=== PATIENT | male | born 1975 | race Hispanic/Latino ===

== ENCOUNTER 2018-07-28 22:48 | Inpatient (IN) | payer MEDICAID, OTHER, SELFPAY ==
[2018-07-28] MEDS ORDERED: Morphine 4 MG/ML VIAL ONE (23:33)
[2018-07-29 00:34] LABS: INR-International Normal Ratio 1.1; Prothrombin Time 14.3 SEC (12.0-14.7)
[2018-07-29 00:50] LABS: Acetaminophen Less than 6.0 mcg/mL (10.0-30.0)
[2018-07-29 01:12] LABS: HBCM Index 0.06 S/CO (0-0.79); HBSAg Index 0.29 S/CO (0-0.99); Hep A IgM AB Non-Reactive (NonReactive); Hep A IgM S/CO 0.16 S/CO (0-0.79); Hep B Surf Ag Non-Reactive S/CO (NonReactive); Hep C IgG Ab Non-Reactive (NonReactive); Hep C Index 0.08 S/CO (0-0.79); Hepatitis B Core IgM Abs Non-Reactive (NonReactive)
[2018-07-29] MEDS ORDERED: Potassium Chloride 40 MEQ in Sodium Chloride 0.9% 250 ML 250 ML IVPB SCH (01:15)
[2018-07-29] MEDS ORDERED: Potassium Chloride 20 MEQ TAB PO SCH ×2 (03:00→05:45)
[2018-07-29] MEDS ORDERED: Mag-Al 1200 mg/1200 mg/30 ML UDCUP PO PRN (03:03)
[2018-07-29] MEDS ORDERED: traMADol HCl 50 MG TAB PO PRN (03:03)
[2018-07-29] MEDS: Lorazepam 2 MG/ML VIAL SLOW IVP PRN ×3 (04:07→20:38)
[2018-07-29 04:27] LABS: ALT (SGPT) 46 U/L (8-55); AST (SGOT) 218 U/L (5-34); Albumin 2.7 g/dL (3.5-5.0); Alkaline Phosphatase 250 U/L (40-150); Anion Gap 18 mmol/L (10-20); BUN (Urea Nitrogen) Less than 4 mg/dL (8.9-20.6); Bilirubin, Total 4.6 mg/dL (0.2-1.2); Calc. Creatinine Clearance 190 mL/min (70-130); Calcium 8.1 mg/dL (7.8-10.44); Carbon Dioxide 31 mmol/L (22-29); Chloride 92 mmol/L (98-107); Estimated GFR-MDRD Greater than 90; Globulin 3.1 g/dL (2.4-3.5); Glucose 95 mg/dL (70-105); Protein, Total 5.8 g/dL (6.0-8.3); Sodium 139 mmol/L (136-145)
[2018-07-29 05:08] LABS: Potassium 2.3 mmol/L (3.5-5.1)
[2018-07-29] MEDS ORDERED: Folic Acid 1 MG TAB PO SCH (09:00)
[2018-07-29] MEDS ORDERED: Magnesium Sulfate 2 GM in Sodium Chloride 0.9% 100 ML IVPB SCH (09:45)
--- NOTE | 2018-07-29 10:11 | RAD ---
SINGLE VIEW OF THE CHEST: Comparison: None. History: Shortness of breath. FINDINGS: Single view of the chest shows a normal sized cardiomediastinal silhouette. There is no evidence of c onsolidation, mass, or pleural effusion. The bones are unremarkable. IMPRESSION: No evidence of acute cardiopulmonary disease. POS: [facility]
[2018-07-29] MEDS: Morphine 4 MG/ML VIAL SLOW IVP PRN ×3 (10:40→20:37)
[2018-07-29] MEDS: Magnesium 2 GM/50 ML 2 GM in Premix Bag 1 BAG IVPB SCH ×2 (10:41→13:18)
[2018-07-29] MEDS: Piperacillin/Tazobactam 3.375 GM in Sodium Chloride 0.9% 100 ML IVPB SCH ×3 (12:09→23:37)
[2018-07-29 12:43] LABS: Clarity Clear (Clear)
[2018-07-29 12:44] LABS: Leukocyte Unable to Interpret (Negative); Nitrite Unable to Interpret (Negative); Specific Gravity, Urine 1.019 (1.002-1.036); pH, Urine 6.4 (5.0-9.0)
[2018-07-29 12:45] LABS: Bilirubin Unable to Interpret (Negative); Blood, Urine Unable to Interpret (Negative); Glucose, Urine (Dipstick) Unable to Interpret mg/dL (Negative); Protein, Urine (Dipstick) Negative (Neg-Trace); Urobilinogen UNABLE TO INTERPRET mg/dL (0.2-1.0)
[2018-07-29 12:53] LABS: Bacteria/HPF Rare-Few HPF (None Seen)
[2018-07-29 12:54] LABS: Hyaline Casts/LPF 0-3 HYALINE CAST LPF (0-3 Hyaline); Squamous Epithelial 0-3 HPF (0-3)
[2018-07-29 13:18] LABS: ALT (SGPT) 45 U/L (8-55); AST (SGOT) 233 U/L (5-34); Albumin 2.7 g/dL (3.5-5.0); Alkaline Phosphatase 246 U/L (40-150); Anion Gap 17 mmol/L (10-20); BUN (Urea Nitrogen) 5 mg/dL (8.9-20.6); Bilirubin, Total 6.6 mg/dL (0.2-1.2); Calc. Creatinine Clearance 169 mL/min (70-130); Calcium 7.8 mg/dL (7.8-10.44); Carbon Dioxide 27 mmol/L (22-29); Chloride 95 mmol/L (98-107); Estimated GFR-MDRD Greater than 90; Glucose 129 mg/dL (70-105); Potassium 3.2 mmol/L (3.5-5.1); Protein, Total 5.7 g/dL (6.0-8.3); Sodium 136 mmol/L (136-145)
[2018-07-29] MEDS: Multivitamins, Adult 10 ML, Folic Acid 1 MG, Thiamine HCl 100 MG in Dextrose 5 %-0.45 %... IV SCH (13:57)
[2018-07-29] MEDS: Potassium Chloride 20 MEQ TAB PO SCH ×2 (14:05→18:41)
--- NOTE | 2018-07-29 14:29 | HP ---
CHIEF COMPLAINT: Abdominal pain and fever. HISTORY OF PRESENT ILLNESS: The patient is a 43-year-old male, who is an alcoholic, who drinks several drinks a day for more than 10 years, who presented to the emergency room in [facility] with chief complaint of abdominal pain. He was scanned and the scan showed hepatomegaly with diffuse infiltration of the liver without any focal problems. His potassium was down to 2.7 and then he was sent to the [facility]Emergency Room in [place] for further evaluation and possible admission. His generalized abdominal pain is going on for approximately three days. He had some nonbilious, nonbloody vomits. He had some nausea. He noticed that his eyes and skin get yellow when he drinks more. His alcohol level in [facility] was 220 and leukocytosis was 14.5. Liver function tests were elevated. He denied any fever or chills, but after he was sent to [facility] this morning, he started having temperature of 101.5. He feels short of breath. He feels the chest is pushed from the inside by his liver. PAST MEDICAL HISTORY: Cellulitis. PAST SURGICAL HISTORY: 1. Left arm surgery. 2. Appendectomy. SOCIAL HISTORY: He drinks every day, it varies, but he drinks a lot. He denies any illicit drug use. He dips one can a day. ALLERGIES: NONE. MEDICATIONS: Current medications: None. REVIEW OF SYSTEMS: All 14 systems were reviewed and they were negative except for those symptoms which were mentioned in HPI. PHYSICAL EXAMINATION: VITAL SIGNS: Blood pressure is 130/78, pulse is 111, respiratory rate is 20, O2 saturation is 94% on room air, his temperature is 101.6. The temperature at the time of admission was 98.7. HEENT: His head is atraumatic, normocephalic. Eyes PERRLA. Sclerae are present with some icteric changes. Conjunctiva is reddish. Oral mucosa is somewhat dry. NECK: Supple. No lymphadenopathy. LUNGS: Breath sounds diminished at both bases. No crackles. No rales. No wheezing. HEART: S1, S2 normal. No S3, no S4. He is tachycardic. ABDOMEN: Distended and tender in the upper part. Edge of the liver is palpable approximately 3 cm below the costal margin. Bowel sounds are present. I do not feel any spleen. EXTREMITIES: No clubbing, cyanosis, or edema. NEUROLOGICAL: He is alert and oriented x4. There are no any sensory or motor deficits present. Cranial nerves are intact. LABORATORY DATA: White count of 14.5, hemoglobin 12.7, hematocrit 34.6, platelet count is 347, neutrophils 80.9. INR 1.1, PT of 14.3, aPTT 29.2. Sodium of 139, potassium 2.3, chloride 92, CO2 of 31, BUN 4, creatinine 0.64, magnesium 1.3, total bilirubin 4.6, AST 218, ALT 46, alkaline phosphatase 250, serum protein 5.8, albumin 2.7, globulin 3.1. Urinalysis showed moderate amount of blood, small amount of bilirubin. Toxicology showed less than 6 of acetaminophen. Plasma alcohol 220. Serology was negative for hepatitis A, B, or C. EKG normal sinus rhythm with some tachycardia, some T-wave changes in V3, V4, and V5, abnormal EKG. A CT of the abdomen done in [place] showed tremendous hepatomegaly with diffuse fatty infiltration of the liver. IMPRESSION: 1. Acute abdominal pain with evidence of alcoholic liver disease. Now the patient is developing fever. There is suspicion of some infectious process possible going on in his abdomen, although the CT did not show anything specific. We will have watch hairspring assembler Dr. Beckett to see the patient. We will start him on Zosyn after we get urine culture and blood cultures. He will receive banana bag, and we will check his CBC and comp this morning. We will use morphine for the pain since the tramadol is not really helping much. 2. Hypokalemia. We will check his potassium level today. He was given some replacement yesterday. 3. Hypomagnesemia. We will recheck his magnesium level and replace magnesium, i.e. hypomagnesemic. 4. Alcoholic liver failure. 5. Alcohol intoxication. His level was 220 yesterday. We will use benzodiazepines p.r.n. for possible withdrawal symptoms, so plan is admission to full admit to the medical floor plus monitoring, because of his changes in electrocardiogram, we will check his troponin every 4 hours x2. We will start him on Zosyn after we have cultures on urine and blood. GI consult is pending. We will check his magnesium and potassium this morning and replace as needed and DVT prophylaxis with SCDs and Lovenox. Job ID: [id number]
[2018-07-29] MEDS ORDERED: Acetaminophen 325 MG TAB PO SCH (21:00)
--- NOTE | 2018-07-29 23:14 | CON ---
DATE OF CONSULTATION: REASON FOR CONSULTATION: Alcoholic hepatitis. HISTORY OF PRESENT ILLNESS: Mr. Li is a 43-year-old who came to the emergency room last night with complaints of abdominal discomfort, worsening bloating, and development of jaundice. He initially presented to the hospital in [place], was transferred here. He notes his urine has been dark for about 2 weeks. He denies any exposure to anyone, who had hepatitis. Denies any recent sexual contacts, use of needles or IV drugs. He, however, had been drinking heavily for many days. Had issues with this before and stopped in the past, but for the past several months, has been drinking every day. In the emergency room in [place], he was noted to have elevated bilirubin, fatty liver with hepatomegaly, and hypokalemia. He is found to have a low magnesium and a mildly elevated white count of 14,000. No fever or chills. He did have a temperature of 101.5 this morning. He was empirically started on antibiotics. He has been able to tolerate some liquids and eating a little bit. He has been started on multivitamin, thiamine, and folate. PAST MEDICAL HISTORY: Cellulitis. PAST SURGICAL HISTORY: 1. Left arm surgery. 2. Appendectomy. SOCIAL HISTORY: He drinks daily. His last drink was yesterday. He does not use any drugs. He denies IV drug use. He dips snuff a can a day. ALLERGIES: NONE. MEDICATIONS: At home, he was taking none. Presently, he is on; 1. P.r.n. Maalox. 2. Ativan p.r.n. 3. Morphine p.r.n. 4. Multivitamin. 5. Thiamine. 6. Folate. 7. D5 normal. 8. Protonix. 9. Zosyn. 10. He was given oral potassium replacement. FAMILY HISTORY: Negative for liver disease. REVIEW OF SYSTEMS: Positive for previous alcohol withdrawal episodes. Negative for seizures. Negative for hematemesis, melena, or hematochezia. Negative for confused or altered mental status recently. He is accompanied by family members with him. He has some generalized arthralgias. Denies any skin rashes or lesions. PHYSICAL EXAMINATION: VITAL SIGNS: Temperature 101.6 at 7:40 this morning, 98.9 at 11; pulse 111 to 102; respiratory rate 16, O2 saturation 92% on room air, and blood pressure 123/84. GENERAL: He is resting comfortably in bed. He is not in any distress. He is breathing comfortably. He is somewhat disheveled. He is mildly icteric. NECK: Supple. No adenopathy. LUNGS: Clear. HEART: Regular rate and rhythm. No rubs, gallops, or murmurs. ABDOMEN: Soft and nontender. There is palpable hepatomegaly. There is no shifting dullness or fluid wave. The abdomen is dull, but I think is mainly due to his large liver. EXTREMITIES: Revealed trace edema. There is palmar erythema in his hands. There is diffuse spider angioma of the chest. NEUROLOGIC: He has no hyperreflexia or overt asterixis. LABORATORY STUDIES: White count 14.5 last night, hemoglobin 12.7, and platelet count 347. INR 1.1. Sodium 139 and today is 136, potassium is 2.3 and today 3.2, chloride 92, bicarb 31, BUN and creatinine 4 and 0.6 and today 5 and 0.7, and glucose 95 and today 125. Magnesium 1.3. Bilirubin 4.6, today 6.6; AST was 218, today 233; ALT 46 yesterday, 49 today; alkaline phosphatase 250, 246 today. Albumin 2.7, protein 5.8. Urine showed 4 to 6 white blood cells, no bacteria. Plasma alcohol is 220. Acetaminophen level less than 6. Hep A, B, and C negative. IMAGING STUDIES: Hepatomegaly Chest x-ray, no acute cardiopulmonary disease . ASSESSMENT: 1. Likely alcoholic hepatitis by history. Presently, he has good preserved renal function and mild leukocytosis. He has had some electrolyte abnormalities with hypokalemia and hypomagnesemia. He has no signs of overt hepatic encephalopathy. There is some fever today, the etiology is unclear. He has a nonfocal exam. This may all be related to his hepatitis, although risk of aspiration to be considered. He did have a negative chest x-ray. He does not appear septic. He has been started on empiric antibiotics. 2. History of delirium tremens and alcohol withdrawal. 3. Alcoholism. RECOMMENDATIONS: 1. Agree with prophylactic PPI, IV fluids, multivitamin, thiamine, folate, and [place] protocol as he is high likelihood of having alcohol withdrawals. We will keep him in hospital and treat him through that to see if we get him into a rehab program. He expressed interest in wanting to stop drinking alcohol altogether. 2. Supportive care. Otherwise monitor electrolytes daily. We will follow along with you. Job ID: [id number]
[2018-07-29] MEDS: Lorazepam 1 MG TAB PO PRN (23:37)
[2018-07-30] MEDS: Morphine 4 MG/ML VIAL SLOW IVP PRN ×4 (00:30→20:11)
[2018-07-30 05:54] LABS: Phosphorus 1.7 mg/dL (2.3-4.7)
[2018-07-30 05:59] LABS: ALT (SGPT) 40 U/L (8-55); AST (SGOT) 223 U/L (5-34); Albumin 2.8 g/dL (3.5-5.0); Alkaline Phosphatase 243 U/L (40-150); Anion Gap 16 mmol/L (10-20); BUN (Urea Nitrogen) 5 mg/dL (8.9-20.6); Bilirubin, Total 9.5 mg/dL (0.2-1.2); Calc. Creatinine Clearance 181 mL/min (70-130); Calcium 7.4 mg/dL (7.8-10.44); Carbon Dioxide 27 mmol/L (22-29); Chloride 95 mmol/L (98-107); Estimated GFR-MDRD Greater than 90; Globulin 2.8 g/dL (2.4-3.5); Glucose 123 mg/dL (70-105); Magnesium 1.8 mg/dL (1.6-2.6); Potassium 3.8 mmol/L (3.5-5.1); Protein, Total 5.6 g/dL (6.0-8.3); Sodium 134 mmol/L (136-145)
[2018-07-30] MEDS: Piperacillin/Tazobactam 3.375 GM in Sodium Chloride 0.9% 100 ML IVPB SCH ×3 (06:09→18:32)
[2018-07-30 06:14] LABS: #Basophils 0.1 thou/uL (0.0-0.2); #Eosinphils 0.1 thou/uL (0.0-0.7); #Monocytes 0.5 thou/uL (0.11-0.59); %Basophils 0.5 % (0.0-1.0); %Eosinophils 0.7 % (0.0-10.0); %Lymphocytes 9.3 % (21.0-51.0); %Monocytes 4.7 % (0.0-10.0); %Neutrophils 84.8 % (42.0-75.0); Hemoglobin 11.4 g/dL (14.0-18.0); MDiff Complete? YES; Mean Corpuscular HGB CONC 33.4 g/dL (32.0-36.0); Mean Corpuscular Hemoglobin 35.3 pg (27.0-31.0); Mean Platelet Volume 7.3 fL (7.4-10.4); Platelet Count 277 thou/uL (130-400); Red Blood Cell (RBC) Count 3.24 mill/uL (4.70-6.10); Target Cells SLIGHT = 2-5 cells (100X) (0-1/hpf); White Blood Cell (WBC) Count 10.6 thou/uL (4.8-10.8)
[2018-07-30] MEDS ORDERED: Sodium Phosphate 15 MMOL in Sodium Chloride 0.9% 250 ML 250 ML IVPB SCH (06:15)
[2018-07-30] MEDS: Lorazepam 1 MG TAB PO PRN (09:06)
[2018-07-30] MEDS: Multivitamins, Adult 10 ML, Folic Acid 1 MG, Thiamine HCl 100 MG in Dextrose 5 %-0.45 %... IV SCH (09:08)
[2018-07-30] MEDS ORDERED: Lorazepam 1 MG TAB PO SCH ×2 (11:00→13:30)
[2018-07-30] MEDS ORDERED: Enoxaparin Sodium 40 MG/0.4 ML SYRINGE SC SCH ×2 (11:30→13:30)
--- NOTE | 2018-07-30 12:09 | PRG ---
DATE OF SERVICE: 07/30/2018 SUBJECTIVE: The patient is seen and examined at the bedside. He is quite uncomfortable. His abdominal pain is rated at 4 on a scale from 1 to 10. He was able to go to the bathroom today and had small bowel movement. He does not have much appetite. OBJECTIVE: VITAL SIGNS: His blood pressure is 133/79, temperature is 99.1, maximal temperature was 102.9 last night, pulse is 111, respiratory rate 24, and O2 saturation is 95% on room air. HEENT: His head is atraumatic and normocephalic. Eyes, PERRLA. Sclerae somewhat icteric now. Conjunctivae pinkish. Oral mucosa is moist. NECK: Supple. LUNGS: Breath sounds diminished at both bases. HEART: S1 and S2. Tachycardic. No S3, no S4. ABDOMEN: Distended, somewhat tender to palpation in the upper parts. Liver edge is palpable approximately 4 cm below the costophrenic margin. Bowel sounds are present, active. EXTREMITIES: No clubbing, cyanosis, or edema. NEUROLOGIC: He is alert and oriented x4. There are no any sensory or motor deficits present. Cranial nerves are intact. LABORATORY DATA: Labs show white count of 10.6, hemoglobin of 11.4, hematocrit 34.1, platelet count is 277, neutrophils 84.8. Sodium of 134, potassium 3.8, chloride 95, CO2 of 27, BUN 5, creatinine 0.67, glucose 123, calcium 7.4, phosphorus 1.7, magnesium 1.8. Total bilirubin 9.5, AST 223, ALT 40, alkaline phosphatase 243, serum total protein 5.6, albumin 2.8, globulin 2.8. Urinalysis showed orange color, 7 to 10 rbc's, 4 to 6 wbc's. Microbiology; blood cultures negative. Urine cultures negative so far. IMPRESSION: 1. Acute abdominal pain with evidence of alcoholic liver disease with some fever. Cultures are negative. His LFTs are basically the same except for bilirubin, which is up from 6 to 9. Most likely, this is stasis, not from necrosis. 2. Hypokalemia, corrected. 3. Hypomagnesemia, corrected. 4. Hypophosphatemia, to be replaced. 5. Alcoholic liver failure. 6. Alcohol intoxication. 7. The patient started having some withdrawal symptoms. We will change his p.r.n. benzodiazepines to schedule three times a day. Lorazepam 1 mg plus p.r.n. The patient was seen by Dr. Beckett for GI consultation. He agrees with the treatment. He agrees with a banana bag daily. We will continue replacement of missing and deficient minerals and close observation of the patient. We will continue morphine. We will continue deep venous thrombosis prophylaxis with sequential compression device, and we will start Lovenox. Job ID: [id number]
--- NOTE | 2018-07-30 15:22 | RAD ---
TWO VIEW ABDOMEN: Supine upright views obtained. Indication: Abdominal pain. FINDINGS: Bowel gas pattern unremarkable. Scattered stool and gas seen throughout the colon. Some scattered sma ll bowel gas is seen which appears nonspecific. No evidence of mass. No evidence of free intraperiton eal air. No abnormal calcifications. Surgical clips overlie the lower right abdomen. IMPRESSION: Unremarkable bowel gas pattern. POS: [facility]
[2018-07-30] MEDS: Lorazepam 1 MG TAB PO SCH ×2 (16:00→20:01)
[2018-07-30] MEDS: Lorazepam 2 MG/ML VIAL SLOW IVP PRN (18:40)
[2018-07-30] MEDS: Ibuprofen 200 MG TAB PO PRN (23:52)
[2018-07-31] MEDS: Morphine 4 MG/ML VIAL SLOW IVP PRN ×3 (01:35→20:18)
[2018-07-31] MEDS: Piperacillin/Tazobactam 3.375 GM in Sodium Chloride 0.9% 100 ML IVPB SCH ×4 (01:38→17:57)
[2018-07-31 05:02] LABS: #Basophils 0.1 thou/uL (0.0-0.2); #Eosinphils 0.1 thou/uL (0.0-0.7); #Lymphocytes 0.9 thou/uL (1.20-3.40); #Monocytes 0.7 thou/uL (0.11-0.59); #Neutrophils 9.6 thou/uL (1.40-6.50); %Basophils 0.5 % (0.0-1.0); %Eosinophils 0.5 % (0.0-10.0); %Lymphocytes 8.1 % (21.0-51.0); %Monocytes 6.1 % (0.0-10.0); %Neutrophils 84.8 % (42.0-75.0); Hemoglobin 10.7 g/dL (14.0-18.0); Mean Corpuscular HGB CONC 33.6 g/dL (32.0-36.0); Mean Corpuscular Hemoglobin 35.4 pg (27.0-31.0); Mean Platelet Volume 7.2 fL (7.4-10.4); Platelet Count 260 thou/uL (130-400); RBC Distribution Width 14.1 % (11.5-14.5); Red Blood Cell (RBC) Count 3.03 mill/uL (4.70-6.10); White Blood Cell (WBC) Count 11.3 thou/uL (4.8-10.8)
[2018-07-31 05:12] LABS: ALT (SGPT) 34 U/L (8-55); AST (SGOT) 163 U/L (5-34); Albumin 2.6 g/dL (3.5-5.0); Alkaline Phosphatase 192 U/L (40-150); Anion Gap 13 mmol/L (10-20); BUN (Urea Nitrogen) 7 mg/dL (8.9-20.6); Bilirubin, Total 11.2 mg/dL (0.2-1.2); Calc. Creatinine Clearance 166 mL/min (70-130); Calcium 7.4 mg/dL (7.8-10.44); Carbon Dioxide 24 mmol/L (22-29); Chloride 99 mmol/L (98-107); Estimated GFR-MDRD Greater than 90; Globulin 2.8 g/dL (2.4-3.5); Glucose 146 mg/dL (70-105); Magnesium 1.7 mg/dL (1.6-2.6); Potassium 3.3 mmol/L (3.5-5.1); Protein, Total 5.4 g/dL (6.0-8.3); Sodium 133 mmol/L (136-145)
--- NOTE | 2018-07-31 08:22 | ULT ---
HEPATIC SONOGRAM WITH DUPLEX EVALUATION: HISTORY: Hepatitis. FINDINGS: Echogenic sludge is present within the gallbladder lumen without shadowing stone visible. Gallbladde r wall is somewhat thickened at 0.8 cm with a small amount of pericholecystic fluid. The patient was reportedly tender over the gallbladder at the time of the exam. The common duct is 0.5 cm. The andrew er is diffusely echogenic and measures up to 24.9 cm. The spleen is 13.0 cm. Minimal free fluid. Good color and spectral Doppler flow within the hepatic and splenic arteries. Portal venous flow is towards the liver. Hepatic venous flow is towards the IVC. IMPRESSION: 1. Biliary sludge is evidence of chronic gallbladder dyskinesis. 2. Findings of acute cholecystitis include wall thickening, a small amount of pericholecystic fluid, and positive sonographic Hawkins's sign. In the setting of acute hepatitis, however, these findings could also be present. Correlation with other clinical findings of acute cholecystitis is required. The gallbladder is not overly distended. 3. Hepatosteatosis. Hepatosplenomegaly. 4. No other findings of portal venous hypertension. There is appropriate directional flow of the po rtal vein. POS: [facility]
[2018-07-31] MEDS ORDERED: Potassium Chloride 20 MEQ TAB PO SCH (09:00)
[2018-07-31] MEDS ORDERED: Potassium Phosphate 30 MMOL in Sodium Chloride 0.9% 500 ML IVPB SCH (09:00)
[2018-07-31] MEDS: Enoxaparin Sodium 40 MG/0.4 ML SYRINGE SC SCH (09:17)
[2018-07-31] MEDS: Folic Acid 1 MG TAB PO SCH (09:19)
[2018-07-31] MEDS: Lorazepam 1 MG TAB PO SCH ×3 (09:19→20:12)
[2018-07-31] MEDS: Multivit, Therapeutic 1 TAB PO SCH (09:19)
--- NOTE | 2018-07-31 10:38 | PRG ---
DATE OF SERVICE: 07/30/2018 GI FOLLOWUP SUBJECTIVE: Mr. Deleon notes his abdomen, stools giving him discomfort diffusely. He has had no nausea or vomiting. He is tolerating a diet. He did have a fever last night to 102. He is mildly tremulous. He is on DT protocol, and that is improved. OBJECTIVE: VITAL SIGNS: Temperature max 102, temperature current 99.1, pulse 111, and blood pressure 133/79. GENERAL: He is resting in bed, sleeping when I came in. LUNGS: Clear. HEART: Regular rhythm. ABDOMEN: Protuberant and fairly firm. Bowel sounds are positive. EXTREMITIES: No clubbing, cyanosis, or edema. LABORATORY DATA: White count 10.6, hemoglobin 11.4, MCV 106, and platelet count 277. Sodium 134, potassium 3.8, BUN and creatinine 5 and 0.67, calcium 7.4, magnesium 1.8, phosphorus 1.7, bilirubin 9.5, AST and ALT are 223 and 40, alkaline phosphatase is 243. Urine is negative. Urine cultures are negative. Blood cultures are negative to date. ASSESSMENT: 1. Alcoholic hepatitis. 2. Severe hepatomegaly. 3. Fever, likely related to alcoholic hepatitis. Cultures are negative thus far. He is on empiric antibiotics from Internal Medicine. RECOMMENDATIONS: Plain film of abdomen upright to make sure no free air. Ultrasound Doppler of liver. Continue supportive care, multivitamin, thiamine, folate, and diet. Job ID: [id number]
--- NOTE | 2018-07-31 13:32 | PRG ---
DATE OF SERVICE: 07/31/2018 SUBJECTIVE: The patient is seen and examined at the bedside. He is feeling somewhat better, but still complaining about abdominal pain. He is able to tolerate his food. He moved his bowels couple of times, but abdomen is still distended according to him. OBJECTIVE: VITAL SIGNS: Blood pressure is 119/93, pulse is 98, temperature 97.9, respiratory rate is 18, and O2 saturation is 97% on room air. HEENT: His head is atraumatic and normocephalic. Eyes are PERRLA. Sclerae are icteric significantly. Oral mucosa is moist. NECK: Supple. LUNGS: Breath sounds diminished at both bases. HEART: S1 and S2 normal. No S3. No S4. ABDOMEN: Distended, tender in the epigastric area on both sides. Bowel sounds are present. EXTREMITIES: No clubbing, cyanosis, or edema. NEUROLOGIC: He is alert and oriented x4. There are no any motor or sensory deficits present. Cranial nerves are intact. LABORATORY DATA: White count of 11.3, hemoglobin of 10.7, hematocrit 31.9, and platelet count is 260,000. Sodium of 133, potassium 3.3, chloride 99, CO2 of 24, BUN 7, creatinine 0.71, glycemia is ranging from 163 to 233. His magnesium is 1.7. Total bilirubin is up to 11.2. AST 163 and ALT 34, alkaline phosphatase down to 192. Serum total protein 5.4, albumin 2.6. Microbiology, no new findings. Ultrasound of the abdomen showed echogenic sludge within the gallbladder lumen without shadowing stone visible. The gallbladder wall thickness is 0.8 cm with a small amount of pericholecystic fluid, common bile duct was 0.5, and the liver was diffusely echogenic and measures up to 24.9 cm. The spleen was 13.0 cm. There was minimal free fluid. There was good color and spectral Doppler flow within the hepatic and splenic arteries and portal venous flow was towards the liver and hepatic venous flow was towards the inferior vena cava. Abdominal x-ray did not show any acute abnormalities. IMPRESSION: 1. Abdominal pain, still significant with elevated bilirubin and finding on ultrasound of the abdomen. I am going to contact general surgeon to take a look at him and see whether this could be representing acute cholecystitis on the top of his acute alcoholic hepatitis. 2. Acute alcoholic hepatitis with hepatosplenomegaly. His AST improved and alkaline phosphatase is better, but his bilirubin is still climbing up. This is most likely cholestatic. 3. Hypokalemia still for supplementation. 4. Hypomagnesemia and hypophosphatemia, corrected. 5. Alcohol intoxication. 6. Impending alcohol withdrawal, so plan is to get a General Surgery consult with Dr. Starr. The case was discussed. Continue current regimen with lorazepam for his alcohol withdrawals. Continue daily banana bag. Continue p.r.n. morphine and continue DVT prophylaxis. Job ID: [id number]
--- NOTE | 2018-07-31 18:31 | PRG ---
DATE OF SERVICE: 07/31/2018 SUBJECTIVE: Mr. Deleon downstairs in a HIDA scan at this time. I talked with his nurse. He still complains of just vague abdominal discomfort. He has had no vomiting or melena. OBJECTIVE: VITAL SIGNS: Temperature was 101 last night, but today has been 99 or 97, blood pressure 119/93, presently temperature is 97.9, and pulse is 98. Exam is deferred while he is in HIDA scan. LABORATORY DATA: White count is 11.3, hemoglobin 10.7, platelet count 270. Chemistries; sodium 133, potassium 3.3. BUN and creatinine are 7 and 0.7. Bilirubin is up to 11.2. AST and ALT 163 and 34, down from 233 and 45 on admission. Alkaline phosphatase is 118, down from 146 on admission. Plain films of the abdomen are showing no overt free air. Ultrasound liver Doppler showed no evidence of portal vein thrombosis. Massive hepatomegaly with fatty liver. Biliary sludge. There is some thickening of the gallbladder wall and some slight pericholecystic fluid. ASSESSMENT: Severe alcoholic hepatitis. I suspect the biliary findings on ultrasound are related to portal hypertension and severe hepatitis. I would recommend he not have a cholecystectomy unless he becomes septic. If there is concern that he has cholecystitis this can be treated with antibiotics at this time. All of his liver function tests were going down except for his bilirubin, which is going up, which is very characteristic of alcoholic hepatitis. I suspect his bilirubin may plateau around 17 or 20 before this is all over. The fever is very consistent with course of alcoholic hepatitis as well. He shows no overt signs of infection, respiratory or urologic tracts at this time. He has no signs of encephalopathy and he seems to have completed his alcohol withdrawals. RECOMMENDATIONS: It is okay to proceed with a HIDA scan, although if it was positive, I would not recommend cholecystectomy, I want to treat him with antibiotics. He would be a high risk of morbidity and mortality with an abdominal surgery in light of his severe alcoholic hepatitis. We will follow along with you. Job ID: [id number]
--- NOTE | 2018-07-31 20:16 | NM ---
NUCLEAR MEDICINE HEPATOBILIARY SCAN: History: 43-year-old male with history of cholecystitis versus alcohol hepatitis with hepatomegaly and jaundic e and abdominal pain. FINDINGS: The patient was given Ensure drink 4 hours prior to the scan. The patient was injected with 4.7 mCi Technetium 99M Mebrofenin intravenously. There is prompt uptake of the liver but no evidence for excretion within the biliary tree or gallblad oliver. No emptying within the bowel after one hour. Delayed image at 2.5 hours following an additional 5 mCi Mebrofenin intravenous injection demonstrate s persistent activity throughout the liver without evidence for activity or concentration within the biliary tree or gallbladder. There is some questionable possible trace activity within the bowel. IMPRESSION: Very abnormal Nuclear Medicine hepatobiliary scan with persistent uptake of tracer within the liver w ithout any activity noted within the biliary tree or gallbladder after 2.5 hours. This favors hepatit is or other nonspecific diffuse liver disease. No evidence of activity within the biliary tree or gal lbladder even after 2.5 hours. POS: [facility]
--- NOTE | 2018-07-31 23:47 | CON ---
DATE OF CONSULTATION: CHIEF COMPLAINT: Abdominal pain. HISTORY: Mr. Deleon is a 43-year-old man with a past medical history of active alcohol abuse. He has had episodes with alcohol withdrawal in the past and actually gave up drinking for some time, but started again about a year ago. He states that he usually drinks three 24-ounce beers a day and has been doing this steadily for the past year up until last week when he started to have increasing abdominal pain and distention and came into the emergency room. He was found to have alcoholic hepatitis with hepatomegaly, and was admitted to the Medicine Service. His bilirubin has continued to climb through his hospital stay and is now up to 11.2. He states that he has had dark urine and a yellow tone to his skin. A gallbladder ultrasound was obtained, which showed some gallbladder wall thickening and pericholecystic fluid, which could be acute cholecystitis, but could also be a consequence of his acute alcoholic hepatitis. His other LFTs are only moderately elevated. His ALT is normal, his AST is 163 and alkaline phosphatase is 192. He does not have any focal pain. He states that his abdomen hurts all over and feels tight. He has been eating and having normal bowel movements, which are normal in color. He denies any melena or hematochezia and his stools are brown. He has not had any nausea or vomiting, but does have early satiety. PAST MEDICAL HISTORY: Alcohol abuse and distant history of multidrug abuse, but no IV drugs in the past 20 years by his report. PAST SURGICAL HISTORY: Left arm surgery and drainage of an abscess on his right arm and an appendectomy. SOCIAL HISTORY: Positive for ongoing alcohol abuse until this admission. No illicit or IV drug use in the past 20 years. He does dip snuff. ALLERGIES: HE DENIES ALLERGIES. MEDICATIONS: He does not take any medications on an outpatient basis. REVIEW OF SYSTEMS: Ten system review of systems is negative except per HPI. PHYSICAL EXAMINATION: VITAL SIGNS: The patient has had a fever up to 102.9 during this admission, in the past 24 hours, T-max is 101.4. Tachycardia with other vitals normal. GENERAL: Reveals a healthy-appearing man, in no acute distress. He is mildly jaundiced and icteric. HEENT: Unremarkable. NECK: Supple without lymphadenopathy or thyroid nodules. HEART: Regular in its rate and rhythm without murmurs, rubs, or gallops. LUNGS: Clear to auscultation bilaterally. ABDOMEN: Distended with palpable hepatomegaly. The right lobe of his liver is palpable down to the level of the umbilicus laterally. He is diffusely tender to palpation. There is no fluid wave or caput medusa. No palpable hernias or other masses. EXTREMITIES: Warm, well perfused without edema. NEURO: No focal deficits, but he does have a noticeable tremor. PSYCHIATRIC: Alert, oriented and appropriate. LABORATORY DATA: White count is mildly elevated at 11.3, hematocrit 31.9, platelets 260. Coags were normal at admission. Potassium was low today at 3.3, but other electrolytes were unremarkable. Bilirubin 11.2. Hepatitis viral studies are negative. Tylenol level is less than 6. CT images from the outside hospital were reviewed and I agree with the written report. He has remarkable hepatomegaly without any other focal findings. The gallbladder looked fairly normal at that time. Ultrasound images reviewed and I also agree with that report. ASSESSMENT: Alcoholic hepatitis with diffuse abdominal tenderness. He does not have any focal findings on exam to suggest acute cholecystitis and the gallbladder is not distended. I suspect that this is reactive changes related to his hepatitis , but I have ordered a HIDA scan with ejection fraction to evaluate the gallbladder. If he has mild gallbladder dysfunction, but the gallbladder fills, I would not recommend surgery in this setting. He would likely not be able to have a laparoscopic surgery due to his abdominal distention and hepatomegaly and he would be at high risk for bleeding and other complications of surgery given his acutely inflamed and enlarged liver. Options, if he does have findings consistent with acute cholecystitis, include cholecystectomy, which would likely need to be done open, or antibiotics, possibly with a cholecystostomy tube. I will follow him as an inpatient. I have also asked that his total bilirubin be fractionated, I will await this and the HIDA scan report. Job ID: [id number] [facility]
[2018-08-01] MEDS: Ibuprofen 200 MG TAB PO PRN (00:16)
[2018-08-01] MEDS: Piperacillin/Tazobactam 3.375 GM in Sodium Chloride 0.9% 100 ML IVPB SCH ×4 (00:16→17:30)
[2018-08-01] MEDS: Morphine 4 MG/ML VIAL SLOW IVP PRN ×6 (00:16→20:42)
[2018-08-01 05:27] LABS: INR-International Normal Ratio 1.1; PTT 33.1 SEC (22.9-36.1); Prothrombin Time 14.4 SEC (12.0-14.7)
[2018-08-01 05:37] LABS: ALT (SGPT) 32 U/L (8-55); AST (SGOT) 165 U/L (5-34); Albumin 2.6 g/dL (3.5-5.0); Alkaline Phosphatase 194 U/L (40-150); Anion Gap 16 mmol/L (10-20); BUN (Urea Nitrogen) 9 mg/dL (8.9-20.6); Bilirubin, Total 11.8 mg/dL (0.2-1.2); Calc. Creatinine Clearance 171 mL/min (70-130); Calcium 7.7 mg/dL (7.8-10.44); Carbon Dioxide 23 mmol/L (22-29); Chloride 102 mmol/L (98-107); Estimated GFR-MDRD Greater than 90; Glucose 97 mg/dL (70-105); Iron 37 ug/dL (65-175); Iron Binding Capacity, Total 141 mcg/dL (261-462); Magnesium 1.5 mg/dL (1.6-2.6); Potassium 4.1 mmol/L (3.5-5.1); Protein, Total 5.6 g/dL (6.0-8.3); Sodium 137 mmol/L (136-145)
[2018-08-01 05:49] LABS: #Eosinphils 0.1 thou/uL (0.0-0.7); #Lymphocytes 0.9 thou/uL (1.20-3.40); #Monocytes 0.9 thou/uL (0.11-0.59); #Neutrophils 8.7 thou/uL (1.40-6.50); %Basophils 0.2 % (0.0-1.0); %Eosinophils 0.9 % (0.0-10.0); %Lymphocytes 8.3 % (21.0-51.0); %Monocytes 8.4 % (0.0-10.0); %Neutrophils 82.2 % (42.0-75.0); Hemoglobin 11.2 g/dL (14.0-18.0); Mean Corpuscular HGB CONC 30.3 g/dL (32.0-36.0); Mean Corpuscular Hemoglobin 32.5 pg (27.0-31.0); Mean Platelet Volume 7.7 fL (7.4-10.4); Platelet Count 282 thou/uL (130-400); RBC Distribution Width 14.5 % (11.5-14.5); Red Blood Cell (RBC) Count 3.44 mill/uL (4.70-6.10); White Blood Cell (WBC) Count 10.6 thou/uL (4.8-10.8)
--- NOTE | 2018-08-01 07:27 | PDOC.GSPN ---
Surgery Progress Note: Subj - Subjective Narrative: HIDA consistent with primary liver pathology; unable to eval GB function as tracer was not excreted. Still just "sore" w no focal tenderness on exam. Do not think pt would benefit from cholecystectomy which in any case would be technically difficult. Signing off for now. Reconsult if further questions. Surgery Progress Note: Obj - Vital signs Vital signs: Vital Signs - Most Recent Temp Pulse Resp BP Pulse Ox 98.6 F 115 H 16 115/79 96 08/01/18 03:50 08/01/18 03:50 08/01/18 03:50 08/01/18 04:00 08/01/18 03:50 Surgery Progress Note: Results - Labs Result Diagrams: 08/01/18 04:34 08/01/18 04:34 Lab results: Laboratory Results - last 24 hr 08/01/18 08/01/18 08/01/18 04:34 04:34 04:34 WBC 10.6 RBC 3.44 L Hgb 11.2 L Hct 36.9 L MCV 107.0 H MCH 32.5 H MCHC 30.3 L RDW 14.5 Plt Count 282 MPV 7.7 Neutrophils % 82.2 H Lymphocytes % 8.3 L Monocytes % 8.4 Eosinophils % 0.9 Basophils % 0.2 Neutrophils # 8.7 H Lymphocytes # 0.9 L Monocytes # 0.9 H Eosinophils # 0.1 Basophils # 0.0 PT 14.4 INR 1.1 APTT 33.1 Sodium 137 Potassium 4.1 Chloride 102 Carbon Dioxide 23 Anion Gap 16 BUN 9 Creatinine 0.69 L Estimated GFR (MDRD) Greater than 90 Glucose 97 Calcium 7.7 L Magnesium 1.5 L Iron 37 L TIBC 141 L Ferritin Total Bilirubin 11.8 H AST 165 H ALT 32 Alkaline Phosphatase 194 H Serum Total Protein 5.6 L Albumin 2.6 L Globulin 3.0 Albumin/Globulin Ratio 0.9 L 08/01/18 04:34 WBC RBC Hgb Hct MCV MCH MCHC RDW Plt Count MPV Neutrophils % Lymphocytes % Monocytes % Eosinophils % Basophils % Neutrophils # Lymphocytes # Monocytes # Eosinophils # Basophils # PT INR APTT Sodium Potassium Chloride Carbon Dioxide Anion Gap BUN Creatinine Estimated GFR (MDRD) Glucose Calcium Magnesium Iron TIBC Ferritin 608.60 H Total Bilirubin AST ALT Alkaline Phosphatase Serum Total Protein Albumin Globulin Albumin/Globulin Ratio
[2018-08-01] MEDS: Folic Acid 1 MG TAB PO SCH (08:21)
[2018-08-01] MEDS: Enoxaparin Sodium 40 MG/0.4 ML SYRINGE SC SCH (08:21)
[2018-08-01] MEDS: Lorazepam 1 MG TAB PO SCH ×3 (08:21→20:43)
[2018-08-01] MEDS: Multivit, Therapeutic 1 TAB PO SCH (08:21)
--- NOTE | 2018-08-01 12:54 | PRG ---
DATE OF SERVICE: 08/01/2018 SUBJECTIVE: The patient is seen and examined at bedside. He is able to ambulate now, but he still complains about fullness of his abdomen and some pain, especially in the upper parts of the abdomen. He is able to tolerate his food. He had his first breakfast this morning. OBJECTIVE: VITAL SIGNS: Blood pressure 119/81, pulse is 109, temperature is 98.4, O2 saturation is 94% on room air. His respirations are 24. HEENT: His head is atraumatic and normocephalic. Eyes are PERRLA. Sclerae are icteric. Oral mucosa is moist. NECK: Supple. LUNGS: Breath sounds diminished at both bases. HEART: S1 and S2. Tachycardic. No S3. No S4. ABDOMEN: Distended, tender in the upper parts. Liver is palpable. DAH is palpable approximately 4 cm below the right costophrenic angle. Bowel sounds are present. There is hepatomegaly. LABORATORY DATA: Labs showed white count of 10.8, hemoglobin 11.2, hematocrit 36.9, and platelet count is 282. INR is 1.1. PT 14.4, normal electrolytes, BUN 9, creatinine 0.69, calcium 7.7, magnesium 1.5, total iron-binding capacity 141, iron is 37, ferritin 608, total bilirubin is up to 11.8, AST 165, ALT 32, alkaline phosphatase 194, total protein 5.6, albumin 2.6. Hepatitis panel negative. IMPRESSION: 1. Acute alcoholic hepatitis. His bilirubin is still climbing up, today is 11.8. He is getting his treatments daily. He had HIDA scan yesterday. 2. Hypokalemia, supplemented, corrected. 3. Hypomagnesemia and hypophosphatemia, still needs some replacement. 4. Alcohol intoxication, resolved. 5. Impending alcohol withdrawal. The patient seems to be doing better on the doses of lorazepam three times a day 1 mg each and p.r.n. as needed. 6. Abdominal pain. The patient was seen by Dr. Starr. HIDA scan was done, which showed abnormal nuclear medicine hepatobiliary scan with persistent uptake of tracer within the liver without any activity noted within the biliary tree or gallbladder after 2-1/2 hours. This favored hepatitis or other nonspecific diffuse liver disease. There was no evidence of activity within the biliary tree or gallbladder even after 2-1/2 hours. Since the patient is at high risk, General Surgery does not want to operate on him, and I agree with the assessment and plan. I think we are reaching the point when the liver function test starts improving gradually and this is almost the peak of his bilirubin level we are going to see, so we will continue his daily banana bag, morphine p.r.n., and he was started on some food today, without any issues, he tolerated food, and will have NAC 600 mg twice a day to improve his ability to detoxify and will have renal case manager to talk to him about outpatient alcoholism treatment options. Job ID: [id number]
[2018-08-01 18:33] LABS: Anion Gap 14 mmol/L (10-20); BUN (Urea Nitrogen) 10 mg/dL (8.9-20.6); Calc. Creatinine Clearance 178 mL/min (70-130); Calcium 7.6 mg/dL (7.8-10.44); Carbon Dioxide 25 mmol/L (22-29); Chloride 99 mmol/L (98-107); Estimated GFR-MDRD Greater than 90; Glucose 115 mg/dL (70-105); Potassium 3.7 mmol/L (3.5-5.1); Sodium 134 mmol/L (136-145)
[2018-08-01] MEDS: Lorazepam 2 MG/ML VIAL SLOW IVP PRN (22:02)
--- NOTE | 2018-08-01 23:30 | PRG ---
DATE OF SERVICE: 08/01/2018 SUBJECTIVE: Mr. Deleon moved up to [id number]. He is up sitting on side of bed, eating. Abdominal pain is diminished. He states his fever has come down. OBJECTIVE: VITAL SIGNS: His pulse is still between about 100 and 110, temperature is 98.5, T-max 100.5 last night, blood pressure 123/81. HEENT: Eyes, icteric. LUNGS: Clear. HEART: Regular rate and rhythm. ABDOMEN: Protuberant, firm. Bowel sounds are positive. EXTREMITIES: Revealed no edema. ASSESSMENT: Alcoholic hepatitis. The patient remains on Lovenox subcu, folic acid, p.r.n. Motrin, Ativan p.r.n., morphine p.r.n., multivitamin, p.r.n. Protonix; Zosyn and thiamine, and Hep-Lock IV. He is improving clinically. LABORATORY DATA: His white count is 10.6 today, hemoglobin is 11.2, and platelet count is 282. INR is stable at 1.1. Magnesium is low at 1.5, phosphorus is 1.7 on the 12th. This is still being replaced. BUN and creatinine are normal. Bilirubin is 11.8, AST 165, ALT 32, alk phos 192, albumin 2.6. Discriminant function is 17. RECOMMENDATIONS: 1. [place] diet. 2. Continue dietary supplement. 3. Continue to check and replace magnesium, phosphorus, potassium daily. 4. No role for IV steroids or oral steroids at this time. If patient is showing signs of edema or ascites, could consider adding diuretics. 5. Dr. Shelton to follow up this weekend. Job ID: [id number]
[2018-08-02] MEDS: Piperacillin/Tazobactam 3.375 GM in Sodium Chloride 0.9% 100 ML IVPB SCH ×4 (00:25→17:42)
[2018-08-02] MEDS: Lorazepam 2 MG/ML VIAL SLOW IVP PRN (04:05)
[2018-08-02 05:22] LABS: Lipase 29 U/L (8-78); Magnesium 1.7 mg/dL (1.6-2.6)
[2018-08-02 05:25] LABS: Phosphorus 1.4 mg/dL (2.3-4.7)
[2018-08-02] MEDS: Morphine 4 MG/ML VIAL SLOW IVP PRN ×4 (06:15→21:43)
[2018-08-02] MEDS: Lorazepam 2 MG/ML VIAL SLOW IVP SCH ×2 (06:16→08:40)
[2018-08-02] MEDS: Ibuprofen 200 MG TAB PO PRN (06:20)
[2018-08-02] MEDS: Multivitamins, Adult 10 ML, Thiamine HCl 100 MG, Folic Acid 1 MG in Dextrose 5 %-0.45 %... IV SCH (07:30)
[2018-08-02] MEDS ORDERED: Lorazepam 2 MG/ML VIAL SLOW IVP PRN (08:31)
[2018-08-02] MEDS: Enoxaparin Sodium 40 MG/0.4 ML SYRINGE SC SCH (08:35)
[2018-08-02] MEDS: Folic Acid 1 MG TAB PO SCH (08:35)
[2018-08-02] MEDS: Lorazepam 1 MG TAB PO SCH ×3 (08:35→21:42)
[2018-08-02] MEDS: Multivit, Therapeutic 1 TAB PO SCH (08:35)
[2018-08-02 12:28] LABS: ALT (SGPT) 39 U/L (8-55); AST (SGOT) 212 U/L (5-34); Albumin 2.4 g/dL (3.5-5.0); Alkaline Phosphatase 174 U/L (40-150); Anion Gap 17 mmol/L (10-20); BUN (Urea Nitrogen) 12 mg/dL (8.9-20.6); Bilirubin, Total 13.4 mg/dL (0.2-1.2); Calc. Creatinine Clearance 192 mL/min (70-130); Carbon Dioxide 20 mmol/L (22-29); Chloride 100 mmol/L (98-107); Estimated GFR-MDRD Greater than 90; Glucose 147 mg/dL (70-105); Potassium 4.8 mmol/L (3.5-5.1); Protein, Total 5.4 g/dL (6.0-8.3); Sodium 132 mmol/L (136-145)
--- NOTE | 2018-08-02 15:35 | PDOC.PN ---
- Subjective Encounter Start Date: 08/02/18 Encounter Start Time: 09:00 Pt seen for followup re: acute alcoholic hepatitis. Denies chets pain. Abdo pain better. - Objective MAR Reviewed: Yes Vital Signs & Weight: Vital Signs (12 hours) Temp Pulse Resp BP BP Pulse Ox 08/02/18 12:00 125/77 08/02/18 11:47 98.4 F 105 H 18 125/79 92 L 08/02/18 08:15 92 L 08/02/18 08:00 117/76 08/02/18 07:46 99.4 F 117 H 20 111/76 92 L 08/02/18 06:02 102.9 F H 125 H 19 128/84 94 L 08/02/18 05:05 101 F H 125 H 22 H 132/83 96 08/02/18 04:00 130 H 22 H 123/83 95 Weight Weight 191 lb 5 oz I&O: 08/01/18 08/02/18 08/03/18 06:59 06:59 06:59 Intake Total 2564 1400 Output Total 325 Balance 2239 1400 Result Diagrams: 08/01/18 04:34 08/02/18 11:25 EKG Reviewed by me: Yes (Tele: sinus tachycardia) Phys Exam - Physical Examination Obese HEENT: moist MMs, oral pharynx no lesions, 2+ tonsils scleral icterus Neck: no nodes, no JVD, supple, full ROM Respiratory: no wheezing, no rales, no rhonchi, clear to auscultation bilateral Cardiovascular: no rub S1, S2, reg, tachy Gastrointestinal: soft, non-tender, no distention, positive bowel sounds Neurological: moves all 4 limbs Psychiatric: normal affect Deviation from normal: Oriented to person and place, not to time Dx/Plan (1) Acute alcoholic hepatitis Code(s): K70.10 - ALCOHOLIC HEPATITIS WITHOUT ASCITES Status: Acute Comment : No steroids for now; continue banana bag. (2) Alcohol withdrawal Code(s): F10.239 - ALCOHOL DEPENDENCE WITH WITHDRAWAL, UNSPECIFIED Status: Acute Comment: pt on ASE protocol (3) Abnormal LFTs Code(s): R94.5 - ABNORMAL RESULTS OF LIVER FUNCTION STUDIES Status: Acute Comment: T. bili worse today at 1.34 - Plan * . replace phosphorus, calcium level normal when corrected for albumin. Review of Systems - Review of Systems Constitutional: negative: fever, chills, sweats, weakness, malaise Respiratory: negative: Cough, Shortness of Breath, SOB with Excertion, Pleuritic Pain, Wheezing Cardiovascular: negative: chest pain, palpitations, orthopnea, paroxysmal nocturnal dyspnea, edema, light headedness Gastrointestinal: Abdominal Pain. negative: Nausea, Vomiting, Diarrhea, Constipation, Melena, Hematochezia Genitourinary: negative: Dysuria, Frequency, Incontinence, Hematuria, Retention Skin: Joel. negative: Rash, Lesions, Bruising - Medications/Allergies Allergies/Adverse Reactions: Allergies Allergy/AdvReac Type Severity Reaction Status Date / Time No Known Allergies Allergy Verified 07/29/18 03:02 Medications: Current Medications Al Hydroxide/Mg Hydroxide (Maalox) 30 ml PO Q4H PRN PRN Reason: Heartburn or Indigestion Enoxaparin Sodium (Lovenox) 40 mg SC 0900 [facility] Last Admin: 08/02/18 08:35 Dose: 40 mg Folic Acid (Folvite) 1 mg PO DAILY [facility] Last Admin: 08/02/18 08:35 Dose: 1 mg Piperacillin Sod/Tazobactam (Sod 3.375 gm/ Sodium Chloride) 100 mls @ 200 mls/ hr IVPB Q6HR [facility] Last Admin: 08/02/18 13:19 Dose: 100 mls Multivitamins 10 ml/ Thiamine HCl 100 mg/ Folic Acid 1 mg/Dextrose/Sodium Chloride 1,011.2 mls @ 125 mls/hr IV DAILY@0600 [facility] Last Admin: 08/02/18 07:30 Dose: 1,011.2 mls Ibuprofen (Motrin) 400 mg PO Q4H PRN PRN Reason: Fever > 101 Last Admin: 08/02/18 06:20 Dose: 400 mg Lorazepam (Ativan) 2 mg SLOW IVP Q2H PRN PRN Reason: Anxiety/Agitation Last Admin: 08/02/18 04:05 Dose: 2 mg Lorazepam (Ativan) 1 mg PO TID [facility] Last Admin: 08/02/18 15:21 Dose: 1 mg Lorazepam (Ativan) 2 mg SLOW IVP Q2H PRN PRN Reason: ANXIETY Morphine Sulfate (Morphine) 4 mg SLOW IVP Q4H PRN PRN Reason: Pain Last Admin: 08/02/18 11:48 Dose: 4 mg Multivitamins (Theragran) 1 tab PO DAILY [facility] Last Admin: 08/02/18 08:35 Dose: 1 tab Pantoprazole Sodium (Protonix) 40 mg PO DAILY [facility] Last Admin: 08/02/18 08:35 Dose: 40 mg Sodium Chloride (Flush - Normal Saline) 10 ml IVF Q12HR [facility] Last Admin: 08/02/18 08:36 Dose: Not Given Sodium Chloride (Flush - Normal Saline) 10 ml IVF PRN PRN PRN Reason: Saline Flush Thiamine HCl (Thiamine) 100 mg PO DAILY [facility] Last Admin: 08/02/18 08:35 Dose: 100 mg
--- NOTE | 2018-08-02 19:12 | PRG ---
DATE OF SERVICE: 08/02/2018 SUBJECTIVE: Today, the patient states that his abdominal pain is increased and is radiating to his lower back when compared to prior days. However, he currently denies any nausea, vomiting, fevers, chills, inability to tolerate oral intake, GI bleeding, constipation, or diarrhea. He states that his last bowel movement was yesterday and was soft in consistency with no difficulty with defecation. OBJECTIVE: VITAL SIGNS: Temperature 98.8, pulse 105, blood pressure 120/75, respiratory rate 18, and saturating 92% on room air. GENERAL: The patient was sitting at bedside, eating dinner, in no acute distress. CARDIOVASCULAR: Tachycardic rate with regular rhythm. RESPIRATORY: Clear to auscultation bilaterally. ABDOMEN: Normoactive bowel sounds. Mild tenderness to palpation in all abdominal quadrants. EXTREMITIES: No cyanosis, clubbing, or edema. LABORATORY DATA: Chemistry with a sodium of 132, potassium 4.8, chloride 100, CO2 of 20, BUN 12, creatinine 0.62, and glucose 147. AST 212, ALT 39, alkaline phosphatase 174, total bilirubin 13.4, albumin 2.4, and lipase 29. ASSESSMENT AND PLAN: The patient is a 43-year-old male with past medical history of alcohol abuse, presenting with acute alcoholic hepatitis. Alcoholic hepatitis. The patient initially was admitted to the hospital with complaints of increased abdominal discomfort, worsening bloating, and development of jaundice that have been present for the last 2 weeks after drinking heavily for many days. On admission, he was noted to have a mildly elevated white blood cell count, modest fever, as well as elevated transaminases consistent with alcoholic hepatitis. He was subsequently placed on more conservative management including IV fluid administration as well as bland diet without the introduction of any steroids or pentoxifylline for his alcoholic hepatitis. With the elevated white blood cell count and fever, there was some possible concern for infection and he has been currently on Zosyn for the last few days and tolerating this medication well. However, today, he does complain of increased abdominal pain and it is accompanied by a mild increase in his total bilirubin and AST, which may be indicative of increased inflammation associated with his alcoholic hepatitis. At the current point in time, addition of steroids for this particular patient with concern for an active infection would be ill advised, but instead I would recommend continued monitoring. RECOMMENDATIONS: 1. Would hold on steroids for now given the low efficacy of decreasing mortality in alcoholic hepatitis and concurrent risk of possible infection, which could further complicate issues. 2. Antibiotics per primary team. 3. Continue dietary supplementation. 4. If the patient continues to have increasing abdominal pain with mild tenderness to palpation, would then consider CT scan of the abdomen and pelvis for further evaluation. We will continue to follow. Please call with any questions. Job ID: [id number]
[2018-08-03] MEDS: Piperacillin/Tazobactam 3.375 GM in Sodium Chloride 0.9% 100 ML IVPB SCH ×5 (00:45→23:56)
[2018-08-03] MEDS: Ibuprofen 200 MG TAB PO PRN (00:45)
[2018-08-03] MEDS: Morphine 4 MG/ML VIAL SLOW IVP PRN ×3 (01:50→13:49)
[2018-08-03] MEDS: Multivitamins, Adult 10 ML, Thiamine HCl 100 MG, Folic Acid 1 MG in Dextrose 5 %-0.45 %... IV SCH (06:03)
[2018-08-03] MEDS: Folic Acid 1 MG TAB PO SCH (08:50)
[2018-08-03] MEDS: Enoxaparin Sodium 40 MG/0.4 ML SYRINGE SC SCH (08:50)
[2018-08-03] MEDS: Multivit, Therapeutic 1 TAB PO SCH (08:50)
[2018-08-03] MEDS: Lorazepam 1 MG TAB PO SCH ×3 (08:52→20:40)
[2018-08-03 08:59] LABS: Hemoglobin 11.2 g/dL (14.0-18.0); INR-International Normal Ratio 1.1; Mean Corpuscular Hemoglobin 33.6 pg (27.0-31.0); Mean Platelet Volume 7.4 fL (7.4-10.4); Platelet Count 277 thou/uL (130-400); Prothrombin Time 14.7 SEC (12.0-14.7); RBC Distribution Width 14.9 % (11.5-14.5); Red Blood Cell (RBC) Count 3.32 mill/uL (4.70-6.10)
[2018-08-03] MEDS ORDERED: Iopamidol-370 76% 500 ML 1 ML ONE (09:00)
[2018-08-03 09:09] LABS: ALT (SGPT) 35 U/L (8-55); AST (SGOT) 188 U/L (5-34); Albumin 2.6 g/dL (3.5-5.0); Alkaline Phosphatase 175 U/L (40-150); Anion Gap 16 mmol/L (10-20); BUN (Urea Nitrogen) 16 mg/dL (8.9-20.6); Bilirubin, Total 15.7 mg/dL (0.2-1.2); Calc. Creatinine Clearance 138 mL/min (70-130); Calcium 7.3 mg/dL (7.8-10.44); Carbon Dioxide 24 mmol/L (22-29); Chloride 97 mmol/L (98-107); Estimated GFR-MDRD Greater than 90; Globulin 3.1 g/dL (2.4-3.5); Glucose 138 mg/dL (70-105); Potassium 3.2 mmol/L (3.5-5.1); Protein, Total 5.7 g/dL (6.0-8.3); Sodium 134 mmol/L (136-145)
[2018-08-03 10:25] LABS: Band 9 % (5-11); Eosinophils 2 % (0-10); Hypochromia SLIGHT = 6-15 cells (100X) (0-5/hpf); Lymphocytes 9 % (21-51); MDiff Complete? YES; Macrocytosis SLIGHT = 6-15 cells (100X) (0-5/hpf); Monocytes 8 % (0-10); Neutrophil 72 % (42-75); Platelet Morphology Comment Appears Adequate; Polychromasia MODERATE = 3-4 cells (100X) (0-2/hpf); White Blood Cell (WBC) Count 14.4 thou/uL (4.8-10.8)
--- NOTE | 2018-08-03 11:49 | PRG ---
DATE OF SERVICE: 08/03/2018 SUBJECTIVE: Today, the patient states that his abdominal pain was controlled as of last night, but with the administration of morphine for pain relief. This morning, he says that his abdominal pain has returned, but is relatively unchanged in terms of location and severity. He did have a fever overnight per nursing staff that resolved with the administration of oral ibuprofen. He did state that he had a bowel movement this morning that was semi-solid in consistency. Otherwise, he currently denies any nausea, vomiting, fevers, chills, GI bleeding, constipation, or diarrhea. OBJECTIVE: VITAL SIGNS: Temperature 98.8, pulse 116, blood pressure 122/80, respiratory rate 22, saturating 94% on room air. GENERAL: The patient was lying in bed, in no acute distress. Alert and oriented x3. CARDIOVASCULAR: Tachycardic rate with regular rhythm. RESPIRATORY: Clear to auscultation bilaterally. ABDOMEN: Hypoactive bowel sounds. Tenderness to palpation in all abdominal quadrants. EXTREMITIES: No cyanosis, clubbing, or edema. LABORATORY DATA: CBC with a white blood cell count of 14.4, hemoglobin 11.2, hematocrit 34.8, and platelets 277. INR 1.1. Chemistry with a sodium of 134, potassium 3.2, chloride 97, CO2 of 24, BUN 16, creatinine 0.89, glucose 138, AST 188, ALT 35, alkaline phosphatase 175, and total bilirubin 15.7. IMAGING DATA: No current GI imaging is available for review. ASSESSMENT AND PLAN: The patient is a 43-year-old male with past medical history of alcohol abuse, presenting with acute alcoholic hepatitis. Alcoholic hepatitis. The patient was initially admitted to the hospital with complaints of increased abdominal discomfort, worsening bloating, and development of jaundice that had been present for 2 weeks prior to admission. On admission, he was noted to have a mildly elevated white blood cell count, modest fever, as well as elevated transaminases in a distribution consistent with alcoholic hepatitis. He was initially placed on more conservative management including IV fluid administration, but during the course of this hospitalization, has been having increasing abdominal pain, abdominal distention, and is now having an elevated white blood cell count despite the administration of antibiotic therapy. At this time, his transaminases and bilirubin are slightly up-trending concerning for acute inflammation from another pathologic process. Given his mildly increased abdominal distention and generalized abdominal pain, I am concerned that there might be either peritonitis versus pancreatitis contributing to his current clinical situation. RECOMMENDATIONS: 1. Would hold on steroids for now given the low efficacy of decreasing mortality in alcoholic hepatitis and a concurrent risk of possible infection. 2. Antibiotic per primary team. 3. I will obtain a CT scan of the abdomen and pelvis today for further evaluation of any intraabdominal process. If pancreatitis is present, then I would make the patient n.p.o. with IV fluid administration at that point. 4. We will continue to trend CBC and chemistries for evaluation of his clinical status. 5. We will place the patient on IV Tylenol and discontinue the ibuprofen as it could potentially generate irritation/upset within the GI tract and elevated transaminases. We will continue to follow. Please call with any questions. Job ID: [id number]
[2018-08-03] MEDS: Acetaminophen 650 MG in Premix Bag 1 BAG IVPB PRN ×2 (12:37→20:40)
--- NOTE | 2018-08-03 12:53 | CT ---
CT ABDOMEN WITH CONTRAST CT PELVIS WITH CONTRAST: DATE: 08/03/2018. TIME: 11:41 a.m. HISTORY: A 43-year-old male with increasing abdominal pain and abdominal distention. Alcoholic hepatitis. Ri sing LFTs. COMPARISON: Noncontrast CT of 07/28/2018. TECHNIQUE: IV injection of iodinated contrast media: 100 mL of Isovue 370. Oral contrast media: Not administered. FINDINGS: Again demonstrated is the severe enlargement of the liver, and a diffusely low hepatic attenuation re presenting fatty liver. There is a new finding of a small amount of free fluid within the abdominal cavity and pelvic cavity, including around and inferior to the right lobe of the liver, abutting the hepatic flexure and ascending colon, lateral to the descending colon, and posterior to the urinary bl adder. Single surgical clip within the peritoneal cavity of the right lower quadrant. Appendix not identified. No abnormality of right kidney, abdominal aorta, adrenals, pancreas, or spleen identifie d. Decompressed urinary bladder. No small bowel dilation. Sigmoid colonic diverticula. No definit e signs of acute diverticulitis. Single tiny calcification at left renal upper-mid pole. Uncertain whether this is an atherosclerotic vascular calcification or a renal calculus (nephrolithiasis). No pneumoperitoneum. Interval progression of subsegmental atelectasis at the base of the left lower lob e. No pneumoperitoneum. New finding of soft tissue edema fluid in the subcutaneous fat lateral to t he bilateral hips and to a lesser degree at the superficial subcutaneous fat of the bilateral flanks. The spleen is approximately 15 x 11.5 x 8 cm. No obvious, large varices identified. IMPRESSION: 1. Hepatic steatosis and severe hepatomegaly. 2. Mild splenomegaly. 3. Interval development of new small volume of ascites and mild anasarca. MINGO De La O POS: DELTA
--- NOTE | 2018-08-03 14:29 | PDOC.PN ---
- Subjective Encounter Start Date: 08/03/18 Encounter Start Time: 08:00 Pt seen for followup re: alcoholic hepatitis. Denies chest pain, shortness of breath, fevers or chills. c/o diffuse abdo pain. - Objective MAR Reviewed: Yes Vital Signs & Weight: Vital Signs (12 hours) Temp Pulse Resp BP Pulse Ox 08/03/18 11:57 98.1 F 109 H 20 127/89 92 L 08/03/18 11:26 116 H 100/64 08/03/18 08:45 98.8 F 116 H 22 H 122/80 94 L 08/03/18 08:25 94 L 08/03/18 04:00 98.1 F 113 H 24 H 121/86 95 Weight Weight 196 lb 8 oz I&O: 08/02/18 08/03/18 08/04/18 06:59 06:59 06:59 Intake Total 1400 2820 Output Total 245 Balance 1400 2575 Result Diagrams: 08/03/18 08:31 08/03/18 08:31 EKG Reviewed by me: Yes (Tele: sinus tachycardia) Phys Exam - Physical Examination Obesity HEENT: moist MMs, oral pharynx no lesions, 2+ tonsils scleral icterus Neck: no nodes, no JVD, supple, full ROM Respiratory: no wheezing, no rales, no rhonchi, clear to auscultation bilateral Cardiovascular: RRR, no rub S1, S2 Gastrointestinal: soft, positive bowel sounds distended, mild diffuse tenderness, no guarding or rigidity Neurological: moves all 4 limbs Psychiatric: normal affect Deviation from normal: Oriented to person and place, not to time Dx/Plan (1) Acute alcoholic hepatitis Code(s): K70.10 - ALCOHOLIC HEPATITIS WITHOUT ASCITES Status: Acute Comment : continue banana bag. (2) Alcohol withdrawal Code(s): F10.239 - ALCOHOL DEPENDENCE WITH WITHDRAWAL, UNSPECIFIED Status: Acute Comment: continue ASE protocol (3) Abnormal LFTs Code(s): R94.5 - ABNORMAL RESULTS OF LIVER FUNCTION STUDIES Status: Acute Comment: T. bili worse today at 15.7 (4) Abdominal pain Code(s): R10.9 - UNSPECIFIED ABDOMINAL PAIN Status: Acute Comment: CT abdo pending - Plan * . Review of Systems - Review of Systems Constitutional: negative: fever, chills, sweats, weakness, malaise Respiratory: negative: Cough, Shortness of Breath, SOB with Excertion, Pleuritic Pain, Wheezing Cardiovascular: negative: chest pain, palpitations, orthopnea, paroxysmal nocturnal dyspnea, edema, light headedness Gastrointestinal: Abdominal Pain. negative: Nausea, Vomiting, Diarrhea, Constipation, Melena, Hematochezia Genitourinary: negative: Dysuria, Frequency, Incontinence, Hematuria, Retention Skin: negative: Rash, Lesions, Joel, Bruising - Medications/Allergies Allergies/Adverse Reactions: Allergies Allergy/AdvReac Type Severity Reaction Status Date / Time No Known Allergies Allergy Verified 07/29/18 03:02 Medications: Current Medications Al Hydroxide/Mg Hydroxide (Maalox) 30 ml PO Q4H PRN PRN Reason: Heartburn or Indigestion Enoxaparin Sodium (Lovenox) 40 mg SC 0900 [facility] Last Admin: 08/03/18 08:50 Dose: 40 mg Folic Acid (Folvite) 1 mg PO DAILY [facility] Last Admin: 08/03/18 08:50 Dose: 1 mg Piperacillin Sod/Tazobactam (Sod 3.375 gm/ Sodium Chloride) 100 mls @ 200 mls/ hr IVPB Q6HR [facility] Last Admin: 08/03/18 12:57 Dose: 100 mls Multivitamins 10 ml/ Thiamine HCl 100 mg/ Folic Acid 1 mg/Dextrose/Sodium Chloride 1,011.2 mls @ 125 mls/hr IV DAILY@0600 [facility] Last Admin: 08/03/18 06:03 Dose: 1,011.2 mls Acetaminophen 650 mg/ Device 65 mls @ 400 mls/hr IVPB BID PRN PRN Reason: Fever > 101 Stop: 08/04/18 21:01 Last Admin: 08/03/18 12:37 Dose: 65 mls Lorazepam (Ativan) 2 mg SLOW IVP Q2H PRN PRN Reason: Anxiety/Agitation Last Admin: 08/02/18 04:05 Dose: 2 mg Lorazepam (Ativan) 1 mg PO TID [facility] Last Admin: 08/03/18 08:52 Dose: 1 mg Lorazepam (Ativan) 2 mg SLOW IVP Q2H PRN PRN Reason: ANXIETY Miscellaneous Medication (Phos-Nak) 1 pkt PO BID-[facility] Last Admin: 08/03/18 08:50 Dose: 1 pkt Morphine Sulfate (Morphine) 4 mg SLOW IVP Q4H PRN PRN Reason: Pain Last Admin: 08/03/18 13:49 Dose: 4 mg Multivitamins (Theragran) 1 tab PO DAILY [facility] Last Admin: 08/03/18 08:50 Dose: 1 tab Pantoprazole Sodium (Protonix) 40 mg PO DAILY [facility] Last Admin: 08/03/18 08:50 Dose: 40 mg Sodium Chloride (Flush - Normal Saline) 10 ml IVF Q12HR [facility] Last Admin: 08/03/18 08:50 Dose: Not Given Sodium Chloride (Flush - Normal Saline) 10 ml IVF PRN PRN PRN Reason: Saline Flush Last Admin: 08/03/18 06:03 Dose: 10 ml Thiamine HCl (Thiamine) 100 mg PO DAILY [facility] Last Admin: 08/03/18 08:50 Dose: 100 mg
[2018-08-03 16:40] LABS: ANA Symphony (Qualitative) Negative (Negative); ANA Symphony (Quantitative) 0.2 Ratio (< 0.7 Negative); EliA Vaculitis New Method **** NEW METHOD ****; Mitochondrial Ab 0.6 U/mL (<4 Negative); dsDNA IgG Antibody 3.8 IU/mL (<10 Negative)
[2018-08-04] MEDS: Morphine 4 MG/ML VIAL SLOW IVP PRN ×4 (02:20→21:39)
[2018-08-04] MEDS: Piperacillin/Tazobactam 3.375 GM in Sodium Chloride 0.9% 100 ML IVPB SCH ×2 (05:29→11:51)
[2018-08-04] MEDS: Multivitamins, Adult 10 ML, Thiamine HCl 100 MG, Folic Acid 1 MG in Dextrose 5 %-0.45 %... IV SCH (06:10)
[2018-08-04] MEDS: Folic Acid 1 MG TAB PO SCH (08:19)
[2018-08-04] MEDS: Enoxaparin Sodium 40 MG/0.4 ML SYRINGE SC SCH (08:19)
[2018-08-04] MEDS: Multivit, Therapeutic 1 TAB PO SCH (08:19)
[2018-08-04] MEDS: Lorazepam 1 MG TAB PO SCH ×3 (08:19→21:38)
[2018-08-04] MEDS: Acetaminophen 650 MG in Premix Bag 1 BAG IVPB PRN (09:35)
[2018-08-04] MEDS: Potassium Chloride 20 MEQ TAB PO SCH ×2 (10:57→12:50)
[2018-08-04 11:22] LABS: ALT (SGPT) 34 U/L (8-55); AST (SGOT) 159 U/L (5-34); Albumin 2.4 g/dL (3.5-5.0); Alkaline Phosphatase 157 U/L (40-150); Anion Gap 15 mmol/L (10-20); BUN (Urea Nitrogen) 22 mg/dL (8.9-20.6); Bilirubin, Total 15.4 mg/dL (0.2-1.2); Calc. Creatinine Clearance 149 mL/min (70-130); Calcium 7.1 mg/dL (7.8-10.44); Carbon Dioxide 22 mmol/L (22-29); Chloride 97 mmol/L (98-107); Estimated GFR-MDRD Greater than 90; Globulin 2.8 g/dL (2.4-3.5); Glucose 138 mg/dL (70-105); Protein, Total 5.2 g/dL (6.0-8.3); Sodium 131 mmol/L (136-145)
[2018-08-04 11:38] LABS: Potassium 2.9 mmol/L (3.5-5.1)
[2018-08-04 11:55] LABS: Anisocytosis SLIGHT = 6-15 cells (100X) (0-5/hpf); Band 28 % (5-11); Hemoglobin 11.3 g/dL (14.0-18.0); Hypochromia SLIGHT = 6-15 cells (100X) (0-5/hpf); Lymphocytes 3 % (21-51); MDiff Complete? YES; Macrocytosis SLIGHT = 6-15 cells (100X) (0-5/hpf); Mean Corpuscular Hemoglobin 33.8 pg (27.0-31.0); Monocytes 3 % (0-10); Neutrophil 66 % (42-75); Platelet Count 283 thou/uL (130-400); Platelet Morphology Comment Appears Adequate; Polychromasia SLIGHT = 2-3 cells (100X) (0-2/hpf); RBC Distribution Width 15.1 % (11.5-14.5); Red Blood Cell (RBC) Count 3.33 mill/uL (4.70-6.10); White Blood Cell (WBC) Count 13.6 thou/uL (4.8-10.8)
--- NOTE | 2018-08-04 14:36 | PDOC.PN ---
- Subjective Encounter Start Date: 08/04/18 Encounter Start Time: 07:20 Pt seen for followup re: alcoholic hepatitis. Reports abdominal distention and discomfort. No chest pain. - Objective MAR Reviewed: Yes Vital Signs & Weight: Vital Signs (12 hours) Temp Pulse Resp BP Pulse Ox 08/04/18 11:56 98.4 F 104 H 20 123/85 93 L 08/04/18 08:40 92 L 08/04/18 08:12 101.1 F H 120 H 20 117/77 92 L 08/04/18 04:00 99.0 F 104 H 20 114/80 93 L Weight Weight 201 lb 1.6 oz I&O: 08/03/18 08/04/18 08/05/18 06:59 06:59 06:59 Intake Total 2820 2260 Output Total 245 Balance 2575 2260 Result Diagrams: 08/04/18 10:50 08/05/18 05:33 EKG Reviewed by me: Yes (Tele: NSR) Phys Exam - Physical Examination Obese HEENT: moist MMs scleral icterus Neck: supple Respiratory: clear to auscultation bilateral Cardiovascular: RRR Gastrointestinal: positive bowel sounds distended, mild diffuse tenderness, prominent veins Neurological: moves all 4 limbs Psychiatric: normal affect Dx/Plan (1) Acute alcoholic hepatitis Code(s): K70.10 - ALCOHOLIC HEPATITIS WITHOUT ASCITES Status: Acute Comment : T. bili slightly improved today. (2) Alcohol withdrawal Code(s): F10.239 - ALCOHOL DEPENDENCE WITH WITHDRAWAL, UNSPECIFIED Status: Acute Comment: on ASE protocol (3) Abnormal LFTs Code(s): R94.5 - ABNORMAL RESULTS OF LIVER FUNCTION STUDIES Status: Acute Comment: T. bili slightly improved (4) Abdominal pain Code(s): R10.9 - UNSPECIFIED ABDOMINAL PAIN Status: Acute Comment: CT abdo nil acute - Plan * . Review of Systems - Review of Systems Cardiovascular: negative: chest pain, palpitations, orthopnea, paroxysmal nocturnal dyspnea, edema, light headedness Gastrointestinal: Abdominal Pain. negative: Nausea, Vomiting, Diarrhea, Constipation, Melena, Hematochezia - Medications/Allergies Allergies/Adverse Reactions: Allergies Allergy/AdvReac Type Severity Reaction Status Date / Time No Known Allergies Allergy Verified 07/29/18 03:02 Medications: Current Medications Al Hydroxide/Mg Hydroxide (Maalox) 30 ml PO Q4H PRN PRN Reason: Heartburn or Indigestion Enoxaparin Sodium (Lovenox) 40 mg SC 0900 [facility] Last Admin: 08/04/18 08:19 Dose: 40 mg Folic Acid (Folvite) 1 mg PO DAILY [facility] Last Admin: 08/04/18 08:19 Dose: 1 mg Acetaminophen 650 mg/ Device 65 mls @ 400 mls/hr IVPB BID PRN PRN Reason: Fever > 101 Stop: 08/04/18 21:01 Last Admin: 08/04/18 09:35 Dose: 65 mls Lorazepam (Ativan) 2 mg SLOW IVP Q2H PRN PRN Reason: Anxiety/Agitation Last Admin: 08/02/18 04:05 Dose: 2 mg Lorazepam (Ativan) 1 mg PO TID [facility] Last Admin: 08/04/18 08:19 Dose: 1 mg Lorazepam (Ativan) 2 mg SLOW IVP Q2H PRN PRN Reason: ANXIETY Miscellaneous Medication (Phos-Nak) 1 pkt PO BID-[facility] Last Admin: 08/04/18 08:21 Dose: 1 pkt Morphine Sulfate (Morphine) 4 mg SLOW IVP Q4H PRN PRN Reason: Pain Last Admin: 08/04/18 12:50 Dose: 4 mg Multivitamins (Theragran) 1 tab PO DAILY [facility] Last Admin: 08/04/18 08:19 Dose: 1 tab Pantoprazole Sodium (Protonix) 40 mg PO DAILY [facility] Last Admin: 08/04/18 08:19 Dose: 40 mg Potassium Chloride (K-Dur) 40 meq PO 1600 [facility] Stop: 08/04/18 17:00 Sodium Chloride (Flush - Normal Saline) 10 ml IVF Q12HR [facility] Last Admin: 08/04/18 08:19 Dose: 10 ml Sodium Chloride (Flush - Normal Saline) 10 ml IVF PRN PRN PRN Reason: Saline Flush Last Admin: 08/04/18 05:29 Dose: 10 ml Thiamine HCl (Thiamine) 100 mg PO DAILY [facility] Last Admin: 08/04/18 08:19 Dose: 100 mg
[2018-08-04 15:19] LABS: Alpha-1-Antitrypsin 283 mg/dL (90-200)
--- NOTE | 2018-08-04 15:36 | PRG ---
DATE OF SERVICE: 08/04/2018 SUBJECTIVE: Mr. Deleon tight abdomen. He is voiding well. He is eating well. He has no diarrhea. Over the weekend, he had a CAT scan done again which showed a big liver which had shown before and a little bit of fluid under the liver. There is no overt signs of infection anywhere on the CAT scan or inflammation otherwise. MEDICATIONS: He is receiving a banana bag daily. He is also receiving oral multivitamin, thiamine, and folate daily. He is receiving Zosyn which he has been on since the , six days now. PHYSICAL EXAMINATION: VITAL SIGNS: Temperature max 101.1, pulse is 104, blood pressure is 123/85. HEENT: He is anicteric. LUNGS: Clear. HEART: Regular rate and rhythm. ABDOMEN: Protuberant. There is massive hepatomegaly. Abdomen is tight, but there EXTREMITIES: He has edema in his legs, around his hips, buttocks, and sacral area. He has no shifting, dullness, or fluid wave. LABORATORY DATA: White count of 13.6, hemoglobin of 11.3, platelet count of 283, 66 segs, 28% bands. INR on the 16 was 1.1. Sodium 131, potassium 2.9, BUN and creatinine are 22 and 0.84. Bilirubin is 15.4, this is stabilized over the past several days. AST is 159 down from 218 when he was admitted, ALT is 34 down from 46 on admission, alkaline phosphatase is 157 down from 250 on admission. Protein is 5.2, albumin is 2.4, Alpha-1 antitrypsin phenotype level are pending. Ceruloplasmin normal at 28. Lipase is 29. normal. ASSESSMENT: 1. Significant alcoholic hepatitis with hepatomegaly. Other underlying serologic evaluation has been negative, only waiting for Carroll disease to be ruled out at this time. 2. Electrolyte abnormality secondary to alcohol abuse on replacement protocol. 3. On multivitamin, thiamine, and folate. We can stop the banana bag. He is tolerating these fine. I would stop all his IV fluids. 4. Fever. This seems to be most likely related to his alcoholic hepatitis. He has had negative blood and urine cultures and chest x-ray showed some atelectasis unless there is a reason to continue the antibiotics, I would discontinue them as he already has infection and this is not from alcoholic hepatitis. We will consider an ID consult. I think we discontinue antibiotics with no real reason, he is going to end up with C. diff or fungemia. 5. I think it is time to start discharge planning to see about getting him to either rehab or home. His liver enzymes will probably take months to recover and he is tolerating liquids by mouth at this time. Job ID: [id number]
[2018-08-04] MEDS ORDERED: Potassium Chloride 20 MEQ TAB PO SCH (16:00)
[2018-08-04] MEDS: Lorazepam 2 MG/ML VIAL SLOW IVP PRN (23:57)
[2018-08-05] MEDS: Morphine 4 MG/ML VIAL SLOW IVP PRN ×4 (02:10→15:07)
[2018-08-05 06:43] LABS: Anion Gap 18 mmol/L (10-20); BUN (Urea Nitrogen) 19 mg/dL (8.9-20.6); Calc. Creatinine Clearance 190 mL/min (70-130); Calcium 7.3 mg/dL (7.8-10.44); Carbon Dioxide 19 mmol/L (22-29); Chloride 101 mmol/L (98-107); Estimated GFR-MDRD Greater than 90; Glucose 95 mg/dL (70-105); Magnesium 2.3 mg/dL (1.6-2.6); Potassium 3.9 mmol/L (3.5-5.1); Sodium 134 mmol/L (136-145)
[2018-08-05 06:48] LABS: Phosphorus 1.2 mg/dL (2.3-4.7)
[2018-08-05] MEDS: Lorazepam 1 MG TAB PO SCH ×2 (09:31→16:48)
[2018-08-05] MEDS: Multivit, Therapeutic 1 TAB PO SCH (09:32)
[2018-08-05] MEDS: Enoxaparin Sodium 40 MG/0.4 ML SYRINGE SC SCH (09:32)
[2018-08-05] MEDS: Folic Acid 1 MG TAB PO SCH (09:32)
[2018-08-05] MEDS ORDERED: Potassium Phosphate 30 MMOL in Sodium Chloride 0.9% 500 ML IVPB SCH (11:00)
--- NOTE | 2018-08-05 16:48 | PDOC.PN ---
- Subjective Encounter Start Date: 08/05/18 Encounter Start Time: 07:40 Pt seen for followup re: alcoholic hepatitis. c/o abdo discomfort. - Objective MAR Reviewed: Yes Vital Signs & Weight: Vital Signs (12 hours) Temp Pulse Resp BP BP Pulse Ox 08/05/18 15:11 99.5 F 101 H 20 124/82 92 L 08/05/18 12:52 98.7 F 103 H 20 124/86 92 L 08/05/18 12:00 124/86 08/05/18 08:00 125/85 08/05/18 07:20 99.5 F 107 H 18 125/85 92 L 08/05/18 07:10 92 L Weight Weight 205 lb 3.2 oz I&O: 08/04/18 08/05/18 08/06/18 06:59 06:59 06:59 Intake Total 2260 2160 Output Total 400 Balance 2260 1760 Result Diagrams: 08/06/18 09:26 08/06/18 09:26 EKG Reviewed by me: Yes (Tele: NSR) Phys Exam - Physical Examination Obesity HEENT: moist MMs icterus Neck: supple Respiratory: clear to auscultation bilateral Cardiovascular: RRR Gastrointestinal: soft distended Neurological: moves all 4 limbs Psychiatric: normal affect Skin: no rash Dx/Plan (1) Acute alcoholic hepatitis Code(s): K70.10 - ALCOHOLIC HEPATITIS WITHOUT ASCITES Status: Acute Comment : awaiting LFTs today (2) Alcohol withdrawal Code(s): F10.239 - ALCOHOL DEPENDENCE WITH WITHDRAWAL, UNSPECIFIED Status: Acute Comment: continue ASE protocol (3) Abnormal LFTs Code(s): R94.5 - ABNORMAL RESULTS OF LIVER FUNCTION STUDIES Status: Acute Comment: LFTs pending (4) Abdominal pain Code(s): R10.9 - UNSPECIFIED ABDOMINAL PAIN Status: Acute Comment: ? due to hepatomegaly - Plan * . Review of Systems - Review of Systems Cardiovascular: negative: chest pain, palpitations, orthopnea, paroxysmal nocturnal dyspnea, edema, light headedness Gastrointestinal: negative: Nausea, Vomiting, Abdominal Pain, Diarrhea, Constipation, Melena, Hematochezia - Medications/Allergies Allergies/Adverse Reactions: Allergies Allergy/AdvReac Type Severity Reaction Status Date / Time No Known Allergies Allergy Verified 07/29/18 03:02 Medications: Current Medications Al Hydroxide/Mg Hydroxide (Maalox) 30 ml PO Q4H PRN PRN Reason: Heartburn or Indigestion Enoxaparin Sodium (Lovenox) 40 mg SC 0900 [facility] Last Admin: 08/05/18 09:32 Dose: 40 mg Folic Acid (Folvite) 1 mg PO DAILY [facility] Last Admin: 08/05/18 09:32 Dose: 1 mg Lorazepam (Ativan) 2 mg SLOW IVP Q2H PRN PRN Reason: Anxiety/Agitation Last Admin: 08/04/18 23:57 Dose: 2 mg Lorazepam (Ativan) 1 mg PO TID [facility] Last Admin: 08/05/18 09:31 Dose: 1 mg Lorazepam (Ativan) 2 mg SLOW IVP Q2H PRN PRN Reason: ANXIETY Miscellaneous Medication (Phos-Nak) 1 pkt PO BID-WM [facility] Last Admin: 08/05/18 09:31 Dose: 1 pkt Morphine Sulfate (Morphine) 4 mg SLOW IVP Q4H PRN PRN Reason: Pain Last Admin: 08/05/18 15:07 Dose: 4 mg Multivitamins (Theragran) 1 tab PO DAILY [facility] Last Admin: 08/05/18 09:32 Dose: 1 tab Pantoprazole Sodium (Protonix) 40 mg PO DAILY [facility] Last Admin: 08/05/18 09:31 Dose: 40 mg Sodium Chloride (Flush - Normal Saline) 10 ml IVF Q12HR [facility] Last Admin: 08/05/18 09:32 Dose: 10 ml Sodium Chloride (Flush - Normal Saline) 10 ml IVF PRN PRN PRN Reason: Saline Flush Last Admin: 08/05/18 06:40 Dose: 10 ml Thiamine HCl (Thiamine) 100 mg PO DAILY [facility] Last Admin: 08/05/18 09:31 Dose: 100 mg
--- NOTE | 2018-08-05 19:33 | PRG ---
DATE OF SERVICE: 08/05/2018 SUBJECTIVE: Mr. Deleon still complains of abdominal discomfort and bloating. OBJECTIVE: VITAL SIGNS: Temperature 99.5, T-max 101 yesterday on 12:17 a.m., T-max today was 99.9 at 4:00 a.m.; pulse 103 to 101; blood pressure 124/82. HEENT: The patient is icteric. Oropharynx, no lesions. NECK: Supple. No adenopathy. LUNGS: Clear. HEART: Regular rate and rhythm. ABDOMEN: Soft, protuberant, and mildly tender. There is gross hepatomegaly. EXTREMITIES: Show trace edema. There is no asterixis. LABORATORY DATA: Sodium 134, potassium 3.9, BUN and creatinine are 19 and 0.66, phosphorus was 1.2 and replaced and is 2.3. White count 13.6, hemoglobin 11.3, and platelets 283. This is all from yesterday. AIMEE, antimitochondrial antibody, smooth muscle all within normal limits. Ceruloplasmin normal. Lipase is normal. Alpha-1 antitrypsin level and phenotype normal. ASSESSMENT: Alcoholic hepatitis, severe, stable, hospital day #8. RECOMMENDATIONS: 1. Change with 2 g sodium diet with some fluid retention. 2. At this time, I really see no need for morphine or Ativan any longer. He is not withdrawing. He has not had severe pain that requires narcotic pain medications. 3. Treatment will be of hydration, multivitamin, thiamine, folate, and nutrition, and alcohol abstinence at this time. No further recommendations. Would move towards the placement in a half-way or rehab or alcohol rehabilitation center if available. When the patient is discharged, he will be followed up in the office in a couple of weeks. Job ID: [id number]
[2018-08-05] MEDS: traMADol HCl 50 MG TAB PO PRN (21:26)
[2018-08-06] MEDS: traMADol HCl 50 MG TAB PO PRN (05:55)
[2018-08-06 07:58] LABS: ALT (SGPT) 38 U/L (8-55); AST (SGOT) 212 U/L (5-34); Albumin 2.4 g/dL (3.5-5.0); Alkaline Phosphatase 186 U/L (40-150); Bilirubin, Total 17.1 mg/dL (0.2-1.2); Protein, Total 5.6 g/dL (6.0-8.3)
[2018-08-06 08:01] LABS: Bilirubin, Direct Greater than 10.0 mg/dL (0.1-0.3)
[2018-08-06] MEDS: Enoxaparin Sodium 40 MG/0.4 ML SYRINGE SC SCH (08:11)
[2018-08-06] MEDS: Multivit, Therapeutic 1 TAB PO SCH (08:11)
[2018-08-06] MEDS: Furosemide 40 MG TAB PO SCH (08:11)
[2018-08-06] MEDS: Folic Acid 1 MG TAB PO SCH (08:11)
[2018-08-06] MEDS: Spironolactone 100 MG TAB PO SCH (08:11)
[2018-08-06 10:04] LABS: Hemoglobin 11.8 g/dL (14.0-18.0); Mean Corpuscular HGB CONC 32.5 g/dL (32.0-36.0); Mean Corpuscular Hemoglobin 34.3 pg (27.0-31.0); Platelet Count 304 thou/uL (130-400); RBC Distribution Width 15.5 % (11.5-14.5); Red Blood Cell (RBC) Count 3.44 mill/uL (4.70-6.10); White Blood Cell (WBC) Count 14.6 thou/uL (4.8-10.8)
[2018-08-06 10:16] LABS: ALT (SGPT) 36 U/L (8-55); AST (SGOT) 188 U/L (5-34); Albumin 2.3 g/dL (3.5-5.0); Alkaline Phosphatase 179 U/L (40-150); Anion Gap 16 mmol/L (10-20); BUN (Urea Nitrogen) 17 mg/dL (8.9-20.6); Bilirubin, Total 19.1 mg/dL (0.2-1.2); Calc. Creatinine Clearance 183 mL/min (70-130); Calcium 7.5 mg/dL (7.8-10.44); Carbon Dioxide 22 mmol/L (22-29); Chloride 100 mmol/L (98-107); Estimated GFR-MDRD Greater than 90; Globulin 2.9 g/dL (2.4-3.5); Glucose 142 mg/dL (70-105); Potassium 3.5 mmol/L (3.5-5.1); Protein, Total 5.2 g/dL (6.0-8.3); Sodium 134 mmol/L (136-145)
[2018-08-06 11:29] LABS: Band 26 % (5-11); Eosinophils 1 % (0-10); Lymphocytes 4 % (21-51); MDiff Complete? YES; Monocytes 2 % (0-10); Neutrophil 67 % (42-75); Platelet Morphology Comment Appears Adequate; Toxic Granulation SLIGHT
--- NOTE | 2018-08-06 13:00 | PDOC.PN ---
- Subjective Encounter Start Date: 08/06/18 Encounter Start Time: 07:20 Pt seen for followup re: alcoholic hepatitis. More alert today. Reports abdo discomfort. - Objective MAR Reviewed: Yes Vital Signs & Weight: Vital Signs (12 hours) Temp Pulse Resp BP BP Pulse Ox 08/06/18 11:05 98.1 F 93 18 119/85 119/85 93 L 08/06/18 08:00 98.4 F 98 18 124/81 124/81 92 L 08/06/18 04:00 99.6 F 100 18 99/58 L 99/58 L 93 L Weight Weight 205 lb 9.6 oz I&O: 08/05/18 08/06/18 08/07/18 06:59 06:59 06:59 Intake Total 2160 880 Output Total 400 1050 Balance 1760 -170 Result Diagrams: 08/06/18 09:26 08/06/18 09:26 EKG Reviewed by me: Yes (Tele; NSR) Phys Exam - Physical Examination Obesity HEENT: moist MMs icterus Neck: supple Respiratory: clear to auscultation bilateral Cardiovascular: RRR Gastrointestinal: soft Neurological: moves all 4 limbs Psychiatric: normal affect Dx/Plan (1) Acute alcoholic hepatitis Code(s): K70.10 - ALCOHOLIC HEPATITIS WITHOUT ASCITES Status: Acute Comment : T bili 19.1 (2) Alcohol withdrawal Code(s): F10.239 - ALCOHOL DEPENDENCE WITH WITHDRAWAL, UNSPECIFIED Status: Acute Comment: counseled pt re: tobacco cessation (3) Abnormal LFTs Code(s): R94.5 - ABNORMAL RESULTS OF LIVER FUNCTION STUDIES Status: Acute Comment: secondary to alcohol abuse (4) Abdominal pain Code(s): R10.9 - UNSPECIFIED ABDOMINAL PAIN Status: Acute Comment: ? due to hepatomegaly - Plan * . Review of Systems - Review of Systems Respiratory: negative: Cough, Shortness of Breath, SOB with Excertion, Pleuritic Pain, Wheezing Gastrointestinal: Abdominal Pain - Medications/Allergies Allergies/Adverse Reactions: Allergies Allergy/AdvReac Type Severity Reaction Status Date / Time No Known Allergies Allergy Verified 07/29/18 03:02 Medications: Current Medications Al Hydroxide/Mg Hydroxide (Maalox) 30 ml PO Q4H PRN PRN Reason: Heartburn or Indigestion Enoxaparin Sodium (Lovenox) 40 mg SC 0900 [facility] Last Admin: 08/06/18 08:11 Dose: 40 mg Folic Acid (Folvite) 1 mg PO DAILY [facility] Last Admin: 08/06/18 08:11 Dose: 1 mg Furosemide (Lasix) 40 mg PO QAM [facility] Last Admin: 08/06/18 08:11 Dose: 40 mg Lorazepam (Ativan) 1 mg PO Q4H PRN PRN Reason: ASE >=9 Miscellaneous Medication (Phos-Nak) 1 pkt PO BID-WM [facility] Last Admin: 08/06/18 08:10 Dose: 1 pkt Multivitamins (Theragran) 1 tab PO DAILY [facility] Last Admin: 08/06/18 08:11 Dose: 1 tab Pantoprazole Sodium (Protonix) 40 mg PO DAILY [facility] Last Admin: 08/06/18 08:11 Dose: 40 mg Sodium Chloride (Flush - Normal Saline) 10 ml IVF Q12HR [facility] Last Admin: 08/06/18 08:11 Dose: 10 ml Sodium Chloride (Flush - Normal Saline) 10 ml IVF PRN PRN PRN Reason: Saline Flush Last Admin: 08/05/18 06:40 Dose: 10 ml Spironolactone (Aldactone) 100 mg PO QAM-WM [facility] Last Admin: 08/06/18 08:11 Dose: 100 mg Thiamine HCl (Thiamine) 100 mg PO DAILY [facility] Last Admin: 08/06/18 08:11 Dose: 100 mg Tramadol HCl (Ultram) 50 mg PO Q6H PRN PRN Reason: Mild-Moderate Pain (1-5) Last Admin: 08/06/18 05:55 Dose: 50 mg
[2018-08-06] MEDS: Lorazepam 1 MG TAB PO PRN (20:40)
--- NOTE | 2018-08-07 04:33 | PRG ---
DATE OF SERVICE: 08/06/2018 SUBJECTIVE: Mr. Deleon states that the pain pill he is taking now the Ultram controlling his symptoms. He did get diuretics this morning. He did speak with the dietitian about low-salt diet. He still has a diffuse abdominal soreness. He does get out of bed and move around. He is eating. OBJECTIVE: VITAL SIGNS: Stable. He is afebrile. Temperature 99.5 max. LUNGS: Clear. HEART: Regular. ABDOMEN: Soft and nontender. EXTREMITIES: There is anasarca in the lower extremities, legs, thighs, buttocks, and sacrum. LABORATORY DATA: Stable. Magnesium and phosphorus replaced. ASSESSMENT: 1. Severe alcoholic hepatitis. 2. Anasarca, started on diuretics yesterday. 3. Electrolyte abnormalities. Replace per Internal Medicine service. RECOMMENDATIONS: 1. Avoid alcohol. 2. A 2 g sodium diet. 3. I will try to wean him off narcotic pain medicine and I would not send him home with anything more than 25 mg of Ultram periodically and I would not give more than a week supply of that. He is told to get off that. Also I would not send him with benzodiazepines. He is out of the window for DTs. 4. He has had dietary counseling for 2 g of sodium diet. 5. He needs to be offered some type of alcohol rehab situation whether that is AA or other counseling. 6. I will give him some diuretics. He needs a short-term follow up with his primary physician to check on his renal function and adjust that dose down as necessary. I would be happy to see him back in the office in 3 to 4 weeks for followup of his alcoholic hepatitis. He understands he needs to not drink alcohol in the form whatsoever or he risks . Job ID: [id number]
[2018-08-07] MEDS: traMADol HCl 50 MG TAB PO PRN ×2 (05:08→21:02)
[2018-08-07 08:56] LABS: #Eosinphils 0.1 thou/uL (0.0-0.7); #Lymphocytes 1.4 thou/uL (1.20-3.40); #Monocytes 1.4 thou/uL (0.11-0.59); #Neutrophils 13.8 thou/uL (1.40-6.50); %Basophils 0.2 % (0.0-1.0); %Eosinophils 0.4 % (0.0-10.0); %Lymphocytes 8.7 % (21.0-51.0); %Monocytes 8.2 % (0.0-10.0); %Neutrophils 82.6 % (42.0-75.0); Hemoglobin 13.4 g/dL (14.0-18.0); Mean Corpuscular HGB CONC 32.3 g/dL (32.0-36.0); Mean Corpuscular Hemoglobin 34.7 pg (27.0-31.0); Mean Platelet Volume 7.7 fL (7.4-10.4); Platelet Count 327 thou/uL (130-400); RBC Distribution Width 15.7 % (11.5-14.5); Red Blood Cell (RBC) Count 3.84 mill/uL (4.70-6.10); White Blood Cell (WBC) Count 16.7 thou/uL (4.8-10.8)
[2018-08-07] MEDS: Spironolactone 100 MG TAB PO SCH (09:03)
[2018-08-07] MEDS: Multivit, Therapeutic 1 TAB PO SCH (09:03)
[2018-08-07] MEDS: Folic Acid 1 MG TAB PO SCH (09:03)
[2018-08-07] MEDS: Furosemide 40 MG TAB PO SCH (09:03)
[2018-08-07] MEDS: Enoxaparin Sodium 40 MG/0.4 ML SYRINGE SC SCH (09:04)
[2018-08-07 09:16] LABS: ALT (SGPT) 38 U/L (8-55); AST (SGOT) 177 U/L (5-34); Albumin 2.3 g/dL (3.5-5.0); Alkaline Phosphatase 191 U/L (40-150); Anion Gap 16 mmol/L (10-20); BUN (Urea Nitrogen) 19 mg/dL (8.9-20.6); Bilirubin, Total 21.2 mg/dL (0.2-1.2); Calc. Creatinine Clearance 174 mL/min (70-130); Calcium 7.8 mg/dL (7.8-10.44); Carbon Dioxide 23 mmol/L (22-29); Chloride 100 mmol/L (98-107); Estimated GFR-MDRD Greater than 90; Glucose 106 mg/dL (70-105); Potassium 3.6 mmol/L (3.5-5.1); Protein, Total 5.3 g/dL (6.0-8.3); Sodium 135 mmol/L (136-145)
--- NOTE | 2018-08-07 13:02 | PDOC.PN ---
- Subjective Encounter Start Date: 08/07/18 Encounter Start Time: 08:20 Pt seen for followup re; alcoholic hepatitis. c/o abdo discomfort. - Objective MAR Reviewed: Yes Vital Signs & Weight: Vital Signs (12 hours) Temp Pulse Resp BP BP BP Pulse Ox 08/07/18 12:00 97.4 F L 95 18 121/81 93 L 08/07/18 08:00 119/80 93 L 08/07/18 07:51 99.1 F 96 18 119/80 93 L 08/07/18 04:00 98.7 F 98 18 121/80 121/80 93 L Weight Weight 212 lb 9 oz I&O: 08/06/18 08/07/18 08/08/18 06:59 06:59 06:59 Intake Total 880 1440 Output Total 1050 650 Balance -170 790 Result Diagrams: 08/07/18 08:21 08/07/18 08:21 Additional Labs: labs reviewed by me Phys Exam - Physical Examination Constitutional: NAD HEENT: moist MMs Neck: supple Respiratory: clear to auscultation bilateral Cardiovascular: RRR Gastrointestinal: soft Neurological: moves all 4 limbs Psychiatric: normal affect Skin: no rash Dx/Plan (1) Acute alcoholic hepatitis Code(s): K70.10 - ALCOHOLIC HEPATITIS WITHOUT ASCITES Status: Acute Comment : T bili 21.2 (2) Alcohol withdrawal Code(s): F10.239 - ALCOHOL DEPENDENCE WITH WITHDRAWAL, UNSPECIFIED Status: Acute Comment: counseled pt (3) Abnormal LFTs Code(s): R94.5 - ABNORMAL RESULTS OF LIVER FUNCTION STUDIES Status: Acute Comment: secondary to alcohol abuse (4) Abdominal pain Code(s): R10.9 - UNSPECIFIED ABDOMINAL PAIN Status: Acute Comment: ? due to hepatomegaly - Plan * . Review of Systems - Review of Systems Respiratory: negative: Cough, Shortness of Breath, SOB with Excertion, Pleuritic Pain, Wheezing Cardiovascular: negative: chest pain, palpitations, orthopnea, paroxysmal nocturnal dyspnea, edema, light headedness Gastrointestinal: Abdominal Pain - Medications/Allergies Allergies/Adverse Reactions: Allergies Allergy/AdvReac Type Severity Reaction Status Date / Time No Known Allergies Allergy Verified 07/29/18 03:02 Medications: Current Medications Al Hydroxide/Mg Hydroxide (Maalox) 30 ml PO Q4H PRN PRN Reason: Heartburn or Indigestion Enoxaparin Sodium (Lovenox) 40 mg SC 0900 [facility] Last Admin: 08/07/18 09:04 Dose: 40 mg Folic Acid (Folvite) 1 mg PO DAILY [facility] Last Admin: 08/07/18 09:03 Dose: 1 mg Furosemide (Lasix) 40 mg PO QAM [facility] Last Admin: 08/07/18 09:03 Dose: 40 mg Lorazepam (Ativan) 1 mg PO Q4H PRN PRN Reason: ASE >=9 Last Admin: 08/06/18 20:40 Dose: 1 mg Miscellaneous Medication (Phos-Nak) 1 pkt PO BID-[facility] Last Admin: 08/07/18 09:03 Dose: 1 pkt Multivitamins (Theragran) 1 tab PO DAILY [facility] Last Admin: 08/07/18 09:03 Dose: 1 tab Pantoprazole Sodium (Protonix) 40 mg PO DAILY [facility] Last Admin: 08/07/18 09:03 Dose: 40 mg Sodium Chloride (Flush - Normal Saline) 10 ml IVF Q12HR [facility] Last Admin: 08/07/18 09:04 Dose: 10 ml Sodium Chloride (Flush - Normal Saline) 10 ml IVF PRN PRN PRN Reason: Saline Flush Last Admin: 08/05/18 06:40 Dose: 10 ml Spironolactone (Aldactone) 100 mg PO QAM-[facility] Last Admin: 08/07/18 09:03 Dose: 100 mg Thiamine HCl (Thiamine) 100 mg PO DAILY [facility] Last Admin: 08/07/18 09:03 Dose: 100 mg Tramadol HCl (Ultram) 50 mg PO Q6H PRN PRN Reason: Mild-Moderate Pain (1-5) Last Admin: 08/07/18 05:08 Dose: 50 mg
--- NOTE | 2018-08-07 15:54 | PRG ---
DATE OF SERVICE: 08/07/2018 SUBJECTIVE: Mr. Deleon states his stomach hurts, it is tight. OBJECTIVE: VITAL SIGNS: Temperature max is 99.1, present 97. Last temperature over 101 was on 08/04/2018, today is 08/07/2018. Blood pressure is 121/81 and pulse 85. GENERAL: The patient is jaundiced, icteric, lying in bed. The nurse said that he is not eating much. LUNGS: Clear. HEART: Regular rate and rhythm. ABDOMEN: Fairly tight, but there is no rebound or guarding. LABORATORY STUDIES: White count 16.7, hemoglobin 13.4, platelet count is 327. Bands yesterday were 26,000. INR of 1.1 on the 16th. Sodium 134. Electrolytes are normal. BUN and creatinine are 17 and 0.7, calcium 7.5, glucose 142, bilirubin is 19, AST 177, ALT is 38, alkaline phosphatase is 191. Immunology, AIMEE, smooth muscle, mitochondrial all negative. Serology, Hep A, B, and C negative. Chemistries, ceruloplasmin was normal, alpha normal and iron studies were normal. ASSESSMENT: Suspected alcoholic hepatitis. out of character, very large liver. Dopplers have showed no evidence of portal or hepatic vein thrombosis. Imaging revealed no evidence of tumor. The gallbladder was worked up for possible cholecystitis this was felt to be related to delayed processing of bile with severe hepatic dysfunction. RECOMMENDATIONS: 1. A liver biopsy to make sure we are not missing other underlying disorders. 2. If fever persist, could consider ID evaluation. 3. Transfer to a tertiary center for liver transplant evaluation will be a final option, although the patient is uninsured at this time, but this is something that should be looked into if symptoms worsen. Job ID: [id number]
[2018-08-07 18:20] LABS: Bilirubin Large (Negative); Blood, Urine Negative (Negative); Clarity CLOUDY (Clear); Glucose, Urine (Dipstick) Negative (Negative); Leukocyte Small (Negative); Nitrite Negative (Negative); Protein, Urine (Dipstick) Negative (Neg-Trace); Specific Gravity, Urine 1.017 (1.002-1.036); Urobilinogen 0.2 mg/dL (0.2-1.0); pH, Urine 5.5 (5.0-9.0)
[2018-08-07 18:25] LABS: Bacteria/HPF None Seen HPF (None Seen); Hyaline Casts/LPF 7-10 HYALINE CAST LPF (0-3 Hyaline); Pathc Cast-AUWi Flag 2.47 (0-2.49); Squamous Epithelial None Seen HPF (0-3); WBC/HPF None Seen HPF (0-3); Yeast-AUWi Flag 14.6 (0-25.0)
[2018-08-07 18:28] LABS: RBC/HPF None Seen HPF (0-3)
[2018-08-08] MEDS: Enoxaparin Sodium 40 MG/0.4 ML SYRINGE SC SCH (01:22)
[2018-08-08 07:25] LABS: INR-International Normal Ratio 1.2; Prothrombin Time 15.3 SEC (12.0-14.7)
[2018-08-08 07:41] LABS: Hemoglobin 13.1 g/dL (14.0-18.0); Mean Corpuscular HGB CONC 32.7 g/dL (32.0-36.0); Mean Corpuscular Hemoglobin 34.7 pg (27.0-31.0); Platelet Count 385 thou/uL (130-400); RBC Distribution Width 15.7 % (11.5-14.5); Red Blood Cell (RBC) Count 3.78 mill/uL (4.70-6.10); White Blood Cell (WBC) Count 20.3 thou/uL (4.8-10.8)
[2018-08-08 07:42] LABS: ALT (SGPT) 42 U/L (8-55); AST (SGOT) 184 U/L (5-34); Albumin 2.4 g/dL (3.5-5.0); Alkaline Phosphatase 223 U/L (40-150); Anion Gap 18 mmol/L (10-20); BUN (Urea Nitrogen) 25 mg/dL (8.9-20.6); Bilirubin, Total 22.9 mg/dL (0.2-1.2); Calc. Creatinine Clearance 117 mL/min (70-130); Calcium 8.2 mg/dL (7.8-10.44); Carbon Dioxide 24 mmol/L (22-29); Chloride 95 mmol/L (98-107); Estimated GFR-MDRD 72; Glucose 86 mg/dL (70-105); Potassium 3.6 mmol/L (3.5-5.1); Protein, Total 5.4 g/dL (6.0-8.3); Sodium 133 mmol/L (136-145)
[2018-08-08] MEDS: traMADol HCl 50 MG TAB PO PRN ×2 (08:02→17:34)
[2018-08-08 08:25] LABS: Band 27 % (5-11); Lymphocytes 3 % (21-51); MDiff Complete? YES; Monocytes 3 % (0-10); Myelocyte 1 % (0-0); Neutrophil 62 % (42-75); Platelet Morphology Comment Appears Adequate; Reactive Lymphocytes 4 % (0-10); Toxic Granulation SLIGHT
[2018-08-08] MEDS ORDERED: Lidocaine 1% PF 5 ML VIAL ONE (08:48)
[2018-08-08] MEDS ORDERED: Sodium Bicarbonate 2.5 MEQ/5 ML VIAL ONE (08:48)
[2018-08-08] MEDS ORDERED: Ketorolac Tromethamine 30 MG/ML VIAL IVP PRN (08:56)
[2018-08-08] MEDS: prednisoLONE 15 MG/5 ML UDCUP PO SCH (10:25)
[2018-08-08] MEDS: Folic Acid 1 MG TAB PO SCH (10:26)
[2018-08-08] MEDS: Spironolactone 100 MG TAB PO SCH (10:26)
[2018-08-08] MEDS: Furosemide 40 MG TAB PO SCH (10:27)
[2018-08-08] MEDS: Multivit, Therapeutic 1 TAB PO SCH (10:27)
[2018-08-08 11:35] LABS: BF Color Yellow; BF RBC Count - Manual 53 /cumm; BF WBC/Nonhematics Ct. - Manua 73 /cumm; Body Fluid Source Ascites Body Fluid; Clarity Hazy (Clear); Tube # EDTA
[2018-08-08 11:47] LABS: BF Segmented Neutrophils 50 %; Cell Count Non Hematic 40 %; Lymphocytes 10 %
--- NOTE | 2018-08-08 12:27 | ULT ---
ULTRASOUND GUIDED PARACENTESIS DIAGNOSTIC AND THERAPEUTIC: DATE: 08/08/18 HISTORY: 43-year-old male with abdominal pain due to abdominal distention due to severe hepatomegaly. This was originally ordered as a hepatic biopsy. However, the presence of ascites, with free fluid circumfere ntially surrounding the liver, would be a contraindication to liver biopsy because of the risk for un controlled, excessive bleeding. After telephone consultation with Dr. Beckett, this was converted to a diagnostic paracentesis. TECHNIQUE: Signed, informed consent obtained. Initial four quadrant survey of abdomen. Right lower quadrant pock et selected. Overlying skin prepared and draped in usual sterile fashion. 25 gauge needle used to patrick ly buffered lidocaine superficially, then deeply under direct ultrasound visualization. 5 Kinyarwanda Yueh catheter advanced through abdominal wall into the pocket of free fluid in the right lower quadrant i n tandem with the 25 gauge needle, also using ultrasound guidance. 25 gauge needle and stylette from Yueh removed. Yueh catheter connected to evacuated bottles via plastic tubing. Fluid drained. Cathete r removed. The patient tolerated the procedure well. No complications. Initial 20 mL syringe full of the ascites fluid, and one of the 1 liter bottles of fluid, were both sent to laboratory, for cell co unt, differential, and culture. FINDINGS: Initial images demonstrate severe hepatomegaly and moderate volume of free intraperitoneal fluid. Nex t set of images demonstrate first the 25 gauge needle tip, then the Yueh catheter needle tip, in the pocket of free fluid in the right lower quadrant. A total of 3,200 mL of dark yellow-brown fluid was drained. Postprocedure image of right lower quadrant demonstrates no residual fluid in that location. IMPRESSION: 1. Successful paracentesis. 2. 3.2 liters of dark fluid was drained. Some of it was sent to laboratory for analysis. 3. Moderate volume of ascites. 4. Severe hepatomegaly. 5. No residual free fluid in the right lower quadrant after the procedure. POS: [facility]
--- NOTE | 2018-08-08 12:30 | PDOC.PN ---
- Subjective Encounter Start Date: 08/08/18 Encounter Start Time: 12:31 Pt seen for followup re: alcoholic hepatitis. Reports abdominal discomfort. Not eating well. - Objective Vital Signs & Weight: Vital Signs (12 hours) Temp Pulse Resp BP BP BP Pulse Ox 08/08/18 10:40 97.6 F 99 16 115/81 95 08/08/18 07:51 128/87 93 L 08/08/18 07:50 98.5 F 104 H 18 128/87 93 L 08/08/18 04:00 98.2 F 108 H 20 126/79 93 L 08/08/18 00:47 98.6 F 82 20 117/78 94 L Weight Admit Weight 194 lb 9.6 oz Weight 212 lb 4 oz I&O: 08/07/18 08/08/18 08/09/18 06:59 06:59 06:59 Intake Total 1440 1000 Output Total 650 400 Balance 790 600 Result Diagrams: 08/08/18 04:40 08/08/18 04:40 Phys Exam - Physical Examination Obese HEENT: moist MMs sclerae icteric Respiratory: clear to auscultation bilateral Cardiovascular: RRR Gastrointestinal: soft, positive bowel sounds distention Neurological: moves all 4 limbs Psychiatric: normal affect Dx/Plan (1) Alcoholic hepatitis with ascites Code(s): K70.11 - ALCOHOLIC HEPATITIS WITH ASCITES Status: Acute Comment: starting prednisolone, pt had paracentesis. Liver biopsy was cancelled. (2) Alcohol withdrawal Code(s): F10.239 - ALCOHOL DEPENDENCE WITH WITHDRAWAL, UNSPECIFIED Status: Acute Comment: improving (3) Abnormal LFTs Code(s): R94.5 - ABNORMAL RESULTS OF LIVER FUNCTION STUDIES Status: Acute Comment: secondary to alcohol abuse (4) Abdominal pain Code(s): R10.9 - UNSPECIFIED ABDOMINAL PAIN Status: Acute Comment: due to hepatomegaly and ascites - Plan * . Review of Systems - Review of Systems Constitutional: negative: fever, chills, sweats, weakness, malaise Gastrointestinal: Nausea, Abdominal Pain. negative: Vomiting, Diarrhea, Constipation, Melena, Hematochezia - Medications/Allergies Allergies/Adverse Reactions: Allergies Allergy/AdvReac Type Severity Reaction Status Date / Time No Known Allergies Allergy Verified 07/29/18 03:02 Medications: Current Medications Al Hydroxide/Mg Hydroxide (Maalox) 30 ml PO Q4H PRN PRN Reason: Heartburn or Indigestion Enoxaparin Sodium (Lovenox) 40 mg SC 0900 [facility] Last Admin: 08/08/18 01:22 Dose: Not Given Folic Acid (Folvite) 1 mg PO DAILY [facility] Last Admin: 08/08/18 10:26 Dose: 1 mg Furosemide (Lasix) 40 mg PO QAM [facility] Last Admin: 08/08/18 10:27 Dose: 40 mg Ketorolac Tromethamine (Toradol) 15 mg IVP Q8H PRN PRN Reason: Pain Stop: 08/13/18 08:57 Last Admin: 08/08/18 10:27 Dose: 15 mg Lorazepam (Ativan) 1 mg PO Q4H PRN PRN Reason: ASE >=9 Last Admin: 08/06/18 20:40 Dose: 1 mg Miscellaneous Medication (Phos-Nak) 1 pkt PO BID-WM [facility] Last Admin: 08/08/18 10:26 Dose: 1 pkt Multivitamins (Theragran) 1 tab PO DAILY [facility] Last Admin: 08/08/18 10:27 Dose: 1 tab Pantoprazole Sodium (Protonix) 40 mg PO DAILY [facility] Last Admin: 08/08/18 10:26 Dose: 40 mg Prednisolone (Orapred) 40 mg PO DAILY [facility] Last Admin: 08/08/18 10:25 Dose: 40 ml Sodium Chloride (Flush - Normal Saline) 10 ml IVF Q12HR [facility] Last Admin: 08/08/18 10:27 Dose: 10 ml Sodium Chloride (Flush - Normal Saline) 10 ml IVF PRN PRN PRN Reason: Saline Flush Last Admin: 08/05/18 06:40 Dose: 10 ml Spironolactone (Aldactone) 100 mg PO QAM-WM [facility] Last Admin: 08/08/18 10:26 Dose: 100 mg Thiamine HCl (Thiamine) 100 mg PO DAILY [facility] Last Admin: 08/08/18 10:27 Dose: 100 mg Tramadol HCl (Ultram) 50 mg PO Q6H PRN PRN Reason: Mild-Moderate Pain (1-5) Last Admin: 08/08/18 08:02 Dose: 50 mg
--- NOTE | 2018-08-08 17:14 | PRG ---
DATE OF SERVICE: 08/08/2018 SUBJECTIVE: Mr. Deleon is resting comfortably in bed. After talking with , we are going to go ahead and get a liver biopsy to make sure no other etiologies are being missed and also he was going to have be started on steroids as he has had no signs of infection thus far, and he has had increasing bilirubin with increasing discriminant function. Today, we went down for liver biopsy. There was ascites and this could not be performed, so we had a tap to rule out SBP, which in fact was negative for SBP. The patient notes he has felt better after his paracentesis, although he is still in moderate amount of discomfort. He was started on some Toradol by the Hospitalist Service, but I have discontinued this. Presently, he is in moderate discomfort, but he is not having fever or chills. He just feels like his abdomen is tight and he has more edema in his legs. PRESENT MEDICATIONS: 1. Maalox. 2. Lovenox. 3. Folvite. 4. Lasix 40 p.o. q.a.m. 5. Ativan 1 mg q.4 hours p.r.n. 6. Sodium phosphate packets. 7. Multivitamin. 8. Protonix. 9. Prednisone. 10. Aldactone 100 mg daily. 11. Thiamine 100 mg daily. PHYSICAL EXAMINATION: VITAL SIGNS: Temperature is 97.6, pulse 99, blood pressure 115/81, weight 212, which has been stable for the past 2 days. GENERAL: He is alert and oriented to person, place, and time. His significant other is at bedside. HEENT: He is icteric. Oropharynx, no lesions. NECK: Supple. No adenopathy. LUNGS: Clear. Decreased breath sounds at bases. ABDOMEN: Tense and distended. He has palpable hepatomegaly. EXTREMITIES: He has 2 to 3+ edema in the legs. He has no asterixis. LABORATORY DATA: White count is 20.3 thousand, hemoglobin is 13.1, platelet count is 385, bands are 27%. INR is 1.2. Sodium 133, potassium 3.6, chloride is 95, BUN and creatinine are 25 and 1.13, that is up from 19 and 0.76 yesterday and 19 and 0.66 on 08/05/2018. Bilirubin is 22.9, AST is 184, ALT 42, alkaline phosphatase 223. AFP was normal. Pending labs, urine culture and blood culture. ASSESSMENT: 1. Severe alcoholic hepatitis. The patient has been started on steroids. Tap is negative for spontaneous bacterial peritonitis with an absolute neutrophil count in ascitic fluid is less than 250. 2. Plans for liver biopsy were aborted in light of the new onset ascites. I had long discussion with the patient and his significant other about very poor prognosis and risks, including . Without liver transplant, there was no other treatment for this. We are trying the steroids. He is presently uninsured and therefore, we cannot facilitate transfer to a transplant facility. Hopefully with medical management and good nutrition, he can improve it. The need for daily nutrition discussed with the patient and his significant other. RECOMMENDATIONS: 1. Await cultures. 2. Agree with steroids. 3. Stop the sodium phosphate. This is worsening his edema. 4. Check electrolytes, magnesium, and phosphate daily. If BUN and creatinine continue to rise, he has been started on octreotide and get a Renal consult for hepatorenal syndrome. 5. Avoid nephrotoxic agents such as nonsteroidal anti-inflammatory medications or antibiotics, which are nephrotoxic. Job ID: [id number]
[2018-08-09] MEDS: traMADol HCl 50 MG TAB PO PRN ×2 (05:08→23:46)
[2018-08-09 05:36] LABS: Anion Gap 16 mmol/L (10-20); BUN (Urea Nitrogen) 41 mg/dL (8.9-20.6); Calc. Creatinine Clearance 54 mL/min (70-130); Calcium 8.1 mg/dL (7.8-10.44); Carbon Dioxide 26 mmol/L (22-29); Chloride 95 mmol/L (98-107); Estimated GFR-MDRD 30; Glucose 121 mg/dL (70-105); Phosphorus 4.7 mg/dL (2.3-4.7); Potassium 4.1 mmol/L (3.5-5.1); Sodium 133 mmol/L (136-145)
[2018-08-09] MEDS: Folic Acid 1 MG TAB PO SCH (08:14)
[2018-08-09] MEDS: Spironolactone 100 MG TAB PO SCH (08:14)
[2018-08-09] MEDS: Multivit, Therapeutic 1 TAB PO SCH (08:14)
[2018-08-09] MEDS: Furosemide 40 MG TAB PO SCH (08:14)
[2018-08-09] MEDS: prednisoLONE 15 MG/5 ML UDCUP PO SCH (08:15)
[2018-08-09] MEDS: Enoxaparin Sodium 40 MG/0.4 ML SYRINGE SC SCH (08:16)
[2018-08-09 08:33] LABS: Band 16 % (5-11); Hemoglobin 12.9 g/dL (14.0-18.0); Lymphocytes 5 % (21-51); MDiff Complete? YES; Mean Corpuscular HGB CONC 32.4 g/dL (32.0-36.0); Mean Platelet Volume 7.7 fL (7.4-10.4); Metamyelocyte 1 % (0-0); Monocytes 7 % (0-10); Neutrophil 71 % (42-75); Platelet Count 431 thou/uL (130-400); RBC Distribution Width 15.6 % (11.5-14.5); Red Blood Cell (RBC) Count 3.79 mill/uL (4.70-6.10); White Blood Cell (WBC) Count 25.5 thou/uL (4.8-10.8)
--- NOTE | 2018-08-09 10:57 | PDOC.PN ---
- Subjective Encounter Start Date: 08/09/18 Encounter Start Time: 10:56 Patient seen and examined, states that his belly feels full again from yesterday, had paracentesis done yesterday as liver bx not possible given significant swelling. - Objective Vital Signs & Weight: Vital Signs (12 hours) Temp Pulse Resp BP BP Pulse Ox 08/09/18 08:10 116/80 95 08/09/18 08:00 97.6 F 92 20 116/80 95 08/09/18 05:00 97.0 F L 82 20 98/62 93 L 08/09/18 04:00 98/62 08/09/18 00:00 97.8 F 85 20 119/72 119/85 95 Weight Admit Weight 194 lb 9.6 oz Weight 204 lb 4.8 oz I&O: 08/08/18 08/09/18 08/10/18 06:59 06:59 06:59 Intake Total 1000 1550 Output Total 400 Balance 600 1550 Result Diagrams: 08/09/18 04:50 08/09/18 04:50 Phys Exam - Physical Examination Constitutional: NAD HEENT: PERRLA, moist MMs icteric sclera Neck: no nodes, no JVD, supple Respiratory: no wheezing, no rales, no rhonchi Cardiovascular: RRR, no significant murmur, no rub Gastrointestinal: soft, non-tender distended +fluid wave Musculoskeletal: pulses present, edema present (anasarca) Neurological: non-focal, normal sensation Psychiatric: normal affect, A&O x 3 Skin: normal turgor Deviation from normal: jaundiced Dx/Plan (1) Acute kidney injury Code(s): N17.9 - ACUTE KIDNEY FAILURE, UNSPECIFIED Status: Acute (2) Abdominal pain Code(s): R10.9 - UNSPECIFIED ABDOMINAL PAIN Status: Acute Comment: due to hepatomegaly and ascites (3) Abnormal LFTs Code(s): R94.5 - ABNORMAL RESULTS OF LIVER FUNCTION STUDIES Status: Acute Comment: secondary to alcohol abuse (4) Acute alcoholic hepatitis Code(s): K70.10 - ALCOHOLIC HEPATITIS WITHOUT ASCITES Status: Acute Comment : T bili 21.2 (5) Alcohol withdrawal Code(s): F10.239 - ALCOHOL DEPENDENCE WITH WITHDRAWAL, UNSPECIFIED Status: Acute Comment: improving (6) Alcoholic hepatitis with ascites Code(s): K70.11 - ALCOHOLIC HEPATITIS WITH ASCITES Status: Acute Comment: starting prednisolone, pt had paracentesis. Liver biopsy was cancelled. - Plan * renal consulted * possibly HRS, albumin levels normal and BP stable thus unlikely that this patient is having hypovolemic MELY * toradol given? perhaps NSAID nephropathy playing a role though unlikely * cont with furosemide and spironolactone * patient's prognosis appears to be guarded, if it is HRS then he has very poor prognosis * for now will continue with lasix and aldactone and see how he does * case and plan d/w patient at length, he understood and agreed with this plan.
[2018-08-09] MEDS ORDERED: Sodium Chloride 0.9% 1,000 ML IV SCH (12:30)
[2018-08-09] MEDS: Albumin 25% 25 GM/100 ML BOT IVPB SCH ×2 (13:05→21:39)
[2018-08-09] MEDS ORDERED: Octreotide Acetate 100 MCG/ML VIAL SLOW IVP SCH (14:00)
--- NOTE | 2018-08-09 14:53 | PRG ---
DATE OF SERVICE: 08/09/2018 SUBJECTIVE: Mr. Deleon this morning has been seen by Nephrology as his creatinine jumped. He was started back on fluids at 50 mL an hour. His paracentesis yesterday is not showing any SBP and 3.2 L of fluid removed at that time. The patient denies any overt pain. Has been eating well and is still very distended. OBJECTIVE: VITAL SIGNS: Temperature 97.7, pulse 87, blood pressure 118/82, all the systolics over 100. HEENT: He is icteric. LUNGS: Clear. HEART: Regular rate and rhythm. ABDOMEN: Protuberant and distended. He has anasarca and edema in his back, legs, hips. NEUROLOGIC: He has no asterixis. He is alert and oriented. MEDICATION LIST: 1. Maalox. 2. Lovenox. 3. Folvite. 4. Ativan p.r.n. 5. Protonix. 6. Prednisone 40 mg daily, started yesterday. 7. Thiamine. 8. Multivitamin started today. 9. Ultram p.r.n. 10. Lasix. 11. Aldactone last dose this morning. LABORATORY STUDIES: White count 25,500, hemoglobin 12.9, platelet count 431. Sodium 133, potassium 4.1, bicarb 95, BUN and creatinine of 41 and 2.38, glucose 121. ASSESSMENT: 1. Acute jump in BUN and creatinine to 41 and 2.3 from 25 and 1.1. This represents acute renal failure. Concerned about hepatorenal syndrome. Hepatology consult is pending. 2. Severe alcoholic hepatitis with elevated yesterday. 3. Ascites. There have been no signs of SBP is noted, there are no signs of other infections by culture and laboratory studies. 4. Leukocytosis, likely related to alcoholic hepatitis. 5. Severe jaundice, likely related to alcoholic hepatitis with serologic evaluation for autoimmune, metabolic, and viral hepatitis is all negative. RECOMMENDATIONS: 1. Stop diuretics. 2. Continue to avoid all nephrotoxic drugs. 3. Start IV fluids at 100 mL an hour normal saline. 4. Start albumin 25 g IV q.8. 5. If renal function fails to reverse, we are going to add an octreotide now. It may be reasonable to add in midodrine, if his blood pressure would drop. Job ID: [id number]
[2018-08-09] MEDS: Sodium Chloride 0.9% 1,000 ML IV SCH ×2 (14:55→21:40)
[2018-08-09] MEDS: Octreotide Acetate 1,250 MCG in Sodium Chloride 0.9% 250 ML 250 ML IVPB SCH (15:01)
--- NOTE | 2018-08-09 19:51 | CON ---
DATE OF CONSULTATION: NEPHROLOGY CONSULTATION REASON FOR CONSULTATION: Elevated creatinine. HISTORY OF PRESENT ILLNESS: This is a 43-year-old gentleman, who was admitted for hepatorenal syndrome and was noted to have a creatinine of more than 2. His baseline was less than 1. The patient received diuretics as well as NSAIDs. The patient has no nausea, vomiting, or chest pain, but is jaundiced. PAST MEDICAL HISTORY: Significant for alcohol abuse, history of ascites, appendectomy. SOCIAL HISTORY: Alcohol abuse. ALLERGIES: REVIEWED. MEDICATIONS: Medication list reviewed. REVIEW OF SYSTEMS: Fifteen-point review of systems was performed and negative except for positives noted above. NECK: No swelling or lumps. NOSE: No epistaxis or discharge. EYES: No diplopia or pain. MUSCULOSKELETAL: No joint pain. NEUROPSYCHIATIC SYSTEMS: No suicidal ideation. No ideation. SKIN: Denies any rash or ulcer. CONSTITUTIONAL: No fever or chills. PHYSICAL EXAMINATION: CONSTITUTIONAL: The patient is awake and alert. VITAL SIGNS: Afebrile, pulse 59, breathing is 16, and blood pressure 116/80. GENERAL APPEARANCE AND MENTAL STATUS: Fair. HEAD/NECK: Normocephalic. Atraumatic. EYES: EOMI. No deformity. EARS: Clear. No ulcers. NOSE: Intact. No lesions. MOUTH: Clear. No discharge. THROAT: Clear. No exudate. LUNGS: Clear. No crackles. CARDIAC: S1, S2. No rub. ABDOMEN: Benign. Bowel sounds positive. GENITALIA/RECTUM: Mays absent. BACK/EXTREMITIES: Edema 0+. NEUROLOGICAL: Alert and motor intact. ASSESSMENT AND RECOMMENDATIONS: 1. Acute kidney injury due to NSAIDs and diuretics. We will start normal saline. 2. Hypertension, stable. 3. Anemia, stable. 4. Medications based on glomerular filtration rate are appropriate. Overall prognosis is extremely poor. Job ID: [id number]
[2018-08-10 04:32] LABS: Band 10 % (5-11); Eosinophils 1 % (0-10); Hemoglobin 12.6 g/dL (14.0-18.0); Lymphocytes 8 % (21-51); MDiff Complete? YES; Mean Corpuscular HGB CONC 34.7 g/dL (32.0-36.0); Mean Corpuscular Hemoglobin 36.6 pg (27.0-31.0); Mean Platelet Volume 7.4 fL (7.4-10.4); Monocytes 5 % (0-10); Neutrophil 76 % (42-75); Platelet Count 348 thou/uL (130-400); Platelet Morphology Comment Appears Adequate; RBC Distribution Width 15.4 % (11.5-14.5); Red Blood Cell (RBC) Count 3.43 mill/uL (4.70-6.10); White Blood Cell (WBC) Count 18.7 thou/uL (4.8-10.8)
[2018-08-10 04:33] LABS: ALT (SGPT) 45 U/L (8-55); AST (SGOT) 207 U/L (5-34); Albumin 2.6 g/dL (3.5-5.0); Alkaline Phosphatase 211 U/L (40-150); Anion Gap 14 mmol/L (10-20); BUN (Urea Nitrogen) 49 mg/dL (8.9-20.6); Bilirubin, Total 23.7 mg/dL (0.2-1.2); Calc. Creatinine Clearance 51 mL/min (70-130); Calcium 7.7 mg/dL (7.8-10.44); Carbon Dioxide 25 mmol/L (22-29); Chloride 98 mmol/L (98-107); Estimated GFR-MDRD 28; Globulin 2.2 g/dL (2.4-3.5); Glucose 111 mg/dL (70-105); Magnesium 1.8 mg/dL (1.6-2.6); Phosphorus 4.9 mg/dL (2.3-4.7); Protein, Total 4.8 g/dL (6.0-8.3); Sodium 133 mmol/L (136-145)
[2018-08-10] MEDS ORDERED: Lorazepam 1 MG TAB PO SCH (05:15)
[2018-08-10] MEDS: traMADol HCl 50 MG TAB PO PRN ×3 (05:19→18:51)
[2018-08-10] MEDS: Albumin 25% 25 GM/100 ML BOT IVPB SCH ×2 (05:20→14:52)
[2018-08-10] MEDS: Sodium Chloride 0.9% 1,000 ML IV SCH (07:10)
[2018-08-10] MEDS: Folic Acid 1 MG TAB PO SCH (08:47)
[2018-08-10] MEDS: Multivit, Therapeutic 1 TAB PO SCH (08:47)
--- NOTE | 2018-08-10 09:21 | PDOC.PN ---
- Subjective Encounter Start Date: 08/10/18 Encounter Start Time: 09:19 Patient seen and examined, feels more swollen today, pending repeat paracentesis today. - Objective Vital Signs & Weight: Vital Signs (12 hours) Temp Pulse Resp BP BP BP Pulse Ox 08/10/18 07:41 97.6 F 85 24 H 105/72 93 L 08/10/18 04:00 98.2 F 81 20 132/70 132/70 94 L 08/10/18 00:00 98.5 F 78 18 107/77 94 L Weight Admit Weight 194 lb 9.6 oz Weight 208 lb 9.6 oz I&O: 08/09/18 08/10/18 08/11/18 06:59 06:59 06:59 Intake Total 1550 2825 Balance 1550 2825 Result Diagrams: 08/10/18 04:05 08/10/18 04:05 Phys Exam - Physical Examination mild discomfort HEENT: PERRLA, moist MMs icteric sclera Neck: no nodes, no JVD, supple Respiratory: no wheezing, no rales, no rhonchi Cardiovascular: RRR, no significant murmur, no rub Gastrointestinal: soft, non-tender, positive bowel sounds +fluid wave distended Musculoskeletal: pulses present, edema present (trace ) Neurological: non-focal, normal sensation Psychiatric: normal affect, A&O x 3 Skin: no rash, normal turgor Dx/Plan (1) Acute kidney injury Code(s): N17.9 - ACUTE KIDNEY FAILURE, UNSPECIFIED Status: Acute (2) Abdominal pain Code(s): R10.9 - UNSPECIFIED ABDOMINAL PAIN Status: Acute Comment: due to hepatomegaly and ascites (3) Abnormal LFTs Code(s): R94.5 - ABNORMAL RESULTS OF LIVER FUNCTION STUDIES Status: Acute Comment: secondary to alcohol abuse (4) Acute alcoholic hepatitis Code(s): K70.10 - ALCOHOLIC HEPATITIS WITHOUT ASCITES Status: Acute Comment : T bili 21.2 (5) Alcohol withdrawal Code(s): F10.239 - ALCOHOL DEPENDENCE WITH WITHDRAWAL, UNSPECIFIED Status: Acute Comment: improving (6) Alcoholic hepatitis with ascites Code(s): K70.11 - ALCOHOLIC HEPATITIS WITH ASCITES Status: Acute Comment: starting prednisolone, pt had paracentesis. Liver biopsy was cancelled. - Plan * paracentesis * DC NS * cont with albumin * MELY likely from NSAID, albumin challenge being done to r/o pre-renal, would probably DC albumin after 2-3 days if renal function doesn't recover as if this is NSAID induced ATN more volume infusion will cause overall worsening of his condition * surgical consultation done earlier in the admission and no surgery to be done * overall poor prognosis
--- NOTE | 2018-08-10 13:19 | ULT ---
ULTRASOUND GUIDED PARACENTESIS: Date: 08/10/18 COMPARISON: 08/08/18. HISTORY: Abdominal distention, pain, shortness of breath, hepatic and renal failure. FINDINGS/TECHNIQUE: Focused abdominal imaging demonstrates diffuse ascites within the abdomen/pelvis. Informed consent fo r ultrasound guided paracentesis obtained. Skin in right lower quadrant prepped and draped in the normal sterile fashion and anesthetized with 1 % buffered lidocaine. With direct sonographic guidance, a 5 [place] Yueh needle was advanced into the ascites and removal of the stylette yields yellow/brown fluid. 2.8 liters were removed. The patient t olerated the procedure well. IMPRESSION: Successful ultrasound guided paracentesis as above. POS: [facility]
[2018-08-10] MEDS: prednisoLONE 15 MG/5 ML UDCUP PO SCH (14:48)
[2018-08-10] MEDS: Midodrine HCl 5 MG TAB PO SCH ×2 (14:48→21:39)
[2018-08-10] MEDS ORDERED: Albumin 25% 100 ML ONE (14:51)
--- NOTE | 2018-08-10 15:53 | PRG ---
DATE OF SERVICE: 08/10/2018 SUBJECTIVE: A 43-year-old gentleman who was seen for acute kidney disease. The patient denies any nausea, vomiting, or chest pain. OBJECTIVE: GENERAL: The patient is awake, alert, in no acute distress. VITAL SIGNS: Temperature afebrile. Pulse 91, breathing 16, blood pressure 132/70. GENERAL APPEARANCE AND MENTAL STATUS: Fair. HEAD/NECK: Normocephalic. Atraumatic. EYES: EOMI. No deformity. EARS: Clear. No ulcers. NOSE: Intact. No lesions. MOUTH: Clear. No discharge. THROAT: Clear. No exudate. LUNGS: Clear. No crackles. CARDIAC: S1, S2. No rub. ABDOMEN: Benign. Bowel sounds positive. GENITALIA/RECTUM: Mays absent. BACK/EXTREMITIES: Edema 0+. NEUROLOGICAL: Alert and motor intact. LABORATORY DATA: Hemoglobin 12.6. Creatinine 2.5. ASSESSMENT AND RECOMMENDATION: 1. Chronic kidney disease stage 4, stable. 2. Acute kidney injury. 3. Hepatorenal syndrome. 4. Medications based on glomerular filtration rate are nonsteroidal anti-inflammatory drugs. 5. Overall prognosis is extremely poor. Job ID: [id number]
--- NOTE | 2018-08-10 16:43 | PRG ---
DATE OF SERVICE: 08/10/2018 SUBJECTIVE: Mr. Deleon with albumin and saline, had worsening ascites and tension. This morning complaining of increased pain. 3.8 L of bilious ascites was removed. He feels better now. MEDICATIONS: Presently include: 1. . 2. Lovenox is on hold. 3. Folic acid. 4. Ativan p.r.n. 5. Multivitamin. 6. Octreotide for hepatorenal syndrome. 7. Protonix. 8. Pentoxifylline 400 mg p.o. daily started today by myself for his severe alcoholic hepatitis. 9. He is on prednisolone for alcoholic pancreatitis. 10. Normal saline at 50 mL an hour. 11. Thiamine. 12. Tramadol. 13. Folic acid. OBJECTIVE: VITAL SIGNS: Temperature is 98, pulse 91, blood pressure is anywhere from the low 100s to upper 90s. Yesterday, it was in the 116 to 100 systolic. Daily weights, he is up to 208 pounds today, was 204 yesterday and 212 on the . Urine output was 400 mL yesterday. GENERAL: He is awake, alert, and oriented. HEENT: Conjunctiva is clear. Sclerae icteric. LUNGS: Clear. HEART: Regular rate and rhythm. ABDOMEN: Protuberant hepatomegaly. EXTREMITIES: No clubbing, cyanosis, or edema. LABORATORY DATA: White count 18.7, hemoglobin 12.6, platelet count 348. INR not done. Sodium 133, potassium 4, BUN and creatinine 49 and 2.52, phosphorus 4.9, magnesium 1.8, bilirubin 23.7, AST 207, ALT 45, alk phos 211, albumin 3.6. Cultures of ascites, blood and urine were all normal. ASSESSMENT: 1. Severe alcoholic hepatitis. 2. Suspected developing hepatorenal syndrome. PLAN: 1. He is on steroids as his bilirubin is past 23 now, and he is on . He was started on albumin, octreotide, and IV fluids yesterday secondary to worsening renal function with low blood pressures. We are going to add some midodrine today. 2. Prognosis is very poor at this point in time. He has been ordered a to rule out some type of infiltrative tumor in the liver, although it appears this is just diffuse fatty liver. Serologic workup for viral hepatitis and metabolic and autoimmune disease all have been negative. Job ID: [id number]
[2018-08-10] MEDS ORDERED: traMADol HCl 50 MG TAB PO PRN (18:15)
[2018-08-11] MEDS: traMADol HCl 50 MG TAB PO PRN ×3 (02:57→20:43)
[2018-08-11] MEDS: Sodium Chloride 0.9% 1,000 ML IV SCH ×3 (03:53→22:40)
[2018-08-11 06:49] LABS: ALT (SGPT) 64 U/L (8-55); AST (SGOT) 292 U/L (5-34); Albumin 2.7 g/dL (3.5-5.0); Alkaline Phosphatase 191 U/L (40-150); Anion Gap 15 mmol/L (10-20); BUN (Urea Nitrogen) 50 mg/dL (8.9-20.6); Bilirubin, Total 23.9 mg/dL (0.2-1.2); Calc. Creatinine Clearance 0 mL/min (70-130); Calcium 7.8 mg/dL (7.8-10.44); Carbon Dioxide 21 mmol/L (22-29); Chloride 100 mmol/L (98-107); Estimated GFR-MDRD 30; Globulin 2.1 g/dL (2.4-3.5); Glucose 130 mg/dL (70-105); Potassium 4.2 mmol/L (3.5-5.1); Protein, Total 4.8 g/dL (6.0-8.3); Sodium 132 mmol/L (136-145)
[2018-08-11] MEDS: Octreotide Acetate 1,250 MCG in Sodium Chloride 0.9% 250 ML 250 ML IVPB SCH (07:07)
[2018-08-11] MEDS: Midodrine HCl 5 MG TAB PO SCH ×3 (08:25→20:45)
[2018-08-11] MEDS: Multivit, Therapeutic 1 TAB PO SCH (08:25)
[2018-08-11] MEDS: Folic Acid 1 MG TAB PO SCH (08:25)
--- NOTE | 2018-08-11 09:15 | PDOC.PN ---
- Subjective Encounter Start Date: 08/11/18 Encounter Start Time: 09:07 Feels ok. Has substantial recurrence of the ascites. Eating. Has some UOP, but scant and dark. Had couple of loose BM's yesterday. - Objective Vital Signs & Weight: Weight Admit Weight 194 lb 9.6 oz Weight 7.101 oz I&O: 08/10/18 08/11/18 08/12/18 06:59 06:59 06:59 Intake Total 2825 2500 Balance 2825 2500 Result Diagrams: 08/10/18 04:05 08/11/18 06:03 Phys Exam - Physical Examination Constitutional: NAD Respiratory: no wheezing, no rales, no rhonchi, clear to auscultation bilateral Cardiovascular: RRR, no significant murmur S3 Distended. Mildly, diffusely tender. 2+ edema Psychiatric: normal affect, A&O x 3 Dx/Plan (1) Abdominal pain Code(s): R10.9 - UNSPECIFIED ABDOMINAL PAIN Status: Acute Comment: due to hepatomegaly and ascites (2) Acute alcoholic hepatitis Code(s): K70.10 - ALCOHOLIC HEPATITIS WITHOUT ASCITES Status: Acute Comment : T bili 21.2 (3) Acute kidney injury Code(s): N17.9 - ACUTE KIDNEY FAILURE, UNSPECIFIED Status: Acute Comment: Hepatorenal syndrome. (4) Alcohol withdrawal Code(s): F10.239 - ALCOHOL DEPENDENCE WITH WITHDRAWAL, UNSPECIFIED Status: Acute Comment: improving (5) Alcoholic hepatitis with ascites Code(s): K70.11 - ALCOHOLIC HEPATITIS WITH ASCITES Status: Acute Comment: starting prednisolone, pt had paracentesis. Liver biopsy was cancelled. - Plan * Rapid recurrence of the ascites. LFT's worsening slowly. Continue steroids for acute alcoholic hepatitis. GI following. * Renal function is stabilized compared to yesterday. On albumin. Nephrology following.
[2018-08-11] MEDS: prednisoLONE 15 MG/5 ML UDCUP PO SCH (10:55)
--- NOTE | 2018-08-11 12:10 | PRG ---
DATE OF SERVICE: 08/11/2018 SUBJECTIVE: A 43-year-old gentleman, being seen for acute kidney injury. The patient denies any nausea, vomiting, or chest pain. OBJECTIVE: CONSTITUTIONAL: The patient is awake and alert. VITAL SIGNS: Afebrile, pulse 61, breathing 16, and blood pressure 114/74. GENERAL APPEARANCE AND MENTAL STATUS: Fair. HEAD/NECK: Normocephalic. Atraumatic. EYES: EOMI. No deformity. EARS: Clear. No ulcers. NOSE: Intact. No lesions. MOUTH: Clear. No discharge. THROAT: Clear. No exudate. LUNGS: Clear. No crackles. CARDIAC: S1, S2. No rub. ABDOMEN: Benign. Bowel sounds positive. GENITALIA/RECTUM: Mays absent. BACK/EXTREMITIES: Edema 0+. NEUROLOGICAL: Alert and motor intact. LABORATORY DATA: Labs show hemoglobin of 12.6. Creatinine is 2.4. ASSESSMENT AND PLAN: 1. Acute kidney injury, improved. 2. Hypertension, stable. 3. No indication for dialysis. PROGNOSIS: Poor. Job ID: [id number]
--- NOTE | 2018-08-11 14:57 | PRG ---
DATE OF SERVICE: 08/11/2018 SUBJECTIVE: Mr. Deleon is resting in bed. He complains of his stomach being distended. He is not eating much because of this. OBJECTIVE: VITAL SIGNS: Temperature is 97.7, pulse 71, blood pressure 104/68, respirations 18. Systolics have ranged between 98/62 on 12th to 116/80. In's and out's 2825. Spontaneous urine output and weight not done today. GENERAL: He is alert and oriented to person, place, and time. HEENT: He is icteric. LUNGS: Clear. HEART: Regular. No rubs, clicks, or murmurs. ABDOMEN: Protuberant with shifting dullness, fluid wave. EXTREMITIES: No clubbing or cyanosis. There is 3+ edema. LABORATORY DATA: White count is 18.7 today, hemoglobin 12.6, platelet count 348. He has 76% segs. INR is 1.2 as of . Sodium 132, potassium 4.2, BUN and creatinine are 50 and 2.42, which is improved. Creatinine drop is down from 2.52 yesterday. ASSESSMENT: 1. Severe alcoholic hepatitis, now on pentoxifylline and steroid. 2. Acute on chronic renal failure with probable hepatorenal syndrome or nephrotoxicity from NSAIDs. In any event, he is improving at this time with octreotide and midodrine, and albumin. RECOMMENDATIONS: Continue present course. We will re-evaluate tomorrow. Job ID: [id number]
[2018-08-11] MEDS: Lorazepam 1 MG TAB PO PRN (23:30)
[2018-08-12] MEDS ORDERED: oxyCODONE 5 MG TAB PO SCH (01:00)
[2018-08-12 05:57] LABS: Bilirubin, Total 25.9 mg/dL (0.2-1.2)
[2018-08-12 06:09] LABS: ALT (SGPT) 74 U/L (8-55); AST (SGOT) 209 U/L (5-34); Albumin 2.8 g/dL (3.5-5.0); Alkaline Phosphatase 216 U/L (40-150); Anion Gap 20 mmol/L (10-20); BUN (Urea Nitrogen) 54 mg/dL (8.9-20.6); Calc. Creatinine Clearance 53 mL/min (70-130); Calcium 8.5 mg/dL (7.8-10.44); Carbon Dioxide 20 mmol/L (22-29); Chloride 101 mmol/L (98-107); Estimated GFR-MDRD 31; Globulin 2.5 g/dL (2.4-3.5); Glucose 142 mg/dL (70-105); Protein, Total 5.3 g/dL (6.0-8.3); Sodium 137 mmol/L (136-145)
[2018-08-12] MEDS: Midodrine HCl 5 MG TAB PO SCH ×3 (09:27→20:05)
[2018-08-12] MEDS: Multivit, Therapeutic 1 TAB PO SCH (09:29)
[2018-08-12] MEDS: Folic Acid 1 MG TAB PO SCH (09:29)
[2018-08-12] MEDS: traMADol HCl 50 MG TAB PO PRN ×2 (09:35→14:57)
[2018-08-12] MEDS ORDERED: Morphine 2 MG/ML SYRINGE SLOW IVP SCH (10:00)
[2018-08-12] MEDS: prednisoLONE 15 MG/5 ML UDCUP PO SCH (10:29)
[2018-08-12] MEDS: Octreotide Acetate 1,250 MCG in Sodium Chloride 0.9% 250 ML 250 ML IVPB SCH (10:29)
[2018-08-12] MEDS: Spironolactone 100 MG TAB PO SCH (10:50)
[2018-08-12 10:51] LABS: INR-International Normal Ratio 1.4; Prothrombin Time 17.1 SEC (12.0-14.7)
[2018-08-12] MEDS: Furosemide 40 MG TAB PO SCH (11:03)
[2018-08-12 11:10] LABS: Band 24 % (5-11); Hemoglobin 14.9 g/dL (14.0-18.0); Lymphocytes 1 % (21-51); MDiff Complete? YES; Mean Corpuscular HGB CONC 31.6 g/dL (32.0-36.0); Mean Corpuscular Hemoglobin 33.8 pg (27.0-31.0); Mean Platelet Volume 7.6 fL (7.4-10.4); Monocytes 1 % (0-10); Myelocyte 1 % (0-0); Neutrophil 73 % (42-75); Platelet Count 458 thou/uL (130-400); RBC Distribution Width 15.9 % (11.5-14.5); Red Blood Cell (RBC) Count 4.41 mill/uL (4.70-6.10); White Blood Cell (WBC) Count 51.1 thou/uL (4.8-10.8)
--- NOTE | 2018-08-12 11:51 | PRG ---
DATE OF SERVICE: 08/12/2018 SUBJECTIVE: This is a 43-year-old gentleman being seen for acute kidney injury. The patient denies any nausea, vomiting, or chest pain. OBJECTIVE: CONSTITUTIONAL: The patient is awake, alert. VITAL SIGNS: Afebrile, pulse 93, breathing 16, and blood pressure 125/84. GENERAL APPEARANCE AND MENTAL STATUS: Fair. HEAD/NECK: Normocephalic. Atraumatic. EYES: EOMI. No deformity. EARS: Clear. No ulcers. NOSE: Intact. No lesions. MOUTH: Clear. No discharge. THROAT: Clear. No exudate. LUNGS: Clear. No crackles. CARDIAC: S1, S2. No rub. ABDOMEN: Benign. Bowel sounds positive. GENITALIA/RECTUM: Mays absent. BACK/EXTREMITIES: Edema 0+. NEUROLOGICAL: Alert and motor intact. LABORATORY DATA: Labs show hemoglobin 12.6. Creatinine 2.3. ASSESSMENT AND PLAN: 1. Chronic kidney disease, stage 3, stable. 2. Acute kidney injury, stable. 3. Hypertension, stable. 4. Nonoliguric, no indication for dialysis. 5. Prognosis is very poor. Job ID: [id number]
--- NOTE | 2018-08-12 11:54 | PDOC.PN ---
- Subjective Encounter Start Date: 08/12/18 Encounter Start Time: 10:10 Had a bad night. Developed severe abdominal pain related to his recurrent ascites around 2 am. Had a dose of pain meds last night. Still very uncomfortable this morning. Wants thoracentesis again. - Objective Vital Signs & Weight: Vital Signs (12 hours) Temp Pulse Resp BP Pulse Ox 08/12/18 11:41 97.5 F L 99 24 H 126/89 93 L 08/12/18 08:10 97.6 F 93 20 125/84 96 08/12/18 08:00 96 08/12/18 03:54 97.4 F L 86 16 114/72 92 L Weight Admit Weight 194 lb 9.6 oz Weight 200 lb 8 oz I&O: 08/11/18 08/12/18 08/13/18 06:59 06:59 06:59 Intake Total 2500 2740 Balance 2500 2740 Result Diagrams: 08/12/18 10:24 08/12/18 05:17 Phys Exam - Physical Examination Very uncomfortable. Moaning with each breath. Can't make himself stop. Respiratory: no wheezing, no rales, no rhonchi Diminished at bases. Grunting. Cardiovascular: RRR, no significant murmur, no rub Tense ascites. Diffusely TTP. 2+ edema. Psychiatric: A&O x 3 Deviation from normal: Jaundice. Dx/Plan (1) Abdominal pain Code(s): R10.9 - UNSPECIFIED ABDOMINAL PAIN Status: Acute Comment: due to hepatomegaly and ascites (2) Acute alcoholic hepatitis Code(s): K70.10 - ALCOHOLIC HEPATITIS WITHOUT ASCITES Status: Acute (3) Acute kidney injury Code(s): N17.9 - ACUTE KIDNEY FAILURE, UNSPECIFIED Status: Acute Comment: Hepatorenal syndrome. Stablizing creatinine. (4) Alcohol withdrawal Code(s): F10.239 - ALCOHOL DEPENDENCE WITH WITHDRAWAL, UNSPECIFIED Status: Resolved (5) Alcoholic hepatitis with ascites Code(s): K70.11 - ALCOHOLIC HEPATITIS WITH ASCITES Status: Acute Comment: Prednisone, pt had paracentesis. Liver biopsy was cancelled. Will get repeat paracentesis. - Plan * Pain meds. * paracentesis today. * Discussed with GI. Plans to talk to GI in [place] tomorrow about possible transfer.
[2018-08-12] MEDS ORDERED: Morphine 2 MG/ML SYRINGE SLOW IVP PRN (12:00)
[2018-08-12] MEDS ORDERED: Sodium Bicarbonate 2.5 MEQ/5 ML VIAL ONE (12:05)
--- NOTE | 2018-08-12 13:05 | ULT ---
ULTRASOUND GUIDED PARACENTESIS: Date: 08/12/18 HISTORY: Symptomatic tense ascites. FINDINGS: Informed consent obtained prior to procedure. Preprocedural imaging demonstrates fluid within the abd omen/pelvis, most prominent in the right lower quadrant. Skin overlying this region was prepped and d raped in the normal sterile fashion, and anesthetized with 1% buffered lidocaine. With direct sonographic guidance, a 5 [place] Yueh catheter is advanced into the ascites, and removal of stylette yields yellow fluid. 3 liters were removed. The patient tolerated the procedure well. IMPRESSION: Successful ultrasound guided paracentesis. POS: [facility]
--- NOTE | 2018-08-12 14:46 | PDOC.EVN ---
Event Note - Event Note Event Note: Discussed the leukocytosis with the patient's nurse. This is at least partially in response to the steroids. Re-examined the patient. He is more comfortable now. Has less pain, but still sore in the abdomen. With his permission, discussed his situation with his and children. Answered all of their questions.
[2018-08-12] MEDS: Enoxaparin Sodium 40 MG/0.4 ML SYRINGE SC SCH (14:59)
[2018-08-12] MEDS: Sodium Chloride 0.9% 1,000 ML IV SCH (16:17)
[2018-08-12 18:19] LABS: BF Color Yellow; Body Fluid Source PERITONEAL FLUID; Clarity Hazy (Clear); Tube # EDTA
[2018-08-12 18:20] LABS: BF RBC Count - Manual 45 /cumm; BF WBC/Nonhematics Ct. - Manua 75 /cumm
[2018-08-12 18:25] LABS: BF Segmented Neutrophils 54 %; Cell Count Non Hematic 17 %; Lymphocytes 29 %
[2018-08-13] MEDS: Midodrine HCl 5 MG TAB PO SCH ×3 (08:38→20:42)
[2018-08-13] MEDS: Furosemide 40 MG TAB PO SCH (08:39)
[2018-08-13] MEDS: Multivit, Therapeutic 1 TAB PO SCH (08:39)
[2018-08-13] MEDS: Folic Acid 1 MG TAB PO SCH (08:39)
[2018-08-13] MEDS: Spironolactone 100 MG TAB PO SCH (08:40)
[2018-08-13] MEDS: prednisoLONE 15 MG/5 ML UDCUP PO SCH (08:45)
[2018-08-13] MEDS: Lorazepam 1 MG TAB PO PRN (08:46)
[2018-08-13 09:07] LABS: Hemoglobin 14.7 g/dL (14.0-18.0); Mean Corpuscular HGB CONC 31.7 g/dL (32.0-36.0); Mean Corpuscular Hemoglobin 33.5 pg (27.0-31.0); Mean Platelet Volume 7.8 fL (7.4-10.4); Platelet Count 271 thou/uL (130-400); RBC Distribution Width 16.3 % (11.5-14.5); Red Blood Cell (RBC) Count 4.38 mill/uL (4.70-6.10); White Blood Cell (WBC) Count 40.8 thou/uL (4.8-10.8)
[2018-08-13 09:31] LABS: ALT (SGPT) 86 U/L (8-55); AST (SGOT) 223 U/L (5-34); Albumin 2.4 g/dL (3.5-5.0); Alkaline Phosphatase 217 U/L (40-150); Anion Gap 20 mmol/L (10-20); BUN (Urea Nitrogen) 65 mg/dL (8.9-20.6); Calc. Creatinine Clearance 48 mL/min (70-130); Calcium 7.4 mg/dL (7.8-10.44); Carbon Dioxide 16 mmol/L (22-29); Chloride 103 mmol/L (98-107); Estimated GFR-MDRD 28; Globulin 2.5 g/dL (2.4-3.5); Glucose 155 mg/dL (70-105); Potassium 4.7 mmol/L (3.5-5.1); Protein, Total 4.9 g/dL (6.0-8.3); Sodium 134 mmol/L (136-145)
[2018-08-13 09:32] LABS: Band 16 % (5-11); Lymphocytes 1 % (21-51); MDiff Complete? YES; Monocytes 1 % (0-10); Neutrophil 82 % (42-75); RBC Morphology Normal
[2018-08-13 09:41] LABS: Bilirubin, Total 25.9 mg/dL (0.2-1.2)
[2018-08-13] MEDS ORDERED: Ondansetron PF 4 MG/2 ML Vial IVP PRN (11:01)
--- NOTE | 2018-08-13 11:26 | PRG ---
DATE OF SERVICE: 08/13/2018 SUBJECTIVE: A 43-year-old gentleman, being seen for acute kidney injury. The patient denies any nausea, vomiting, or chest pain. OBJECTIVE: CONSTITUTIONAL: The patient is awake and alert. VITAL SIGNS: Afebrile, pulse 100, breathing 16, blood pressure 119/82. GENERAL APPEARANCE AND MENTAL STATUS: Fair. HEAD/NECK: Normocephalic. Atraumatic. EYES: EOMI. No deformity. EARS: Clear. No ulcers. NOSE: Intact. No lesions. MOUTH: Clear. No discharge. THROAT: Clear. No exudate. LUNGS: Clear. No crackles. CARDIAC: S1, S2. No rub. ABDOMEN: Benign. Bowel sounds positive. GENITALIA/RECTUM: Mays absent. BACK/EXTREMITIES: Edema 0+. NEUROLOGICAL: Alert and motor intact. LABORATORY DATA: Hemoglobin 14.7. Creatinine 2.5. Potassium 4.7. ASSESSMENT AND PLAN: 1. Chronic kidney disease, stage 4, with acute kidney injury, progressive decline in GFR. Due to in the setting of NSAID. Overall prognosis is poor. 2. Hypertension, stable. 3. Anemia, stable. 4. Prognosis is extremely poor. Job ID: [id number]
--- NOTE | 2018-08-13 11:47 | PRG ---
DATE OF SERVICE: 08/12/2018 SUBJECTIVE: Mr. Deleon this morning still complains of little bit of pain from the tension. He is putting out less urine, no fever, no vomiting. OBJECTIVE: VITAL SIGNS: Temperature is 97, pulse 97, respirations 24, O2 saturation is 93% on room air, and blood pressure 122/80. LUNGS: Decreased breath sounds at the bases. ABDOMEN: Has tense ascites. LABORATORY DATA: White count has come to 51,000 today, hemoglobin is 14, and platelet count is 458. BUN 54, creatinine 2.34, bilirubin is 25, AST and ALT are 209 and 74. Alkaline phosphatase is 216. AFP was 3.5. ASSESSMENT: 1. Paresthesia abdominal pain. 2. Elevated CA-19-9. This was probably elevated because of his severe alcoholic hepatitis. We reviewed the films with Radiology and we were really looking for an infiltrative type process I do not think there is an infiltrative tumor there. In that case, we would expect CA-19-9 is much higher. We will continue aggressive management of alcoholic hepatitis. 3. Renal function has improved. We will continue the octreotide drip and midodrine. 4. We had an extensive talk with the patient's family about whether to treat him for alcoholic hepatitis in this severity and the only other option would be for the liver transplant. Unfortunately, he does not have insurance and if he tried to get that it would be nearly impossible for him to get a liver transplant in that setting. We will contact liver transplant facility tomorrow and see if they would accept him in transfer. Job ID: [id number]
[2018-08-13] MEDS: Dextrose 5 % And 0.9 % NaCl 1,000 ML IV SCH (11:52)
--- NOTE | 2018-08-13 12:42 | PRG ---
DATE OF SERVICE: 08/13/2018 SUBJECTIVE: Mr. Li has been nauseated. He has not really been since yesterday. He has had some relief of this paracentesis yesterday, but still complains of abdominal distention. OBJECTIVE: VITAL SIGNS: Temperature is 97.8. He has been afebrile for the past 4 days, pulse 100 up from 80s to 90s, he is grossly icteric, lungs were clear, O2 saturations 90%, respirations 18, blood pressure 116/84. GENERAL: He is icteric. He is alert and oriented to person, place, and time. LUNGS: Clear. ABDOMEN: Protuberant. Liver that cannot be palpated today secondary to some ascites. There is no rebound or guarding, but the abdomen is diffusely tender. EXTREMITIES: Reveal no clubbing, cyanosis or edema. LABORATORY DATA: White count today is 40.8 thousand, it was 51 thousand yesterday, hemoglobin is 14.7, platelet count is 271, it was 458 yesterday. Differential includes 82 segs, 16 bands. There are no atypical cells noted. INR is 1.4 yesterday. Sodium 134 today, potassium 4.7, BUN and creatinine are 65 and 2.45, glucose is 155, calcium 7.4. Bilirubin is 25.9, stable. AST and ALT are 223 and 86, alkaline phosphatase is 217, albumin 2.4, total protein 4.9. Fluid yesterday on paracentesis showed 25 white blood cells, 45 red blood cells, 54 segs, 29 lymphocytes. No other comment was made. Films, I re-reviewed the patient's CT scans with Radiology today. They note that the liver is very large as we have noted before 18 cm. They do not see any adenopathy, they do not see any mesenteric caking of the omentum. They see no inflammatory signs. The liver does have some heterogeneous appearance, but they feel that is consistent with fatty infiltration. Liver is not nodular. ASSESSMENT: A 43-year-old with grossly abnormal liver enzymes and enlarged liver. He has progressed to a bilirubin from 4 to 25 and this is consistent with ongoing diagnosis of alcoholic hepatitis as well as his large amount of alcohol intake for some time prior to admission. However, features that are not consistent with alcoholic hepatitis or massive enlargement of the liver, although it could be seen this is quite large liver and the profound nature of the hepatic dysfunction with bilirubin of 25 with no signs of encephalopathy or coagulopathy. The concern for infiltrative process remains. We were not able to get a liver biopsy last week secondary to ascites. I have asked General Surgery to see the patient for a laparoscopic-guided liver biopsy as he has stable hepatic function, I think he will tolerate this. I asked Oncology to see the patient to evaluate for possible lymphoma. We sent off AFB markers and I have asked the slackman to review his peripheral smear to see if we are missing any abnormal cells on the peripheral smear. With regard to his worsening renal function and nausea, we placed him on Zofran. We are going to start him back on IV fluids. He may need to be tapped intermittently. We will continue his octreotide, his midodrine, Levaquin and . He will stop Lasix at this point in time with a creatinine being up again. Job ID: [id number]
[2018-08-13] MEDS: Octreotide Acetate 1,250 MCG in Sodium Chloride 0.9% 250 ML 250 ML IVPB SCH (12:51)
[2018-08-13] MEDS ORDERED: Albumin 25% 25 GM/100 ML BOT IVPB SCH (13:00)
--- NOTE | 2018-08-13 14:03 | PDOC.PN ---
- Subjective Encounter Start Date: 08/13/18 Encounter Start Time: 11:45 Subjective: pt up in bed complains of pain to his abdomen - Objective Vital Signs & Weight: Vital Signs (12 hours) Temp Pulse Resp BP Pulse Ox 08/13/18 12:43 97.7 F 102 H 18 116/84 92 L 08/13/18 08:29 97.8 F 100 20 116/84 92 L 08/13/18 08:00 92 L 08/13/18 03:12 98.6 F 104 H 16 119/82 93 L Weight Admit Weight 194 lb 9.6 oz Weight 194 lb 8 oz I&O: 08/12/18 08/13/18 08/14/18 06:59 06:59 06:59 Intake Total 2740 1610 Balance 2740 1610 Result Diagrams: 08/13/18 08:37 08/13/18 08:38 Phys Exam - Physical Examination icteric sclera Neck: no nodes, no JVD, supple, full ROM Respiratory: no wheezing, no rales, no rhonchi, wheezing present, clear to auscultation bilateral Cardiovascular: RRR, no significant murmur, no rub, gallop, irregular Gastrointestinal: soft, positive bowel sounds distended Musculoskeletal: edema present mild to lower ext Neurological: non-focal, normal sensation, moves all 4 limbs Psychiatric: normal affect, A&O x 3 Dx/Plan (1) Alcoholic hepatitis with ascites Code(s): K70.11 - ALCOHOLIC HEPATITIS WITH ASCITES Status: Acute Comment: Prednisone, pt had paracentesis. Liver biopsy was cancelled. Will get repeat paracentesis. (2) Abnormal LFTs Code(s): R94.5 - ABNORMAL RESULTS OF LIVER FUNCTION STUDIES Status: Acute Comment: secondary to alcohol abuse (3) Leukocytosis Code(s): D72.829 - ELEVATED WHITE BLOOD CELL COUNT, UNSPECIFIED Status: Acute (4) Abdominal pain Code(s): R10.9 - UNSPECIFIED ABDOMINAL PAIN Status: Acute Comment: due to hepatomegaly and ascites (5) Acute kidney injury Code(s): N17.9 - ACUTE KIDNEY FAILURE, UNSPECIFIED Status: Acute Comment: Hepatorenal syndrome. Stablizing creatinine. - Plan spoke with gi possible exp lap in am -: will order ensure clear for pt. wbc still high ascites cx negative -: will consult ID, pt on steroids but has been on it for a while -: Pt has no fever. will check cxr, ua and possible blood cx -: elevated ca19-9, Hematology also consulted. * . Review of Systems - Review of Systems Respiratory: negative: Cough, Dry, Shortness of Breath, Hemoptysis, SOB with Excertion, Pleuritic Pain, Sputum, Wheezing Cardiovascular: negative: chest pain, palpitations, orthopnea, paroxysmal nocturnal dyspnea, edema, light headedness, other Gastrointestinal: Abdominal Pain Genitourinary: negative: Dysuria, Frequency, Incontinence, Hematuria, Retention , Other - Medications/Allergies Allergies/Adverse Reactions: Allergies Allergy/AdvReac Type Severity Reaction Status Date / Time No Known Allergies Allergy Verified 07/29/18 03:02 Medications: Current Medications Al Hydroxide/Mg Hydroxide (Maalox) 30 ml PO Q4H PRN PRN Reason: Heartburn or Indigestion Last Admin: 08/11/18 17:18 Dose: 30 ml Albumin Human (Albumin 25%) 25 gm IVPB BID [facility] Stop: 08/14/18 21:01 Folic Acid (Folvite) 1 mg PO DAILY [facility] Last Admin: 08/13/18 08:39 Dose: 1 mg Octreotide Acetate 1,250 mcg/ (Sodium Chloride) 251.25 mls @ 10.05 mls/hr IVPB INF [facility] Last Admin: 08/13/18 12:51 Dose: 251.25 mls Sodium Chloride (Normal Saline 0.9%) 1,000 mls @ 50 mls/hr IV .Q20H [facility] Last Admin: 08/12/18 16:17 Dose: Not Given Levofloxacin 250 mg/ Device 50 mls @ 100 mls/hr IVPB Q24HR [facility] Last Admin: 08/12/18 16:21 Dose: 50 mls Dextrose/Sodium Chloride (D5 0.9% Ns) 1,000 mls @ 75 mls/hr IV .[id number] [facility] Last Admin: 08/13/18 11:52 Dose: 1,000 mls Lorazepam (Ativan) 1 mg PO Q4H PRN PRN Reason: ASE >=9 Last Admin: 08/13/18 08:46 Dose: 1 mg Midodrine (Proamatine) 10 mg PO TID [facility] Last Admin: 08/13/18 08:38 Dose: 10 mg Morphine Sulfate (Morphine) 2 mg SLOW IVP Q4H PRN PRN Reason: Moderate to Severe Pain (6-10) Multivitamins (Theragran) 1 tab PO DAILY [facility] Last Admin: 08/13/18 08:39 Dose: Not Given Ondansetron HCl (Zofran) 4 mg IVP Q6H PRN PRN Reason: Nausea/Vomiting Last Admin: 08/13/18 11:55 Dose: 4 mg Pantoprazole Sodium (Protonix) 40 mg PO DAILY [facility] Last Admin: 08/13/18 08:39 Dose: 40 mg Pentoxifylline (Trental) 400 mg PO DAILY [facility] Last Admin: 08/13/18 08:41 Dose: 400 mg Prednisolone (Orapred) 40 mg PO DAILY [facility] Last Admin: 08/13/18 08:45 Dose: 40 mg Sodium Chloride (Flush - Normal Saline) 10 ml IVF Q12HR [facility] Last Admin: 08/13/18 08:42 Dose: 10 ml Sodium Chloride (Flush - Normal Saline) 10 ml IVF PRN PRN PRN Reason: Saline Flush Last Admin: 08/05/18 06:40 Dose: 10 ml Thiamine HCl (Thiamine) 100 mg PO DAILY [facility] Last Admin: 08/13/18 08:40 Dose: 100 mg Tramadol HCl (Ultram) 50 mg PO Q6H PRN PRN Reason: Mild-Moderate Pain (1-5) Tramadol HCl (Ultram) 100 mg PO Q6H PRN PRN Reason: Moderate to Severe Pain (6-10) Last Admin: 08/12/18 14:57 Dose: 100 mg
[2018-08-13] MEDS ORDERED: Albumin 25% 100 ML ONE (14:54)
[2018-08-13] MEDS: Sodium Chloride 0.9% 1,000 ML IV SCH (15:07)
--- NOTE | 2018-08-13 16:13 | CON ---
DATE OF CONSULTATION: REASON FOR CONSULTATION: Liver failure with concern for infiltrative metastatic process. HISTORY OF PRESENT ILLNESS: A 43-year-old male with a long history of alcoholic abuse, presenting to outside ER with abdominal pain, nausea, vomiting, and worsening jaundice. The patient was seen in [facility] ER and subsequently transferred to [facility]. He had been complaining of worsening abdominal pain for the past few days along with nonbilious, nonbloody emesis, and worsening scleral icterus and jaundice over the last 1 to 2 weeks prior to admission. The patient drinks multiple alcoholic beverages daily for the last 10+ years. The patient denies any fevers at home, any drenching night sweats, weight loss, or swollen glands or lymph nodes. The patient has family history of colon cancer in his father, however, no other family history of cancer or blood disorders. Since admission to the hospital, the patient's symptoms and labs have not improved. The patient's liver disease is thought to be secondary to severe alcoholic hepatitis; however, given lack of improvement over the previous 2 weeks, he has had extensive workup for autoimmune hepatitis, viral hepatitis, cholecystitis, and Carroll's disease. All of this workup has been negative and consistent with generalized hepatitis. The patient is being followed by Dr. Beckett and is currently on steroids for treatment of alcoholic hepatitis. Hepatology consult at outside facility in [place] has been done, and as the patient is uninsured, he cannot be transferred to a transplant facility at this time. CT scan of the abdomen shows an extremely large liver with approximately 25 cm in size and spleen approximately 15 x 11.5 x [address] shows a diffusely infiltrated liver without any discrete masses. The patient has undergone evaluation for SBP with negative stains and cultures, and has had multiple paracentesis with mild improvement of the symptoms and pain followed by rapid recurrence. REVIEW OF SYSTEMS: Ten-point review of systems is negative except as per HPI. PAST MEDICAL HISTORY: Alcohol abuse, cellulitis. PAST SURGICAL HISTORY: Right arm surgery for abscess removal, appendectomy. SOCIAL HISTORY: Daily drinker for 10+ years. Dips tobacco, but does not smoke. No illicit drug use. ALLERGIES: NONE. CURRENT MEDICATIONS: Reviewed. PHYSICAL EXAMINATION: VITAL SIGNS: Temperature 97.8, pulse 100, respirations 20, saturating 92% on room air, blood pressure 116/84. GENERAL APPEARANCE: The patient is lying in bed, appears uncomfortable. HEENT: Extensive scleral icterus noted. NECK: Supple. CARDIOVASCULAR: S1 and S2 with regular rhythm and rate. RESPIRATIONS: Clear to auscultation and nonlabored. ABDOMEN: Extensively distended with dullness to percussion and extreme tenderness diffusely. LYMPHATICS: No palpable lymphadenopathy in cervical, clavicular, axillary, or inguinal chains. EXTREMITIES: Mild peripheral edema. NEUROLOGIC: Cranial nerves 2 through 12 grossly intact. SKIN: Diffuse jaundice. PSYCHIATRIC: Awake, alert, oriented x3 with appropriate mood and affect. LABORATORY DATA: White blood cells 40.8, hemoglobin 14.7, hematocrit 46.3, platelets 271, 82.6% neutrophils, 16% band neutrophils, and 8.7% lymphocytes and today 1% lymphocytes. Sodium 134, potassium 4.7, chloride 103, carbon dioxide 16, BUN 65, creatinine 2.54, estimated GFR 28, glucose 155, calcium 7.4, phosphorus 4.9, magnesium 1.8, total bilirubin 25.9, direct bilirubin greater than 10, AST 223, ALT 86, alkaline phosphatase 217, albumin 2.4. Alpha-1 antitrypsin 283. Ceruloplasmin 25.8. Lipase 29. AFP 3.5. CA 19-9 187. Initial plasma alcohol level 220. AIMEE negative. Anti-mitochondrial antibody, [id number] DNA, and anti-smooth muscle antibody all negative. Hepatitis A, B, and C panel negative. IMAGING DATA: Abdominal ultrasound dated 07/31/2018, showed biliary sludge, showed gallbladder wall thickening, small amount of pericholecystic fluid and positive sonographic Hawkins sign and hepatosplenomegaly. HIDA scan dated 07/31/2018, showed a very abnormal nuclear medicine hepatobiliary scan of persistent uptake of tracer within the liver without any activity noted in the biliary tree or gallbladder after 2.5 hours, which favors hepatitis or other nonspecific diffuse liver disease. There is no evidence of activity within the biliary tree or gallbladder even after 2.[address] of the abdomen and pelvis dated 08/03/2018, shows hepatic steatosis and severe hepatomegaly, mild splenomegaly with the spleen size of 15 x 11.5 x 8 cm and interval development of new small volume of ascites and mild anasarca. ASSESSMENT AND PLAN: A 43-year-old male with history of heavy alcohol abuse, presenting with alcoholic hepatitis, that has thus far been unresponsive to supportive treatments. The patient has had negative workup for other causes of liver failure including viral hepatitis, autoimmune hepatitis, Carroll's disease, cholecystitis, and SBP. The patient was planned for ultrasound-guided biopsy; however, before this could be done, he developed new-onset ascites, and since then, SBP has been ruled out; however, the patient has recurrent ascites and has required multiple paracenteses. This could be an extra-severe case of alcoholic hepatitis, however, cannot rule out an infiltrative malignant process. AFP was normal and CA-19-9 was elevated, however, this is nonspecific. CT of the abdomen and pelvis did not reveal any pancreatic mass or any discrete mass in the liver. Dr. Beckett has requested Dr. Dawkins to perform a laparoscopy and liver biopsy, and I agree with this plan. We will also check LDH and uric acid. The patient does not have any B symptoms or peripheral lymphadenopathy, which could support a diagnosis of lymphoma. The patient's white count has been elevated throughout the admission; however, currently increased overnight from 18 to 50 and is currently 40. Differential shows mostly neutrophils and band neutrophils, very rare lymphocytes, and peripheral smear review from pathology shows this is likely just reactive and not a malignant leukocytosis. Due to long history of alcohol abuse even at this young age, the patient could also have a solid tumor infiltrating the liver and this can be delineated with biopsy. We will follow up biopsy results and further lab testing. Thank you for this consult. Job ID: [id number]
--- NOTE | 2018-08-13 18:12 | HP ---
HISTORY OF PRESENT ILLNESS: Guillermo Deleon is a 43-year-old male, who has consumed significant alcohol in the past, has been admitted to the hospitalist service and seen by Dr. Beckett. The patient has extensive workup. He has undergone several paracentesis. He has abdominal pain. His liver chemistries are elevated. Viral hepatitis studies are negative. His white count is high with a left shift, hemoglobin 14.7. Pathology is pending. CAT scan of the abdomen and pelvis, severe hepatic steatosis, severe hepatomegaly, splenomegaly, ascites, and anasarca. Ultrasound, pericholecystic fluid (ascites), tender of the gallbladder at the time of exam, common duct 5 mm, hepatic steatosis, hepatosplenomegaly, normal portal vein flow, gallbladder sludge. HIDA scan, ejection fraction obtained revealing radiotracer in the liver without any biliary activity after 2.5 hours thought secondary to a hepatocellular disease. The patient's coagulation studies, PT 17, INR 1.4. The patient's bilirubin was up to 23 to 25. Transaminases elevated, alkaline phosphatase elevated. CA-19-9 is high at 187. His AST is normal at 3.5. I have been asked to see him regarding liver biopsy after Dr. Beckett has discussed his immunological studies and laboratory workup for his hepatitis. Radiology has been reluctant to do this. We will plan laparoscopic biopsy of his liver tomorrow. He understands risks of infection, bleeding, reoperation, consents. We will keep him n.p.o. after midnight. Plan is liver biopsy tomorrow. ALLERGIES: NONE. TOBACCO: Pack a day. ALCOHOL: Significant abuse prior to this hospitalization. HOME MEDICATIONS: None. PAST MEDICAL HISTORY: Noncontributory prior to this hospitalization, alcoholism. PAST SURGICAL HISTORY: Abscess drained from his left arm and appendectomy. PHYSICAL EXAMINATION: VITAL SIGNS: 5 feet 7 inches, 194 pounds, 30 BMI, temperature 97.7, heart rate 102, respirations 18, and blood pressure 116/84. LUNGS: Clear to auscultation. CARDIAC: Regular rate and rhythm without murmur or gallop. ABDOMEN: Distended, firm, diffuse tenderness. EXTREMITIES: Unremarkable. ASSESSMENT AND PLAN: Abnormal liver function test. Radiological findings as noted above. PLAN: Laparoscopic guided liver biopsy as well as evacuation of ascites fluid. We will plan this tomorrow. He understands risks and benefits. Job ID: [id number]
[2018-08-13] MEDS: Albumin 25% 25 GM/100 ML BOT IVPB SCH (20:43)
[2018-08-14] MEDS: Dextrose 5 % And 0.9 % NaCl 1,000 ML IV SCH ×2 (01:52→12:27)
--- NOTE | 2018-08-14 08:48 | PRG ---
DATE OF SERVICE: 08/14/2018 SUBJECTIVE: Guillermo Deleon scheduled for surgery today. PLAN: Laparoscopic decompression of ascites and liver biopsy and exploration. I saw him this morning, discussed this with him. Risks and benefits discussed. Job ID: [id number]
[2018-08-14] MEDS ORDERED: Fentanyl 100 MCG/2 ML VIAL ONE ×2 (08:51→10:25)
[2018-08-14] MEDS ORDERED: Bupivacaine HCl 0.5%/Epinephrine 1:200,000/PF 30 ml Vial ONE (08:55)
[2018-08-14] MEDS ORDERED: Morphine 2 MG/ML SYRINGE ONE ×2 (09:00→09:04)
[2018-08-14] MEDS ORDERED: Atracurium 100 MG/10 ML VIAL ONE (09:59)
[2018-08-14] MEDS ORDERED: Promethazine HCl 25 MG/ML VIAL IM PRN (10:04)
[2018-08-14] MEDS ORDERED: Meperidine HCl/PF 25 MG/ML VIAL SLOW IVP PRN (10:04)
[2018-08-14] MEDS ORDERED: Promethazine HCl 25 MG/ML VIAL SLOW IVP PRN (10:04)
[2018-08-14] MEDS ORDERED: PACU-Morphine 4MG/ML VIAL SLOW IVP PRN (10:04)
[2018-08-14] MEDS ORDERED: Acetaminophen 500 MG TAB PO PRN (10:13)
--- NOTE | 2018-08-14 11:44 | OP ---
DATE OF PROCEDURE: 08/14/2018 PREOPERATIVE DIAGNOSES: Abnormal liver function test, unexplained ascites, abdominal pain. POSTOPERATIVE DIAGNOSES: Abnormal liver function test, unexplained ascites, abdominal pain. PROCEDURE: Laparoscopic evacuation of ascites for cytology, albumin 2.7 L evacuated, straw-colored ascites fluid, core biopsy of liver, laparoscopically visualized right lobe, four good cores obtained, congestive liver had significant bleeding, controlled with cautery. ANESTHESIA: General. DESCRIPTION OF PROCEDURE: The patient was taken to the operating room, where under general anesthesia, a left lateral subcostal incision was made. Pneumoperitoneum to 15 mmHg was obtained with a Veress needle, replaced with a 5 port, and the laparoscope was inserted. A right upper quadrant incision was made and a 5 port was placed. Ascites evacuated, a volumed, straw colored, appeared to be normal. Liver appeared to be congested and fatty, but no abnormalities on the surface were noted otherwise. Core liver biopsies were obtained with a core biopsy gun inserted in the right upper quadrant, obtained four good cores. There was significant venous bleeding controlled with cautery. Good hemostasis was noted. Irrigant was evacuated. Pneumoperitoneum was evacuated. All instruments were removed, and all skin incisions were approximated with interrupted subdermal 4-0 Monocryl and [place] glue applied. Job ID: [id number]
[2018-08-14] MEDS: Albumin 25% 25 GM/100 ML BOT IVPB SCH ×2 (11:51→20:54)
--- NOTE | 2018-08-14 11:54 | PRG ---
DATE OF SERVICE: 08/14/2018 SUBJECTIVE: A 43-year-old gentleman, being seen for acute kidney injury. The patient denied any nausea, vomiting, or chest pain. OBJECTIVE: CONSTITUTIONAL: The patient is awake and alert. VITAL SIGNS: Afebrile, pulse 65, breathing 16, blood pressure 112/76. GENERAL APPEARANCE AND MENTAL STATUS: Fair. HEAD/NECK: Normocephalic. Atraumatic. EYES: EOMI. No deformity. EARS: Clear. No ulcers. NOSE: Intact. No lesions. MOUTH: Clear. No discharge. THROAT: Clear. No exudate. LUNGS: Clear. No crackles. CARDIAC: S1, S2. No rub. ABDOMEN: Benign. Bowel sounds positive. GENITALIA/RECTUM: Mays absent. BACK/EXTREMITIES: Edema 0+. NEUROLOGICAL: Alert and motor intact. LABORATORY DATA: Hemoglobin 14.7. Creatinine 2.5. ASSESSMENT AND PLAN: 1. Acute kidney injury with chronic kidney disease, today's labs are pending. 2. Hypertension, stable. 3. Anemia, stable. 4. Metabolic acidosis. 5. Overall prognosis is poor. I would recommend Palliative Care. Job ID: [id number]
[2018-08-14] MEDS: Folic Acid 1 MG TAB PO SCH (12:24)
[2018-08-14] MEDS: Midodrine HCl 5 MG TAB PO SCH ×3 (12:25→20:50)
[2018-08-14] MEDS: prednisoLONE 15 MG/5 ML UDCUP PO SCH (12:25)
[2018-08-14] MEDS: Multivit, Therapeutic 1 TAB PO SCH (12:25)
[2018-08-14] MEDS: Sodium Chloride 0.9% 1,000 ML IV SCH (12:26)
[2018-08-14 12:31] LABS: Hemoglobin 13.7 g/dL (14.0-18.0)
[2018-08-14 12:33] LABS: INR-International Normal Ratio 1.7; Prothrombin Time 20.3 SEC (12.0-14.7)
[2018-08-14 12:58] LABS: Anion Gap 19 mmol/L (10-20); BUN (Urea Nitrogen) 75 mg/dL (8.9-20.6); Calc. Creatinine Clearance 43 mL/min (70-130); Calcium 7.2 mg/dL (7.8-10.44); Carbon Dioxide 17 mmol/L (22-29); Chloride 104 mmol/L (98-107); Estimated GFR-MDRD 24; Glucose 166 mg/dL (70-105); Potassium 4.4 mmol/L (3.5-5.1); Sodium 136 mmol/L (136-145)
--- NOTE | 2018-08-14 13:12 | PDOC.PN ---
- Subjective Encounter Start Date: 08/14/18 Encounter Start Time: 13:10 Subjective: Seen following liver biopsy, pain present abdomen 02/25, no nausea/ vomiting -: Breathing "pretty good" - Objective Vital Signs & Weight: Vital Signs (12 hours) Temp Pulse Resp BP BP Pulse Ox 08/14/18 11:10 97.8 F 97 22 H 127/82 92 L 08/14/18 07:31 98.3 F 85 20 148/92 H 90 L 08/14/18 04:00 97.9 F 92 20 112/76 92 L Weight Admit Weight 194 lb 9.6 oz Weight 197 lb 14.4 oz I&O: 08/13/18 08/14/18 08/15/18 06:59 06:59 06:59 Intake Total 1610 1000 Balance 1610 1000 Result Diagrams: 08/14/18 12:19 08/14/18 12:19 Phys Exam - Physical Examination Uncomfortable HEENT: oral pharynx no lesions Scleral icterus Neck: supple, full ROM Decrease breath sounds at bases Mildly tachycardic Distendend. Surgical sites clean and dry. Fluid wave present. Musculoskeletal: no edema Neurological: non-focal Psychiatric: normal affect, A&O x 3 Skin: no rash Dx/Plan (1) Abdominal pain Code(s): R10.9 - UNSPECIFIED ABDOMINAL PAIN Status: Acute Comment: due to hepatomegaly and ascites (2) Abnormal LFTs Code(s): R94.5 - ABNORMAL RESULTS OF LIVER FUNCTION STUDIES Status: Acute Comment: secondary to alcohol abuse, alcoholic hepatitis (3) Acute kidney injury Code(s): N17.9 - ACUTE KIDNEY FAILURE, UNSPECIFIED Status: Acute Comment: Hepatorenal syndrome. Stablizing creatinine. (4) Alcoholic hepatitis with ascites Code(s): K70.11 - ALCOHOLIC HEPATITIS WITH ASCITES Status: Acute Comment: Prednisone, pt had paracentesis. Liver biopsy was cancelled. Will get repeat paracentesis. (5) Leukocytosis Code(s): D72.829 - ELEVATED WHITE BLOOD CELL COUNT, UNSPECIFIED Status: Acute (6) Alcohol withdrawal Code(s): F10.239 - ALCOHOL DEPENDENCE WITH WITHDRAWAL, UNSPECIFIED Status: Resolved - Plan cont current plan of care Patient is s/p ex lap for liver biopsy and evacation of ascites 08/14. Post-op: Pain control with low dose morphine IV -> quite uncomfortable presently Check AM labs Metabolic acidosis present, check AM lactic acid Renal function appears stable but consistently abnormal Follow up liver biopsy results. Hematology consult also requested per chart, lymphoma a consideration Follow up GI recommendations, pathology pending Communication with case management: Patient would not be accepted in hospital to hospital transfer due to insurance status. * .
[2018-08-14] MEDS ORDERED: Morphine 4 MG/ML VIAL SLOW IVP SCH (13:15)
--- NOTE | 2018-08-14 16:42 | PRG ---
DATE OF SERVICE: 08/14/2018 GI FOLLOWUP SUBJECTIVE: Mr. Deleon is resting comfortably in bed. Dr. Dawkins did call me after his surgery and stated there were no abnormal findings in the peritoneal cavity. Fluid was clear yellow, and fluid was sent for cytology and culture. The liver biopsy was performed. The gallbladder, he felt, appeared normal. OBJECTIVE: VITAL SIGNS: Temperature is 97.8, pulse 97, respirations 22, saturation on room air, blood pressure 127/82. LUNGS: Decreased breath sounds at the bases. ABDOMEN: Protuberant. Liver is enlarged. Ascites is present. EXTREMITIES: Reveal decreased edema from the past few days. Weight is 197. LABORATORY STUDIES: Hemoglobin is 13.7 today at 1219 hours. INR is 1.7 today. Sodium 136, potassium 4.4, chloride 104, bicarb 17, anion gap is 15, BUN is up to 75, creatinine 2.9. ASSESSMENT: 1. Severe hepatitis, suspected to be alcoholic hepatitis. INR is starting to bump out some now. He has no encephalopathy. He is status post a liver biopsy today done to rule out other possible treatable etiologies of his liver disease as he has markedly enlarged liver and a bilirubin of 25 with a pretty preserved hepatic function. There were no signs of biliary disease or overt signs of lymphoma or malignancy in the abdominal cavity. Biopsy of liver was obtained today at laparoscopic biopsy fluid was sent for cytology. 2. Acute on chronic renal failure. This is worsening now. Creatinine is 2.9 today, up from 2.34 on the and 2.54 on the . He is being treated empirically for a hepatorenal syndrome. IV fluids and albumin were added back yesterday. Job ID: [id number]
[2018-08-14] MEDS ORDERED: PROPOFOL 200 MG/20 ML VIAL ONE (20:19)
[2018-08-14] MEDS ORDERED: Ondansetron PF 4 MG/2 ML Vial ONE (20:19)
[2018-08-14] MEDS ORDERED: Lidocaine 1% PF 5 ML VIAL ONE (20:19)
[2018-08-14] MEDS ORDERED: Succinylcholine Chloride 20 MG/ML 10 ml SYRINGE FS ONE (20:19)
[2018-08-14] MEDS: traMADol HCl 50 MG TAB PO PRN (21:00)
[2018-08-14] MEDS: Octreotide Acetate 1,250 MCG in Sodium Chloride 0.9% 250 ML 250 ML IVPB SCH (23:04)
--- NOTE | 2018-08-14 23:15 | CON ---
DATE OF CONSULTATION: 08/14/2018 REASON FOR CONSULTATION: Alcoholic hepatitis with leukemoid reaction. HISTORY OF PRESENT ILLNESS: A 43-year-old patient who has been admitted with a history of alcoholism and a new onset of progressive abdominal pain and abdominal distention. CT scan showed hepatomegaly. He did have hypokalemia. He had some vomiting as well and jaundice noticed. He had a very high alcohol concentration in the serum when tested initially. White cell count of 14,000. Initial impression was alcoholic hepatitis. The autoimmune serologies were negative and hepatitis serology negative as well. The patient has displayed negative blood cultures multiple times, because of persistence of pain and worsening white cell count elevation, he underwent laparoscopy. The ascitic fluid was sampled for cultures and biopsy of the liver was completed, which are still pending at the time of this visit. The patient is awake and alert. Feels improvement. The pain in the abdomen has decreased significantly. Denies any headaches. No visual symptoms, sore throat, odynophagia, or dysphagia. No more vomiting. No back pain. Voiding without difficulty. No diarrhea. No joint symptoms. PAST MEDICAL HISTORY: Alcoholism and previous history of cellulitis. PAST SURGICAL HISTORY: Appendectomy. SOCIAL HISTORY: Alcoholism. Dips tobacco, but does not smoke. ALLERGIES: NONE. FAMILY HISTORY: Noncontributory. CURRENT MEDICATIONS: 1. Tylenol. 2. Maalox. 3. Albumin. 4. Folvite. 5. Ativan. 6. ProAmatine. 7. Octreotide. 8. Ondansetron. 9. Zofran. 10. Protonix. 11. Trental. 12. Orapred. 13. Thiamine. PHYSICAL EXAMINATION: VITAL SIGNS: T-max 98.5, BP 120/82, pulse 97, respirations 18, O2 saturation 90% to 92%. SKIN: The patient has a peripheral IV access and is urinating using the toilet. HEENT: He has evidence of jaundice in his scleral area. Pupils are equal. Oral cavity with jaundice in the palate. Otherwise, normal oral cavity exam. NECK: Supple. No jugular venous distention. LUNGS: Symmetric. Clear breath sounds. HEART: S1 and S2, regular rate. No S3 or S4. ABDOMEN: Moderately distended and mildly tender. Positive signs of ascites. The laparoscopy ports are still present. GENITOURINARY: No genital abnormalities. MUSCULOSKELETAL: No joint inflammatory activity. EXTREMITIES: Trace edema of lower extremities. Moves extremities equally. NEUROLOGIC: Cognitive function appears to be intact. LABORATORY DATA: Last white cell count from yesterday was 40,000, hemoglobin 14, platelets 271, 82% neutrophils. Sodium 136, creatinine is up to 2.90, uric acid 12.6, bilirubin 25, AST 223, ALT 86, alkaline phosphatase 217, LDH 614. Urinalysis with large bilirubin. Ascitic fluid with 73 wbc's with 50% neutrophils and 10% lymphocytes. Numerous cultures are negative. Pathology is pending. Abdomen and pelvis CT from few days ago with hepatic steatosis, hepatomegaly, mild splenomegaly, ascites, small volume. ASSESSMENT: 1. Alcoholism with alcoholic hepatitis. 2. Leukemoid reaction. DISCUSSION: Most likely scenario is a just plain alcoholic hepatitis with a leukemoid reaction. The corticosteroids may be contributing to the increase in neutrophil count. Brewster-analysis of trials of corticosteroids and treatment of severe alcoholic hepatitis has not indicated any difference so when compared with placebo. We will wait for the pathology, but I do not think that there is any evidence for an additional infectious process at this point in time. Job ID: [id number]
[2018-08-15] MEDS: traMADol HCl 50 MG TAB PO PRN ×2 (05:43→10:38)
[2018-08-15] MEDS: Dextrose 5 % And 0.9 % NaCl 1,000 ML IV SCH ×2 (06:14→16:49)
[2018-08-15 06:32] LABS: Hemoglobin 13.8 g/dL (14.0-18.0); Mean Corpuscular HGB CONC 33.7 g/dL (32.0-36.0); Mean Corpuscular Hemoglobin 34.8 pg (27.0-31.0); Mean Platelet Volume 8.7 fL (7.4-10.4); Platelet Count 168 thou/uL (130-400); RBC Distribution Width 15.5 % (11.5-14.5); Red Blood Cell (RBC) Count 3.97 mill/uL (4.70-6.10); White Blood Cell (WBC) Count 29.3 thou/uL (4.8-10.8)
[2018-08-15 06:33] LABS: INR-International Normal Ratio 1.6
[2018-08-15 06:40] LABS: ALT (SGPT) 69 U/L (8-55); AST (SGOT) 132 U/L (5-34); Albumin 3.1 g/dL (3.5-5.0); Alkaline Phosphatase 205 U/L (40-150); Anion Gap 18 mmol/L (10-20); BUN (Urea Nitrogen) 76 mg/dL (8.9-20.6); Calc. Creatinine Clearance 45 mL/min (70-130); Calcium 7.6 mg/dL (7.8-10.44); Carbon Dioxide 17 mmol/L (22-29); Chloride 104 mmol/L (98-107); Estimated GFR-MDRD 26; Globulin 2.3 g/dL (2.4-3.5); Glucose 183 mg/dL (70-105); Potassium 5.2 mmol/L (3.5-5.1); Protein, Total 5.4 g/dL (6.0-8.3); Sodium 134 mmol/L (136-145)
[2018-08-15 06:44] LABS: Band 4 % (5-11); Hypochromia SLIGHT = 6-15 cells (100X) (0-5/hpf); Lymphocytes 5 % (21-51); MDiff Complete? YES; Macrocytosis SLIGHT = 6-15 cells (100X) (0-5/hpf); Monocytes 2 % (0-10); Neutrophil 89 % (42-75); Platelet Morphology Comment Appears Adequate; Polychromasia SLIGHT = 2-3 cells (100X) (0-2/hpf)
[2018-08-15 06:51] LABS: Bilirubin, Total 28.5 mg/dL (0.2-1.2)
[2018-08-15 06:52] LABS: Lactic Acid 1.6 mmol/L (0.5-2.2)
[2018-08-15] MEDS: Multivit, Therapeutic 1 TAB PO SCH (08:21)
[2018-08-15] MEDS: prednisoLONE 15 MG/5 ML UDCUP PO SCH (08:22)
[2018-08-15] MEDS: Folic Acid 1 MG TAB PO SCH (08:22)
[2018-08-15] MEDS: Sodium Chloride 0.9% 1,000 ML IV SCH (09:31)
[2018-08-15] MEDS: Sodium Bicarbonate Tab 325 MG TAB PO SCH ×3 (10:38→20:03)
--- NOTE | 2018-08-15 10:44 | PDOC.PN ---
- Subjective Encounter Start Date: 08/15/18 Encounter Start Time: 10:43 Subjective: Abdominal pain and distention are unchanged and severe, -: precludes eating. "I am miserable." Requests different pain med -: presently on tramadol - Objective Vital Signs & Weight: Vital Signs (12 hours) Temp Pulse Resp BP Pulse Ox 08/15/18 07:46 98.4 F 79 18 131/83 90 L 08/15/18 04:00 97.9 F 70 18 122/77 92 L Weight Admit Weight 194 lb 9.6 oz Weight 194 lb 8 oz I&O: 08/14/18 08/15/18 08/16/18 06:59 06:59 06:59 Intake Total 1000 1900 Balance 1000 1900 Result Diagrams: 08/15/18 06:19 08/15/18 06:19 Phys Exam - Physical Examination Uncomfortable. Talkative, oriented, not encephalopathic HEENT: oral pharynx no lesions Neck: supple, full ROM Respiratory: clear to auscultation bilateral Cardiovascular: RRR Gastrointestinal: positive bowel sounds Distention, hepatomegaly Musculoskeletal: edema present mild Neurological: non-focal, moves all 4 limbs Psychiatric: A&O x 3 Dx/Plan (1) Abdominal pain Code(s): R10.9 - UNSPECIFIED ABDOMINAL PAIN Status: Acute Comment: due to hepatomegaly and ascites (2) Abnormal LFTs Code(s): R94.5 - ABNORMAL RESULTS OF LIVER FUNCTION STUDIES Status: Acute Comment: secondary to alcohol abuse, alcoholic hepatitis (3) Acute kidney injury Code(s): N17.9 - ACUTE KIDNEY FAILURE, UNSPECIFIED Status: Acute Comment: Hepatorenal syndrome. Slightly worsened today, Dr Hylton following (4) Alcoholic hepatitis with ascites Code(s): K70.11 - ALCOHOLIC HEPATITIS WITH ASCITES Status: Acute (5) Leukocytosis Code(s): D72.829 - ELEVATED WHITE BLOOD CELL COUNT, UNSPECIFIED Status: Acute Comment: Leukemoid reaction suspected per ID (6) Alcohol withdrawal Code(s): F10.239 - ALCOHOL DEPENDENCE WITH WITHDRAWAL, UNSPECIFIED Status: Resolved - Plan cont current plan of care * Post-op day 1 s/p lap drainage peritoneal fluid - liver biopsy/cytology pending * Pain control - presently on oral tramadol. Trial of oxycodone. Needs better pain control prior to considering discharge to home. * Check AM labs * Follow up liver biopsy results. * Discussed with Dr. Beckett 08/14 * Communication with case management: Patient would not be accepted in hospital to hospital transfer due to insurance status. * Discussed palliative care consult with patient. He was receptive to starting a discussion. He understands a few tests are still pending, but most likely this is alcoholic hepatitis. Ultimately, the likely scenario is discharge to home, and palliative care would be a means to help bridge to other services, such as hospice, that might be an option as time goes on. * Patient high risk
[2018-08-15] MEDS ORDERED: oxyCODONE 5 MG TAB PO PRN (10:52)
[2018-08-15] MEDS ORDERED: traMADol HCl 50 MG TAB PO PRN (10:57)
[2018-08-15] MEDS: Midodrine HCl 5 MG TAB PO SCH ×3 (12:30→20:03)
[2018-08-15] MEDS: Albumin 25% 25 GM/100 ML BOT IVPB SCH ×4 (12:45→23:29)
[2018-08-15] MEDS: oxyCODONE 5 MG TAB PO PRN (15:39)
--- NOTE | 2018-08-15 15:46 | PRG ---
DATE OF SERVICE: 08/15/2018 SUBJECTIVE: This is a 43-year-old gentleman, being seen for acute kidney injury. The patient denied any nausea, vomiting, or chest pain. OBJECTIVE: CONSTITUTIONAL: The patient is awake and alert. VITAL SIGNS: Afebrile, pulse 79, breathing 16, blood pressure 131/83. GENERAL APPEARANCE AND MENTAL STATUS: Fair. HEAD/NECK: Normocephalic. Atraumatic. EYES: EOMI. No deformity. EARS: Clear. No ulcers. NOSE: Intact. No lesions. MOUTH: Clear. No discharge. THROAT: Clear. No exudate. LUNGS: Clear. No crackles. CARDIAC: S1, S2. No rub. ABDOMEN: Benign. Bowel sounds positive. GENITALIA/RECTUM: Mays absent. BACK/EXTREMITIES: Edema 0+. NEUROLOGICAL: Alert and motor intact. LABORATORY DATA: Hemoglobin 13.8. Potassium 5.2 and creatinine 2.7. ASSESSMENT AND PLAN: 1. Acute kidney injury with chronic kidney disease, most likely due to hepatorenal as well as decreased effective arterial blood volume. Continue hydration. 2. Hyperkalemia. Recommend low-potassium diet. We will recheck potassium. If does not improve, we will consider renal replacement therapy. 3. Metabolic acidosis. Start sodium bicarbonate. 4. Overall prognosis is poor. Job ID: [id number]
[2018-08-15 15:49] LABS: Anion Gap 14 mmol/L (10-20); BUN (Urea Nitrogen) 75 mg/dL (8.9-20.6); Calc. Creatinine Clearance 46 mL/min (70-130); Calcium 7.8 mg/dL (7.8-10.44); Carbon Dioxide 19 mmol/L (22-29); Chloride 105 mmol/L (98-107); Estimated GFR-MDRD 27; Glucose 183 mg/dL (70-105); Potassium 4.4 mmol/L (3.5-5.1); Sodium 134 mmol/L (136-145)
[2018-08-15] MEDS: Morphine 4 MG/ML VIAL SLOW IVP PRN (19:57)
--- NOTE | 2018-08-15 22:51 | PDOC.GSPN ---
Surgery Progress Note: Subj - Subjective Narrative: Patient is feeling okay. Abdominal pain is controlled. No nausea or vomiting. His laparoscopic incisions look good. Cytology was negative for malignancy and pathology shows increased collagen and steatohepatitis. Bilirubin BUN and creatinine remain high. Assessment/plan: Presumed alcoholic hepatitis with ongoing liver failure. He is not encephalopathic or coagulopathic although his INR has risen somewhat during this hospitalization. Prognosis is poor. No surgical issues. Signing off. Please call if there are any concerns. Surgery Progress Note: Obj - Vital signs Vital signs: Vital Signs - Most Recent Temp Pulse Resp BP Pulse Ox 97.5 F L 75 18 127/80 94 L 08/15/18 20:00 08/15/18 20:00 08/15/18 20:00 08/15/18 20:00 08/15/18 20:00 Surgery Progress Note: Results - Labs Result Diagrams: 08/15/18 06:19 08/15/18 15:22 Lab results: Laboratory Results - last 24 hr 08/15/18 15:22 Sodium 134 L Potassium 4.4 Chloride 105 Carbon Dioxide 19 L Anion Gap 14 BUN 75 H Creatinine 2.64 H Estimated GFR (MDRD) 27 Glucose 183 H Calcium 7.8
[2018-08-16] MEDS: Morphine 4 MG/ML VIAL SLOW IVP PRN ×5 (00:02→23:33)
[2018-08-16] MEDS: Sodium Chloride 0.9% 1,000 ML IV SCH ×2 (03:55→23:09)
[2018-08-16] MEDS: oxyCODONE 5 MG TAB PO PRN ×4 (06:04→22:10)
[2018-08-16] MEDS: Midodrine HCl 5 MG TAB PO SCH ×3 (08:04→20:51)
[2018-08-16] MEDS: Folic Acid 1 MG TAB PO SCH (08:04)
[2018-08-16] MEDS: Multivit, Therapeutic 1 TAB PO SCH (08:04)
[2018-08-16] MEDS: Sodium Bicarbonate Tab 325 MG TAB PO SCH ×3 (08:05→20:51)
[2018-08-16 10:03] LABS: Hemoglobin 14.7 g/dL (14.0-18.0)
--- NOTE | 2018-08-16 10:47 | PRG ---
DATE OF SERVICE: 08/16/2018 SUBJECTIVE: A 43-year-old gentleman being seen for acute kidney injury. The patient denies any nausea, vomiting or chest pain. OBJECTIVE: CONSTITUTIONAL: The patient is awake and alert. VITAL SIGNS: Afebrile, pulse 79, breathing 16, blood pressure 129/83. GENERAL APPEARANCE AND MENTAL STATUS: Fair. HEAD/NECK: Normocephalic. Atraumatic. EYES: EOMI. No deformity. EARS: Clear. No ulcers. NOSE: Intact. No lesions. MOUTH: Clear. No discharge. THROAT: Clear. No exudate. LUNGS: Clear. No crackles. CARDIAC: S1, S2. No rub. ABDOMEN: Benign. Bowel sounds positive. GENITALIA/RECTUM: Mays absent. BACK/EXTREMITIES: Edema 0+. NEUROLOGICAL: Alert and motor intact. LABORATORY DATA: Creatinine is pending. Hemoglobin is 14.7. ASSESSMENT AND PLAN: 1. Acute kidney injury with chronic kidney disease due to hepatorenal and other etiologies. We will evaluate labs for dialysis. 2. Hypertension, stable. 3. Anemia, stable. 4. Medication based on glomerular filtration rate appropriate. Job ID: [id number]
[2018-08-16 10:53] LABS: Anion Gap 22 mmol/L (10-20); BUN (Urea Nitrogen) 72 mg/dL (8.9-20.6); Calc. Creatinine Clearance 0 mL/min (70-130); Carbon Dioxide 11 mmol/L (22-29); Chloride 109 mmol/L (98-107); Estimated GFR-MDRD 30; Glucose 198 mg/dL (70-105); Potassium 4.6 mmol/L (3.5-5.1); Sodium 137 mmol/L (136-145)
[2018-08-16] MEDS: prednisoLONE 15 MG/5 ML UDCUP PO SCH (11:30)
[2018-08-16] MEDS: Octreotide Acetate 1,250 MCG in Sodium Chloride 0.9% 250 ML 250 ML IVPB SCH (12:10)
[2018-08-16] MEDS: Dextrose 5 % And 0.9 % NaCl 1,000 ML IV SCH ×2 (13:39→19:49)
[2018-08-16] MEDS ORDERED: Morphine 4 MG/ML VIAL SLOW IVP SCH (13:45)
--- NOTE | 2018-08-16 14:49 | PDOC.PN ---
- Subjective Encounter Start Date: 08/16/18 Encounter Start Time: 13:00 Awake, alert, oriented. Complains of abdominal pain secondary to distention. With IV morphine pain is tolerable and he is able to eat. Last drink was day admission to this hospital. - Objective Vital Signs & Weight: Vital Signs (12 hours) Temp Pulse Resp BP Pulse Ox 08/16/18 08:00 79 L 08/16/18 07:22 97.4 F L 79 16 129/83 94 L Weight Admit Weight 194 lb 9.6 oz Weight 193 lb 1 oz I&O: 08/15/18 08/16/18 08/17/18 06:59 06:59 06:59 Intake Total 1900 3380 Balance 1900 3380 Result Diagrams: 08/16/18 09:53 08/16/18 09:53 Phys Exam - Physical Examination Constitutional: NAD HEENT: PERRLA Neck: supple, full ROM Decreased bs bases Cardiovascular: RRR Distention present and unchanged, ascites Trace edema Neurological: non-focal, moves all 4 limbs Psychiatric: normal affect, A&O x 3 Skin: no rash Deviation from normal: Jaundiced Dx/Plan (1) Abdominal pain Code(s): R10.9 - UNSPECIFIED ABDOMINAL PAIN Status: Acute Comment: due to hepatomegaly and ascites (2) Abnormal LFTs Code(s): R94.5 - ABNORMAL RESULTS OF LIVER FUNCTION STUDIES Status: Acute Comment: secondary to alcohol abuse, alcoholic hepatitis (3) Acute kidney injury Code(s): N17.9 - ACUTE KIDNEY FAILURE, UNSPECIFIED Status: Acute Comment: Hepatorenal syndrome. Dr Hylton following (4) Alcoholic hepatitis with ascites Code(s): K70.11 - ALCOHOLIC HEPATITIS WITH ASCITES Status: Acute (5) Leukocytosis Code(s): D72.829 - ELEVATED WHITE BLOOD CELL COUNT, UNSPECIFIED Status: Acute Comment: Leukemoid reaction suspected per ID (6) Alcohol withdrawal Code(s): F10.239 - ALCOHOL DEPENDENCE WITH WITHDRAWAL, UNSPECIFIED Status: Resolved - Plan * Post-op day 2 s/p lap drainage peritoneal fluid - liver biopsy c/w steatohepatitis and has been sent for review; cytology negative * Pain control - presently on oral tramadol. Trial of oxycodone started 08/15. * * Continue steroids per GI * Discussed with Dr. Beckett 08/14, patient may need intermittant paracentesis, recommends keeping in hospital * Communication with case management: Patient would not be accepted in hospital to hospital transfer due to insurance status. * Discussed palliative care consult with patient 08/15. He was receptive to starting a discussion. He understands a few tests are still pending, but most likely this is alcoholic hepatitis. Ultimately, the likely scenario is discharge to home, and palliative care would be a means to help bridge to other services. * Patient high risk * * Approximately 1 hour spent thus far today in discussion with transfer center, attempting referral. Unable to identify medicaid number. Also, requirement for sobriety for 3-6 months depending on which center is contacted is an issue. * Discussed with Dr. Cleary *
--- NOTE | 2018-08-16 15:14 | PRG ---
DATE OF SERVICE: 08/15/2018 SUBJECTIVE: Mr. Li is resting in bed. He actually looks like he feels little better than he was in the past. He is eating small bites frequently. OBJECTIVE: VITAL SIGNS: Temperature is 98, pulse 72, blood pressure 143/95, weight is 194 today. HEENT: He is icteric. LUNGS: Clear. ABDOMEN: Protuberant, but soft than it has been. There is no rebound or guarding. EXTREMITIES: No clubbing, cyanosis, or edema. LABORATORY STUDIES: White count 29,000, hemoglobin is 13.8, platelet count is 168, 89% segs, 4% bands. INR is 1.6. Sodium 134, potassium 4.4, chloride 105, bicarb 19, anion gap 10, BUN and creatinine are 75 and 2.64. Body fluid yesterday showed no evidence of SBP. cultures are negative. QuantiFERON is pending. AFB stains are pending. Liver biopsy; I talked with the pathologist today. The preliminary liver biopsy, severe hepatitis consistent with alcoholic hepatitis, mammillary bodies, inflammatory cells, no overt evidence of lymphoma or infiltrative disorders. Final pathology is pending, however. ASSESSMENT: 1. Acute severe alcoholic hepatitis. The patient is holding his own his preserved coagulation function, no encephalopathy, but is having issues with fluid status and has developed some renal insufficiency. 2. Acute worsening renal function with some elevation of potassium today. The creatinine is hanging around 2. This is likely hepatorenal failure, could be acute tubular necrosis from NSAIDs earlier in the hospitalization. RECOMMENDATIONS: 1. Continue albumin 25 g IV q.8. We will restart little bit IV fluid at 75 mL an hour. Continue multivitamin, thiamine, folate, morphine p.r.n., octreotide, and as well as oral prednisone and midodrine. 2. Attempts were made to transfer the patient to [facility] and [facility], both have declined transfer. 3. Continue aggressive care. This is a young man and always high risk of morbidity, mortality, he may survive this episode. 4. We would try to hold off on dialysis as long as possible as that may complete the renal failure. If his electrolytes, potassium could be managed medically, it would be best. I will start him on some IV fluids. 5. Dr. Stephens will be covering from a GI standpoint starting tomorrow until I am going to be out for the next 10 days. I have discussed all of these issues with the patient today. Job ID: [id number]
--- NOTE | 2018-08-17 01:40 | PRG ---
DATE OF SERVICE: 08/16/2018 SUBJECTIVE: This is a 43-year-old male with acute liver disease due to alcohol abuse. The patient has developed ascites and kidney failure. The patient is on systemic steroids and also on pentoxifylline. The patient is actually awake, alert, and communicative. He is no distress. Does not voice any complaints. He is tolerating diet. Plan is being made to transfer the patient to a liver transplant center in [place].. The patient has had no abdominal pain. No nausea or vomiting. No history of any melena. PHYSICAL EXAMINATION: GENERAL: Appears comfortable. He is awake, alert, and communicative. VITAL SIGNS: Afebrile. Pulse is 79, blood pressure is 121/83. HEENT: He is deeply icteric. CARDIOVASCULAR SYSTEM: First and second sounds are heard. LUNGS: Clear to auscultation. ABDOMEN: Distended, soft. Abdomen is nontender. LABORATORY DATA: WBC dropping down to 29,300 from 51,000, some possibility of leukemoid reaction. Hemoglobin 13.8, hematocrit 41, MCV 103, platelet count 168,000. His coagulation profile is actually slightly high at PT of 19, INR is 1.6. Chemistry panel, lytes are normal. Potassium 4.6, chloride is 109, BUN is 72, creatinine is 2.40, and glucose 179. CLINICAL IMPRESSION: Acute alcoholic hepatitis, severe with some decompensation in terms of ascites. . RECOMMENDATIONS: 1. Symptomatic treatment. 2. Await transfer to a liver transplant program in [place]. Job ID: [id number] MTDD
[2018-08-17] MEDS: oxyCODONE 5 MG TAB PO PRN (06:05)
[2018-08-17] MEDS: Morphine 4 MG/ML VIAL SLOW IVP PRN ×5 (07:16→23:11)
[2018-08-17] MEDS: Sodium Bicarbonate Tab 325 MG TAB PO SCH ×3 (08:47→21:26)
[2018-08-17] MEDS: Folic Acid 1 MG TAB PO SCH (08:48)
[2018-08-17] MEDS: Dextrose 5 % And 0.9 % NaCl 1,000 ML IV SCH (08:48)
[2018-08-17] MEDS: Multivit, Therapeutic 1 TAB PO SCH (08:48)
[2018-08-17] MEDS: Midodrine HCl 5 MG TAB PO SCH ×3 (08:50→21:26)
--- NOTE | 2018-08-17 11:04 | PRG ---
DATE OF SERVICE: 08/17/2018 SUBJECTIVE: This is a 43-year-old for male with chronic alcohol abuse, hospitalized with acute alcoholic hepatitis. He also had renal failure and had been seen by Nephrology. The patient had liver biopsy, basically, he has alcoholic hepatitis. He is on systemic steroids and IV octreotide and midodrine etc,. He is tolerating diet. He complains of abdominal bloating, abdominal swelling, and some mild abdominal pain. No nausea or vomiting. PHYSICAL EXAMINATION: GENERAL: Appears comfortable, deeply jaundice. VITAL SIGNS: Temperature 98.7 degrees Fahrenheit, pulse is 77, and blood pressure 133/93. CARDIOVASCULAR: First and second heart sounds are heard. LUNGS: Clear to auscultation. ABDOMEN: Soft. Abdomen is distended. Abdomen is mildly tender. No rebound or guarding. LABORATORY DATA: There are no labs ordered today. RECOMMENDATIONS: 1. Continue present treatment. 2. Awaiting transfer to [place] when he is approved by the [facility]. Job ID: [id number]
[2018-08-17] MEDS: prednisoLONE 15 MG/5 ML UDCUP PO SCH (11:07)
[2018-08-17] MEDS ORDERED: Sodium Bicarbonate 150 MEQ in Dextrose 5% in Water 1,000 ML IV ONE (12:45)
[2018-08-17 12:46] LABS: Anion Gap 18 mmol/L (10-20); BUN (Urea Nitrogen) 65 mg/dL (8.9-20.6); Calc. Creatinine Clearance 51 mL/min (70-130); Calcium 8.1 mg/dL (7.8-10.44); Carbon Dioxide 17 mmol/L (22-29); Chloride 105 mmol/L (98-107); Estimated GFR-MDRD 31; Glucose 194 mg/dL (70-105); Potassium 4.4 mmol/L (3.5-5.1); Sodium 136 mmol/L (136-145)
--- NOTE | 2018-08-17 12:52 | PRG ---
DATE OF SERVICE: 08/17/2018 SUBJECTIVE: The patient is seen and examined at the bedside. He is still complaining about abdominal distention and pain. OBJECTIVE: VITAL SIGNS: Blood pressure is 133/93, pulse is 77, temperature is 98.3, respirations 17, O2 saturation is 93% on room air. HEENT: His head is atraumatic and normocephalic. Eyes, PERRLA. Sclerae are icteric. Conjunctivae pinkish. Oral mucosa is moist. NECK: Supple. LUNGS: Breath sounds diminished at both bases. HEART: S1, S2, normal. No S3. No S4. ABDOMEN: Distended. Tender to even superficial palpation. Bowel sounds present. There is hepatomegaly. EXTREMITIES: 1+ peripheral edema similar bilaterally. NEUROLOGICAL: He is alert and oriented x4. There is no any sensory or motor deficits present. Cranial nerves are intact. LABORATORY DATA: None today. IMPRESSION: 1. Acute alcoholic hepatitis with ascites, status post drainage of peritoneal fluid and liver biopsy consistent with steatohepatitis. Cytology negative. 2. Abdominal pain secondary to ascites and hepatomegaly, on morphine. 3. Abnormal LFTs secondary to acute alcoholic hepatitis with ascites. 4. Acute kidney injury with progressive metabolic acidosis. [employer] is changing the regimen with more bicarbonate changed from p.o. to IV. 5. Elevated white blood cell count, leukemoid reaction suspected per ID. DISCUSSION: Apparently, the patient received Medicaid insurance coverage last Saturday. This might help with the transfer to any tertiary hospital for liver transplant. Dr. Stephens is covering for Dr. Beckett. He will help us with this transfer, if it is possible. We will obtain PICC line since his midline is not functioning well. We will continue his prednisolone per GI. One of the major obstacles when we try to transfer the patient to tertiary hospital is that he did not have sobriety for required amount of time, which is usually three months since his last alcoholic drink was at the time of admission. The patient remains high risk for complications and is very questionable whether he can survive this, if he does not get liver transplant. Job ID: [id number]
--- NOTE | 2018-08-17 14:06 | PRG ---
DATE OF SERVICE: 08/17/2018 SUBJECTIVE: A 43-year-old gentleman, being seen for acute kidney injury. The patient denies any nausea, vomiting, or chest pain. OBJECTIVE: GENERAL: The patient is awake and alert. VITAL SIGNS: Afebrile, pulse 77, breathing 16, blood pressure 133/93. GENERAL APPEARANCE AND MENTAL STATUS: Fair. HEAD/NECK: Normocephalic. Atraumatic. EYES: EOMI. No deformity. EARS: Clear. No ulcers. NOSE: Intact. No lesions. MOUTH: Clear. No discharge. THROAT: Clear. No exudate. LUNGS: Clear. No crackles. CARDIAC: S1, S2. No rub. ABDOMEN: Benign. Bowel sounds positive. GENITALIA/RECTUM: Mays absent. BACK/EXTREMITIES: Edema 0+. NEUROLOGICAL: Alert and motor intact. SKIN: LYMPHATICS: LABORATORY DATA: Labs show hemoglobin 14.7. Creatinine 2.3. ASSESSMENT AND PLAN: 1. Chronic kidney disease stage 3, stable. 2. Acute kidney injury due to hepatorenal as well as abdominal compartment syndrome and metabolic acidosis, continue bicarb drip, improved. No indication for dialysis at this time. Prognosis is poor. Job ID: [id number]
[2018-08-17] MEDS: Octreotide Acetate 1,250 MCG in Sodium Chloride 0.9% 250 ML 250 ML IVPB SCH (14:56)
--- NOTE | 2018-08-17 15:50 | PRG ---
DATE OF SERVICE: 08/17/2018 SUBJECTIVE: This is a 43-year-old male with alcoholic hepatitis, liver and kidney failure. He is on IV octreotide and also midodrine. The patient has been on tapering dose of prednisone. As per Dr. Beckett, consultation with one of the wind farm designer in [facility], he was informed that he does not need to be on prednisone anymore. Dr. Beckett sent me a text asking me to discontinue prednisone, which will be discontinued later on today. Job ID: [id number]
[2018-08-18] MEDS: Morphine 4 MG/ML VIAL SLOW IVP PRN ×5 (03:25→20:28)
[2018-08-18] MEDS: Folic Acid 1 MG TAB PO SCH (08:07)
[2018-08-18] MEDS: Multivit, Therapeutic 1 TAB PO SCH (08:08)
[2018-08-18] MEDS: Sodium Bicarbonate Tab 325 MG TAB PO SCH ×3 (08:09→20:33)
[2018-08-18] MEDS: Midodrine HCl 5 MG TAB PO SCH ×3 (10:00→20:33)
--- NOTE | 2018-08-18 10:03 | PRG ---
DATE OF SERVICE: 08/18/2018 SUBJECTIVE: A 43-year-old gentleman being seen for acute kidney injury. The patient denies any nausea, vomiting, or chest pain. OBJECTIVE: GENERAL: The patient is awake and alert. VITAL SIGNS: Afebrile, pulse 91, breathing 16, and blood pressure 108/76. GENERAL APPEARANCE AND MENTAL STATUS: Fair. HEAD/NECK: Normocephalic. Atraumatic. EYES: EOMI. No deformity. EARS: Clear. No ulcers. NOSE: Intact. No lesions. MOUTH: Clear. No discharge. THROAT: Clear. No exudate. LUNGS: Clear. No crackles. CARDIAC: S1, S2. No rub. ABDOMEN: Benign. Bowel sounds positive. GENITALIA/RECTUM: Mays absent. BACK/EXTREMITIES: Edema 0+. NEUROLOGICAL: Alert and motor intact. SKIN: LYMPHATICS: LABORATORY DATA: Labs show creatinine 2.3. Today's creatinine is pending. ASSESSMENT AND PLAN: Chronic kidney disease stage 3 and acute kidney injury, stable. Hypertension, stable. Metabolic acidosis, stable. Prognosis poor. Job ID: [id number]
--- NOTE | 2018-08-18 10:48 | SPC ---
LEFT UPPER EXTREMITY PICC EXCHANGE FLUOROSCOPIC GUIDED: HISTORY: Poor function of left upper extremity midline. FLUORO TIME: 0 seconds. FINDINGS: After explaining the procedure and answering all questions, the external portion of the left upper ex tremity midline were prepped and draped in the usual sterile fashion. Sterile technique and fluorosc opic guidance were then used to exchange a left upper extremity PICC single lumen so that the tip lie s at the level of the cavoatrial junction. The catheter was secured externally. The patient tolerat ed the procedure well and was returned in unchanged condition. IMPRESSION: Left upper extremity PICC is ready for use. POS: [facility]
[2018-08-18 11:37] LABS: Hemoglobin 14.3 g/dL (14.0-18.0)
[2018-08-18 12:00] LABS: Anion Gap 17 mmol/L (10-20); BUN (Urea Nitrogen) 66 mg/dL (8.9-20.6); Calc. Creatinine Clearance 52 mL/min (70-130); Carbon Dioxide 20 mmol/L (22-29); Chloride 101 mmol/L (98-107); Estimated GFR-MDRD 30; Glucose 165 mg/dL (70-105); Potassium 4.1 mmol/L (3.5-5.1); Sodium 134 mmol/L (136-145)
--- NOTE | 2018-08-18 14:04 | PRG ---
DATE OF SERVICE: 08/18/2018 SUBJECTIVE: The patient is seen and examined at bedside. There is not much change of his status comparing to yesterday when I saw him. He still has abdominal pain, mainly in the epigastric area. There was no nausea or vomiting. OBJECTIVE: VITAL SIGNS: Blood pressure is 108/76, pulse is 91, temperature is 97.9, respirations 18, O2 saturation 94% on room air. HEENT: His head is atraumatic and normocephalic. Eyes; PERRLA. Sclerae are icteric. Conjunctivae are palish. Oral mucosa is moist. NECK: Supple. LUNGS: Clear. HEART: S1 and S2, normal. No S3. No S4. No any murmur. ABDOMEN: Distended. Liver is palpated. The edge is approximately 5 cm below the costal margin. Tender to touch. Bowel sounds are present. EXTREMITIES: No clubbing, cyanosis, or edema. NEUROLOGIC: He is alert and oriented x4. There is no any sensory or motor deficit. Cranial nerves are intact. LABORATORY DATA: Labs showed hemoglobin of 14.3, hematocrit 43.3. Sodium of 134, potassium 4.1, chloride 101, CO2 of 20, BUN 66, creatinine 2.39, glucose 165, calcium 8.0. IMPRESSION: 1. Acute alcoholic hepatitis with ascites, status post drainage of peritoneal fluid and liver biopsy consistent with steatohepatitis. Cytology, negative. 2. Abdominal pain secondary to ascites and hepatomegaly, on morphine. 3. Abnormal LFTs secondary to acute alcoholic hepatitis with ascites. 4. Acute kidney injury with progressive metabolic acidosis, improved with change to bicarbonate IV. 5. Elevated white blood cell count, leukemoid reaction suspected per ID. PLAN: Gastroenterology stopped steroid. The patient had a PICC line placed. According to him, he just got Medicaid approved on Saturday, and the geriatric social work professor is trying to find any hospital, which would take him for liver transplant. Without this, he has significantly diminished chances to survive this. Apparently, we tried several hospitals, which require sobriety for approximately 3 months. We will keep trying to find a program, which would accept him as a transplantation. Job ID: [id number]
[2018-08-18] MEDS ORDERED: Heparin 1,000 UNITS/ML VIAL ONE (16:41)
[2018-08-18] MEDS: Octreotide Acetate 1,250 MCG in Sodium Chloride 0.9% 250 ML 250 ML IVPB SCH (21:36)
--- NOTE | 2018-08-18 23:09 | PRG ---
DATE OF SERVICE: 08/18/2018 SUBJECTIVE: Mr. Deleon complains of diffuse abdominal discomfort from the pressure from the ascites. He had around four soft bowel movements per day. OBJECTIVE: VITAL SIGNS: Temperature 98.4, pulse is 103, blood pressure 105/66. GENERAL: He is in no acute distress. He is awake and oriented x3. He is jaundiced. His lungs are clear to auscultation bilaterally. HEART: Tachycardic, S1, S2. ABDOMEN: Distended and diffusely tender. EXTREMITIES: 1+ pitting lower extremity edema. LABORATORY DATA: Hemoglobin is 14.3, creatinine 2.39. IMPRESSION: 1. Acute alcoholic hepatitis. He did not have significant improvement initially with steroids and those were discontinued after two weeks. He has remained on pentoxifylline. 2. Acute renal failure. He is on octreotide with Midodrine to try improve the renal perfusion. RECOMMENDATIONS: 1. Ultrasound-guided paracentesis tomorrow if possible. 2. Recheck labs tomorrow. 3. Continue the octreotide, midodrine, and pentoxifylline. 4. Low-salt diet. 5. Weigh the patient daily. 6. The patient reportedly is supposed to have his Medicaid taken tomorrow. Job ID: [id number]
[2018-08-19] MEDS: Morphine 4 MG/ML VIAL SLOW IVP PRN ×6 (00:34→22:30)
[2018-08-19] MEDS: Folic Acid 1 MG TAB PO SCH (08:14)
[2018-08-19] MEDS: Midodrine HCl 5 MG TAB PO SCH ×3 (08:15→20:24)
[2018-08-19] MEDS: Multivit, Therapeutic 1 TAB PO SCH (08:15)
[2018-08-19] MEDS: Sodium Bicarbonate Tab 325 MG TAB PO SCH ×3 (08:59→20:24)
--- NOTE | 2018-08-19 09:10 | PRG ---
DATE OF SERVICE: 08/19/2018 SUBJECTIVE: The patient is seen and examined at the bedside. He is getting ready for his paracentesis, which was ordered yesterday by Dr. Gibbs, GI Service. He still complains about abdominal discomfort, may be somewhat better this morning. He is able to eat small amounts of food. When he eats more, he gets more abdominal discomfort. OBJECTIVE: VITAL SIGNS: Blood pressure is 111/76, pulse is 97, temperature 97.5, respirations 18, and O2 saturations 93% on room air. HEENT: His head is atraumatic and normocephalic. Eyes are PERRLA. Sclerae are icteric. Conjunctivae are pinkish. Oral mucosa is moist. NECK: Supple. LUNGS: Clear, although breath sounds diminished at both bases. HEART: S1 and S2 are normal. No S3. No S4. No any murmur. ABDOMEN: Distended. Liver is enlarged as before. Ascites is present in peritoneal cavity. Bowel sounds are present. EXTREMITIES: No clubbing, cyanosis, or edema. NEUROLOGICAL: He is alert and oriented x4. There is no any motor or sensory deficits. Cranial nerves are intact. LABORATORY DATA: Pending. IMPRESSION: 1. Acute alcoholic hepatitis with ascites, status post paracentesis and liver biopsy consistent with steatohepatitis, cytology negative. 2. Abdominal pain secondary to ascites and hepatomegaly, on morphine. 3. Abnormal LFT secondary to acute alcoholic hepatitis. 4. Acute kidney injury, somewhat improved with bicarbonate. 5. Elevated white count, which is felt to be leukemoid reaction. PLAN: Plan is to do a paracentesis this morning. He had a PICC line placed in his left upper extremity. He is supposed to continue his octreotide, morphine, Trental, and midodrine, and we will continue his pain management. Job ID: [id number]
[2018-08-19 10:17] LABS: Prothrombin Time 22.5 SEC (12.0-14.7)
[2018-08-19 10:32] LABS: ALT (SGPT) 90 U/L (8-55); AST (SGOT) 192 U/L (5-34); Albumin 2.5 g/dL (3.5-5.0); Alkaline Phosphatase 401 U/L (40-150); Anion Gap 18 mmol/L (10-20); BUN (Urea Nitrogen) 79 mg/dL (8.9-20.6); Calc. Creatinine Clearance 37 mL/min (70-130); Calcium 7.8 mg/dL (7.8-10.44); Carbon Dioxide 20 mmol/L (22-29); Chloride 97 mmol/L (98-107); Estimated GFR-MDRD 20; Globulin 1.8 g/dL (2.4-3.5); Glucose 162 mg/dL (70-105); Protein, Total 4.3 g/dL (6.0-8.3); Sodium 131 mmol/L (136-145)
[2018-08-19 10:42] LABS: Bilirubin, Total 32.8 mg/dL (0.2-1.2)
[2018-08-19 11:38] LABS: Band 13 % (5-11); Eosinophils 1 % (0-10); Hemoglobin 13.3 g/dL (14.0-18.0); Large Platelets MODERATE; Lymphocytes 1 % (21-51); MDiff Complete? YES; Mean Corpuscular HGB CONC 33.7 g/dL (32.0-36.0); Mean Corpuscular Hemoglobin 34.4 pg (27.0-31.0); Mean Platelet Volume 9.3 fL (7.4-10.4); Monocytes 10 % (0-10); Neutrophil 73 % (42-75); Platelet Count 99 thou/uL (130-400); Platelet Morphology Comment Appears Decreased; RBC Distribution Width 15.7 % (11.5-14.5); Reactive Lymphocytes 2 % (0-10); Red Blood Cell (RBC) Count 3.87 mill/uL (4.70-6.10); White Blood Cell (WBC) Count 40.4 thou/uL (4.8-10.8)
--- NOTE | 2018-08-19 13:33 | PRG ---
DATE OF SERVICE: 08/19/2018 SUBJECTIVE: A 43-year-old gentleman, being seen for acute kidney injury. The patient denies nausea, vomiting, or chest pain. OBJECTIVE: CONSTITUTIONAL: He is awake and alert. VITAL SIGNS: pulse 97, breathing 16, blood pressure . GENERAL APPEARANCE AND MENTAL STATUS: Fair. HEAD/NECK: Normocephalic. Atraumatic. EYES: EOMI. No deformity. EARS: Clear. No ulcers. NOSE: Intact. No lesions. MOUTH: Clear. No discharge. THROAT: Clear. No exudate. LUNGS: Clear. No crackles. CARDIAC: S1, S2. No rub. ABDOMEN: Benign. Bowel sounds positive. GENITALIA/RECTUM: Mays absent. BACK/EXTREMITIES: Edema 0+. NEUROLOGICAL: Alert and motor intact. SKIN: LYMPHATICS: LABORATORY DATA: Labs show hemoglobin is 13. Potassium is 4, creatinine 3.42. ASSESSMENT AND PLAN: 1. Acute kidney injury with progressive chronic kidney disease due to hepatorenal and possibly abdominal compartment syndrome and liver failure . 2. Hyperkalemia, stable. 3. Metabolic acidosis, stable. Job ID: [id number]
--- NOTE | 2018-08-19 13:50 | PRG ---
DATE OF SERVICE: 08/19/2018 SUBJECTIVE: Mr. Deleon had paracentesis this morning. He states that only a small amount of fluid was removed and he has no relief of his abdominal discomfort with that. He had three bowel movements last night, which were not runny per his report. OBJECTIVE: VITAL SIGNS: Temperature is 97.3, pulse 96, blood pressure 109/73, and oxygen saturation 91% on room air. GENERAL: He is jaundiced, in no acute distress. He is alert and oriented. LUNGS: Clear to auscultation bilaterally. HEART: Regular rate and rhythm. ABDOMEN: Distended and taut. He is tender diffusely. Bowel sounds are present. EXTREMITIES: 1+ pitting lower extremity edema. LABORATORY DATA: White blood cell count 40.4, hemoglobin 13.3, platelets 99. INR 2.0. Creatinine 3.42, bilirubin 32.8, and albumin 2.5. IMPRESSION: 1. Acute alcoholic hepatitis. His labs are significantly worse today. His INR is up to 2. His bilirubin is climbed to 32. His creatinine is worsened to 3.42 today, up from 2.39 yesterday. 2. Symptomatic ascites. He reports that only a small amount of fluid could be removed by paracentesis today. The op note is not yet transcribed. RECOMMENDATIONS: 1. Add albumin 25 g q.6 hours. 2. Continue midodrine and octreotide. 3. We will continue pentoxifylline for now. 4. Await cell count to rule out SBP. 5. We need to continue to pursue options for transfer to a liver center. The bump in the creatinine is particularly concerning today. Job ID: [id number]
[2018-08-19 13:54] LABS: Body Fluid Source Ascites Body Fluid
[2018-08-19 14:00] LABS: BF Color Yellow; BF RBC Count - Manual 1930 /cumm; Clarity Hazy (Clear); Tube # EDTA; WBC/NonHematic-Auto 1100 /cumm
--- NOTE | 2018-08-19 14:00 | ULT ---
SONOGRAPHIC GUIDED PARACENTESIS: HISTORY: Recurrent ascites. FINDINGS: After explaining the procedure and answering all questions, sonographic survey shows a small amount o f free fluid in the right lower quadrant. Sterile technique, buffered local anesthesia, sonographic guidance, and a right lateral approach were used to carefully advance a 19-gauge Yueh needle an catheter into the free fluid. The catheter was left to drain total volume of 120 cc that was sent to the laboratory for analysis. No additional flu id was able to be drained. The patient tolerated the procedure well and was returned in unchanged co ndition. IMPRESSION: Technically successful sonographic-guided paracentesis. Pathology is pending. POS: [facility]
[2018-08-19] MEDS: Albumin 25% 25 GM/100 ML BOT IVPB SCH ×2 (14:09→20:18)
[2018-08-19 14:19] LABS: BF Segmented Neutrophils 75 %; Cell Count Non Hematic 14 %; Eosinophils 1 %; Lymphocytes 10 %
[2018-08-19] MEDS: oxyCODONE 5 MG TAB PO PRN (20:23)
[2018-08-20] MEDS: Morphine 4 MG/ML VIAL SLOW IVP PRN ×4 (03:24→18:18)
[2018-08-20] MEDS: Albumin 25% 25 GM/100 ML BOT IVPB SCH ×4 (03:24→20:30)
[2018-08-20] MEDS: oxyCODONE 5 MG TAB PO PRN (05:24)
[2018-08-20] MEDS ORDERED: CEFEPIME IVPB PRN (07:39)
[2018-08-20] MEDS ORDERED: Cefepime 1 GM in Sodium Chloride 0.9% 100 ML IVPB SCH (07:45)
[2018-08-20] MEDS ORDERED: Cefepime 2 GM in Sodium Chloride 0.9% 100 ML IVPB SCH (08:00)
[2018-08-20] MEDS: Sodium Bicarbonate Tab 325 MG TAB PO SCH ×3 (08:15→20:30)
[2018-08-20] MEDS: Midodrine HCl 5 MG TAB PO SCH ×3 (08:15→20:30)
[2018-08-20] MEDS: Folic Acid 1 MG TAB PO SCH (08:15)
[2018-08-20] MEDS: Multivit, Therapeutic 1 TAB PO SCH (08:15)
--- NOTE | 2018-08-20 08:26 | PRG ---
DATE OF SERVICE: 08/20/2018 SUBJECTIVE: The patient is seen and examined at the bedside. He had just mild relief of his pain after paracentesis yesterday because the volume of fluid, which was taken out was not that much. He still has abdominal pain as before. He noticed some swelling on both hips. OBJECTIVE: VITAL SIGNS: Blood pressure is 103/69, temperature is 98.4, pulse is 87, respiratory rate is 16, and O2 saturation is 92% on room air. HEENT: His head is atraumatic and normocephalic. Eyes; PERRLA. Sclerae are icteric. Conjunctivae are palish. Oral mucosa is moist. NECK: Supple. LUNGS: Breath sounds are diminished at both bases. HEART: S1 and S2 normal. No S3. No S4. ABDOMEN: Distended and tender to touch. Liver is enlarged as before. Bowel sounds are sluggish. EXTREMITIES: 1+ peripheral edema similar bilaterally. NEUROLOGICAL: He is alert and oriented x4. There are no any motor or sensory deficits present. Cranial nerves are intact. LABORATORY DATA: Labs are pending. White count from yesterday was 40.4, hemoglobin 13.3, hematocrit 39.5, and platelet count was 99. INR 2.0, PT 22.5. His creatinine went up to 3.42 yesterday, then we are waiting for the blood drawn this morning. His peritoneal fluid is hazy, color is yellow, 1100 wbc's, 19 to 30 rbc's, segments 7 to 5. Microbiology, peritoneal fluid Gram stain showed WBCs seen, no organisms seen. IMPRESSION: 1. Spontaneous bacterial peritonitis most likely based on the fluid findings. Start cefepime 1 g q.12 hours IV piggyback. Pharmacy to make some adjustment to the dose based on liver and renal function. 2. Acute alcoholic hepatitis with ascites, status post paracentesis x2 and liver biopsy consistent with stat hepatitis, cytology negative. 3. Abdominal pain secondary to #2, on morphine. 4. Acute kidney injury, worsening, progressive. 5. Elevated white count. [place] to be a leukemoid reaction, but at this point, this could be representing spontaneous bacterial peritonitis. PLAN: The patient had PICC line. We will start him on cefepime 1 g every 12 IV piggyback. Continue octreotide IV. Continue morphine, we will continue our efforts to contact tertiary hospitals to move him where he can get his liver transplant. Job ID: [id number]
[2018-08-20 08:39] LABS: Anion Gap 21 mmol/L (10-20); BUN (Urea Nitrogen) 95 mg/dL (8.9-20.6); Calc. Creatinine Clearance 30 mL/min (70-130); Calcium 8.4 mg/dL (7.8-10.44); Carbon Dioxide 19 mmol/L (22-29); Chloride 97 mmol/L (98-107); Estimated GFR-MDRD 16; Glucose 193 mg/dL (70-105); Potassium 4.2 mmol/L (3.5-5.1); Sodium 133 mmol/L (136-145)
--- NOTE | 2018-08-20 11:33 | PRG ---
DATE OF SERVICE: 08/20/2018 SUBJECTIVE: A 43-year-old gentleman being seen for acute kidney injury. The patient denies any nausea, vomiting, or chest pain. OBJECTIVE: CONSTITUTIONAL: The patient is awake and alert. VITAL SIGNS: Afebrile, pulse 89, breathing 16, blood pressure 103/69. GENERAL APPEARANCE AND MENTAL STATUS: Fair. HEAD/NECK: Normocephalic. Atraumatic. EYES: EOMI. No deformity. EARS: Clear. No ulcers. NOSE: Intact. No lesions. MOUTH: Clear. No discharge. THROAT: Clear. No exudate. LUNGS: Clear. No crackles. CARDIAC: S1, S2. No rub. ABDOMEN: Distended. GENITALIA/RECTUM: Mays absent. BACK/EXTREMITIES: Edema 0+. NEUROLOGICAL: Alert and motor intact. SKIN: Jaundiced. LABORATORY DATA: Labs show potassium 4.2, creatinine 4.2. ASSESSMENT AND PLAN: 1. Chronic kidney disease, stage 5 with worsening renal function. No urgent indication for dialysis. We will plan dialysis. 2. Hypertension, stable. 3. Anemia, stable. 4. Medication based on GFR appropriate. Job ID: [id number]
[2018-08-20] MEDS ORDERED: Albumin 25% 25 GM/100 ML BOT IVPB SCH ×2 (14:45→15:00)
--- NOTE | 2018-08-20 15:03 | PRG ---
DATE OF SERVICE: 08/20/2018 SUBJECTIVE: Mr. Deleon has diffuse tenderness in his abdomen, but otherwise no new complaints. His oral intake has been suboptimal due to the abdominal distention and discomfort. OBJECTIVE: VITAL SIGNS: Temperature 98.3, pulse 92, blood pressure 105/72, oxygen saturation 92% on room air. GENERAL: He is jaundiced, in no acute distress, alert and oriented x3 today. No asterixis. LUNGS: Clear to auscultation bilaterally. HEART: Regular rate and rhythm without murmur. ABDOMEN: Distended, tender diffusely to light palpation. Bowel sounds are present. EXTREMITIES: 1+ pitting lower extremity edema. LABORATORY DATA: Creatinine is increased to 4.22 today with BUN of 95. His sodium is 133. IMPRESSION: 1. Spontaneous bacterial peritonitis. Ultrasound reported only a small pocket of fluid. However, clinically he is distended with ascites. He had 120 mL removed only. The fluid confirms spontaneous bacterial peritonitis by cell count. His PMNs in the fluid are well above 250 even with correction for the red blood cells. He has been started on ceftriaxone. 2. Severe acute alcoholic hepatitis. We will discuss with multiple transfer centers. [facility] will accept him as a higher level of care. However, they made it clear that he is not a transplant candidate for alcoholic hepatitis and recent alcohol use. In discussion with the retail advisor, he does believe that pentoxifylline has limited use at this point and recommends that can be discontinued. 3. Acute renal failure, most likely hepatorenal syndrome. He has been on midodrine and albumin and octreotide. We will continue this. RECOMMENDATIONS: 1. We will discontinue pentoxifylline. 2. Continue the ceftriaxone. 3. Continue octreotide and midodrine. Albumin has to be reordered and will be done. 4. Encourage oral nutrition with high protein supplements. 5. We will continue to try to pursue transfer for higher level of care. However, there is no bed available today, and they will reassess tomorrow morning for bed availability. Job ID: [id number]
[2018-08-20] MEDS ORDERED: CEFAZOLIN/Water 2 GM/20 ML SYRINGE SLOW IVP SCH (15:15)
--- NOTE | 2018-08-20 15:38 | PRG ---
DATE OF SERVICE: 08/20/2018 SUBJECTIVE: Mr. Deleon had felt worsening over the past few days with increased abdominal distention and pain. No diarrhea. No genitourinary symptoms. No bleeding. OBJECTIVE: VITAL SIGNS: He has remained afebrile. Other vital signs are not particularly remarkable. His O2 sats are 92% on room air. HEENT: Scleral icterus. Oral cavity somewhat dry. LUNGS: Symmetric air entry. Faint basilar crackles. ABDOMEN: Distended abdomen with diffuse tenderness. No joint inflammatory activity. LABORATORY DATA: White cell count is back up to 40,000, hemoglobin 13, platelets 99,000, 13% bands, 73% neutrophils and creatinine is up to 4.22. Sodium 133, AST 192, ALT 90, alkaline phosphatase 401. QuantiFERON was indeterminate. The patient had a repeat paracentesis. This is the 3rd one and cultures negative, but he did have an increase in the total neutrophil count to 1100, actually a predominance of neutrophils. The patient has been restarted on any antimicrobial therapy at this point in time. ASSESSMENT AND DISCUSSION: Alcoholism, alcoholic hepatitis, leukemoid reaction, possible superimposed bacterial peritonitis. The patient is back on antimicrobial therapy. He seems to have deteriorated over the past few days. May end up having to receive dialytic replacement. Discussions were entertained about transferring the patient but does not look like that is going to be an option at this point in time. Job ID: [id number] MTDD
[2018-08-20] MEDS ORDERED: CEFAZOLIN 2 GM/50 ML-DEXTROSE 2 GM in Premix Bag 1 BAG IVPB SCH (15:45)
[2018-08-20] MEDS: cefTRIAXone\\ROCEPHIN 1 GM in Sodium Chloride 0.9% 100 ML IVPB SCH (17:36)
[2018-08-20] MEDS: Octreotide Acetate 1,250 MCG in Sodium Chloride 0.9% 250 ML 250 ML IVPB SCH (18:20)
[2018-08-20] MEDS ORDERED: Lorazepam 2 MG/ML VIAL SLOW IVP SCH (19:30)
--- NOTE | 2018-08-20 19:46 | ULT ---
VEIN MAPPING OF UPPER EXTREMITIES FOR DIALYSIS ACCESS: 08/20/18 COMPARISON: None. HISTORY: End-stage renal disease. TECHNIQUE: Multiplanar godwin scale sonographic imaging venous structures of bilateral upper extremities obtained with color flow/spectral analysis. FINDINGS: The internal jugular vein, subclavian vein, and axillary vein is patent bilaterally. VESSEL DIAMETER (mm) RIGHT UPPER EXTREMITY BRACHIAL ARTERY: 4.1 mm RADIAL ARTERY: 2.4 mm ULNAR ARTERY: 1.9 mm LEFT UPPER EXTREMITY BRACHIAL ARTERY: 5.1 mm RADIAL ARTERY: 1.7 mm ULNAR ARTERY: 1.2 mm Neither cephalic vein could be visualized on this examination. BASILIC VEIN ON THE RIGHT Above Elbow proximal: 3.8 mm Above Elbow Mid: 2.3 mm Above Elbow Distal: 2.9 mm At elbow: 1.8 mm Below Elbow Proximal: 0.9 mm Below Elbow Mid: 0.8 mm Below Elbow Distal: 1.1 mm BASILIC VEIN ON THE LEFT The left basilic vein contains a PICC, inserted in the region of the antecubital fossa. There is clot within the left basilic vein in the mid upper arm and antecubital fossa regions. IMPRESSION: Clot in the antecubital fossa and mid upper arm within left basilic vein adjacent to left PICC line. Right basilic vein patent as described above. Bilateral cephalic veins are nonvisualized. POS: TAMMIE
[2018-08-21] MEDS: Morphine 4 MG/ML VIAL SLOW IVP PRN ×5 (00:53→22:40)
[2018-08-21] MEDS: Albumin 25% 25 GM/100 ML BOT IVPB SCH ×5 (02:59→22:43)
[2018-08-21 05:05] LABS: Anion Gap 22 mmol/L (10-20); BUN (Urea Nitrogen) 104 mg/dL (8.9-20.6); Calc. Creatinine Clearance 27 mL/min (70-130); Calcium 8.5 mg/dL (7.8-10.44); Carbon Dioxide 19 mmol/L (22-29); Chloride 96 mmol/L (98-107); Estimated GFR-MDRD 13; Glucose 146 mg/dL (70-105); Potassium 3.7 mmol/L (3.5-5.1); Sodium 133 mmol/L (136-145)
[2018-08-21 05:13] LABS: Band 3 % (5-11); Hemoglobin 11.7 g/dL (14.0-18.0); Hypochromia SLIGHT = 6-15 cells (100X) (0-5/hpf); Lymphocytes 1 % (21-51); MDiff Complete? YES; Macrocytosis SLIGHT = 6-15 cells (100X) (0-5/hpf); Mean Corpuscular HGB CONC 33.3 g/dL (32.0-36.0); Mean Platelet Volume 9.6 fL (7.4-10.4); Monocytes 6 % (0-10); Neutrophil 90 % (42-75); Platelet Count 93 thou/uL (130-400); Platelet Morphology Comment Appears Decreased; RBC Distribution Width 15.7 % (11.5-14.5); Red Blood Cell (RBC) Count 3.45 mill/uL (4.70-6.10); White Blood Cell (WBC) Count 30.2 thou/uL (4.8-10.8)
[2018-08-21] MEDS: Folic Acid 1 MG TAB PO SCH (08:22)
[2018-08-21] MEDS: Midodrine HCl 5 MG TAB PO SCH ×3 (08:22→20:58)
[2018-08-21] MEDS: Sodium Bicarbonate Tab 325 MG TAB PO SCH ×3 (08:22→20:58)
[2018-08-21] MEDS: Multivit, Therapeutic 1 TAB PO SCH (08:22)
--- NOTE | 2018-08-21 08:30 | PDOC.PN ---
- Subjective Encounter Start Date: 08/21/18 Encounter Start Time: 08:28 -: old records requested/rev Pt seen and examined, chart reviewed in its entirety, this is my first visit with this patient Follow up for SBP, MELY, end stage alcoholic cirrhosis No F/C, no N/V/D/C, no CP or SOB, no cough or sputum production all systems reviewed and neg except as above awaiting approval to transfer to another tertiary care facility - Objective MAR Reviewed: Yes Vital Signs & Weight: Vital Signs (12 hours) Temp Pulse Resp BP Pulse Ox 08/21/18 07:48 98.3 F 93 20 100/63 93 L 08/21/18 05:33 98.4 F 99 20 110/71 92 L 08/21/18 00:00 98.2 F 92 18 108/72 93 L Weight Admit Weight 194 lb 9.6 oz Weight 208 lb 5.389 oz I&O: 08/20/18 08/21/18 08/22/18 06:59 06:59 06:59 Intake Total 1520 1730 Balance 1520 1730 Result Diagrams: 08/21/18 04:30 08/21/18 04:30 Radiology Reviewed by me: Yes EKG Reviewed by me: Yes Phys Exam - Physical Examination Constitutional: NAD HEENT: PERRLA, moist MMs, sclera anicteric, oral pharynx no lesions Neck: no nodes, no JVD, supple, full ROM Respiratory: no wheezing, no rales, no rhonchi, clear to auscultation bilateral Cardiovascular: RRR, no significant murmur, no rub Gastrointestinal: soft, non-tender, no distention, positive bowel sounds Musculoskeletal: pulses present, edema present Neurological: non-focal, normal sensation, moves all 4 limbs Lymphatic: no nodes Psychiatric: normal affect, A&O x 3 Skin: no rash, normal turgor, cap refill <2 seconds Dx/Plan (1) SBP (spontaneous bacterial peritonitis) Code(s): K65.2 - SPONTANEOUS BACTERIAL PERITONITIS Status: Acute Comment: on CTX, ID following (2) Alcoholic cirrhosis of liver with ascites Code(s): K70.31 - ALCOHOLIC CIRRHOSIS OF LIVER WITH ASCITES Status: Chronic (3) Leukemoid reaction Code(s): D72.823 - LEUKEMOID REACTION Status: Acute Comment: slightly better , due to SBP (4) Acute kidney injury Code(s): N17.9 - ACUTE KIDNEY FAILURE, UNSPECIFIED Status: Acute Comment: Hepatorenal syndrome. Dr Hylton following. increasing creatinine (5) Alcohol withdrawal Code(s): F10.239 - ALCOHOL DEPENDENCE WITH WITHDRAWAL, UNSPECIFIED Status: Resolved Qualifiers: Complication of substance-induced condition: with unspecified complication Qualified Code(s): F10.239 - Alcohol dependence with withdrawal, unspecified - Plan cont current plan of care, continue antibiotics, PT/OT, sr. social media & mobile manager * .
[2018-08-21 12:20] LABS: INR-International Normal Ratio 2.2; Prothrombin Time 24.6 SEC (12.0-14.7)
--- NOTE | 2018-08-21 12:21 | PRG ---
DATE OF SERVICE: 08/21/2018 SUBJECTIVE: A 43-year-old gentleman, being seen for acute kidney injury, which is dialysis dependent. The patient denies any nausea, vomiting, or chest pain. OBJECTIVE: GENERAL: The patient is awake and alert. VITAL SIGNS: Afebrile, pulse 95, breathing 16, blood pressure 110/70. GENERAL APPEARANCE AND MENTAL STATUS: Fair. HEAD/NECK: Normocephalic. Atraumatic. EYES: EOMI. No deformity. EARS: Clear. No ulcers. NOSE: Intact. No lesions. MOUTH: Clear. No discharge. THROAT: Clear. No exudate. LUNGS: Clear. No crackles. CARDIAC: S1, S2. No rub. ABDOMEN: Benign. Bowel sounds positive. GENITALIA/RECTUM: Mays absent. BACK/EXTREMITIES: Lower extremities have edema. NEUROLOGICAL: Alert and motor intact. SKIN: LYMPHATICS: LABORATORY DATA: Hemoglobin 11.7. Creatinine 4.84. ASSESSMENT AND PLAN: 1. Acute kidney injury with chronic kidney disease and uremia. Plan dialysis. 2. Hypertension, stable. 3. Anemia, stable. 4. Hyperkalemia, stable. We will plan dialysis . Job ID: [id number]
[2018-08-21 12:41] LABS: ALT (SGPT) 54 U/L (8-55); AST (SGOT) 109 U/L (5-34); Albumin 3.6 g/dL (3.5-5.0); Alkaline Phosphatase 253 U/L (40-150); Protein, Total 4.9 g/dL (6.0-8.3)
[2018-08-21 12:50] LABS: Bilirubin, Total 33.8 mg/dL (0.2-1.2)
[2018-08-21 12:52] LABS: Bilirubin, Direct Greater than 10.0 mg/dL (0.1-0.3)
[2018-08-21] MEDS ORDERED: Bupivacaine HCl 0.5%/Epinephrine 1:200,000/PF 30 ml Vial ONE (13:12)
[2018-08-21] MEDS ORDERED: Lidocaine 2% PF 5 ML VIAL ONE (13:12)
[2018-08-21] MEDS ORDERED: Sodium Chloride 0.9% 30 ML ONE (13:12)
[2018-08-21] MEDS ORDERED: Heparin 10,000 UNITS/1 ML VIAL ONE ×2 (13:12→14:01)
[2018-08-21] MEDS ORDERED: CEFAZOLIN 2 GM/50 ML BAG ONE (13:16)
[2018-08-21] MEDS ORDERED: Fentanyl 100 MCG/2 ML VIAL ONE (13:20)
--- NOTE | 2018-08-21 14:15 | PRG ---
DATE OF SERVICE: 08/21/2018 SUBJECTIVE: Mr. Deleon was seen previously for laparoscopic liver biopsy and evacuation of ascites. The patient now has deterioration in renal function. Unfortunately, he has a PICC line in his left arm. I have been asked by Dr. Ellison to see him regarding placement of hemodialysis catheter. His sodium is 133, potassium 3.7, GFR deteriorated at 13, glucose 146, creatinine 4.84. The plan at this time is to place a hemodialysis catheter cuffed tunneled, central line, and to remove his PICC line. He may, if he needs future dialysis access, ultrasound vein mapping obtained on 08/20/2018, yesterday, reveals neither cephalic vein could be visualized. Basilic vein right 3.8, 2.3, 2.9 mm, 1.8 elbow, basilic vein left, PICC line in place, inserted in the region of the AC fossa. There is clot within the basilic vein in the upper arm in AC areas. Note that paracentesis performed on 08/08/2018, 08/10/2018, 08/12/2018, 08/18/2018, and 2018. PLAN: Plan at this time is to place a right-IJ cuffed tunneled dialysis catheter, left IJ central line, and to remove his PICC line, save his veins for dialysis access in the future should be necessary. Job ID: [id number]
[2018-08-21] MEDS ORDERED: Promethazine HCl 25 MG/ML VIAL SLOW IVP PRN (14:24)
[2018-08-21] MEDS ORDERED: Promethazine HCl 25 MG/ML VIAL IM PRN (14:24)
[2018-08-21] MEDS ORDERED: Ondansetron HCl/PF 4 MG/2 ML Vial IVP PRN (14:24)
--- NOTE | 2018-08-21 16:03 | PRG ---
DATE OF SERVICE: 08/21/2018 SUBJECTIVE: Mr. Deleon has no acute complaints. He still has abdominal pain that is really unchanged since he started the antibiotics. He is hungry today. Had a dialysis catheter placed today, and will be starting dialysis today. OBJECTIVE: VITAL SIGNS: Temperature 97.8, pulse 95, blood pressure 110/70. GENERAL: He is in no acute distress. He is jaundiced. LUNGS: Clear to auscultation bilaterally. HEART: Regular rate and rhythm without murmur. ABDOMEN: Distended and tender to palpation diffusely. His bowel sounds are present. EXTREMITIES: 1+ pitting lower extremity edema. LABORATORY DATA: White blood cell count 30.2, hemoglobin 11.7, platelets 93. INR is up to 2.2 today. Creatinine 4.84 with BUN of 104, bilirubin 33.8, AST 109, ALT 54, alkaline phosphatase 253. IMPRESSION: 1. Severe acute alcoholic hepatitis. His bilirubin and INR continued to climb. His creatinine has continued to worsen as well. We have talked to multiple liver transplant centers and it has either been turned down; however, he has been accepted as a higher level of care at [facility]. They would not plan on liver transplant evaluation given his recent alcohol use. 2. Spontaneous bacterial peritonitis. This is confirmed by cell count with paracentesis. He is on ceftriaxone. His abdominal pain and distention continues. Hopefully, his liver function will improve with treatment of the infection. 3. Hepatorenal syndrome. He has been on midodrine, albumin infusion, and octreotide. We will continue. RECOMMENDATIONS: 1. Continue ceftriaxone. 2. Continue midodrine IV albumin and octreotide. 3. Starting dialysis today. 4. Encourage oral nutrition with high protein supplements. Job ID: [id number]
--- NOTE | 2018-08-21 16:40 | RAD ---
FRONTAL RADIOGRAPH CHEST: 08/21/2018 HISTORY: Evaluate chest following surgery. FINDINGS: There is a right-sided dialysis catheter, distal tip overlying the region of the right atrium. There is a left-sided vascular catheter, distal tip also overlying the inferior aspect of the right atrium . No pneumothorax is evident. There is hazy increased density in the perihilar regions and left chico g base, suggesting edema or infectious pneumonitis. IMPRESSION: 1. Perihilar and left basilar ground glass opacity/air space disease, as above. 2. Central venous catheters noted. POS: DELTA
[2018-08-21] MEDS: cefTRIAXone\\ROCEPHIN 1 GM in Sodium Chloride 0.9% 100 ML IVPB SCH (17:58)
--- NOTE | 2018-08-21 17:59 | OP ---
DATE OF PROCEDURE: 08/21/2018 PREOPERATIVE DIAGNOSES: Cirrhosis, end-stage liver disease, acute renal failure, poor IV access, PICC line in left arm with acute renal failure. POSTOPERATIVE DIAGNOSES: Cirrhosis, end-stage liver disease, acute renal failure, poor IV access, PICC line in left arm with acute renal failure. PROCEDURES PERFORMED: Right IJ cuffed tunneled hemodialysis catheter, AngioDynamics precurved. Left IJ central line, removal of PICC line. ANESTHESIA: TIVA with local 0.5% Marcaine with epinephrine 30 mL mixed with 2% Xylocaine 10 mL. Fluoroscopy and ultrasound used. DESCRIPTION OF PROCEDURE: The patient was taken to the operating room, where under intravenous sedation, neck and chest were prepared with ChloraPrep and draped in routine fashion. Local anesthetic was infiltrated in the skin and subcutaneous tissue about the operative site. Using ultrasound guidance, the right and left internal jugular veins were cannulated with trocar catheter. J-wire was threaded. Trocar and catheter were removed. Skin was incised and enlarged sharply. Stab incision was made over the right chest for the hemodialysis catheters. Using the tunneling device, pre-curved AngioDynamics cuffed-tunneled hemodialysis catheter was tunneled between 2 incisions, placed in the fabric cuff beneath the skin exit site over the right chest and catheter was secured with 2 sutures of 3-0 nylon. Sterile dressings were applied. On the right side, a smaller and medium-sized dilators placed over the J-wire into the internal jugular vein removed. Dilator and peel-away sheath were placed over the J-wire into the internal jugular vein and superior vena cava. Dilator and J-wire were removed. Catheter was placed through the peel-away sheath. Peel-away sheath removed. Each port aspirated blood, flushed with saline solution and heparinized saline solution indicating volume of the port, 1000 units of heparin per mL. Platysma was approximated with 4-0 Monocryl, skin with subdermal 4-0 Monocryl. On the left side, Seldinger technique was used to place a triple-lumen catheter, secured with 3-0 nylon suture and sterile dressing was applied. Fluoroscopic images revealed good line placement. PICC line was removed. Job ID: [id number]
[2018-08-21] MEDS ORDERED: PROPOFOL 200 MG/20 ML VIAL ONE (18:48)
[2018-08-22] MEDS: Morphine 4 MG/ML VIAL SLOW IVP PRN ×4 (02:45→18:00)
[2018-08-22 03:59] LABS: Anion Gap 22 mmol/L (10-20); BUN (Urea Nitrogen) 95 mg/dL (8.9-20.6); Calc. Creatinine Clearance 27 mL/min (70-130); Calcium 8.7 mg/dL (7.8-10.44); Carbon Dioxide 20 mmol/L (22-29); Chloride 98 mmol/L (98-107); Estimated GFR-MDRD 13; Glucose 182 mg/dL (70-105); Potassium 3.8 mmol/L (3.5-5.1); Sodium 136 mmol/L (136-145)
[2018-08-22 04:17] LABS: Band 23 % (5-11); Eosinophils 1 % (0-10); Hemoglobin 10.8 g/dL (14.0-18.0); Lymphocytes 1 % (21-51); MDiff Complete? YES; Mean Corpuscular HGB CONC 32.8 g/dL (32.0-36.0); Mean Corpuscular Hemoglobin 33.8 pg (27.0-31.0); Monocytes 3 % (0-10); Neutrophil 72 % (42-75); Platelet Count 88 thou/uL (130-400); Platelet Morphology Comment Appears Decreased; RBC Distribution Width 15.9 % (11.5-14.5); Target Cells SLIGHT = 2-5 cells (100X) (0-1/hpf); White Blood Cell (WBC) Count 30.1 thou/uL (4.8-10.8)
[2018-08-22] MEDS: Sodium Bicarbonate Tab 325 MG TAB PO SCH ×3 (07:49→20:13)
[2018-08-22] MEDS: Folic Acid 1 MG TAB PO SCH (07:49)
[2018-08-22] MEDS: Multivit, Therapeutic 1 TAB PO SCH (07:50)
[2018-08-22] MEDS: Midodrine HCl 5 MG TAB PO SCH ×3 (07:51→20:18)
[2018-08-22] MEDS ORDERED: Heparin 1,000 UNITS/ML VIAL ONE (11:11)
[2018-08-22] MEDS: cefTRIAXone\\ROCEPHIN 2 GM in Sodium Chloride 0.9% 100 ML IVPB SCH (14:04)
[2018-08-22] MEDS: Albumin 25% 25 GM/100 ML BOT IVPB SCH ×2 (14:07→20:12)
--- NOTE | 2018-08-22 14:16 | PRG ---
DATE OF SERVICE: 08/22/2018 SUBJECTIVE: Mr. Deleon has been taking small amounts by mouth, but he gets full quickly due to the abdominal distention. His abdominal pain is stable. He has had no nausea or vomiting. OBJECTIVE: VITAL SIGNS: Temperature 97.7, pulse 93, blood pressure 105/66. GENERAL: He is in no acute distress. He is jaundiced. Alert and oriented x3. LUNGS: Clear to auscultation bilaterally. HEART: Regular rate and rhythm without murmur. ABDOMEN: Distended. EXTREMITIES: He has 2+ pitting lower extremity edema. His weight is increased to 208 pounds from 199 pounds on 08/18/2018. Today's weight is stable compared to yesterday. IMPRESSION: 1. Severe alcoholic hepatitis. 2. Spontaneous bacterial peritonitis. 3. Hepatorenal syndrome. He has started dialysis yesterday. RECOMMENDATIONS: 1. Continue ceftriaxone 2 g daily. 2. Continue midodrine, albumin, and octreotide. 3. He started dialysis yesterday. 4. Continue to encourage oral nutrition with high protein supplements. Job ID: [id number]
--- NOTE | 2018-08-22 15:44 | PRG ---
DATE OF SERVICE: 08/22/2018 SUBJECTIVE: Mr. Deleon has had dialysis catheter inserted and he had one session of dialysis yesterday, still with abdominal pain as previously. No headaches. No dyspnea. OBJECTIVE: VITAL SIGNS: With T-max 98.6, and blood pressure 105/66, pulse 93, respirations 16, O2 saturation 92%. GENERAL: Chronically ill-appearing, but no acute distress. LUNGS: Symmetric air entry. Faint basilar crackles. HEART: S1, S2. Regular rate. ABDOMEN: Not as distended as previously. EXTREMITIES: There is 2+ edema in the lower extremities. LABORATORY DATA: The white cell count is 30.1, hemoglobin 10.8, platelets 88,000. Sodium 136, creatinine 4.83, direct bilirubin greater than 10. Microbiology with the ascites, fluid cultures negative. ASSESSMENT AND DISCUSSION: Alcoholism with alcoholic hepatitis, leukemoid reaction, possible superimposed bacterial peritonitis, which developed as a nosocomial complication. The patient on antimicrobial therapy and the main limiting factor here is the severity of his underlying liver disease. He does not have any options for referral to a tertiary center at this point in time. Job ID: [id number]
--- NOTE | 2018-08-22 17:57 | PRG ---
DATE OF SERVICE: 08/22/2018 SUBJECTIVE: A 43-year-old male being seen for acute kidney injury, requiring dialysis. The patient denies any nausea, vomiting, or chest pain. OBJECTIVE: CONSTITUTIONAL: The patient was awake and alert. VITAL SIGNS: Afebrile, pulse 93, breathing 16, blood pressure 105/66. GENERAL APPEARANCE AND MENTAL STATUS: Fair. HEAD/NECK: Normocephalic. Atraumatic. EYES: EOMI. No deformity. EARS: Clear. No ulcers. NOSE: Intact. No lesions. MOUTH: Clear. No discharge. THROAT: Clear. No exudate. LUNGS: Clear. No crackles. CARDIAC: S1, S2. No rub. ABDOMEN: Benign. Bowel sounds positive. GENITALIA/RECTUM: Mays absent. BACK/EXTREMITIES: Edema 0+. NEUROLOGICAL: Alert and motor intact. SKIN: LYMPHATICS: LABORATORY DATA: Labs show hemoglobin 10.8. Creatinine 4.8. ASSESSMENT AND PLAN: 1. Acute kidney disease with chronic kidney disease and uremia, plan dialysis. 2. Hypertension, stable. 3. Anemia, stable. 4. Overall prognosis is poor with liver failure. Job ID: [id number]
--- NOTE | 2018-08-22 19:02 | PRG ---
DATE OF SERVICE: 08/22/2018 SUBJECTIVE: Mr. Deleon is doing fairly well today. Temperature 97.7, pulse 93, blood pressure 105/66. Yesterday 08/21/2018, the patient underwent a right IJ cuffed tunneled dialysis catheter, left IJ central line, removal of PICC line. Chronic kidney disease, end-stage renal disease. The patient should not have PIC lines. This patient has poor veins and he may need dialysis access for permanent dialysis. We will await and review clinical course over the weekend. I have discussed with Nephrology next week. Would safe his veins for dialysis access and avoid PIC lines and midlines. Overall prognosis is poor. Job ID: [id number]
[2018-08-22] MEDS: Octreotide Acetate 1,250 MCG in Sodium Chloride 0.9% 250 ML 250 ML IVPB SCH (20:12)
[2018-08-23] MEDS: Morphine 4 MG/ML VIAL SLOW IVP PRN ×6 (00:35→21:59)
[2018-08-23] MEDS: Albumin 25% 25 GM/100 ML BOT IVPB SCH ×3 (02:33→13:39)
[2018-08-23 05:56] LABS: INR-International Normal Ratio 2.3; Prothrombin Time 25.3 SEC (12.0-14.7)
[2018-08-23 06:05] LABS: ALT (SGPT) 52 U/L (8-55); AST (SGOT) 121 U/L (5-34); Albumin 3.7 g/dL (3.5-5.0); Alkaline Phosphatase 297 U/L (40-150); Anion Gap 20 mmol/L (10-20); BUN (Urea Nitrogen) 72 mg/dL (8.9-20.6); Calc. Creatinine Clearance 28 mL/min (70-130); Calcium 8.8 mg/dL (7.8-10.44); Carbon Dioxide 23 mmol/L (22-29); Chloride 98 mmol/L (98-107); Estimated GFR-MDRD 14; Globulin 1.4 g/dL (2.4-3.5); Glucose 163 mg/dL (70-105); Potassium 3.7 mmol/L (3.5-5.1); Protein, Total 5.1 g/dL (6.0-8.3); Sodium 137 mmol/L (136-145)
[2018-08-23 06:13] LABS: Bilirubin, Total 35.3 mg/dL (0.2-1.2)
[2018-08-23 08:01] LABS: Band 35 % (5-11); Hemoglobin 10.9 g/dL (14.0-18.0); Lymphocytes 5 % (21-51); MDiff Complete? YES; Mean Corpuscular HGB CONC 32.5 g/dL (32.0-36.0); Mean Corpuscular Hemoglobin 33.6 pg (27.0-31.0); Mean Platelet Volume 9.8 fL (7.4-10.4); Monocytes 4 % (0-10); Neutrophil 56 % (42-75); Platelet Count 79 thou/uL (130-400); Platelet Morphology Comment Appears Decreased; RBC Distribution Width 16.1 % (11.5-14.5); Red Blood Cell (RBC) Count 3.23 mill/uL (4.70-6.10)
[2018-08-23] MEDS: Midodrine HCl 5 MG TAB PO SCH ×3 (08:33→20:29)
[2018-08-23] MEDS: Folic Acid 1 MG TAB PO SCH (08:34)
[2018-08-23] MEDS: Multivit, Therapeutic 1 TAB PO SCH (08:34)
[2018-08-23] MEDS: Sodium Bicarbonate Tab 325 MG TAB PO SCH ×3 (08:36→20:29)
--- NOTE | 2018-08-23 10:41 | PDOC.PN ---
- Subjective Encounter Start Date: 08/23/18 Encounter Start Time: 08:30 -: old records requested/rev Patient seen and examined. No new complaints. No overnight events he feels abdomen distended - Objective MAR Reviewed: Yes Vital Signs & Weight: Vital Signs (12 hours) Temp Pulse Resp BP BP Pulse Ox 08/23/18 09:44 94 L 08/23/18 09:35 107/63 08/23/18 08:00 98.3 F 92 18 96/62 94 L 08/23/18 04:00 98.6 F 87 18 107/64 92 L 08/23/18 00:00 98.4 F 98 16 100/58 L 92 L Weight Admit Weight 194 lb 9.6 oz Weight 200 lb I&O: 08/22/18 08/23/18 08/24/18 06:59 06:59 06:59 Intake Total 1680 940 Balance 1680 940 Result Diagrams: 08/23/18 05:30 08/23/18 05:30 Phys Exam - Physical Examination Constitutional: NAD HEENT: PERRLA, moist MMs icterus+ Neck: no JVD, supple Respiratory: no wheezing, no rales, no rhonchi Cardiovascular: RRR, no significant murmur, no rub Gastrointestinal: soft, positive bowel sounds ascites+, tender Musculoskeletal: pulses present, edema present Neurological: non-focal, normal sensation Lymphatic: no nodes Psychiatric: normal affect, A&O x 3 Skin: no rash, normal turgor Dx/Plan (1) Abnormal LFTs Code(s): R94.5 - ABNORMAL RESULTS OF LIVER FUNCTION STUDIES Status: Acute Comment: secondary to alcohol abuse, alcoholic hepatitis (2) Acute kidney failure Status: Acute Comment: now started on HD (3) Alcoholic hepatitis with ascites Code(s): K70.11 - ALCOHOLIC HEPATITIS WITH ASCITES Status: Acute (4) Hepatorenal syndrome Code(s): K76.7 - HEPATORENAL SYNDROME Status: Acute (5) Leukemoid reaction Code(s): D72.823 - LEUKEMOID REACTION Status: Acute Comment: (6) SBP (spontaneous bacterial peritonitis) Code(s): K65.2 - SPONTANEOUS BACTERIAL PERITONITIS Status: Acute Comment: (7) Alcoholic cirrhosis of liver with ascites Code(s): K70.31 - ALCOHOLIC CIRRHOSIS OF LIVER WITH ASCITES Status: Chronic (8) Coagulopathy Status: Chronic (9) Macrocytic anemia Code(s): D53.9 - NUTRITIONAL ANEMIA, UNSPECIFIED Status: Chronic (10) Alcohol withdrawal Code(s): F10.239 - ALCOHOL DEPENDENCE WITH WITHDRAWAL, UNSPECIFIED Status: Resolved Qualifiers: Complication of substance-induced condition: with unspecified complication Qualified Code(s): F10.239 - Alcohol dependence with withdrawal, unspecified - Plan cont current plan of care, continue antibiotics * continue HD as per nephrology * he will need outpt HD arrangement * he will need follow up with GI clinic and possible transplant evaluation after discharge * continue rocephin, octreotide, albumin and midodrin for now * his prognosis is poor. Review of Systems - Review of Systems Constitutional: weakness. negative: fever, chills, sweats, malaise, other ENT: negative: Ear Pain, Ear Discharge, Nose Pain, Nose Discharge, Nose Congestion, Mouth Pain, Mouth Swelling, Throat Pain, Throat Swelling, Other Respiratory: negative: Cough, Dry, Shortness of Breath, Hemoptysis, SOB with Excertion, Pleuritic Pain, Sputum, Wheezing Cardiovascular: negative: chest pain, palpitations, orthopnea, paroxysmal nocturnal dyspnea, edema, light headedness, other Gastrointestinal: Abdominal Pain. negative: Nausea, Vomiting, Diarrhea, Constipation, Melena, Hematochezia, Other Genitourinary: negative: Dysuria, Frequency, Incontinence, Hematuria, Retention , Other Musculoskeletal: negative: Neck Pain, Shoulder Pain, Arm Pain, Back Pain, Hand Pain, Leg Pain, Foot Pain, Other Skin: negative: Rash, Lesions, Joel, Bruising, Other - Medications/Allergies Allergies/Adverse Reactions: Allergies Allergy/AdvReac Type Severity Reaction Status Date / Time No Known Allergies Allergy Verified 07/29/18 03:02 Medications: Current Medications Acetaminophen (Tylenol) 1,000 mg PO Q6H PRN PRN Reason: Moderate to Severe Pain (6-10) Al Hydroxide/Mg Hydroxide (Maalox) 30 ml PO Q4H PRN PRN Reason: Heartburn or Indigestion Last Admin: 08/11/18 17:18 Dose: 30 ml Albumin Human (Albumin 25%) 25 gm IVPB Q6H [facility] Stop: 08/23/18 14:01 Last Admin: 08/23/18 08:34 Dose: 25 gm Folic Acid (Folvite) 1 mg PO DAILY [facility] Last Admin: 08/23/18 08:34 Dose: 1 mg Octreotide Acetate 1,250 mcg/ (Sodium Chloride) 251.25 mls @ 10.05 mls/hr IVPB INF [facility] Last Admin: 08/22/18 20:12 Dose: 251.25 mls Ceftriaxone Sodium 2 gm/ (Sodium Chloride) 100 mls @ 200 mls/hr IVPB 1300 [facility] Last Admin: 08/22/18 14:04 Dose: 100 mls Midodrine (Proamatine) 10 mg PO TID [facility] Last Admin: 08/23/18 08:33 Dose: 10 mg Morphine Sulfate (Morphine) 2 mg SLOW IVP Q4H PRN PRN Reason: Moderate to Severe Pain (6-10) Last Admin: 08/23/18 09:37 Dose: 2 mg Multivitamins (Theragran) 1 tab PO DAILY [facility] Last Admin: 08/23/18 08:34 Dose: 1 tab Ondansetron HCl (Zofran) 4 mg IVP Q6H PRN PRN Reason: Nausea/Vomiting Last Admin: 08/13/18 11:55 Dose: 4 mg Oxycodone HCl (Oxycodone Ir) 2.5 mg PO Q4H PRN PRN Reason: Moderate Pain (4-6) Last Admin: 08/15/18 12:27 Dose: 2.5 mg Oxycodone HCl (Oxycodone Ir) 5 mg PO Q4H PRN PRN Reason: Severe Pain (7-10) Last Admin: 08/20/18 05:24 Dose: 5 mg Pantoprazole Sodium (Protonix) 40 mg PO DAILY [facility] Last Admin: 08/23/18 08:34 Dose: 40 mg Sodium Bicarbonate (Bicarbonate, Sodium) 975 mg PO TID [facility] Last Admin: 08/23/18 08:36 Dose: 975 mg Sodium Chloride (Flush - Normal Saline) 10 ml IVF Q12HR [facility] Last Admin: 08/23/18 08:47 Dose: Not Given Sodium Chloride (Flush - Normal Saline) 10 ml IVF PRN PRN PRN Reason: Saline Flush Last Admin: 08/22/18 02:46 Dose: 10 ml Thiamine HCl (Thiamine) 100 mg PO DAILY [facility] Last Admin: 08/23/18 08:34 Dose: 100 mg Tramadol HCl (Ultram) 50 mg PO Q4H PRN PRN Reason: Mild Pain (1-3)
--- NOTE | 2018-08-23 11:19 | PRG ---
DATE OF SERVICE: 08/23/2018 SUBJECTIVE: Mr. Deleon continues to have diffuse abdominal discomfort. He otherwise has no acute complaints. OBJECTIVE: VITAL SIGNS: Temperature 98.3, pulse 92, blood pressure 96/62, and oxygen saturation 94% on room air. GENERAL: He is jaundiced. He is in no acute distress. He does have mild asterixis on neurological exam. He is oriented x3. LUNGS: Clear to auscultation bilaterally. HEART: Regular rate and rhythm without murmur. ABDOMEN: Diffusely distended and tight and tender. His bowel sounds are present. EXTREMITIES: 2+ pitting lower extremity edema. Weight today is 200 pounds, down from 208 pounds on the 4th after dialysis. LABORATORY DATA: White blood cell count 27.0, hemoglobin 10.9, platelets 79. INR 2.3, bilirubin 35, AST 121, ALT 52, alkaline phosphatase 297, albumin 3.7, however, he has been receiving IV albumin still every 6 hours. IMPRESSION: 1. Severe alcoholic hepatitis. He failed to respond to steroids and these were discontinued. He was given a trial of pentoxifylline also without significant improvement. 2. Hepatorenal syndrome. He has been started on dialysis. Does have tense ascites. 3. Tense ascites. He remains on ceftriaxone for spontaneous bacterial peritonitis. He had multiple paracentesis that were larger volume earlier in the hospital stay. However, his most recent paracentesis that did show significant white blood cell count in the fluid was smaller volume and he had no additional fluid to drain at that time. By physical exam, he is distended and tight and we will reassess with ultrasound in the morning and plan paracentesis tomorrow morning if he has reaccumulated significant amount of fluid. 4. Hepatic encephalopathy. He is oriented x3, but does have mild asterixis and is slow. RECOMMENDATIONS: 1. Ultrasound tomorrow morning to evaluate for paracentesis. 2. He is continuing on dialysis. 3. He has been receiving albumin, midodrine, and octreotide. 4. Continue ceftriaxone 2 g daily for SBP. 5. Transfer to a liver center with hepatology for higher level care has been requested, however, no beds have been available and he was turned down in multiple facilities. We will continue with supportive care as he is not a transplant candidate at this time due to recent alcohol use. Job ID: [id number]
[2018-08-23] MEDS ORDERED: hydrALAZINE 20 MG/ML VIAL SLOW IVP PRN (11:29)
[2018-08-23] MEDS ORDERED: Calcium Carbonate 500 MG ChewTAB PO PRN (11:29)
[2018-08-23] MEDS ORDERED: Ondansetron ODT 4 MG TAB PO PRN (11:29)
[2018-08-23] MEDS ORDERED: Sodium Chloride 0.65% Nasal 44 ML BOT EA NARE PRN (11:29)
[2018-08-23] MEDS ORDERED: Cepastat Lozenges 1 LOZ PO PRN (11:29)
[2018-08-23] MEDS ORDERED: Diabetic Tussin 200 MG/10 ML UDCUP PO PRN (11:29)
[2018-08-23] MEDS ORDERED: Eucerin (Mineral Oil/Petrolatum,White) 30 gm Jar TOP PRN (11:29)
[2018-08-23] MEDS ORDERED: Artificial Tears 18 DROP/0.9 ML EA EYE PRN (11:29)
[2018-08-23] MEDS ORDERED: Acetaminophen 500 MG TAB PO PRN (11:29)
[2018-08-23] MEDS: cefTRIAXone\\ROCEPHIN 2 GM in Sodium Chloride 0.9% 100 ML IVPB SCH (12:59)
--- NOTE | 2018-08-23 15:14 | PRG ---
DATE OF SERVICE: 08/23/2018 SUBJECTIVE: A 43-year-old gentleman being seen for end-stage renal disease. The patient denies any nausea or vomiting. He complains of abdominal pain. OBJECTIVE: CONSTITUTIONAL: The patient is awake and alert. VITAL SIGNS: Afebrile, pulse , breathing 16, blood pressure 90/60. GENERAL APPEARANCE AND MENTAL STATUS: Fair. HEAD/NECK: Normocephalic. Atraumatic. EYES: EOMI. No deformity. EARS: Clear. No ulcers. NOSE: Intact. No lesions. MOUTH: Clear. No discharge. THROAT: Clear. No exudate. LUNGS: Clear. No crackles. CARDIAC: S1, S2. No rub. ABDOMEN: Benign. Bowel sounds positive. GENITALIA/RECTUM: Mays absent. BACK/EXTREMITIES: Edema 0+. NEUROLOGICAL: Alert and motor intact. LABORATORY DATA: Labs showed hemoglobin 10.9, potassium . ASSESSMENT AND PLAN: 1. chronic kidney disease. I offered dialysis, the patient refused. 2. Hypertension, stable. 3. Anemia, stable. 4. Medications based on GFR appropriate. Prognosis is very poor. Job ID: [id number]
[2018-08-23] MEDS: Octreotide Acetate 1,250 MCG in Sodium Chloride 0.9% 250 ML 250 ML IVPB SCH (23:05)
[2018-08-24] MEDS: Morphine 4 MG/ML VIAL SLOW IVP PRN ×5 (04:41→23:29)
[2018-08-24 05:40] LABS: Bilirubin, Total 38.4 mg/dL (0.2-1.2)
[2018-08-24 05:43] LABS: ALT (SGPT) 48 U/L (8-55); AST (SGOT) 103 U/L (5-34); Albumin 3.6 g/dL (3.5-5.0); Alkaline Phosphatase 331 U/L (40-150); Anion Gap 23 mmol/L (10-20); BUN (Urea Nitrogen) 91 mg/dL (8.9-20.6); Calc. Creatinine Clearance 22 mL/min (70-130); Carbon Dioxide 19 mmol/L (22-29); Chloride 95 mmol/L (98-107); Estimated GFR-MDRD 11; Globulin 1.6 g/dL (2.4-3.5); Glucose 133 mg/dL (70-105); Potassium 3.9 mmol/L (3.5-5.1); Protein, Total 5.2 g/dL (6.0-8.3); Sodium 133 mmol/L (136-145)
[2018-08-24 05:48] LABS: Anisocytosis SLIGHT = 6-15 cells (100X) (0-5/hpf); Band 23 % (5-11); Eosinophils 2 % (0-10); Hemoglobin 11.4 g/dL (14.0-18.0); Large Platelets SLIGHT; Lymphocytes 5 % (21-51); MDiff Complete? YES; Macrocytosis SLIGHT = 6-15 cells (100X) (0-5/hpf); Mean Corpuscular HGB CONC 32.9 g/dL (32.0-36.0); Mean Corpuscular Hemoglobin 33.8 pg (27.0-31.0); Mean Platelet Volume 9.6 fL (7.4-10.4); Metamyelocyte 1 % (0-0); Monocytes 6 % (0-10); Neutrophil 63 % (42-75); Platelet Count 88 thou/uL (130-400); Platelet Morphology Comment Appears Decreased; RBC Distribution Width 16.1 % (11.5-14.5); Red Blood Cell (RBC) Count 3.36 mill/uL (4.70-6.10); White Blood Cell (WBC) Count 30.6 thou/uL (4.8-10.8)
[2018-08-24] MEDS: Sodium Bicarbonate Tab 325 MG TAB PO SCH ×3 (08:44→20:30)
[2018-08-24] MEDS: Multivit, Therapeutic 1 TAB PO SCH (08:44)
[2018-08-24] MEDS: Folic Acid 1 MG TAB PO SCH (08:44)
[2018-08-24] MEDS: Saccharomyces boulardii 250 MG CAP PO SCH (08:44)
[2018-08-24] MEDS: Midodrine HCl 5 MG TAB PO SCH ×3 (09:21→20:31)
[2018-08-24] MEDS ORDERED: Sodium Bicarbonate 2.5 MEQ/5 ML VIAL ONE (10:12)
--- NOTE | 2018-08-24 11:17 | PDOC.PN ---
- Subjective Encounter Start Date: 08/24/18 Encounter Start Time: 08:40 Patient seen and examined. No new complaints. No overnight events - Objective MAR Reviewed: Yes Vital Signs & Weight: Vital Signs (12 hours) Temp Pulse Resp BP Pulse Ox 08/24/18 08:00 98.9 F 94 20 104/67 93 L Weight Admit Weight 194 lb 9.6 oz Weight 203 lb 4.8 oz I&O: 08/23/18 08/24/18 08/25/18 06:59 06:59 06:59 Intake Total 940 1720 Balance 940 1720 Result Diagrams: 08/24/18 05:00 08/24/18 05:00 Phys Exam - Physical Examination Constitutional: NAD HEENT: moist MMs icterus+ Neck: no JVD, supple Respiratory: no wheezing, no rales, no rhonchi Cardiovascular: RRR, no significant murmur, no rub Gastrointestinal: soft ascites tense, tender Musculoskeletal: pulses present, edema present Neurological: non-focal, normal sensation Lymphatic: no nodes Psychiatric: normal affect, A&O x 3 Skin: no rash, normal turgor Dx/Plan (1) Abnormal LFTs Code(s): R94.5 - ABNORMAL RESULTS OF LIVER FUNCTION STUDIES Status: Acute Comment: secondary to alcohol abuse, alcoholic hepatitis (2) Acute kidney failure Status: Acute Comment: now started on HD (3) Alcoholic hepatitis with ascites Code(s): K70.11 - ALCOHOLIC HEPATITIS WITH ASCITES Status: Acute (4) Hepatorenal syndrome Code(s): K76.7 - HEPATORENAL SYNDROME Status: Acute (5) Leukemoid reaction Code(s): D72.823 - LEUKEMOID REACTION Status: Acute Comment: (6) SBP (spontaneous bacterial peritonitis) Code(s): K65.2 - SPONTANEOUS BACTERIAL PERITONITIS Status: Acute Comment: (7) Alcoholic cirrhosis of liver with ascites Code(s): K70.31 - ALCOHOLIC CIRRHOSIS OF LIVER WITH ASCITES Status: Chronic (8) Coagulopathy Status: Chronic (9) Macrocytic anemia Code(s): D53.9 - NUTRITIONAL ANEMIA, UNSPECIFIED Status: Chronic (10) Alcohol withdrawal Code(s): F10.239 - ALCOHOL DEPENDENCE WITH WITHDRAWAL, UNSPECIFIED Status: Resolved Qualifiers: Complication of substance-induced condition: with unspecified complication Qualified Code(s): F10.239 - Alcohol dependence with withdrawal, unspecified - Plan cont current plan of care, continue antibiotics * continue rocephin * continue octreotide and midodrin * HD as per nephrology * today paracentesis * medication reviewed as below * symptomatic treatment. Review of Systems - Review of Systems Eyes: negative: Pain, Vision Change, Conjunctivae Inflammation, Eyelid Inflammation, Redness, Other ENT: negative: Ear Pain, Ear Discharge, Nose Pain, Nose Discharge, Nose Congestion, Mouth Pain, Mouth Swelling, Throat Pain, Throat Swelling, Other Respiratory: negative: Cough, Dry, Shortness of Breath, Hemoptysis, SOB with Excertion, Pleuritic Pain, Sputum, Wheezing Cardiovascular: negative: chest pain, palpitations, orthopnea, paroxysmal nocturnal dyspnea, edema, light headedness, other Gastrointestinal: Abdominal Pain. negative: Nausea, Vomiting, Diarrhea, Constipation, Melena, Hematochezia, Other Genitourinary: negative: Dysuria, Frequency, Incontinence, Hematuria, Retention , Other Musculoskeletal: negative: Neck Pain, Shoulder Pain, Arm Pain, Back Pain, Hand Pain, Leg Pain, Foot Pain, Other - Medications/Allergies Allergies/Adverse Reactions: Allergies Allergy/AdvReac Type Severity Reaction Status Date / Time No Known Allergies Allergy Verified 07/29/18 03:02 Medications: Current Medications Acetaminophen (Tylenol) 500 mg PO Q6H PRN PRN Reason: Moderate to Severe Pain (6-10) Al Hydroxide/Mg Hydroxide (Maalox) 30 ml PO Q4H PRN PRN Reason: Heartburn or Indigestion Last Admin: 08/11/18 17:18 Dose: 30 ml Artificial Tears (Tears Naturale) 2 drop EA EYE PRN PRN PRN Reason: Dry Eyes Calcium Carbonate (Tums) 1,000 mg PO Q4H PRN PRN Reason: Heartburn or Indigestion Folic Acid (Folvite) 1 mg PO DAILY [facility] Last Admin: 08/24/18 08:44 Dose: 1 mg Guaifenesin (Robitussin Sf) 200 mg PO Q4H PRN PRN Reason: Cough Hydralazine HCl (Apresoline) 10 mg SLOW IVP Q4H PRN PRN Reason: SBP > 180 and HR < 70 Octreotide Acetate 1,250 mcg/ (Sodium Chloride) 251.25 mls @ 10.05 mls/hr IVPB INF [facility] Last Admin: 08/23/18 23:05 Dose: 251.25 mls Ceftriaxone Sodium 2 gm/ (Sodium Chloride) 100 mls @ 200 mls/hr IVPB 1300 [facility] Last Admin: 08/23/18 12:59 Dose: 100 mls Midodrine (Proamatine) 10 mg PO TID [facility] Last Admin: 08/24/18 09:21 Dose: 10 mg Mineral Oil/White Petrolatum (Eucerin Cream) 0 gm TOP BIDPRN PRN PRN Reason: Dry Skin Morphine Sulfate (Morphine) 2 mg SLOW IVP Q4H PRN PRN Reason: Moderate to Severe Pain (6-10) Last Admin: 08/24/18 08:45 Dose: 2 mg Multivitamins (Theragran) 1 tab PO DAILY [facility] Last Admin: 08/24/18 08:44 Dose: 1 tab Ondansetron HCl (Zofran) 4 mg IVP Q6H PRN PRN Reason: Nausea/Vomiting Last Admin: 08/13/18 11:55 Dose: 4 mg Ondansetron HCl (Zofran Odt) 4 mg PO Q6H PRN PRN Reason: Nausea/Vomiting Oxycodone HCl (Oxycodone Ir) 2.5 mg PO Q4H PRN PRN Reason: Moderate Pain (4-6) Last Admin: 08/15/18 12:27 Dose: 2.5 mg Oxycodone HCl (Oxycodone Ir) 5 mg PO Q4H PRN PRN Reason: Severe Pain (7-10) Last Admin: 08/20/18 05:24 Dose: 5 mg Pantoprazole Sodium (Protonix) 40 mg PO DAILY [facility] Last Admin: 08/24/18 08:44 Dose: 40 mg Saccharomyces Boulardii (Florastor) 250 mg PO DAILY [facility] Last Admin: 08/24/18 08:44 Dose: 250 mg Sodium Bicarbonate (Bicarbonate, Sodium) 975 mg PO TID [facility] Last Admin: 08/24/18 08:44 Dose: 975 mg Sodium Chloride (Flush - Normal Saline) 10 ml IVF Q12HR [facility] Last Admin: 08/24/18 08:44 Dose: 10 ml Sodium Chloride (Flush - Normal Saline) 10 ml IVF PRN PRN PRN Reason: Saline Flush Last Admin: 08/22/18 02:46 Dose: 10 ml Sodium Chloride ([place] Nasal Hermann 0.65%) 0 ml EA NARE QIDPRN PRN PRN Reason: Nasal Congestion Thiamine HCl (Thiamine) 100 mg PO DAILY [facility] Last Admin: 08/24/18 08:44 Dose: 100 mg Throat Lozenges (Cepastat Lozenges) 1 armando PO Q2H PRN PRN Reason: Sore Throat Tramadol HCl (Ultram) 50 mg PO Q4H PRN PRN Reason: Mild Pain (1-3)
--- NOTE | 2018-08-24 11:29 | ULT ---
SONOGRAPHIC GUIDED PARACENTESIS SONOGRAM ABDOMEN LIMITED: Date: 08/24/18 HISTORY: Recurrent ascites. Liver disease. FINDINGS: Sonographic survey shows a small to moderate amount of free fluid throughout the abdomen. After explaining the procedure and answering all questions, right lower quadrant was prepped and drap ed in the usual sterile fashion. Sterile technique, buffered local anesthesia, sonographic guidance, and a right lower quadrant approach were used to carefully advance a 19 gauge Yueh needle and cathete r into the free fluid. Catheter was left to drain a total volume of 3.0 liters of dark, cloudy, norma sh-brown liquid. Small amount of free fluid remains. Catheter was removed. The patient tolerated the procedure well and was returned in unchanged condition. IMPRESSION: Technically successful sonographic guided paracentesis. Pathology is pending. POS: DELTA
[2018-08-24] MEDS: cefTRIAXone\\ROCEPHIN 2 GM in Sodium Chloride 0.9% 100 ML IVPB SCH (12:03)
[2018-08-24 12:16] LABS: BF Color Yellow; Body Fluid Source Ascites Body Fluid; Clarity Hazy (Clear)
[2018-08-24 12:17] LABS: RBC Background Count 0.004; WBC/NonHematic-Auto 869 /cumm
[2018-08-24 12:48] LABS: BF Segmented Neutrophils 69 %; Cell Count Non Hematic 22 %; Lymphocytes 9 %
[2018-08-24 13:07] LABS: BF RBC Count - Manual 900 /cumm
--- NOTE | 2018-08-24 13:22 | PRG ---
DATE OF SERVICE: 08/24/2018 SUBJECTIVE: Mr. Deleon had 3 L paracentesis today and feels much better. He ate a little bit more after that for lunch. He has had no nausea or vomiting today. He is up ambulating in his room. He apparently declined dialysis yesterday because he was having significant abdominal pain. OBJECTIVE: VITAL SIGNS: Temperature 98.9, pulse 94, blood pressure 104/67. GENERAL: He is in no acute distress. He is jaundiced. LUNGS: Clear to auscultation bilaterally. HEART: Regular rate and rhythm without murmur. ABDOMEN: Distended, diffusely tender. Bowel sounds are present. EXTREMITIES: No lower extremity edema. LABORATORY DATA: White blood cell count 30.6, hemoglobin 11.4, platelets 88. INR was 2.3 yesterday. Creatinine up to 5.67, BUN of 91, bilirubin 38.4, AST 103, ALT 48, alkaline phosphatase 331, albumin 3.6. IMPRESSION: 1. Spontaneous bacterial peritonitis. He feels better after paracentesis today. His white blood cell count in the ascitic fluid is down from 1100 on 08/19/2018, down to 869 today. The neutrophil count was 69%. Red blood cell count is pending; however, the previous corrected red cell count is still left the white cell count well into the diagnostic range for SBP. He has been on ceftriaxone 2 g daily. 2. Acute alcoholic hepatitis. 3. Hepatorenal syndrome. 4. Hepatic encephalopathy, is mild. RECOMMENDATIONS: 1. Restart dialysis today. 2. Continue ceftriaxone. 3. Continue midodrine and octreotide. Has been receiving IV albumin. Job ID: [id number]
--- NOTE | 2018-08-24 15:18 | PRG ---
DATE OF SERVICE: 08/24/2018 SUBJECTIVE: A 43-year-old gentleman being seen for end-stage renal disease. The patient denies any nausea, vomiting, or chest pain. OBJECTIVE: CONSTITUTIONAL: The patient is awake and alert. VITAL SIGNS: Afebrile, pulse 61, breathing 16, and blood pressure 103/68. GENERAL APPEARANCE AND MENTAL STATUS: Fair. HEAD/NECK: Normocephalic. Atraumatic. EYES: EOMI. No deformity. EARS: Clear. No ulcers. NOSE: Intact. No lesions. MOUTH: Clear. No discharge. THROAT: Clear. No exudate. LUNGS: Clear. No crackles. CARDIAC: S1, S2. No rub. ABDOMEN: Benign. Bowel sounds positive. GENITALIA/RECTUM: Mays absent. BACK/EXTREMITIES: Edema 0+. NEUROLOGICAL: Alert and motor intact. SKIN: LYMPHATICS: LABORATORY DATA: Labs showed hemoglobin 11.4. ASSESSMENT AND PLAN: 1. Stage 6 chronic kidney disease, plan dialysis. 2. Hypertension, stable. 3. Anemia, stable. planned dialysis in the morning. Job ID: [id number]
[2018-08-24] MEDS: Octreotide Acetate 1,250 MCG in Sodium Chloride 0.9% 250 ML 250 ML IVPB SCH (23:37)
[2018-08-25] MEDS: Morphine 4 MG/ML VIAL SLOW IVP PRN (05:49)
[2018-08-25] MEDS: Sodium Bicarbonate Tab 325 MG TAB PO SCH (08:02)
[2018-08-25] MEDS: Folic Acid 1 MG TAB PO SCH (08:03)
[2018-08-25] MEDS: Multivit, Therapeutic 1 TAB PO SCH (08:03)
[2018-08-25] MEDS: Saccharomyces boulardii 250 MG CAP PO SCH (08:03)
[2018-08-25] MEDS: oxyCODONE 5 MG TAB PO PRN ×2 (09:15→18:16)
[2018-08-25 09:32] LABS: INR-International Normal Ratio 2.7
[2018-08-25 09:52] LABS: ALT (SGPT) 41 U/L (8-55); AST (SGOT) 87 U/L (5-34); Alkaline Phosphatase 322 U/L (40-150); Anion Gap 25 mmol/L (10-20); BUN (Urea Nitrogen) 110 mg/dL (8.9-20.6); Calc. Creatinine Clearance 19 mL/min (70-130); Calcium 8.7 mg/dL (7.8-10.44); Carbon Dioxide 16 mmol/L (22-29); Chloride 95 mmol/L (98-107); Estimated GFR-MDRD 10; Globulin 1.7 g/dL (2.4-3.5); Glucose 146 mg/dL (70-105); Potassium 4.1 mmol/L (3.5-5.1); Protein, Total 4.7 g/dL (6.0-8.3); Sodium 132 mmol/L (136-145)
[2018-08-25 10:11] LABS: Band 28 % (5-11); Eosinophils 1 % (0-10); Hemoglobin 11.6 g/dL (14.0-18.0); Lymphocytes 5 % (21-51); MDiff Complete? YES; Macrocytosis SLIGHT = 6-15 cells (100X) (0-5/hpf); Mean Corpuscular HGB CONC 33.5 g/dL (32.0-36.0); Mean Corpuscular Hemoglobin 34.4 pg (27.0-31.0); Mean Platelet Volume 8.2 fL (7.4-10.4); Monocytes 4 % (0-10); Neutrophil 62 % (42-75); Platelet Count 92 thou/uL (130-400); Platelet Morphology Comment Appears Decreased; Polychromasia SLIGHT = 2-3 cells (100X) (0-2/hpf); RBC Distribution Width 16.7 % (11.5-14.5); Red Blood Cell (RBC) Count 3.37 mill/uL (4.70-6.10); Toxic Granulation SLIGHT; White Blood Cell (WBC) Count 27.7 thou/uL (4.8-10.8)
[2018-08-25] MEDS: Midodrine HCl 5 MG TAB PO SCH ×3 (10:48→20:37)
[2018-08-25] MEDS ORDERED: oxyCODONE 5 MG TAB PO PRN (11:00)
[2018-08-25] MEDS ORDERED: Phytonadione 10 MG in Sodium Chloride 0.9% 50 ML IVPB SCH (13:15)
--- NOTE | 2018-08-25 13:35 | PDOC.PN ---
- Subjective Encounter Start Date: 08/25/18 Encounter Start Time: 09:00 pt has abdominal wall tenderness, he had paracentesis yesterday, Patient seen and examined. No new complaints. No overnight events - Objective MAR Reviewed: Yes Vital Signs & Weight: Vital Signs (12 hours) Temp Pulse Resp BP Pulse Ox 08/25/18 08:00 97.7 F 83 20 99/63 95 Weight Admit Weight 194 lb 9.6 oz Weight 197 lb 12.8 oz I&O: 08/24/18 08/25/18 08/26/18 06:59 06:59 06:59 Intake Total 1720 1540 Balance 1720 1540 Result Diagrams: 08/25/18 09:05 08/25/18 09:05 Phys Exam - Physical Examination Constitutional: NAD HEENT: PERRLA icterus+ Neck: no JVD, supple Respiratory: no wheezing, no rales, no rhonchi Cardiovascular: RRR, no significant murmur, no rub Gastrointestinal: soft, no distention, positive bowel sounds abdominal wall cellultis, tenderness Musculoskeletal: pulses present, edema present Neurological: non-focal, normal sensation Lymphatic: no nodes Psychiatric: normal affect, A&O x 3 Skin: no rash, normal turgor Dx/Plan (1) Abnormal LFTs Code(s): R94.5 - ABNORMAL RESULTS OF LIVER FUNCTION STUDIES Status: Acute Comment: secondary to alcohol abuse, alcoholic hepatitis (2) Acute kidney failure Status: Acute Comment: now started on HD (3) Alcoholic hepatitis with ascites Code(s): K70.11 - ALCOHOLIC HEPATITIS WITH ASCITES Status: Acute (4) Hepatorenal syndrome Code(s): K76.7 - HEPATORENAL SYNDROME Status: Acute (5) Leukemoid reaction Code(s): D72.823 - LEUKEMOID REACTION Status: Acute Comment: (6) SBP (spontaneous bacterial peritonitis) Code(s): K65.2 - SPONTANEOUS BACTERIAL PERITONITIS Status: Acute Comment: (7) Alcoholic cirrhosis of liver with ascites Code(s): K70.31 - ALCOHOLIC CIRRHOSIS OF LIVER WITH ASCITES Status: Chronic (8) Coagulopathy Status: Chronic (9) Macrocytic anemia Code(s): D53.9 - NUTRITIONAL ANEMIA, UNSPECIFIED Status: Chronic (10) Alcohol withdrawal Code(s): F10.239 - ALCOHOL DEPENDENCE WITH WITHDRAWAL, UNSPECIFIED Status: Resolved Qualifiers: Complication of substance-induced condition: with unspecified complication Qualified Code(s): F10.239 - Alcohol dependence with withdrawal, unspecified - Plan cont current plan of care, continue antibiotics * will add vancomycin today for abdominal wall cellulitis. * continue rocephin for SBP * continue octreotide, midodrin, vitamin K * HD as per nephrology * his prognosis is very poor * we are currently medically supporting * he is not ready for discharge * spoke with gastroenterology Review of Systems - Review of Systems ENT: negative: Ear Pain, Ear Discharge, Nose Pain, Nose Discharge, Nose Congestion, Mouth Pain, Mouth Swelling, Throat Pain, Throat Swelling, Other Respiratory: negative: Cough, Dry, Shortness of Breath, Hemoptysis, SOB with Excertion, Pleuritic Pain, Sputum, Wheezing Cardiovascular: negative: chest pain, palpitations, orthopnea, paroxysmal nocturnal dyspnea, edema, light headedness, other Gastrointestinal: Abdominal Pain. negative: Nausea, Vomiting, Diarrhea, Constipation, Melena, Hematochezia, Other Genitourinary: negative: Dysuria, Frequency, Incontinence, Hematuria, Retention , Other Musculoskeletal: negative: Neck Pain, Shoulder Pain, Arm Pain, Back Pain, Hand Pain, Leg Pain, Foot Pain, Other - Medications/Allergies Allergies/Adverse Reactions: Allergies Allergy/AdvReac Type Severity Reaction Status Date / Time No Known Allergies Allergy Verified 07/29/18 03:02 Medications: Current Medications Acetaminophen (Tylenol) 500 mg PO Q6H PRN PRN Reason: Moderate to Severe Pain (6-10) Al Hydroxide/Mg Hydroxide (Maalox) 30 ml PO Q4H PRN PRN Reason: Heartburn or Indigestion Last Admin: 08/11/18 17:18 Dose: 30 ml Artificial Tears (Tears Naturale) 2 drop EA EYE PRN PRN PRN Reason: Dry Eyes Calcium Carbonate (Tums) 1,000 mg PO Q4H PRN PRN Reason: Heartburn or Indigestion Folic Acid (Folvite) 1 mg PO DAILY [facility] Last Admin: 08/25/18 08:03 Dose: 1 mg Guaifenesin (Robitussin Sf) 200 mg PO Q4H PRN PRN Reason: Cough Hydralazine HCl (Apresoline) 10 mg SLOW IVP Q4H PRN PRN Reason: SBP > 180 and HR < 70 Octreotide Acetate 1,250 mcg/ (Sodium Chloride) 251.25 mls @ 10.05 mls/hr IVPB INF [facility] Last Admin: 08/24/18 23:37 Dose: 251.25 mls Ceftriaxone Sodium 2 gm/ (Sodium Chloride) 100 mls @ 200 mls/hr IVPB 1300 [facility] Last Admin: 08/24/18 12:03 Dose: 100 mls Phytonadione 10 mg/ Sodium (Chloride) 51 mls @ 120 mls/hr IVPB DAILY [facility] Stop: 08/28/18 09:01 Phytonadione 10 mg/ Sodium (Chloride) 51 mls @ 120 mls/hr IVPB NOW [facility] Stop: 08/25/18 15:15 Midodrine (Proamatine) 10 mg PO TID [facility] Last Admin: 08/25/18 10:48 Dose: Not Given Mineral Oil/White Petrolatum (Eucerin Cream) 0 gm TOP BIDPRN PRN PRN Reason: Dry Skin Miscellaneous Medication (Pharmacy To Dose) 1 each IVPB ONE PRN PRN Reason: Pharmacy to dose Morphine Sulfate (Morphine) 2 mg SLOW IVP Q4H PRN PRN Reason: Moderate to Severe Pain (6-10) Multivitamins (Theragran) 1 tab PO DAILY [facility] Last Admin: 08/25/18 08:03 Dose: 1 tab Ondansetron HCl (Zofran) 4 mg IVP Q6H PRN PRN Reason: Nausea/Vomiting Last Admin: 08/13/18 11:55 Dose: 4 mg Ondansetron HCl (Zofran Odt) 4 mg PO Q6H PRN PRN Reason: Nausea/Vomiting Oxycodone HCl (Oxycodone Ir) 2.5 mg PO Q4H PRN PRN Reason: Moderate Pain (4-6) Oxycodone HCl (Oxycodone Ir) 5 mg PO Q4H PRN PRN Reason: Severe Pain (7-10) Pantoprazole Sodium (Protonix) 40 mg PO DAILY [facility] Last Admin: 08/25/18 08:03 Dose: 40 mg Saccharomyces Boulardii (Florastor) 250 mg PO DAILY [facility] Last Admin: 08/25/18 08:03 Dose: 250 mg Sodium Chloride (Flush - Normal Saline) 10 ml IVF Q12HR [facility] Last Admin: 08/25/18 08:03 Dose: 10 ml Sodium Chloride (Flush - Normal Saline) 10 ml IVF PRN PRN PRN Reason: Saline Flush Last Admin: 08/22/18 02:46 Dose: 10 ml Sodium Chloride ([place] Nasal [place] 0.65%) 0 ml EA NARE QIDPRN PRN PRN Reason: Nasal Congestion Thiamine HCl (Thiamine) 100 mg PO DAILY [facility] Last Admin: 08/25/18 09:14 Dose: 100 mg Throat Lozenges (Cepastat Lozenges) 1 armando PO Q2H PRN PRN Reason: Sore Throat Tramadol HCl (Ultram) 50 mg PO Q4H PRN PRN Reason: Mild Pain (1-3)
[2018-08-25] MEDS ORDERED: Vancomycin Sliding Scale 1 EACH FS SCH (14:00)
[2018-08-25] MEDS ORDERED: Vancomycin HCl 1 GM in Premix Bag 1 BAG IVPB SCH (14:00)
[2018-08-25] MEDS ORDERED: Vancomycin HCl 1.25 GM in Sodium Chloride 0.9% 250 ML 250 ML IVPB SCH (14:00)
[2018-08-25] MEDS ORDERED: Vancomycin HCl 500 MG in Sodium Chloride 0.9% 100 ML IVPB SCH (14:00)
[2018-08-25] MEDS ORDERED: Vancomycin HCl 750 MG in Sodium Chloride 0.9% 250 ML 250 ML IVPB SCH (14:00)
[2018-08-25] MEDS ORDERED: HOLD VANCOMYCIN FOR LEVEL >20 FS SCH (14:00)
[2018-08-25] MEDS ORDERED: Albumin 25% 25 GM/100 ML BOT IVPB PRN (14:39)
--- NOTE | 2018-08-25 15:18 | PRG ---
DATE OF SERVICE: 08/25/2018 SUBJECTIVE: Mr. Deleon in the past 2 weeks denied for transfer at several facilities, [facility]. Nurses report that possibly he has been accepted at [facility] in [place], but they do not have a bed presently. OBJECTIVE: VITAL SIGNS: Temperature is 97.7, pulse 83, and blood pressure is 99/63. GENERAL: He is alert and oriented to person, place, and time. He denies any bleeding. Denies confusion. LUNGS: Clear. HEART: Regular rhythm. ABDOMEN: Protuberant. Skin is noted for cellulitis to the abdominal wall with erythema. There is ascites which is noted with the tense abdomen. EXTREMITIES: There is no edema. PRESENT MEDICATIONS: 1. P.r.n. morphine. 2. Multivitamin. 3. Octreotide. 4. Zofran. 5. P.r.n. oxycodone. 6. Protonix. 7. . 8. Sodium bicarb 975 t.i.d. 9. Thiamine. 10. Tramadol. 11. Rocephin. LABORATORY DATA: White count 30,000, hemoglobin 11.4, platelet count 88,000. INR is 2.7. Sodium 133, potassium 4.1, chloride 95, bicarb 16, BUN 110, creatinine 6.47, bilirubin is 37. AST and ALT are 87 and 41. Albumin 3. Tap yesterday showed a white count of 869, down from 1100, 69% segs. Body fluid culture, no growth, last three taps. ASSESSMENT: 1. Severe alcoholic liver disease. The patient apparently did require Medicaid per the case workers and nursing staff. We will attempt to transfer him to center for palliative care, they stated that he was not a transplant candidate. There is nothing more they could offer in his care. He was denied transplant for lack of of body which they require. We request for higher level of care, was instituted, one facility has been accepted depending on bed at this point in time. We have talked to [facility] lead architect and transfer center today, asked him to reinitiate transfer. The patient is on higher level of care. 2. Cellulitis abdominal wall. I talked to Dr. Braden of the Internal Medicine Service and suggested we get that covered with a broad spectrum antibiotics. He is going to do that. 3. We will talk with Nephrology. He is getting dialysis regularly now. I am not sure there is a need for ongoing sodium bicarbonate which is going to cause more fluid retention. Job ID: [id number]
[2018-08-25] MEDS: cefTRIAXone\\ROCEPHIN 2 GM in Sodium Chloride 0.9% 100 ML IVPB SCH (18:19)
[2018-08-25] MEDS: hydrOXYzine 10 MG TAB PO PRN (20:37)
[2018-08-26] MEDS ORDERED: Morphine 4 MG/ML VIAL SLOW IVP PRN (00:01)
[2018-08-26] MEDS: oxyCODONE 5 MG TAB PO PRN ×2 (05:45→21:56)
[2018-08-26] MEDS: hydrOXYzine 10 MG TAB PO PRN ×2 (05:50→21:53)
--- NOTE | 2018-08-26 07:35 | PRG ---
DATE OF SERVICE: 08/25/2018 SUBJECTIVE: Patient was seen and examined at bedside and overnight events noted. Patient denies any shortness of breath or chest pain or palpitation. No history of nausea or vomiting or diarrhea or fever or chills or cramps. OBJECTIVE: GENERAL: This is a well built male, in no apparent distress. VITAL SIGNS: Temperature 97.7. Pulse 83. Respiratory rate 20. Blood pressure 99/63. HEENT: Atraumatic, normocephalic. Oral mucosa is moist NECK: Supple. CARDIOVASCULAR: S1, S2 heard. Rate and rhythm regular. RESPIRATORY: Clear to auscultation. GASTROINTESTINAL: Abdomen is soft. MUSCULOSKELETAL: No tenderness. No edema. DERMATOLOGIC: No skin rash. NEUROLOGIC: Alert and awake and oriented X3. No focal neurologic deficits. Moving all the extremities. PSYCHIATRIC: Mood and affect normal. LABORATORY DATA: Potassium is 4.1, BUN 110, creatinine 6.4. ASSESSMENT AND PLAN: 1. Acute kidney injury on chronic kidney disease, we will have dialysis. 2. Hypertension. 3. Hepatorenal syndrome. 4. Anemia. Follow with GI. 5. Edema. We will remove fluid with dialysis. 6. Hyponatremia, improved . 7. Metabolic acidosis. Prognosis is guarded. We will have dialysis. Job ID: [id number]
[2018-08-26 08:22] LABS: Hemoglobin 11.2 g/dL (14.0-18.0); Mean Corpuscular HGB CONC 32.2 g/dL (32.0-36.0); Mean Corpuscular Hemoglobin 33.2 pg (27.0-31.0); Mean Platelet Volume 9.6 fL (7.4-10.4); Platelet Count 65 thou/uL (130-400); RBC Distribution Width 16.5 % (11.5-14.5); Red Blood Cell (RBC) Count 3.37 mill/uL (4.70-6.10); White Blood Cell (WBC) Count 26.3 thou/uL (4.8-10.8)
[2018-08-26 08:26] LABS: ALT (SGPT) 44 U/L (8-55); AST (SGOT) 113 U/L (5-34); Albumin 2.7 g/dL (3.5-5.0); Alkaline Phosphatase 345 U/L (40-150); Anion Gap 19 mmol/L (10-20); BUN (Urea Nitrogen) 64 mg/dL (8.9-20.6); Calc. Creatinine Clearance 26 mL/min (70-130); Calcium 8.4 mg/dL (7.8-10.44); Carbon Dioxide 20 mmol/L (22-29); Chloride 97 mmol/L (98-107); Estimated GFR-MDRD 14; Globulin 1.6 g/dL (2.4-3.5); Glucose 135 mg/dL (70-105); Protein, Total 4.3 g/dL (6.0-8.3); Sodium 132 mmol/L (136-145)
[2018-08-26 09:28] LABS: Band 33 % (5-11); Eosinophils 1 % (0-10); Lymphocytes 1 % (21-51); MDiff Complete? YES; Macrocytosis SLIGHT = 6-15 cells (100X) (0-5/hpf); Metamyelocyte 1 % (0-0); Monocytes 6 % (0-10); Neutrophil 58 % (42-75); Platelet Morphology Comment Appears Decreased; Polychromasia SLIGHT = 2-3 cells (100X) (0-2/hpf); Toxic Granulation SLIGHT
[2018-08-26] MEDS: Folic Acid 1 MG TAB PO SCH (09:32)
[2018-08-26] MEDS: Multivit, Therapeutic 1 TAB PO SCH (09:32)
[2018-08-26] MEDS: Saccharomyces boulardii 250 MG CAP PO SCH (09:32)
[2018-08-26] MEDS: traMADol HCl 50 MG TAB PO PRN ×2 (09:32→15:47)
[2018-08-26] MEDS: Octreotide Acetate 1,250 MCG in Sodium Chloride 0.9% 250 ML 250 ML IVPB SCH (09:38)
[2018-08-26] MEDS: Midodrine HCl 5 MG TAB PO SCH ×3 (09:38→21:52)
[2018-08-26] MEDS: Phytonadione 10 MG in Sodium Chloride 0.9% 50 ML IVPB SCH (09:38)
[2018-08-26] MEDS: cefTRIAXone\\ROCEPHIN 2 GM in Sodium Chloride 0.9% 100 ML IVPB SCH ×2 (13:00→15:48)
--- NOTE | 2018-08-26 13:39 | PDOC.PN ---
- Subjective Encounter Start Date: 08/26/18 Encounter Start Time: 09:00 Patient seen and examined. No new complaints. No overnight events - Objective MAR Reviewed: Yes Vital Signs & Weight: Vital Signs (12 hours) Temp Pulse Resp BP Pulse Ox 08/26/18 07:26 98.1 F 92 16 111/74 91 L Weight Admit Weight 194 lb 9.6 oz Weight 191 lb 2.252 oz I&O: 08/25/18 08/26/18 08/27/18 06:59 06:59 06:59 Intake Total 1540 720 Balance 1540 720 Result Diagrams: 08/26/18 07:29 08/26/18 07:29 Phys Exam - Physical Examination Constitutional: NAD HEENT: PERRLA, moist MMs icterus+ Neck: no JVD, supple Respiratory: no wheezing, no rales, no rhonchi Cardiovascular: RRR, no significant murmur, no rub tender+, abdominal wall cellulitis, ascites+ Musculoskeletal: pulses present, edema present Neurological: non-focal, normal sensation, moves all 4 limbs Lymphatic: no nodes Psychiatric: normal affect, A&O x 3 Skin: normal turgor Deviation from normal: drug rash noted Dx/Plan (1) Abnormal LFTs Code(s): R94.5 - ABNORMAL RESULTS OF LIVER FUNCTION STUDIES Status: Acute Comment: secondary to alcohol abuse, alcoholic hepatitis (2) Acute kidney failure Status: Acute Comment: now started on HD (3) Alcoholic hepatitis with ascites Code(s): K70.11 - ALCOHOLIC HEPATITIS WITH ASCITES Status: Acute (4) Hepatorenal syndrome Code(s): K76.7 - HEPATORENAL SYNDROME Status: Acute (5) Leukemoid reaction Code(s): D72.823 - LEUKEMOID REACTION Status: Acute Comment: (6) SBP (spontaneous bacterial peritonitis) Code(s): K65.2 - SPONTANEOUS BACTERIAL PERITONITIS Status: Acute Comment: (7) Alcoholic cirrhosis of liver with ascites Code(s): K70.31 - ALCOHOLIC CIRRHOSIS OF LIVER WITH ASCITES Status: Chronic (8) Coagulopathy Status: Chronic (9) Macrocytic anemia Code(s): D53.9 - NUTRITIONAL ANEMIA, UNSPECIFIED Status: Chronic (10) Alcohol withdrawal Code(s): F10.239 - ALCOHOL DEPENDENCE WITH WITHDRAWAL, UNSPECIFIED Status: Resolved Qualifiers: Complication of substance-induced condition: with unspecified complication Qualified Code(s): F10.239 - Alcohol dependence with withdrawal, unspecified - Plan cont current plan of care, continue antibiotics * will dc vancomycin as seems like pt has developed allergic reaction * medication reviewed as below * symptomatic treatment * add doxycycline 100 mg po bid * spoke with nephrology and he will need HD * his prognosis is very poor * supportive care. Review of Systems - Review of Systems Eyes: negative: Pain, Vision Change, Conjunctivae Inflammation, Eyelid Inflammation, Redness, Other ENT: negative: Ear Pain, Ear Discharge, Nose Pain, Nose Discharge, Nose Congestion, Mouth Pain, Mouth Swelling, Throat Pain, Throat Swelling, Other Respiratory: negative: Cough, Dry, Shortness of Breath, Hemoptysis, SOB with Excertion, Pleuritic Pain, Sputum, Wheezing Cardiovascular: negative: chest pain, palpitations, orthopnea, paroxysmal nocturnal dyspnea, edema, light headedness, other Gastrointestinal: Abdominal Pain. negative: Nausea, Vomiting, Diarrhea, Constipation, Melena, Hematochezia, Other Genitourinary: negative: Dysuria, Frequency, Incontinence, Hematuria, Retention , Other Skin: Rash. negative: Lesions, Joel, Bruising, Other - Medications/Allergies Allergies/Adverse Reactions: Allergies Allergy/AdvReac Type Severity Reaction Status Date / Time No Known Allergies Allergy Verified 07/29/18 03:02 Medications: Current Medications Acetaminophen (Tylenol) 500 mg PO Q6H PRN PRN Reason: Moderate to Severe Pain (6-10) Al Hydroxide/Mg Hydroxide (Maalox) 30 ml PO Q4H PRN PRN Reason: Heartburn or Indigestion Last Admin: 08/11/18 17:18 Dose: 30 ml Artificial Tears (Tears Naturale) 2 drop EA EYE PRN PRN PRN Reason: Dry Eyes Calcium Carbonate (Tums) 1,000 mg PO Q4H PRN PRN Reason: Heartburn or Indigestion Folic Acid (Folvite) 1 mg PO DAILY [facility] Last Admin: 08/26/18 09:32 Dose: 1 mg Guaifenesin (Robitussin Sf) 200 mg PO Q4H PRN PRN Reason: Cough Hydralazine HCl (Apresoline) 10 mg SLOW IVP Q4H PRN PRN Reason: SBP > 180 and HR < 70 Hydroxyzine HCl (Atarax) 10 mg PO TIDPRN PRN PRN Reason: PRURITIS/ITCH AND HIVES Last Admin: 08/26/18 05:50 Dose: 10 mg Octreotide Acetate 1,250 mcg/ (Sodium Chloride) 251.25 mls @ 10.05 mls/hr IVPB INF [facility] Last Admin: 08/26/18 09:38 Dose: 251.25 mls Ceftriaxone Sodium 2 gm/ (Sodium Chloride) 100 mls @ 200 mls/hr IVPB 1300 [facility] Last Admin: 08/25/18 18:19 Dose: 100 mls Phytonadione 10 mg/ Sodium (Chloride) 51 mls @ 120 mls/hr IVPB DAILY [facility] Stop: 08/28/18 09:01 Last Admin: 08/26/18 09:38 Dose: 51 mls Vancomycin HCl 1.25 gm/ Sodium (Chloride) 250 mls @ 166.667 mls/hr IVPB [facility] Vancomycin HCl 1 gm/ Device 200 mls @ 200 mls/hr IVPB [facility] Vancomycin HCl 750 mg/ Sodium (Chloride) 250 mls @ 250 mls/hr IVPB [facility] Vancomycin HCl 500 mg/ Sodium (Chloride) 100 mls @ 100 mls/hr IVPB [facility] Midodrine (Proamatine) 10 mg PO TID [facility] Last Admin: 08/26/18 09:38 Dose: Not Given Mineral Oil/White Petrolatum (Eucerin Cream) 0 gm TOP BIDPRN PRN PRN Reason: Dry Skin Miscellaneous Medication (Pharmacy To Dose) 1 each IVPB ASDIR [facility] Miscellaneous Medication (Vancomycin Sliding Scale) 1 each FS ASDIR [facility] Morphine Sulfate (Morphine) 2 mg SLOW IVP Q4H PRN PRN Reason: Moderate to Severe Pain (6-10) Multivitamins (Theragran) 1 tab PO DAILY [facility] Last Admin: 08/26/18 09:32 Dose: 1 tab Hold Vancomycin For (Level >20) 0 each FS .AT DIALYSIS [facility] Ondansetron HCl (Zofran) 4 mg IVP Q6H PRN PRN Reason: Nausea/Vomiting Last Admin: 08/13/18 11:55 Dose: 4 mg Ondansetron HCl (Zofran Odt) 4 mg PO Q6H PRN PRN Reason: Nausea/Vomiting Oxycodone HCl (Oxycodone Ir) 2.5 mg PO Q4H PRN PRN Reason: Moderate Pain (4-6) Oxycodone HCl (Oxycodone Ir) 5 mg PO Q4H PRN PRN Reason: Severe Pain (7-10) Last Admin: 08/26/18 05:45 Dose: 5 mg Pantoprazole Sodium (Protonix) 40 mg PO DAILY [facility] Last Admin: 08/26/18 09:33 Dose: 40 mg Saccharomyces Boulardii (Florastor) 250 mg PO DAILY [facility] Last Admin: 08/26/18 09:32 Dose: 250 mg Sodium Chloride (Flush - Normal Saline) 10 ml IVF Q12HR [facility] Last Admin: 08/26/18 09:33 Dose: 10 ml Sodium Chloride (Flush - Normal Saline) 10 ml IVF PRN PRN PRN Reason: Saline Flush Last Admin: 08/22/18 02:46 Dose: 10 ml Sodium Chloride ([place] Nasal [place] 0.65%) 0 ml EA NARE QIDPRN PRN PRN Reason: Nasal Congestion Thiamine HCl (Thiamine) 100 mg PO DAILY [facility] Last Admin: 08/26/18 09:33 Dose: 100 mg Throat Lozenges (Cepastat Lozenges) 1 armando PO Q2H PRN PRN Reason: Sore Throat Tramadol HCl (Ultram) 50 mg PO Q4H PRN PRN Reason: Mild Pain (1-3) Last Admin: 08/26/18 09:32 Dose: 50 mg
--- NOTE | 2018-08-26 16:42 | PRG ---
DATE OF SERVICE: 08/26/2018 SUBJECTIVE: Patient was seen and examined at bedside and overnight events noted. Patient denies any shortness of breath or chest pain or palpitation. No history of nausea or vomiting or diarrhea or fever or chills or cramps. OBJECTIVE: GENERAL: This is a well-built male, in no apparent distress. VITAL SIGNS: Temperature 98.1. Pulse 92. Respiratory rate 16. Blood pressure 111/74. HEENT: Atraumatic, normocephalic. Oral mucosa is moist NECK: Supple. CARDIOVASCULAR: S1, S2 heard. Rate and rhythm regular. RESPIRATORY: Clear to auscultation. GASTROINTESTINAL: Abdomen is soft. MUSCULOSKELETAL: No tenderness. No edema. DERMATOLOGIC: erythematous skin rash. NEUROLOGIC: Alert and awake and oriented X3. No focal neurologic deficits. Moving all the extremities. PSYCHIATRIC: Mood and affect normal. LABORATORY DATA: Potassium 4.0, BUN is 64, and creatinine is 4.6. ASSESSMENT AND PLAN: 1. Acute kidney injury on chronic kidney disease, dialysis dependent. We will continue on dialysis. The patient remains fluid overloaded. 2. Fluid overload. Remove fluid with dialysis. 3. Hepatorenal syndrome. 4. Anemia. 5. Hyponatremia, limit fluid intake. 6. Metabolic acidosis. We will continue on dialysis with ultrafiltration as tolerated. Job ID: [id number] [facility]
[2018-08-26] MEDS ORDERED: Tuberculin PPD 0.1 ML VIAL I-DERMAL SCH (17:00)
--- NOTE | 2018-08-26 20:14 | PRG ---
DATE OF SERVICE: 08/26/2018 SUBJECTIVE: Mr. Deleon is resting in bed. He is alert and conversant. He is without complaints, but notes the rash on his abdomen has gotten worse. OBJECTIVE: VITAL SIGNS: Temperature is 98.1, pulse 92, blood pressure 111/74. He has been afebrile overnight. HEENT: He is grossly icteric and jaundiced. LUNGS: Clear. HEART: Regular rhythm. ABDOMEN: Protuberant with non-tense ascites. EXTREMITIES: Reveal edema. He got slight asterixis. NEUROLOGIC: He is alert and oriented to person, place, and time. SKIN: He has spotty rash and redness over chest and abdomen. LABORATORY DATA: Sodium 132, potassium 4, BUN and creatinine of 64 and 4.6, bicarb is 20, chloride is 97, bilirubin is 35, AST 113, ALT 44. White count 26,000, platelets 65,000, hemoglobin 11.2, and 33% bands. Paracentesis from the 6th, no growth at 48 hours. Liver pathology on outside reading for outside opinion showed evolving severe cirrhosis, bridging fibrosis, severe steatohepatitis. No interface activity is noted. No granulomas are identified. No antibodies present. No hemosiderosis or excess copper is noted. ASSESSMENT: 1. Cellulitis, abdominal wall. He has been on Rocephin for spontaneous bacterial peritonitis. Vancomycin started yesterday, felt a rash after that. Some of this may be fungal in the skin as it is in the axillary areas and creases, but the way it has gotten course to chest wonder possibly this is more of a red man syndrome from the vancomycin. 2. 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 Viral, autoimmune, metabolic including Carroll's and alpha-1 anti-trypsin has been ruled out. Biopsy did not show any malignancy. Although later in his hospital course, his was able to talk to emergency Medicaid, tertiary care facilities with transplant capabilities in [place] and [place], who refused the patient. They have also refused transfer for higher level of care based on the fact that they do think they can offer anymore other than that is being offered to the patient at this point in time. I have explained this to the patient. RECOMMENDATIONS: 1. I will ask Infectious Disease to see the patient again tomorrow for antibiotic change off vancomycin. At this time, we will stop vancomycin. He should have a good drug level with dialysis. 2. We will check INR and ammonia tomorrow. 3. We will contact [facility] to see if they take the patient in light of his hepatorenal failure and dialysis. SBP and severe alcoholic hepatitis with no signs of liver failure. His prognosis is very poor. Job ID: [id number]
[2018-08-26] MEDS: Doxycycline 100 MG CAP PO SCH (21:53)
[2018-08-27 06:59] LABS: Hemoglobin 11.4 g/dL (14.0-18.0); Mean Corpuscular HGB CONC 32.7 g/dL (32.0-36.0); Mean Corpuscular Hemoglobin 33.7 pg (27.0-31.0); Mean Platelet Volume 10.7 fL (7.4-10.4); Platelet Count 58 thou/uL (130-400); RBC Distribution Width 16.4 % (11.5-14.5); Red Blood Cell (RBC) Count 3.39 mill/uL (4.70-6.10); White Blood Cell (WBC) Count 24.8 thou/uL (4.8-10.8)
[2018-08-27 07:14] LABS: ALT (SGPT) 39 U/L (8-55); AST (SGOT) 103 U/L (5-34); Albumin 2.5 g/dL (3.5-5.0); Alkaline Phosphatase 389 U/L (40-150); Anion Gap 22 mmol/L (10-20); BUN (Urea Nitrogen) 79 mg/dL (8.9-20.6); Calc. Creatinine Clearance 21 mL/min (70-130); Calcium 8.7 mg/dL (7.8-10.44); Carbon Dioxide 19 mmol/L (22-29); Chloride 98 mmol/L (98-107); Estimated GFR-MDRD 11; Globulin 1.7 g/dL (2.4-3.5); Glucose 109 mg/dL (70-105); Protein, Total 4.2 g/dL (6.0-8.3); Sodium 135 mmol/L (136-145)
[2018-08-27 07:34] LABS: Band 30 % (5-11); Eosinophils 1 % (0-10); Lymphocytes 5 % (21-51); MDiff Complete? YES; Metamyelocyte 1 % (0-0); Monocytes 3 % (0-10); Neutrophil 58 % (42-75); Platelet Morphology Comment Appears Decreased; Polychromasia SLIGHT = 2-3 cells (100X) (0-2/hpf); Reactive Lymphocytes 2 % (0-10)
[2018-08-27] MEDS: Saccharomyces boulardii 250 MG CAP PO SCH (07:51)
[2018-08-27] MEDS: Multivit, Therapeutic 1 TAB PO SCH (07:51)
[2018-08-27] MEDS: Doxycycline 100 MG CAP PO SCH (07:51)
[2018-08-27] MEDS: oxyCODONE 5 MG TAB PO PRN ×3 (07:51→20:51)
[2018-08-27] MEDS: Folic Acid 1 MG TAB PO SCH (07:52)
[2018-08-27] MEDS: Midodrine HCl 5 MG TAB PO SCH ×4 (09:00→20:52)
[2018-08-27 09:23] LABS: INR-International Normal Ratio 2.3; Prothrombin Time 25.3 SEC (12.0-14.7)
[2018-08-27] MEDS ORDERED: Albumin 25% 25 GM/100 ML BOT IVPB SCH (09:30)
--- NOTE | 2018-08-27 11:00 | PDOC.PN ---
- Subjective Encounter Start Date: 08/27/18 Encounter Start Time: 09:00 Patient seen and examined. No new complaints. No overnight events pt seen in HD - Objective MAR Reviewed: Yes Vital Signs & Weight: Vital Signs (12 hours) Temp Pulse Resp BP BP Pulse Ox 08/27/18 07:47 99 08/27/18 07:43 104/67 08/27/18 07:38 98.6 F 86 18 81/52 L 99 Weight Admit Weight 194 lb 9.6 oz Weight 189 lb 6.033 oz I&O: 08/26/18 08/27/18 08/28/18 06:59 06:59 06:59 Intake Total 720 860 Balance 720 860 Result Diagrams: 08/27/18 05:45 08/27/18 05:45 Phys Exam - Physical Examination Constitutional: NAD HEENT: PERRLA, moist MMs deep icterus Neck: no JVD, supple Respiratory: no wheezing, no rales, no rhonchi Cardiovascular: RRR, no significant murmur, no rub ascites, cellulitis adbominal wall Musculoskeletal: pulses present, edema present Neurological: non-focal, normal sensation Lymphatic: no nodes Psychiatric: normal affect Skin: no rash, normal turgor Dx/Plan (1) Abnormal LFTs Code(s): R94.5 - ABNORMAL RESULTS OF LIVER FUNCTION STUDIES Status: Acute Comment: secondary to alcohol abuse, alcoholic hepatitis (2) Acute kidney failure Status: Acute Comment: now started on HD (3) Alcoholic hepatitis with ascites Code(s): K70.11 - ALCOHOLIC HEPATITIS WITH ASCITES Status: Acute (4) Hepatorenal syndrome Code(s): K76.7 - HEPATORENAL SYNDROME Status: Acute (5) Leukemoid reaction Code(s): D72.823 - LEUKEMOID REACTION Status: Acute Comment: (6) SBP (spontaneous bacterial peritonitis) Code(s): K65.2 - SPONTANEOUS BACTERIAL PERITONITIS Status: Acute Comment: (7) Alcoholic cirrhosis of liver with ascites Code(s): K70.31 - ALCOHOLIC CIRRHOSIS OF LIVER WITH ASCITES Status: Chronic (8) Coagulopathy Status: Chronic (9) Macrocytic anemia Code(s): D53.9 - NUTRITIONAL ANEMIA, UNSPECIFIED Status: Chronic (10) Alcohol withdrawal Code(s): F10.239 - ALCOHOL DEPENDENCE WITH WITHDRAWAL, UNSPECIFIED Status: Resolved Qualifiers: Complication of substance-induced condition: with unspecified complication Qualified Code(s): F10.239 - Alcohol dependence with withdrawal, unspecified - Plan cont current plan of care, continue antibiotics * continue rocephin and doxy * HD as per nephrology * continue octreotide * he is still sick with his liver and kidney failure, his prognosis is very poor * he is not stable for discharge. Review of Systems - Review of Systems Constitutional: weakness. negative: fever, chills, sweats, malaise, other ENT: negative: Ear Pain, Ear Discharge, Nose Pain, Nose Discharge, Nose Congestion, Mouth Pain, Mouth Swelling, Throat Pain, Throat Swelling, Other Respiratory: negative: Cough, Dry, Shortness of Breath, Hemoptysis, SOB with Excertion, Pleuritic Pain, Sputum, Wheezing Cardiovascular: negative: chest pain, palpitations, orthopnea, paroxysmal nocturnal dyspnea, edema, light headedness, other Gastrointestinal: Nausea, Abdominal Pain. negative: Vomiting, Diarrhea, Constipation, Melena, Hematochezia, Other Genitourinary: negative: Dysuria, Frequency, Incontinence, Hematuria, Retention , Other Musculoskeletal: negative: Neck Pain, Shoulder Pain, Arm Pain, Back Pain, Hand Pain, Leg Pain, Foot Pain, Other - Medications/Allergies Allergies/Adverse Reactions: Allergies Allergy/AdvReac Type Severity Reaction Status Date / Time No Known Allergies Allergy Verified 07/29/18 03:02 Medications: Current Medications Acetaminophen (Tylenol) 500 mg PO Q6H PRN PRN Reason: Moderate to Severe Pain (6-10) Al Hydroxide/Mg Hydroxide (Maalox) 30 ml PO Q4H PRN PRN Reason: Heartburn or Indigestion Last Admin: 08/11/18 17:18 Dose: 30 ml Artificial Tears (Tears Naturale) 2 drop EA EYE PRN PRN PRN Reason: Dry Eyes Calcium Carbonate (Tums) 1,000 mg PO Q4H PRN PRN Reason: Heartburn or Indigestion Doxycycline Hyclate (Vibramycin) 100 mg PO BID [facility] Last Admin: 08/27/18 07:51 Dose: 100 mg Folic Acid (Folvite) 1 mg PO DAILY [facility] Last Admin: 08/27/18 07:52 Dose: 1 mg Guaifenesin (Robitussin Sf) 200 mg PO Q4H PRN PRN Reason: Cough Hydralazine HCl (Apresoline) 10 mg SLOW IVP Q4H PRN PRN Reason: SBP > 180 and HR < 70 Hydroxyzine HCl (Atarax) 10 mg PO TIDPRN PRN PRN Reason: PRURITIS/ITCH AND HIVES Last Admin: 08/26/18 21:53 Dose: 10 mg Octreotide Acetate 1,250 mcg/ (Sodium Chloride) 251.25 mls @ 10.05 mls/hr IVPB INF [facility] Last Admin: 08/26/18 09:38 Dose: 251.25 mls Ceftriaxone Sodium 2 gm/ (Sodium Chloride) 100 mls @ 200 mls/hr IVPB 1300 [facility] Last Admin: 08/26/18 15:48 Dose: 100 mls Phytonadione 10 mg/ Sodium (Chloride) 51 mls @ 120 mls/hr IVPB DAILY [facility] Stop: 08/28/18 09:01 Last Admin: 08/26/18 09:38 Dose: 51 mls Midodrine (Proamatine) 10 mg PO TID [facility] Last Admin: 08/26/18 21:52 Dose: 10 mg Mineral Oil/White Petrolatum (Eucerin Cream) 0 gm TOP BIDPRN PRN PRN Reason: Dry Skin Morphine Sulfate (Morphine) 2 mg SLOW IVP Q4H PRN PRN Reason: Moderate to Severe Pain (6-10) Multivitamins (Theragran) 1 tab PO DAILY [facility] Last Admin: 08/27/18 07:51 Dose: 1 tab Hold Vancomycin For (Level >20) 0 each FS .AT DIALYSIS [facility] Read Ppd Test Site 0 each PO 1700 [facility] Stop: 08/29/18 17:01 Ondansetron HCl (Zofran) 4 mg IVP Q6H PRN PRN Reason: Nausea/Vomiting Last Admin: 08/13/18 11:55 Dose: 4 mg Ondansetron HCl (Zofran Odt) 4 mg PO Q6H PRN PRN Reason: Nausea/Vomiting Oxycodone HCl (Oxycodone Ir) 2.5 mg PO Q4H PRN PRN Reason: Moderate Pain (4-6) Oxycodone HCl (Oxycodone Ir) 5 mg PO Q4H PRN PRN Reason: Severe Pain (7-10) Last Admin: 08/27/18 07:51 Dose: 5 mg Pantoprazole Sodium (Protonix) 40 mg PO DAILY [facility] Last Admin: 08/27/18 07:51 Dose: 40 mg Saccharomyces Boulardii (Florastor) 250 mg PO DAILY [facility] Last Admin: 08/27/18 07:51 Dose: 250 mg Sodium Chloride (Flush - Normal Saline) 10 ml IVF Q12HR [facility] Last Admin: 08/27/18 07:53 Dose: 10 ml Sodium Chloride (Flush - Normal Saline) 10 ml IVF PRN PRN PRN Reason: Saline Flush Last Admin: 08/22/18 02:46 Dose: 10 ml Sodium Chloride ([place] Nasal [place] 0.65%) 0 ml EA NARE QIDPRN PRN PRN Reason: Nasal Congestion Thiamine HCl (Thiamine) 100 mg PO DAILY [facility] Last Admin: 08/27/18 07:51 Dose: 100 mg Throat Lozenges (Cepastat Lozenges) 1 armando PO Q2H PRN PRN Reason: Sore Throat Tramadol HCl (Ultram) 50 mg PO Q4H PRN PRN Reason: Mild Pain (1-3) Last Admin: 08/26/18 15:47 Dose: 50 mg
[2018-08-27] MEDS ORDERED: Heparin 10,000 UNITS/ 10 ML VIAL ONE (12:55)
--- NOTE | 2018-08-27 13:58 | PRG ---
DATE OF SERVICE: SUBJECTIVE: Patient was seen and examined at bedside and overnight events noted. Patient denies any shortness of breath or chest pain or palpitation. No history of nausea or vomiting or diarrhea or fever or chills or cramps. OBJECTIVE: GENERAL: This is a well-built male, in no apparent distress. VITAL SIGNS: Temperature 98.6. Pulse 86. Respiratory rate 18. Blood pressure 104/67. HEENT: Atraumatic, normocephalic. Oral mucosa is moist NECK: Supple. CARDIOVASCULAR: S1, S2 heard. Rate and rhythm regular. RESPIRATORY: Clear to auscultation. GASTROINTESTINAL: Abdomen is soft. MUSCULOSKELETAL: No tenderness. No edema. DERMATOLOGIC: + skin rash. NEUROLOGIC: Alert and awake and oriented X3. No focal neurologic deficits. Moving all the extremities. PSYCHIATRIC: Mood and affect normal. LABORATORY DATA: Potassium 4.0, BUN is 79, creatinine is 5.7. ASSESSMENT AND PLAN: 1. Acute kidney injury on chronic kidney disease, dialysis dependent, and renal function getting worse in between dialysis. Plan is to have dialysis as tolerated. The patient remains high risk for dialysis. The patient is hypotensive, not able to have much ultrafiltration with dialysis. We will attempt to have fluid removal with albumin. The patient was advised to limit fluid intake. 2. Fluid overload from cirrhosis. 3. Hepatorenal syndrome. 4. Anemia. 5. Hyponatremia, limit fluid intake. 6. Metabolic acidosis. sodium bicarbonate. Continue on dialysis. The patient is at high risk for dialysis given hypotension and inability to do ultrafiltration, but the patient remains fluid overloaded. We will attempt to have fluid removal as tolerated with albumin p.r.n. Follow with GI for further plans. The patient does have a very poor prognosis. We will follow. Job ID: [id number] [facility]
[2018-08-27] MEDS: Phytonadione 10 MG in Sodium Chloride 0.9% 50 ML IVPB SCH (14:02)
[2018-08-27] MEDS: cefTRIAXone\\ROCEPHIN 2 GM in Sodium Chloride 0.9% 100 ML IVPB SCH (14:02)
--- NOTE | 2018-08-27 17:57 | PRG ---
DATE OF SERVICE: 08/27/2018 SUBJECTIVE: Mr. Deleon was given vancomycin and developed diffuse skin eruption. He is awake, alert, having some [id number] diffuse abdominal tenderness as before and itching in the areas of skin eruption in the appendicular structures as well as abdominal and chest area. OBJECTIVE: VITAL SIGNS: His temperature max is 98.6, blood pressure 90/50, pulse 86, respirations 18, O2 saturation 99%. SKIN: Exam shows a confluent macular erythematous eruption in the abdomen, chest, appendicular skin proximal aspect. Some of those lesions have an urticarial infiltrated characteristic. HEENT: The patient has diffuse icterus. His ocular movements are conjugate. Some element of asterixis is noted. LUNGS: Symmetric air entry with faint basilar crackles. HEART: S1, S2. Regular rate. ABDOMEN: Yuuk-ym-sdaxykpspz distended and mildly tender diffusely. : No genital edema. EXTREMITIES: 1 to 2+ edema in lower extremities. The patient has a tunneled catheter in the right IJ position for dialysis in the right side and also a triple-lumen catheter in the left side. LABORATORY DATA: White cell count is 24.8, hemoglobin is 11.4, platelets 58,000. The microbiology results with negative cultures from this ascitic fluid. Second ascitic fluid sample from 2 days ago with 869 wbc's with predominance of segmented neutrophils. ASSESSMENT AND PLAN: Alcoholism with alcoholic hepatitis and leukemoid reaction secondary to alcoholic hepatitis. He may have superimposed bacterial peritonitis or the elevated WBC count in the peritoneal fluid may be a result of the leukemoid reaction without actual infection. The skin rash is probably a reaction to the vancomycin administration. I would recommend discontinuing the vancomycin and would DC doxycycline as well. Job ID: [id number]
[2018-08-27] MEDS: Octreotide Acetate 1,250 MCG in Sodium Chloride 0.9% 250 ML 250 ML IVPB SCH (20:51)
--- NOTE | 2018-08-28 00:58 | PRG ---
DATE OF SERVICE: 08/27/2018 SUBJECTIVE: Mr. Deleon just returns from dialysis. He is without complaints today. He denies any pruritus. He is urinating and eating. MEDICATIONS: List reviewed. Antibiotics include, 1. Ceftriaxone. 2. Doxycycline. Remains on, 1. Folic acid. 2. Multivitamin. 3. Thiamine. 4. PPI. 5. Vitamin K. 6. Probiotic. 7. P.r.n. tramadol. 8. Octreotide. 9. Midodrine. OBJECTIVE: VITAL SIGNS: Temperature is 98, pulse 86, blood pressure 90/53. GENERAL: He is very icteric. He knows where he is. He has a little bit of tremulousness and asterixis. He is grossly jaundiced. He has a rash on his chest and there is cellulitis of previous liver biopsy site, but it is not worse. The rash in the upper chest seems to be a little bit better. EXTREMITIES: Reveal edema. LABORATORY DATA: White count 24,000, hemoglobin 11.4, platelet count 58,000. INR 2.3. Sodium 135, potassium 4, BUN 69, creatinine is 5, bilirubin is 34, AST 103, ALT 39, alkaline phosphatase 389, protein 4.2, albumin 2.5. ASSESSMENT: 1. Severe alcoholic hepatitis with liver failure without coma. 2. Coagulopathy stable, improved somewhat with vitamin K. 3. Cellulitis, on doxycycline. It seems that he developed rash when he received vancomycin. 4. Spontaneous bacterial peritonitis, on Rocephin. 5. Hepatorenal syndrome, on dialysis now. 6. Cellulitis, stable. I talked to Dr. Nava. He is going to evaluate him today and his antibiotic regimen. 7. Mild hepatic encephalopathy. He is alert and awake. His ammonia is 99. We will start him on a little bit of lactulose. 8. Regarding issues of transfer and transplant, I talked with the social welfare administrator, casey saw operator here on the 4th day; she states nothing outside facility. We will take him for transplant evaluation because of their and Medicaid transplant requirements in alcoholic liver disease, and it deemed him not to be of higher level of care than we are presently providing here. I have informed the patient of this, and apparently the staff has informed the patient's family and this they have not been here today. He remains critically ill, but stable. We will continue with current measures at this time, although his prognosis is very poor. The fact that he is stable and not worsening, I think we should continue to treat aggressively. Job ID: [id number]
[2018-08-28 07:05] LABS: INR-International Normal Ratio 2.1
[2018-08-28 07:15] LABS: Hemoglobin 11.6 g/dL (14.0-18.0); Mean Corpuscular Hemoglobin 32.5 pg (27.0-31.0); Mean Platelet Volume 10.8 fL (7.4-10.4); Platelet Count 59 thou/uL (130-400); RBC Distribution Width 16.5 % (11.5-14.5); Red Blood Cell (RBC) Count 3.56 mill/uL (4.70-6.10); White Blood Cell (WBC) Count 27.3 thou/uL (4.8-10.8)
[2018-08-28 07:31] LABS: ALT (SGPT) 43 U/L (8-55); AST (SGOT) 127 U/L (5-34); Albumin 2.9 g/dL (3.5-5.0); Alkaline Phosphatase 405 U/L (40-150); Anion Gap 20 mmol/L (10-20); BUN (Urea Nitrogen) 65 mg/dL (8.9-20.6); Calc. Creatinine Clearance 22 mL/min (70-130); Carbon Dioxide 22 mmol/L (22-29); Chloride 99 mmol/L (98-107); Estimated GFR-MDRD 12; Globulin 1.6 g/dL (2.4-3.5); Glucose 120 mg/dL (70-105); Potassium 4.2 mmol/L (3.5-5.1); Protein, Total 4.5 g/dL (6.0-8.3); Sodium 137 mmol/L (136-145)
[2018-08-28 07:36] LABS: Band 45 % (5-11); Eosinophils 4 % (0-10); MDiff Complete? YES; Macrocytosis SLIGHT = 6-15 cells (100X) (0-5/hpf); Monocytes 1 % (0-10); Myelocyte 2 % (0-0); Neutrophil 46 % (42-75); Platelet Morphology Comment Appears Decreased; Polychromasia MODERATE = 3-4 cells (100X) (0-2/hpf); Reactive Lymphocytes 2 % (0-10); Target Cells SLIGHT = 2-5 cells (100X) (0-1/hpf)
[2018-08-28 07:44] LABS: Bilirubin, Total 36.1 mg/dL (0.2-1.2)
[2018-08-28] MEDS: oxyCODONE 5 MG TAB PO PRN ×2 (08:18→17:29)
[2018-08-28] MEDS: Rifaximin 550 MG TAB PO SCH ×2 (08:19→21:39)
[2018-08-28] MEDS: Multivit, Therapeutic 1 TAB PO SCH (08:20)
[2018-08-28] MEDS: Midodrine HCl 5 MG TAB PO SCH ×3 (08:20→21:39)
[2018-08-28] MEDS: Saccharomyces boulardii 250 MG CAP PO SCH (08:20)
[2018-08-28] MEDS: Folic Acid 1 MG TAB PO SCH (08:20)
[2018-08-28] MEDS: Phytonadione 10 MG in Sodium Chloride 0.9% 50 ML IVPB SCH (08:53)
--- NOTE | 2018-08-28 09:50 | PDOC.PN ---
- Subjective Encounter Start Date: 08/28/18 Encounter Start Time: 08:50 pt has abdominal distention, he has high ammonia, very weak, no fever - Objective MAR Reviewed: Yes Vital Signs & Weight: Vital Signs (12 hours) Temp Pulse Resp BP Pulse Ox 08/28/18 08:00 97.6 F 89 18 102/70 93 L Weight Admit Weight 194 lb 9.6 oz Weight 187 lb 9.814 oz I&O: 08/27/18 08/28/18 08/29/18 06:59 06:59 06:59 Intake Total 860 1245 Balance 860 1245 Result Diagrams: 08/28/18 06:20 08/28/18 06:20 Phys Exam - Physical Examination Constitutional: NAD HEENT: PERRLA, moist MMs deep icterus+ Neck: no JVD, supple Respiratory: no wheezing, no rales, no rhonchi Cardiovascular: RRR, no significant murmur, no rub Gastrointestinal: positive bowel sounds ascites+, erythema abdominal wall, Musculoskeletal: pulses present, edema present Neurological: non-focal, normal sensation, moves all 4 limbs Lymphatic: no nodes Psychiatric: normal affect Skin: no rash, normal turgor Dx/Plan (1) Abnormal LFTs Code(s): R94.5 - ABNORMAL RESULTS OF LIVER FUNCTION STUDIES Status: Acute Comment: secondary to alcohol abuse, alcoholic hepatitis (2) Acute kidney failure Status: Acute Comment: now started on HD (3) Alcoholic hepatitis with ascites Code(s): K70.11 - ALCOHOLIC HEPATITIS WITH ASCITES Status: Acute (4) Hepatorenal syndrome Code(s): K76.7 - HEPATORENAL SYNDROME Status: Acute (5) Leukemoid reaction Code(s): D72.823 - LEUKEMOID REACTION Status: Acute Comment: (6) SBP (spontaneous bacterial peritonitis) Code(s): K65.2 - SPONTANEOUS BACTERIAL PERITONITIS Status: Acute Comment: (7) Alcoholic cirrhosis of liver with ascites Code(s): K70.31 - ALCOHOLIC CIRRHOSIS OF LIVER WITH ASCITES Status: Chronic (8) Coagulopathy Status: Chronic (9) Macrocytic anemia Code(s): D53.9 - NUTRITIONAL ANEMIA, UNSPECIFIED Status: Chronic (10) Alcohol withdrawal Code(s): F10.239 - ALCOHOL DEPENDENCE WITH WITHDRAWAL, UNSPECIFIED Status: Resolved Qualifiers: Complication of substance-induced condition: with unspecified complication Qualified Code(s): F10.239 - Alcohol dependence with withdrawal, unspecified (11) Hepatic encephalopathy Code(s): K72.90 - HEPATIC FAILURE, UNSPECIFIED WITHOUT COMA Status: Acute - Plan cont current plan of care, continue antibiotics * today will dialysis holiday as per nephrology * will add lactulose 30 gm po tid * continue rocephin * continue octreotide * medication reviewed as below * symptomatic treatment * prognosis is very poor * further plan will defer to GI and nephrology * add rifaximine. Review of Systems - Review of Systems ENT: negative: Ear Pain, Ear Discharge, Nose Pain, Nose Discharge, Nose Congestion, Mouth Pain, Mouth Swelling, Throat Pain, Throat Swelling, Other Respiratory: negative: Cough, Dry, Shortness of Breath, Hemoptysis, SOB with Excertion, Pleuritic Pain, Sputum, Wheezing Cardiovascular: negative: chest pain, palpitations, orthopnea, paroxysmal nocturnal dyspnea, edema, light headedness, other Gastrointestinal: Abdominal Pain. negative: Nausea, Vomiting, Diarrhea, Constipation, Melena, Hematochezia, Other Genitourinary: negative: Dysuria, Frequency, Incontinence, Hematuria, Retention , Other Musculoskeletal: negative: Neck Pain, Shoulder Pain, Arm Pain, Back Pain, Hand Pain, Leg Pain, Foot Pain, Other - Medications/Allergies Allergies/Adverse Reactions: Allergies Allergy/AdvReac Type Severity Reaction Status Date / Time No Known Allergies Allergy Verified 07/29/18 03:02 Medications: Current Medications Acetaminophen (Tylenol) 500 mg PO Q6H PRN PRN Reason: Moderate to Severe Pain (6-10) Al Hydroxide/Mg Hydroxide (Maalox) 30 ml PO Q4H PRN PRN Reason: Heartburn or Indigestion Last Admin: 08/11/18 17:18 Dose: 30 ml Artificial Tears (Tears Naturale) 2 drop EA EYE PRN PRN PRN Reason: Dry Eyes Calcium Carbonate (Tums) 1,000 mg PO Q4H PRN PRN Reason: Heartburn or Indigestion Folic Acid (Folvite) 1 mg PO DAILY [facility] Last Admin: 08/28/18 08:20 Dose: 1 mg Guaifenesin (Robitussin Sf) 200 mg PO Q4H PRN PRN Reason: Cough Hydralazine HCl (Apresoline) 10 mg SLOW IVP Q4H PRN PRN Reason: SBP > 180 and HR < 70 Hydroxyzine HCl (Atarax) 10 mg PO TIDPRN PRN PRN Reason: PRURITIS/ITCH AND HIVES Last Admin: 08/26/18 21:53 Dose: 10 mg Octreotide Acetate 1,250 mcg/ (Sodium Chloride) 251.25 mls @ 10.05 mls/hr IVPB INF [facility] Last Admin: 08/27/18 20:51 Dose: 251.25 mls Ceftriaxone Sodium 2 gm/ (Sodium Chloride) 100 mls @ 200 mls/hr IVPB 1300 [facility] Last Admin: 08/27/18 14:02 Dose: 100 mls Lactulose (Lactulose) 30 gm PO TID [facility] Last Admin: 08/28/18 08:20 Dose: 30 gm Midodrine (Proamatine) 10 mg PO TID [facility] Last Admin: 08/28/18 08:20 Dose: 10 mg Mineral Oil/White Petrolatum (Eucerin Cream) 0 gm TOP BIDPRN PRN PRN Reason: Dry Skin Morphine Sulfate (Morphine) 2 mg SLOW IVP Q4H PRN PRN Reason: Moderate to Severe Pain (6-10) Multivitamins (Theragran) 1 tab PO DAILY [facility] Last Admin: 08/28/18 08:20 Dose: 1 tab Hold Vancomycin For (Level >20) 0 each FS .AT DIALYSIS [facility] Read Ppd Test Site 0 each PO 1700 [facility] Stop: 08/29/18 17:01 Ondansetron HCl (Zofran) 4 mg IVP Q6H PRN PRN Reason: Nausea/Vomiting Last Admin: 08/13/18 11:55 Dose: 4 mg Ondansetron HCl (Zofran Odt) 4 mg PO Q6H PRN PRN Reason: Nausea/Vomiting Oxycodone HCl (Oxycodone Ir) 2.5 mg PO Q4H PRN PRN Reason: Moderate Pain (4-6) Oxycodone HCl (Oxycodone Ir) 5 mg PO Q4H PRN PRN Reason: Severe Pain (7-10) Last Admin: 08/28/18 08:18 Dose: 5 mg Pantoprazole Sodium (Protonix) 40 mg PO DAILY [facility] Last Admin: 08/28/18 08:20 Dose: 40 mg Rifaximin (Xifaxan) 550 mg PO BID [facility] Last Admin: 08/28/18 08:19 Dose: 550 mg Saccharomyces Boulardii (Florastor) 250 mg PO DAILY [facility] Last Admin: 08/28/18 08:20 Dose: 250 mg Sodium Chloride (Flush - Normal Saline) 10 ml IVF Q12HR [facility] Last Admin: 08/28/18 08:20 Dose: 10 ml Sodium Chloride (Flush - Normal Saline) 10 ml IVF PRN PRN PRN Reason: Saline Flush Last Admin: 08/22/18 02:46 Dose: 10 ml Sodium Chloride ([place] Nasal [place] 0.65%) 0 ml EA NARE QIDPRN PRN PRN Reason: Nasal Congestion Thiamine HCl (Thiamine) 100 mg PO DAILY [facility] Last Admin: 08/28/18 08:20 Dose: 100 mg Throat Lozenges (Cepastat Lozenges) 1 armando PO Q2H PRN PRN Reason: Sore Throat Tramadol HCl (Ultram) 50 mg PO Q4H PRN PRN Reason: Mild Pain (1-3) Last Admin: 08/26/18 15:47 Dose: 50 mg
[2018-08-28] MEDS: cefTRIAXone\\ROCEPHIN 2 GM in Sodium Chloride 0.9% 100 ML IVPB SCH (13:49)
--- NOTE | 2018-08-28 15:59 | PRG ---
DATE OF SERVICE: 08/28/2018 SUBJECTIVE: Mr. Deleon is resting, but he has eaten some today without complaints. Medication list is reviewed. He has been started on lactulose t.i.d. His doxycycline has been discontinued. OBJECTIVE: VITAL SIGNS: Temperature 97, pulse 89, blood pressure 96/53. GENERAL: He is little sleepy, but arousable. He is alert and oriented. HEENT: He is grossly icteric and jaundiced. He has gotten some subepithelial bruising, ecchymoses in the abdomen at previous trocar and liver biopsy sites. There is no overt rash at this time. EXTREMITIES: Reveal edema. LABORATORY DATA: White count 27, hemoglobin 11.6, platelet count 59,000, and 45% bands. INR is 2.1. Sodium 137, potassium 4.2, BUN and creatinine 65 and 5.2, chloride 99, bicarb 22, glucose 120, bilirubin 36, AST 127, ALT 43, alkaline phosphatase 405, ammonia 97, albumin 2.9, protein 4.5. ASSESSMENT: 1. Subfulminant hepatic failure from alcohol abuse, alcoholic hepatitis. 2. Spontaneous bacterial peritonitis by paracentesis versus elevated white blood cell count in the peritoneal fluid from leukemoid reaction per Dr. Nava. 3. Skin rash. Dr. Nava also felt it is related to vancomycin and is going to stop the vancomycin and doxycycline. 4. Acute renal failure, predominantly secondary to hepatorenal syndrome. 5. We will continue present course. 6. The nurses informed me that primary hospice is going to update family and . 7. I offered to case workers and nursing staff, they want to set up family meeting to participate in that and let me to know when they would like to do that. For now, we will continue full support. Job ID: [id number]
[2018-08-28] MEDS: READ PPD TEST SITE PO SCH (17:00)
--- NOTE | 2018-08-28 18:59 | PRG ---
DATE OF SERVICE: 08/28/2018 SUBJECTIVE: Patient was seen and examined at bedside and overnight events noted. Patient denies any shortness of breath or chest pain or palpitation. No history of nausea or vomiting or diarrhea or fever or chills or cramps. OBJECTIVE: GENERAL: This is a well-built male, in no apparent distress. VITAL SIGNS: Temperature respiratory rate 18. Blood pressure 96/53. HEENT: Atraumatic, normocephalic. Oral mucosa is moist NECK: Supple. CARDIOVASCULAR: S1, S2 heard. Rate and rhythm regular. RESPIRATORY: Clear to auscultation. GASTROINTESTINAL: Abdomen is soft. MUSCULOSKELETAL: No tenderness. No edema. DERMATOLOGIC: No skin rash. NEUROLOGIC: Alert and awake and oriented X3. No focal neurologic deficits. Moving all the extremities. PSYCHIATRIC: Mood and affect normal. LABORATORY DATA: Potassium is 4.2, BUN is 65, and creatinine is 5.2. ASSESSMENT AND PLAN: 1. Acute kidney injury on chronic kidney disease, stage 4, with dialysis dependence, secondary to hepatorenal syndrome. The patient is a poor candidate for dialysis, but we will continue dialysis as tolerated. The patient remains hypotensive. 2. Hypotension cirrhosis. 3. Hepatorenal syndrome. 4. Anemia. 5. Hyponatremia. 6. Metabolic acidosis. We will continue dialysis as tolerated. No acute indication for dialysis today. Limit fluid intake. Job ID: [id number]
[2018-08-29] MEDS: Octreotide Acetate 1,250 MCG in Sodium Chloride 0.9% 250 ML 250 ML IVPB SCH (00:08)
[2018-08-29 06:50] LABS: Mean Corpuscular HGB CONC 32.1 g/dL (32.0-36.0); Mean Corpuscular Hemoglobin 33.3 pg (27.0-31.0); Mean Platelet Volume 10.5 fL (7.4-10.4); Platelet Count 70 thou/uL (130-400); RBC Distribution Width 16.5 % (11.5-14.5); White Blood Cell (WBC) Count 30.2 thou/uL (4.8-10.8)
[2018-08-29 07:29] LABS: ALT (SGPT) 46 U/L (8-55); AST (SGOT) 131 U/L (5-34); Albumin 2.9 g/dL (3.5-5.0); Alkaline Phosphatase 455 U/L (40-150); Anion Gap 24 mmol/L (10-20); BUN (Urea Nitrogen) 77 mg/dL (8.9-20.6); Calc. Creatinine Clearance 18 mL/min (70-130); Calcium 9.3 mg/dL (7.8-10.44); Carbon Dioxide 18 mmol/L (22-29); Chloride 100 mmol/L (98-107); Estimated GFR-MDRD 9; Globulin 1.8 g/dL (2.4-3.5); Glucose 110 mg/dL (70-105); Potassium 4.1 mmol/L (3.5-5.1); Protein, Total 4.7 g/dL (6.0-8.3); Sodium 138 mmol/L (136-145)
[2018-08-29 07:43] LABS: Band 38 % (5-11); Eosinophils 1 % (0-10); Lymphocytes 2 % (21-51); MDiff Complete? YES; Macrocytosis SLIGHT = 6-15 cells (100X) (0-5/hpf); Monocytes 1 % (0-10); Neutrophil 56 % (42-75); Platelet Morphology Comment Appears Decreased; Polychromasia SLIGHT = 2-3 cells (100X) (0-2/hpf); Reactive Lymphocytes 2 % (0-10); Toxic Granulation SLIGHT; Vacuoles SLIGHT
[2018-08-29] MEDS: Midodrine HCl 5 MG TAB PO SCH ×3 (07:51→20:12)
[2018-08-29] MEDS: Multivit, Therapeutic 1 TAB PO SCH (07:51)
[2018-08-29] MEDS: Saccharomyces boulardii 250 MG CAP PO SCH (07:52)
[2018-08-29] MEDS: Folic Acid 1 MG TAB PO SCH (07:52)
[2018-08-29] MEDS: Rifaximin 550 MG TAB PO SCH ×2 (07:52→20:12)
[2018-08-29 08:31] LABS: HBSAB Concentration 2.66 mIU/mL; HBSAg Index 0.18 S/CO (0-0.99); Hep B Core Total Ab Non-Reactive (NonReactive); Hep B Core Total Index 0.05 S/CO (0-0.79); Hep B Surf AB Non-Reactive (NonReactive); Hep B Surf Ag Non-Reactive S/CO (NonReactive); Hep C IgG Ab Non-Reactive (NonReactive); Hep C Index 0.03 S/CO (0-0.79)
--- NOTE | 2018-08-29 10:39 | PDOC.PN ---
- Subjective Encounter Start Date: 08/29/18 Encounter Start Time: 08:00 last night pt fell and did not have any injury, he is more weak, more yellow, his abdomen is more distended, his maculopapular rash is resolving, overall appears mild worse - Objective MAR Reviewed: Yes Vital Signs & Weight: Vital Signs (12 hours) Temp Pulse Resp BP BP Pulse Ox 08/29/18 07:50 87/58 L 08/29/18 07:13 97.4 F L 76 18 82/54 L 93 L Weight Admit Weight 194 lb 9.6 oz Weight 187 lb 13.341 oz I&O: 08/28/18 08/29/18 08/30/18 06:59 06:59 06:59 Intake Total 1245 1390 Balance 1245 1390 Result Diagrams: 08/29/18 06:45 08/29/18 03:30 Phys Exam - Physical Examination Constitutional: NAD weak HEENT: PERRLA, moist MMs deep icterus+ Neck: no JVD, supple Respiratory: no wheezing, no rales, no rhonchi Cardiovascular: RRR, no significant murmur, no rub tense ascites, rash over abdomen Musculoskeletal: pulses present, edema present Neurological: moves all 4 limbs asterexis+ Lymphatic: no nodes Psychiatric: normal affect Skin: normal turgor Deviation from normal: diffuse maculopapular rash noted Dx/Plan (1) Hepatic encephalopathy Code(s): K72.90 - HEPATIC FAILURE, UNSPECIFIED WITHOUT COMA Status: Acute (2) Alcoholic hepatitis with ascites Code(s): K70.11 - ALCOHOLIC HEPATITIS WITH ASCITES Status: Acute (3) Acute kidney failure Status: Acute Comment: now started on HD (4) Hepatorenal syndrome Code(s): K76.7 - HEPATORENAL SYNDROME Status: Acute (5) Abnormal LFTs Code(s): R94.5 - ABNORMAL RESULTS OF LIVER FUNCTION STUDIES Status: Acute Comment: secondary to alcohol abuse, alcoholic hepatitis (6) Leukemoid reaction Code(s): D72.823 - LEUKEMOID REACTION Status: Acute Comment: (7) SBP (spontaneous bacterial peritonitis) Code(s): K65.2 - SPONTANEOUS BACTERIAL PERITONITIS Status: Acute Comment: (8) Alcoholic cirrhosis of liver with ascites Code(s): K70.31 - ALCOHOLIC CIRRHOSIS OF LIVER WITH ASCITES Status: Chronic (9) Coagulopathy Status: Chronic (10) Macrocytic anemia Code(s): D53.9 - NUTRITIONAL ANEMIA, UNSPECIFIED Status: Chronic (11) Alcohol withdrawal Code(s): F10.239 - ALCOHOL DEPENDENCE WITH WITHDRAWAL, UNSPECIFIED Status: Resolved Qualifiers: Complication of substance-induced condition: with unspecified complication Qualified Code(s): F10.239 - Alcohol dependence with withdrawal, unspecified - Plan cont current plan of care, 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 Review of Systems - Review of Systems Constitutional: weakness, malaise. negative: fever, chills, sweats, other ENT: negative: Ear Pain, Ear Discharge, Nose Pain, Nose Discharge, Nose Congestion, Mouth Pain, Mouth Swelling, Throat Pain, Throat Swelling, Other Respiratory: negative: Cough, Dry, Shortness of Breath, Hemoptysis, SOB with Excertion, Pleuritic Pain, Sputum, Wheezing Cardiovascular: negative: chest pain, palpitations, orthopnea, paroxysmal nocturnal dyspnea, edema, light headedness, other Gastrointestinal: Abdominal Pain. negative: Nausea, Vomiting, Diarrhea, Constipation, Melena, Hematochezia, Other Genitourinary: negative: Dysuria, Frequency, Incontinence, Hematuria, Retention , Other Musculoskeletal: negative: Neck Pain, Shoulder Pain, Arm Pain, Back Pain, Hand Pain, Leg Pain, Foot Pain, Other - Medications/Allergies Allergies/Adverse Reactions: Allergies Allergy/AdvReac Type Severity Reaction Status Date / Time No Known Allergies Allergy Verified 07/29/18 03:02 Medications: Current Medications Acetaminophen (Tylenol) 500 mg PO Q6H PRN PRN Reason: Moderate to Severe Pain (6-10) Al Hydroxide/Mg Hydroxide (Maalox) 30 ml PO Q4H PRN PRN Reason: Heartburn or Indigestion Last Admin: 08/11/18 17:18 Dose: 30 ml Artificial Tears (Tears Naturale) 2 drop EA EYE PRN PRN PRN Reason: Dry Eyes Calcium Carbonate (Tums) 1,000 mg PO Q4H PRN PRN Reason: Heartburn or Indigestion Folic Acid (Folvite) 1 mg PO DAILY [facility] Last Admin: 08/29/18 07:52 Dose: 1 mg Guaifenesin (Robitussin Sf) 200 mg PO Q4H PRN PRN Reason: Cough Hydralazine HCl (Apresoline) 10 mg SLOW IVP Q4H PRN PRN Reason: SBP > 180 and HR < 70 Hydroxyzine HCl (Atarax) 10 mg PO TIDPRN PRN PRN Reason: PRURITIS/ITCH AND HIVES Last Admin: 08/26/18 21:53 Dose: 10 mg Octreotide Acetate 1,250 mcg/ (Sodium Chloride) 251.25 mls @ 10.05 mls/hr IVPB INF [facility] Last Admin: 08/29/18 00:08 Dose: 251.25 mls Ceftriaxone Sodium 2 gm/ (Sodium Chloride) 100 mls @ 200 mls/hr IVPB 1300 [facility] Last Admin: 08/28/18 13:49 Dose: 100 mls Lactulose (Lactulose) 30 gm PO TID [facility] Last Admin: 08/29/18 07:59 Dose: 30 gm Midodrine (Proamatine) 10 mg PO TID [facility] Last Admin: 08/29/18 07:51 Dose: 10 mg Mineral Oil/White Petrolatum (Eucerin Cream) 0 gm TOP BIDPRN PRN PRN Reason: Dry Skin Morphine Sulfate (Morphine) 2 mg SLOW IVP Q4H PRN PRN Reason: Moderate to Severe Pain (6-10) Multivitamins (Theragran) 1 tab PO DAILY [facility] Last Admin: 08/29/18 07:51 Dose: 1 tab Hold Vancomycin For (Level >20) 0 each FS .AT DIALYSIS [facility] Read Ppd Test Site 0 each PO 1700 [facility] Stop: 08/29/18 17:01 Ondansetron HCl (Zofran) 4 mg IVP Q6H PRN PRN Reason: Nausea/Vomiting Last Admin: 08/13/18 11:55 Dose: 4 mg Ondansetron HCl (Zofran Odt) 4 mg PO Q6H PRN PRN Reason: Nausea/Vomiting Oxycodone HCl (Oxycodone Ir) 2.5 mg PO Q4H PRN PRN Reason: Moderate Pain (4-6) Oxycodone HCl (Oxycodone Ir) 5 mg PO Q4H PRN PRN Reason: Severe Pain (7-10) Last Admin: 08/28/18 17:29 Dose: 5 mg Pantoprazole Sodium (Protonix) 40 mg PO DAILY [facility] Last Admin: 08/29/18 07:52 Dose: 40 mg Rifaximin (Xifaxan) 550 mg PO BID [facility] Last Admin: 08/29/18 07:52 Dose: 550 mg Saccharomyces Boulardii (Florastor) 250 mg PO DAILY [facility] Last Admin: 08/29/18 07:52 Dose: 250 mg Sodium Chloride (Flush - Normal Saline) 10 ml IVF Q12HR [facility] Last Admin: 08/29/18 07:52 Dose: 10 ml Sodium Chloride (Flush - Normal Saline) 10 ml IVF PRN PRN PRN Reason: Saline Flush Last Admin: 08/22/18 02:46 Dose: 10 ml Sodium Chloride ([place] Nasal [place] 0.65%) 0 ml EA NARE QIDPRN PRN PRN Reason: Nasal Congestion Thiamine HCl (Thiamine) 100 mg PO DAILY [facility] Last Admin: 08/29/18 07:52 Dose: 100 mg Throat Lozenges (Cepastat Lozenges) 1 armando PO Q2H PRN PRN Reason: Sore Throat Tramadol HCl (Ultram) 50 mg PO Q4H PRN PRN Reason: Mild Pain (1-3) Last Admin: 08/26/18 15:47 Dose: 50 mg
[2018-08-29] MEDS ORDERED: Heparin 1,000 UNITS/ML VIAL ONE (11:11)
[2018-08-29] MEDS: cefTRIAXone\\ROCEPHIN 2 GM in Sodium Chloride 0.9% 100 ML IVPB SCH (13:41)
[2018-08-29] MEDS: Albumin 25% 25 GM/100 ML BOT IVPB SCH ×3 (15:34→19:08)
--- NOTE | 2018-08-29 16:07 | PRG ---
DATE OF SERVICE: 08/29/2018 SUBJECTIVE: Patient was seen and examined at bedside and overnight events noted. Patient denies any shortness of breath or chest pain or palpitation. No history of nausea or vomiting or diarrhea or fever or chills or cramps. OBJECTIVE: GENERAL: This is a well-built male, in no acute distress. VITAL SIGNS: Temperature 97.1, pulse 79, respiratory rate 18, blood pressure 81/55. HEENT: Atraumatic, normocephalic. Oral mucosa is moist NECK: Supple. CARDIOVASCULAR: S1, S2 heard. Rate and rhythm regular. RESPIRATORY: Clear to auscultation. GASTROINTESTINAL: Abdomen is soft. MUSCULOSKELETAL: No tenderness. No edema. DERMATOLOGIC: No skin rash. NEUROLOGIC: Alert and awake and oriented X3. No focal neurologic deficits. Moving all the extremities. PSYCHIATRIC: Mood and affect normal. LABORATORY DATA: Potassium is 4.1, BUN is 77, and creatinine is 6.5. ASSESSMENT AND PLAN: 1. Acute kidney injury on chronic kidney disease, stage 4, dialysis dependent, secondary to hepatorenal syndrome. We will continue on dialysis. The patient remains a poor candidate for dialysis given hypotension. 2. Hypotension, complicated by dialysis. 3. Hepatorenal syndrome with history of cirrhosis and anemia. 4. Hyponatremia, stable. The patient remains high risk for dialysis. We will continue on dialysis as tolerated. Job ID: [id number]
[2018-08-29] MEDS: READ PPD TEST SITE PO SCH (20:13)
[2018-08-30] MEDS: Rifaximin 550 MG TAB PO SCH ×2 (09:11→20:56)
[2018-08-30] MEDS: Folic Acid 1 MG TAB PO SCH (09:11)
[2018-08-30] MEDS: Multivit, Therapeutic 1 TAB PO SCH (09:11)
[2018-08-30] MEDS: Saccharomyces boulardii 250 MG CAP PO SCH (09:11)
[2018-08-30] MEDS: Midodrine HCl 5 MG TAB PO SCH ×3 (09:12→21:04)
--- NOTE | 2018-08-30 11:05 | PDOC.PN ---
- Subjective Encounter Start Date: 08/30/18 Encounter Start Time: 08:10 Patient seen and examined. No new complaints. No overnight events - Objective MAR Reviewed: Yes Vital Signs & Weight: Vital Signs (12 hours) Temp Pulse Resp BP Pulse Ox 08/30/18 07:54 97.8 F 84 20 94/58 L 92 L 08/30/18 04:00 98.2 F 87 20 97/59 L 93 L 08/30/18 00:00 98.2 F 96 20 91/51 L 97 Weight Admit Weight 194 lb 9.6 oz Weight 186 lb 9 oz I&O: 08/29/18 08/30/18 08/31/18 06:59 06:59 06:59 Intake Total 1390 1130 Balance 1390 1130 Result Diagrams: 08/29/18 06:45 08/29/18 03:30 Phys Exam - Physical Examination Constitutional: NAD HEENT: PERRLA, moist MMs icterus+ Neck: no JVD, supple Respiratory: no wheezing, no rales, no rhonchi Cardiovascular: RRR, no significant murmur, no rub Gastrointestinal: positive bowel sounds ascites+ tender Musculoskeletal: pulses present, edema present Neurological: non-focal, normal sensation Lymphatic: no nodes Psychiatric: normal affect, A&O x 3 Skin: no rash, normal turgor Dx/Plan (1) Hepatic encephalopathy Code(s): K72.90 - HEPATIC FAILURE, UNSPECIFIED WITHOUT COMA Status: Acute (2) Alcoholic hepatitis with ascites Code(s): K70.11 - ALCOHOLIC HEPATITIS WITH ASCITES Status: Acute (3) Acute kidney failure Status: Acute Comment: now started on HD (4) Hepatorenal syndrome Code(s): K76.7 - HEPATORENAL SYNDROME Status: Acute (5) Abnormal LFTs Code(s): R94.5 - ABNORMAL RESULTS OF LIVER FUNCTION STUDIES Status: Acute Comment: secondary to alcohol abuse, alcoholic hepatitis (6) Leukemoid reaction Code(s): D72.823 - LEUKEMOID REACTION Status: Acute Comment: (7) SBP (spontaneous bacterial peritonitis) Code(s): K65.2 - SPONTANEOUS BACTERIAL PERITONITIS Status: Acute Comment: (8) Alcoholic cirrhosis of liver with ascites Code(s): K70.31 - ALCOHOLIC CIRRHOSIS OF LIVER WITH ASCITES Status: Chronic (9) Coagulopathy Status: Chronic (10) Macrocytic anemia Code(s): D53.9 - NUTRITIONAL ANEMIA, UNSPECIFIED Status: Chronic (11) Alcohol withdrawal Code(s): F10.239 - ALCOHOL DEPENDENCE WITH WITHDRAWAL, UNSPECIFIED Status: Resolved Qualifiers: Complication of substance-induced condition: with unspecified complication Qualified Code(s): F10.239 - Alcohol dependence with withdrawal, unspecified - Plan cont current plan of care, 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 Review of Systems - Review of Systems Eyes: negative: Pain, Vision Change, Conjunctivae Inflammation, Eyelid Inflammation, Redness, Other ENT: negative: Ear Pain, Ear Discharge, Nose Pain, Nose Discharge, Nose Congestion, Mouth Pain, Mouth Swelling, Throat Pain, Throat Swelling, Other Respiratory: negative: Cough, Dry, Shortness of Breath, Hemoptysis, SOB with Excertion, Pleuritic Pain, Sputum, Wheezing Cardiovascular: negative: chest pain, palpitations, orthopnea, paroxysmal nocturnal dyspnea, edema, light headedness, other Gastrointestinal: Abdominal Pain. negative: Nausea, Vomiting, Diarrhea, Constipation, Melena, Hematochezia, Other Genitourinary: negative: Dysuria, Frequency, Incontinence, Hematuria, Retention , Other Musculoskeletal: negative: Neck Pain, Shoulder Pain, Arm Pain, Back Pain, Hand Pain, Leg Pain, Foot Pain, Other Skin: Rash. negative: Lesions, Joel, Bruising, Other - Medications/Allergies Allergies/Adverse Reactions: Allergies Allergy/AdvReac Type Severity Reaction Status Date / Time No Known Allergies Allergy Verified 07/29/18 03:02 Medications: Current Medications Acetaminophen (Tylenol) 500 mg PO Q6H PRN PRN Reason: Moderate to Severe Pain (6-10) Al Hydroxide/Mg Hydroxide (Maalox) 30 ml PO Q4H PRN PRN Reason: Heartburn or Indigestion Last Admin: 08/11/18 17:18 Dose: 30 ml Artificial Tears (Tears Naturale) 2 drop EA EYE PRN PRN PRN Reason: Dry Eyes Calcium Carbonate (Tums) 1,000 mg PO Q4H PRN PRN Reason: Heartburn or Indigestion Folic Acid (Folvite) 1 mg PO DAILY [facility] Last Admin: 08/30/18 09:11 Dose: 1 mg Guaifenesin (Robitussin Sf) 200 mg PO Q4H PRN PRN Reason: Cough Hydralazine HCl (Apresoline) 10 mg SLOW IVP Q4H PRN PRN Reason: SBP > 180 and HR < 70 Hydroxyzine HCl (Atarax) 10 mg PO TIDPRN PRN PRN Reason: PRURITIS/ITCH AND HIVES Last Admin: 08/26/18 21:53 Dose: 10 mg Ceftriaxone Sodium 2 gm/ (Sodium Chloride) 100 mls @ 200 mls/hr IVPB 1300 [facility] Last Admin: 08/29/18 13:41 Dose: 100 mls Lactulose (Lactulose) 30 gm PO TID [facility] Last Admin: 08/30/18 09:11 Dose: 30 gm Midodrine (Proamatine) 10 mg PO TID [facility] Last Admin: 08/30/18 09:12 Dose: 10 mg Mineral Oil/White Petrolatum (Eucerin Cream) 0 gm TOP BIDPRN PRN PRN Reason: Dry Skin Morphine Sulfate (Morphine) 2 mg SLOW IVP Q4H PRN PRN Reason: Moderate to Severe Pain (6-10) Multivitamins (Theragran) 1 tab PO DAILY [facility] Last Admin: 08/30/18 09:11 Dose: 1 tab Hold Vancomycin For (Level >20) 0 each FS .AT DIALYSIS [facility] Ondansetron HCl (Zofran) 4 mg IVP Q6H PRN PRN Reason: Nausea/Vomiting Last Admin: 08/13/18 11:55 Dose: 4 mg Ondansetron HCl (Zofran Odt) 4 mg PO Q6H PRN PRN Reason: Nausea/Vomiting Oxycodone HCl (Oxycodone Ir) 2.5 mg PO Q4H PRN PRN Reason: Moderate Pain (4-6) Oxycodone HCl (Oxycodone Ir) 5 mg PO Q4H PRN PRN Reason: Severe Pain (7-10) Last Admin: 08/28/18 17:29 Dose: 5 mg Pantoprazole Sodium (Protonix) 40 mg PO DAILY [facility] Last Admin: 08/30/18 09:11 Dose: 40 mg Rifaximin (Xifaxan) 550 mg PO BID [facility] Last Admin: 08/30/18 09:11 Dose: 550 mg Saccharomyces Boulardii (Florastor) 250 mg PO DAILY [facility] Last Admin: 08/30/18 09:11 Dose: 250 mg Sodium Chloride (Flush - Normal Saline) 10 ml IVF Q12HR [facility] Last Admin: 08/30/18 09:12 Dose: 10 ml Sodium Chloride (Flush - Normal Saline) 10 ml IVF PRN PRN PRN Reason: Saline Flush Last Admin: 08/22/18 02:46 Dose: 10 ml Sodium Chloride ([place] Nasal [place] 0.65%) 0 ml EA NARE QIDPRN PRN PRN Reason: Nasal Congestion Thiamine HCl (Thiamine) 100 mg PO DAILY [facility] Last Admin: 08/30/18 09:11 Dose: 100 mg Throat Lozenges (Cepastat Lozenges) 1 armando PO Q2H PRN PRN Reason: Sore Throat Tramadol HCl (Ultram) 50 mg PO Q4H PRN PRN Reason: Mild Pain (1-3) Last Admin: 08/26/18 15:47 Dose: 50 mg
[2018-08-30] MEDS: cefTRIAXone\\ROCEPHIN 2 GM in Sodium Chloride 0.9% 100 ML IVPB SCH (12:55)
--- NOTE | 2018-08-30 20:41 | PRG ---
DATE OF SERVICE: 08/30/2018 SUBJECTIVE: Patient was seen and examined at bedside and overnight events noted. Patient denies any shortness of breath or chest pain or palpitation. No history of nausea or vomiting or diarrhea or fever or chills or cramps. OBJECTIVE: GENERAL: This is a well-built male, in no acute distress. VITAL SIGNS: Temperature 99, pulse 79, respiratory rate 18, blood pressure 92/53. HEENT: Atraumatic and normocephalic. Oral mucosa is moist NECK: Supple. CARDIOVASCULAR: S1 and S2 heard. Rate and rhythm regular. RESPIRATORY: Clear to auscultation. GASTROINTESTINAL: Abdomen is soft. MUSCULOSKELETAL: No tenderness. No edema. DERMATOLOGIC: No skin rash. NEUROLOGIC: Alert and awake and oriented X3. No focal neurologic deficits. Moving all the extremities. PSYCHIATRIC: Mood and affect normal. LABORATORY DATA: No labs. ASSESSMENT AND PLAN: 1. Acute kidney injury on chronic kidney disease, stage 5, dialysis dependent, secondary to hepatorenal syndrome. The patient remains high risk for dialysis and he is not able to tolerate his dialysis because of hypotension. 2. Hypotension, complicating by dialysis. 3. Hepatorenal syndrome. 4. History of cirrhosis. 5. Anemia. 6. Hyponatremia. 7. Edema. 8. Not able to have ultrafiltration. 9. We will continue dialysis as tolerated. The patient is at high risk for complication during dialysis. Job ID: [id number]
[2018-08-31] MEDS: Saccharomyces boulardii 250 MG CAP PO SCH (08:43)
[2018-08-31] MEDS: Rifaximin 550 MG TAB PO SCH ×2 (08:43→22:12)
[2018-08-31] MEDS: Multivit, Therapeutic 1 TAB PO SCH (08:43)
[2018-08-31] MEDS: Folic Acid 1 MG TAB PO SCH (08:44)
[2018-08-31] MEDS: traMADol HCl 50 MG TAB PO PRN ×2 (08:44→14:41)
[2018-08-31] MEDS: Midodrine HCl 5 MG TAB PO SCH ×3 (08:47→22:12)
--- NOTE | 2018-08-31 09:56 | PDOC.PN ---
- Subjective Encounter Start Date: 08/31/18 Encounter Start Time: 08:00 Patient seen and examined. No new complaints. No overnight events - Objective MAR Reviewed: Yes Vital Signs & Weight: Vital Signs (12 hours) Temp Pulse Resp BP BP Pulse Ox 08/31/18 08:22 97.7 F 78 18 92/59 L 92 L 08/31/18 03:50 92/58 L 08/30/18 23:46 92/52 L Weight Admit Weight 194 lb 9.6 oz Weight 188 lb 11.451 oz I&O: 08/30/18 08/31/18 09/01/18 06:59 06:59 06:59 Intake Total 1130 250 Balance 1130 250 Result Diagrams: 08/29/18 06:45 08/29/18 03:30 Phys Exam - Physical Examination Constitutional: NAD HEENT: PERRLA, moist MMs icterus+ Neck: no JVD, supple Respiratory: no wheezing, no rales, no rhonchi reduced air entry at base Cardiovascular: RRR, no significant murmur, no rub Gastrointestinal: positive bowel sounds ascites+ Musculoskeletal: pulses present, edema present Neurological: non-focal, normal sensation Lymphatic: no nodes Psychiatric: normal affect Skin: normal turgor Deviation from normal: rash improving Dx/Plan (1) Hepatic encephalopathy Code(s): K72.90 - HEPATIC FAILURE, UNSPECIFIED WITHOUT COMA Status: Acute (2) Alcoholic hepatitis with ascites Code(s): K70.11 - ALCOHOLIC HEPATITIS WITH ASCITES Status: Acute (3) Acute kidney failure Status: Acute Comment: now started on HD (4) Hepatorenal syndrome Code(s): K76.7 - HEPATORENAL SYNDROME Status: Acute (5) Abnormal LFTs Code(s): R94.5 - ABNORMAL RESULTS OF LIVER FUNCTION STUDIES Status: Acute Comment: secondary to alcohol abuse, alcoholic hepatitis (6) Leukemoid reaction Code(s): D72.823 - LEUKEMOID REACTION Status: Acute Comment: (7) SBP (spontaneous bacterial peritonitis) Code(s): K65.2 - SPONTANEOUS BACTERIAL PERITONITIS Status: Acute Comment: (8) Alcoholic cirrhosis of liver with ascites Code(s): K70.31 - ALCOHOLIC CIRRHOSIS OF LIVER WITH ASCITES Status: Chronic (9) Coagulopathy Status: Chronic (10) Macrocytic anemia Code(s): D53.9 - NUTRITIONAL ANEMIA, UNSPECIFIED Status: Chronic (11) Alcohol withdrawal Code(s): F10.239 - ALCOHOL DEPENDENCE WITH WITHDRAWAL, UNSPECIFIED Status: Resolved Qualifiers: Complication of substance-induced condition: with unspecified complication Qualified Code(s): F10.239 - Alcohol dependence with withdrawal, unspecified - Plan cont current plan of care, continue antibiotics * continue rocephin * HD as per nephrology * once GI clears, then will consider discharge * still await outpt HD arrangement * medication reviewed as below * symptomatic treatment * his prognosis is very poor * his BP remains low but he is asymptomatic * currently on optimum medical therapy for liver and kidney failure * so far our all hard effort for him to transfer to higher level of care for liver transplant has been failed as he has declined for that by most of hospital. Review of Systems - Review of Systems ENT: negative: Ear Pain, Ear Discharge, Nose Pain, Nose Discharge, Nose Congestion, Mouth Pain, Mouth Swelling, Throat Pain, Throat Swelling, Other Respiratory: negative: Cough, Dry, Shortness of Breath, Hemoptysis, SOB with Excertion, Pleuritic Pain, Sputum, Wheezing Cardiovascular: negative: chest pain, palpitations, orthopnea, paroxysmal nocturnal dyspnea, edema, light headedness, other Gastrointestinal: negative: Nausea, Vomiting, Abdominal Pain, Diarrhea, Constipation, Melena, Hematochezia, Other Genitourinary: negative: Dysuria, Frequency, Incontinence, Hematuria, Retention , Other Musculoskeletal: negative: Neck Pain, Shoulder Pain, Arm Pain, Back Pain, Hand Pain, Leg Pain, Foot Pain, Other - Medications/Allergies Allergies/Adverse Reactions: Allergies Allergy/AdvReac Type Severity Reaction Status Date / Time No Known Allergies Allergy Verified 07/29/18 03:02 Medications: Current Medications Acetaminophen (Tylenol) 500 mg PO Q6H PRN PRN Reason: Moderate to Severe Pain (6-10) Al Hydroxide/Mg Hydroxide (Maalox) 30 ml PO Q4H PRN PRN Reason: Heartburn or Indigestion Last Admin: 08/11/18 17:18 Dose: 30 ml Artificial Tears (Tears Naturale) 2 drop EA EYE PRN PRN PRN Reason: Dry Eyes Calcium Carbonate (Tums) 1,000 mg PO Q4H PRN PRN Reason: Heartburn or Indigestion Folic Acid (Folvite) 1 mg PO DAILY [facility] Last Admin: 08/31/18 08:44 Dose: 1 mg Guaifenesin (Robitussin Sf) 200 mg PO Q4H PRN PRN Reason: Cough Hydralazine HCl (Apresoline) 10 mg SLOW IVP Q4H PRN PRN Reason: SBP > 180 and HR < 70 Hydroxyzine HCl (Atarax) 10 mg PO TIDPRN PRN PRN Reason: PRURITIS/ITCH AND HIVES Last Admin: 08/26/18 21:53 Dose: 10 mg Ceftriaxone Sodium 2 gm/ (Sodium Chloride) 100 mls @ 200 mls/hr IVPB 1300 [facility] Last Admin: 08/30/18 12:55 Dose: 100 mls Lactulose (Lactulose) 30 gm PO TID [facility] Last Admin: 08/31/18 08:43 Dose: 30 gm Midodrine (Proamatine) 10 mg PO TID [facility] Last Admin: 08/31/18 08:47 Dose: 10 mg Mineral Oil/White Petrolatum (Eucerin Cream) 0 gm TOP BIDPRN PRN PRN Reason: Dry Skin Morphine Sulfate (Morphine) 2 mg SLOW IVP Q4H PRN PRN Reason: Moderate to Severe Pain (6-10) Multivitamins (Theragran) 1 tab PO DAILY [facility] Last Admin: 08/31/18 08:43 Dose: 1 tab Hold Vancomycin For (Level >20) 0 each FS .AT DIALYSIS [facility] Ondansetron HCl (Zofran) 4 mg IVP Q6H PRN PRN Reason: Nausea/Vomiting Last Admin: 08/13/18 11:55 Dose: 4 mg Ondansetron HCl (Zofran Odt) 4 mg PO Q6H PRN PRN Reason: Nausea/Vomiting Oxycodone HCl (Oxycodone Ir) 2.5 mg PO Q4H PRN PRN Reason: Moderate Pain (4-6) Oxycodone HCl (Oxycodone Ir) 5 mg PO Q4H PRN PRN Reason: Severe Pain (7-10) Last Admin: 08/28/18 17:29 Dose: 5 mg Pantoprazole Sodium (Protonix) 40 mg PO DAILY [facility] Last Admin: 08/31/18 08:44 Dose: 40 mg Rifaximin (Xifaxan) 550 mg PO BID [facility] Last Admin: 08/31/18 08:43 Dose: 550 mg Saccharomyces Boulardii (Florastor) 250 mg PO DAILY [facility] Last Admin: 08/31/18 08:43 Dose: 250 mg Sodium Chloride (Flush - Normal Saline) 10 ml IVF Q12HR [facility] Last Admin: 08/30/18 20:57 Dose: 10 ml Sodium Chloride (Flush - Normal Saline) 10 ml IVF PRN PRN PRN Reason: Saline Flush Last Admin: 08/22/18 02:46 Dose: 10 ml Sodium Chloride ([place] Nasal [place] 0.65%) 0 ml EA NARE QIDPRN PRN PRN Reason: Nasal Congestion Thiamine HCl (Thiamine) 100 mg PO DAILY [facility] Last Admin: 08/31/18 08:43 Dose: 100 mg Throat Lozenges (Cepastat Lozenges) 1 armando PO Q2H PRN PRN Reason: Sore Throat Tramadol HCl (Ultram) 50 mg PO Q4H PRN PRN Reason: Mild Pain (1-3) Last Admin: 08/31/18 08:44 Dose: 50 mg
[2018-08-31] MEDS: cefTRIAXone\\ROCEPHIN 2 GM in Sodium Chloride 0.9% 100 ML IVPB SCH (14:02)
--- NOTE | 2018-08-31 18:52 | PRG ---
DATE OF SERVICE: 08/31/2018 SUBJECTIVE: Patient was seen and examined at bedside and overnight events noted. Patient denies any shortness of breath or chest pain or palpitation. No history of nausea or vomiting or diarrhea or fever or chills or cramps. OBJECTIVE: GENERAL: This is a well-built male, in no apparent distress. VITAL SIGNS: Temperature 97.6, pulse blood pressure 97/61. HEENT: Atraumatic, normocephalic. Oral mucosa is moist NECK: Supple. CARDIOVASCULAR: S1, S2 heard. Rate and rhythm regular. RESPIRATORY: Clear to auscultation. GASTROINTESTINAL: Abdomen is soft. MUSCULOSKELETAL: No tenderness. No edema. DERMATOLOGIC: No skin rash. NEUROLOGIC: Alert and awake and oriented X3. No focal neurologic deficits. Moving all the extremities. PSYCHIATRIC: Mood and affect normal. LABORATORY DATA: Potassium is 4.1, BUN is 77, and creatinine is 6.5. ASSESSMENT AND PLAN: 1. Acute kidney injury on chronic kidney disease stage 5, dialysis dependent. The patient remains high risk for dialysis due to hypotension, offered dialysis today, the patient refused. 2. Edema, getting worse. Advised limit fluid intake. 3. Hypotension. 4. Hepatorenal syndrome. 5. History of cirrhosis. 6. Edema, getting worse. Not able to remove much fluid due to hypotension. Prognosis is very poor, the patient and family are aware. Continue dialysis as tolerated. Continue family discussion. Job ID: [id number]
--- NOTE | 2018-08-31 20:22 | PDOC.EVN ---
Event Note - Event Note Event Note: called by RN for bp 80/50's. discussed with Dr. Garcia - will order 1 time albumin 25 grams.
[2018-08-31] MEDS ORDERED: Albumin 25% 25 GM/100 ML BOT IVPB SCH (20:30)
[2018-09-01 06:43] LABS: INR-International Normal Ratio 1.6; Prothrombin Time 19.2 SEC (12.0-14.7)
[2018-09-01 06:56] LABS: ALT (SGPT) 46 U/L (8-55); AST (SGOT) 112 U/L (5-34); Alkaline Phosphatase 452 U/L (40-150); Anion Gap 25 mmol/L (10-20); BUN (Urea Nitrogen) 61 mg/dL (8.9-20.6); Bilirubin, Total Greater than 25.0 mg/dL (0.2-1.2); Calc. Creatinine Clearance 17 mL/min (70-130); Calcium 9.5 mg/dL (7.8-10.44); Carbon Dioxide 19 mmol/L (22-29); Chloride 103 mmol/L (98-107); Estimated GFR-MDRD 9; Globulin 1.6 g/dL (2.4-3.5); Glucose 102 mg/dL (70-105); Potassium 4.3 mmol/L (3.5-5.1); Protein, Total 4.6 g/dL (6.0-8.3); Sodium 143 mmol/L (136-145)
--- NOTE | 2018-09-01 07:48 | PRG ---
DATE OF SERVICE: SUBJECTIVE: Mr. Deleon is on dialysis. Pressure is in the 70s. He is getting albumin. He is more sleepy today, but his dialysis nurse notes he is typically that way on dialysis. MEDICATIONS: 1. Maalox. 2. Albumin. 3. Tums. 4. Rocephin. 5. Folvite. 6. Apresoline p.r.n. 7. Atarax p.r.n. 8. Midodrine 10 mg p.o. t.i.d. 9. Morphine p.r.n. 10. Multivitamin p.r.n. 11. Octreotide. 12. Zofran p.r.n. 13. Protonix 40 p.o. daily. 14. Rifaximin 550 b.i.d. 15. Lactulose. PHYSICAL EXAMINATION: VITAL SIGNS: Temperature 97, he has been afebrile, pulse is 70, and blood pressure 91/57. HEENT: He is grossly icteric. He is jaundiced. SKIN: He has got excoriations on the upper chest and areas of ecchymoses on the abdominal wall. There is no overt rash at this time. LUNGS: Clear. HEART: Regular rhythm. ABDOMEN: Nontender. EXTREMITIES: There is 3+ edema in the legs. ASSESSMENT AND PLAN: 1. Severe alcoholic hepatitis. Poor prognosis. He failed a trial of IV steroids for 2 weeks with no improvement, this was discontinued. He did not improve with a trial of pentoxifylline as well. Attempts to transfer him to a facility for possible liver transplant evaluation failed as with Medicaid, no one would consider transplant without at least 3 months of sobriety. He has been refused transfers to [facility], [facility], [facility], [facility]. 2. Presently, the case assembler states that they are posting for possible transfer to [facility] again. I asked her why and they said that to see if they will take him. At this point in time, he has been refused at all these facilities based on the fact that he is not a transplant candidate. The only reason to transfer at this time would be for liver transplant evaluation as I am not sure there is much higher level of care that he can get. If nephrology feels that continuos intravenous hemodialysis would be beneficial, they can consider transferring for that as it is not available here. From a hepatic standpoint without transplant, Mr. Deleon likely will not survive. 3. Spontaneous bacterial peritonitis. He has been on antibiotics, Rocephin, for 4 days. He had been on antibiotics prior to that. We would continue treatment for a week, and depending on his condition, next we consider repeat paracentesis to see if there has been improvement. 4. Leukemoid reaction as per Dr. Nava. 5. Coagulopathy, stable. INR of 2.1 yesterday. 6. Encephalopathy. He has been started on lactulose and Xifaxan. 7. Acute renal failure, on dialysis, likely hepatorenal. At this time, I do not see any further role for octreotide and we will discontinue this. I would continue the midodrine to keep his blood pressure up, it may help during dialysis. Job ID: [id number]
[2018-09-01 07:56] LABS: Band 23 % (5-11); Eosinophils 6 % (0-10); Hemoglobin 11.4 g/dL (14.0-18.0); Lymphocytes 4 % (21-51); MDiff Complete? YES; Macrocytosis SLIGHT = 6-15 cells (100X) (0-5/hpf); Mean Corpuscular HGB CONC 32.4 g/dL (32.0-36.0); Mean Corpuscular Hemoglobin 33.6 pg (27.0-31.0); Mean Platelet Volume 9.2 fL (7.4-10.4); Monocytes 1 % (0-10); Myelocyte 1 % (0-0); Neutrophil 61 % (42-75); Platelet Count 98 thou/uL (130-400); Platelet Morphology Comment Appears Decreased; Polychromasia SLIGHT = 2-3 cells (100X) (0-2/hpf); RBC Distribution Width 17.1 % (11.5-14.5); Reactive Lymphocytes 4 % (0-10); Red Blood Cell (RBC) Count 3.38 mill/uL (4.70-6.10); White Blood Cell (WBC) Count 26.8 thou/uL (4.8-10.8)
[2018-09-01] MEDS ORDERED: Heparin 10,000 UNITS/ 10 ML VIAL ONE (09:00)
--- NOTE | 2018-09-01 09:52 | PDOC.PN ---
- Subjective Encounter Start Date: 09/01/18 Encounter Start Time: 08:00 Patient seen and examined. No new complaints. No overnight events - Objective MAR Reviewed: Yes Vital Signs & Weight: Vital Signs (12 hours) Temp Pulse Resp BP Pulse Ox 09/01/18 06:22 74 20 91/59 L 95 09/01/18 04:00 97.6 F 73 20 93/57 L 95 08/31/18 23:35 92/55 L Weight Admit Weight 194 lb 9.6 oz Weight 188 lb 4.396 oz I&O: 08/31/18 09/01/18 09/02/18 06:59 06:59 06:59 Intake Total 250 212 Balance 250 212 Result Diagrams: 09/01/18 06:33 09/01/18 06:33 Phys Exam - Physical Examination Constitutional: NAD HEENT: PERRLA, moist MMs, sclera anicteric Neck: no JVD, supple Respiratory: no wheezing, no rales, no rhonchi Cardiovascular: RRR, no significant murmur, no rub Gastrointestinal: soft, non-tender, no distention, positive bowel sounds Musculoskeletal: no edema, pulses present Neurological: non-focal, normal sensation Lymphatic: no nodes Psychiatric: normal affect Skin: no rash, normal turgor Dx/Plan (1) Hepatic encephalopathy Code(s): K72.90 - HEPATIC FAILURE, UNSPECIFIED WITHOUT COMA Status: Acute (2) Alcoholic hepatitis with ascites Code(s): K70.11 - ALCOHOLIC HEPATITIS WITH ASCITES Status: Acute (3) Acute kidney failure Status: Acute Comment: now started on HD (4) Hepatorenal syndrome Code(s): K76.7 - HEPATORENAL SYNDROME Status: Acute (5) Abnormal LFTs Code(s): R94.5 - ABNORMAL RESULTS OF LIVER FUNCTION STUDIES Status: Acute Comment: secondary to alcohol abuse, alcoholic hepatitis (6) Leukemoid reaction Code(s): D72.823 - LEUKEMOID REACTION Status: Acute Comment: (7) SBP (spontaneous bacterial peritonitis) Code(s): K65.2 - SPONTANEOUS BACTERIAL PERITONITIS Status: Acute Comment: (8) Alcoholic cirrhosis of liver with ascites Code(s): K70.31 - ALCOHOLIC CIRRHOSIS OF LIVER WITH ASCITES Status: Chronic (9) Coagulopathy Status: Chronic (10) Macrocytic anemia Code(s): D53.9 - NUTRITIONAL ANEMIA, UNSPECIFIED Status: Chronic (11) Alcohol withdrawal Code(s): F10.239 - ALCOHOL DEPENDENCE WITH WITHDRAWAL, UNSPECIFIED Status: Resolved Qualifiers: Complication of substance-induced condition: with unspecified complication Qualified Code(s): F10.239 - Alcohol dependence with withdrawal, unspecified - Plan cont current plan of care, continue antibiotics * medication reviewed as below * symptomatic treatment * HD as per nephro * continue rocephin * await outpt HD arrangement. Review of Systems - Review of Systems ENT: negative: Ear Pain, Ear Discharge, Nose Pain, Nose Discharge, Nose Congestion, Mouth Pain, Mouth Swelling, Throat Pain, Throat Swelling, Other Respiratory: negative: Cough, Dry, Shortness of Breath, Hemoptysis, SOB with Excertion, Pleuritic Pain, Sputum, Wheezing Cardiovascular: negative: chest pain, palpitations, orthopnea, paroxysmal nocturnal dyspnea, edema, light headedness, other Gastrointestinal: Abdominal Pain. negative: Nausea, Vomiting, Diarrhea, Constipation, Melena, Hematochezia, Other Genitourinary: negative: Dysuria, Frequency, Incontinence, Hematuria, Retention , Other Musculoskeletal: negative: Neck Pain, Shoulder Pain, Arm Pain, Back Pain, Hand Pain, Leg Pain, Foot Pain, Other Skin: negative: Rash, Lesions, Joel, Bruising, Other - Medications/Allergies Allergies/Adverse Reactions: Allergies Allergy/AdvReac Type Severity Reaction Status Date / Time No Known Allergies Allergy Verified 07/29/18 03:02 Medications: Current Medications Acetaminophen (Tylenol) 500 mg PO Q6H PRN PRN Reason: Moderate to Severe Pain (6-10) Al Hydroxide/Mg Hydroxide (Maalox) 30 ml PO Q4H PRN PRN Reason: Heartburn or Indigestion Last Admin: 08/11/18 17:18 Dose: 30 ml Albumin Human (Albumin 25%) 25 gm IVPB [facility] Stop: 09/02/18 08:01 Artificial Tears (Tears Naturale) 2 drop EA EYE PRN PRN PRN Reason: Dry Eyes Calcium Carbonate (Tums) 1,000 mg PO Q4H PRN PRN Reason: Heartburn or Indigestion Folic Acid (Folvite) 1 mg PO DAILY [facility] Last Admin: 08/31/18 08:44 Dose: 1 mg Guaifenesin (Robitussin Sf) 200 mg PO Q4H PRN PRN Reason: Cough Hydralazine HCl (Apresoline) 10 mg SLOW IVP Q4H PRN PRN Reason: SBP > 180 and HR < 70 Hydroxyzine HCl (Atarax) 10 mg PO TIDPRN PRN PRN Reason: PRURITIS/ITCH AND HIVES Last Admin: 08/26/18 21:53 Dose: 10 mg Ceftriaxone Sodium 2 gm/ (Sodium Chloride) 100 mls @ 200 mls/hr IVPB 1300 [facility] Last Admin: 08/31/18 14:02 Dose: 100 mls Lactulose (Lactulose) 30 gm PO TID [facility] Last Admin: 08/31/18 22:10 Dose: Not Given Midodrine (Proamatine) 10 mg PO TID [facility] Last Admin: 08/31/18 22:12 Dose: 10 mg Mineral Oil/White Petrolatum (Eucerin Cream) 0 gm TOP BIDPRN PRN PRN Reason: Dry Skin Morphine Sulfate (Morphine) 2 mg SLOW IVP Q4H PRN PRN Reason: Moderate to Severe Pain (6-10) Multivitamins (Theragran) 1 tab PO DAILY [facility] Last Admin: 08/31/18 08:43 Dose: 1 tab Hold Vancomycin For (Level >20) 0 each FS .AT DIALYSIS [facility] Ondansetron HCl (Zofran) 4 mg IVP Q6H PRN PRN Reason: Nausea/Vomiting Last Admin: 08/13/18 11:55 Dose: 4 mg Ondansetron HCl (Zofran Odt) 4 mg PO Q6H PRN PRN Reason: Nausea/Vomiting Oxycodone HCl (Oxycodone Ir) 2.5 mg PO Q4H PRN PRN Reason: Moderate Pain (4-6) Oxycodone HCl (Oxycodone Ir) 5 mg PO Q4H PRN PRN Reason: Severe Pain (7-10) Last Admin: 08/28/18 17:29 Dose: 5 mg Pantoprazole Sodium (Protonix) 40 mg PO DAILY [facility] Last Admin: 08/31/18 08:44 Dose: 40 mg Rifaximin (Xifaxan) 550 mg PO BID [facility] Last Admin: 08/31/18 22:12 Dose: 550 mg Saccharomyces Boulardii (Florastor) 250 mg PO DAILY [facility] Last Admin: 08/31/18 08:43 Dose: 250 mg Sodium Chloride (Flush - Normal Saline) 10 ml IVF Q12HR [facility] Last Admin: 08/31/18 22:13 Dose: 10 ml Sodium Chloride (Flush - Normal Saline) 10 ml IVF PRN PRN PRN Reason: Saline Flush Last Admin: 08/22/18 02:46 Dose: 10 ml Sodium Chloride ([place] Nasal [place] 0.65%) 0 ml EA NARE QIDPRN PRN PRN Reason: Nasal Congestion Thiamine HCl (Thiamine) 100 mg PO DAILY [facility] Last Admin: 08/31/18 08:43 Dose: 100 mg Throat Lozenges (Cepastat Lozenges) 1 armando PO Q2H PRN PRN Reason: Sore Throat Tramadol HCl (Ultram) 50 mg PO Q4H PRN PRN Reason: Mild Pain (1-3) Last Admin: 08/31/18 14:41 Dose: 50 mg
[2018-09-01] MEDS: Midodrine HCl 5 MG TAB PO SCH ×3 (09:57→20:34)
[2018-09-01] MEDS: Albumin 25% 25 GM/100 ML BOT IVPB SCH ×2 (10:11→11:15)
[2018-09-01] MEDS: Rifaximin 550 MG TAB PO SCH ×2 (11:20→20:34)
[2018-09-01] MEDS: Saccharomyces boulardii 250 MG CAP PO SCH (11:20)
[2018-09-01] MEDS: Folic Acid 1 MG TAB PO SCH (11:20)
[2018-09-01] MEDS: Multivit, Therapeutic 1 TAB PO SCH (11:20)
[2018-09-01] MEDS: cefTRIAXone\\ROCEPHIN 2 GM in Sodium Chloride 0.9% 100 ML IVPB SCH (14:57)
--- NOTE | 2018-09-01 15:12 | PRG ---
DATE OF SERVICE: 09/01/2018 SUBJECTIVE: A 43-year-old gentleman being seen for end-stage renal disease. The patient denies any nausea, vomiting, or chest pain. OBJECTIVE: CONSTITUTIONAL: The patient is awake and alert. VITAL SIGNS: pulse 74, breathing 16, and blood pressure 92/55. GENERAL APPEARANCE AND MENTAL STATUS: Fair. HEAD/NECK: Normocephalic. Atraumatic. EYES: EOMI. No deformity. EARS: Clear. No ulcers. NOSE: Intact. No lesions. MOUTH: Clear. No discharge. THROAT: Clear. No exudate. LUNGS: Clear. No crackles. CARDIAC: S1, S2. No rub. ABDOMEN: Benign. Bowel sounds positive. GENITALIA/RECTUM: Mays absent. BACK/EXTREMITIES: Edema 0+. NEUROLOGICAL: Alert and motor intact. SKIN: LYMPHATICS: LABORATORY DATA: Reviewed. ASSESSMENT AND PLAN: 1. chronic kidney disease, plan dialysis. 2. Hypertension, stable. 3. Anemia, stable. 4. Medications based on GFR, appropriate. The patient remains in liver failure . Job ID: [id number]
--- NOTE | 2018-09-01 15:25 | PRG ---
DATE OF SERVICE: 09/01/2018 SUBJECTIVE: Mr. Deleon is a little more sleepy and confused today than he was on Saturday. OBJECTIVE: VITAL SIGNS: He has remained afebrile, temperature 98, blood pressure 81/47, respirations 20. He did receive some albumin over the weekend. HEENT: He is grossly icteric and jaundiced. LUNGS: Clear. HEART: Regular rhythm. ABDOMEN: Notable for protuberant with shifting dullness and fluid wave, but is not tensed. EXTREMITIES: Reveal 3+ edema. SKIN: Much improved from its appearance last week. LABORATORY DATA: White count 26,000, hemoglobin 11.4, platelet count 98, with 23% bands. INR is 1.6. Sodium 143, potassium 4.3, BUN and creatinine of 61 and 6.7. Bilirubin is greater than 25, AST and ALT of 112 and 46, alkaline phosphatase is 452, protein 4.6, albumin 3. ASSESSMENT: 1. Spontaneous bacterial peritonitis. The patient has been on Rocephin since 08/22, this has been 10 days, I think this can be stopped. 2. Acute renal failure. 3. Liver failure, acute on chronic decompensation of liver disease from alcohol. Recommendations; apparently, the patient's asked about transplant in [place] at [facility]. I talked with the immigration case worker about this. [facility] is in [place]. I think the first step multiple transplant facilities in the state have been contacted and all have refused to transfer this patient based on sobriety length and Medicaid status. At this time, I think the best course of action will be to call Medicaid and ask what their transplant criteria are for acute alcoholic hepatitis whether there is a sobriety time frame that has to be met or whether it is deferred to the transplant facilities discretion. If that is the case, I would [place] [facility] [place] to see if they would evaluate and another option would be [facility] in [place] and if those too would not evaluate for transplant, he could re-contact [facility] in [place]. He contracts most the Medicaid transplant workup. We will follow with you. 4. Severe hepatic encephalopathy. The patient continues on lactulose and Xifaxan. 5. Good to have a multidisciplinary meeting with the family. We have asked immigration case worker to set that up as well. We will be happy to attend sometime either around lunch time or later in the afternoon after clinic. Otherwise, hospitalist could organize the meeting. Job ID: [id number]
[2018-09-02] MEDS: Saccharomyces boulardii 250 MG CAP PO SCH (08:26)
[2018-09-02] MEDS: Multivit, Therapeutic 1 TAB PO SCH (08:26)
[2018-09-02] MEDS: Rifaximin 550 MG TAB PO SCH ×2 (08:27→21:04)
[2018-09-02] MEDS: Folic Acid 1 MG TAB PO SCH (08:27)
[2018-09-02 08:50] LABS: Hemoglobin 10.5 g/dL (14.0-18.0); Mean Corpuscular HGB CONC 31.3 g/dL (32.0-36.0); Mean Corpuscular Hemoglobin 32.6 pg (27.0-31.0); Mean Platelet Volume 9.4 fL (7.4-10.4); Platelet Count 82 thou/uL (130-400); Red Blood Cell (RBC) Count 3.22 mill/uL (4.70-6.10); White Blood Cell (WBC) Count 24.2 thou/uL (4.8-10.8)
[2018-09-02 09:10] LABS: ALT (SGPT) 41 U/L (8-55); AST (SGOT) 122 U/L (5-34); Albumin 3.1 g/dL (3.5-5.0); Alkaline Phosphatase 451 U/L (40-150); Anion Gap 23 mmol/L (10-20); BUN (Urea Nitrogen) 48 mg/dL (8.9-20.6); Bilirubin, Total Greater than 25.0 mg/dL (0.2-1.2); Calc. Creatinine Clearance 18 mL/min (70-130); Calcium 9.2 mg/dL (7.8-10.44); Carbon Dioxide 22 mmol/L (22-29); Chloride 104 mmol/L (98-107); Estimated GFR-MDRD 10; Globulin 1.4 g/dL (2.4-3.5); Glucose 92 mg/dL (70-105); Potassium 4.2 mmol/L (3.5-5.1); Protein, Total 4.5 g/dL (6.0-8.3); Sodium 145 mmol/L (136-145)
[2018-09-02 09:24] LABS: Band 24 % (5-11); Eosinophils 13 % (0-10); Hypochromia SLIGHT = 6-15 cells (100X) (0-5/hpf); Lymphocytes 5 % (21-51); MDiff Complete? YES; Metamyelocyte 2 % (0-0); Monocytes 1 % (0-10); Neutrophil 53 % (42-75); Platelet Morphology Comment Appears Decreased; Polychromasia MODERATE = 3-4 cells (100X) (0-2/hpf); Reactive Lymphocytes 1 % (0-10); Target Cells SLIGHT = 2-5 cells (100X) (0-1/hpf)
[2018-09-02] MEDS: Midodrine HCl 5 MG TAB PO SCH ×3 (10:16→21:04)
--- NOTE | 2018-09-02 10:38 | PDOC.PN ---
- Subjective Encounter Start Date: 09/02/18 Encounter Start Time: 08:40 Patient seen and examined. No new complaints. No overnight events - Objective MAR Reviewed: Yes Vital Signs & Weight: Vital Signs (12 hours) Temp Pulse Resp BP Pulse Ox 09/02/18 08:00 97.4 F L 83 18 97/60 90 L 09/02/18 00:52 98.7 F 84 18 91/52 L 91 L Weight Admit Weight 194 lb 9.6 oz Weight 184 lb 15.485 oz I&O: 09/01/18 09/02/18 09/03/18 06:59 06:59 06:59 Intake Total 212 100 Balance 212 100 Result Diagrams: 09/02/18 08:30 09/02/18 08:30 Phys Exam - Physical Examination Constitutional: NAD HEENT: PERRLA, moist MMs icterus+ Neck: no JVD, supple Respiratory: no wheezing, no rales, no rhonchi Cardiovascular: RRR, no significant murmur, no rub Gastrointestinal: soft, positive bowel sounds ascites+ Musculoskeletal: edema present Neurological: non-focal, normal sensation Lymphatic: no nodes Psychiatric: normal affect Skin: no rash, normal turgor Dx/Plan (1) Hepatic encephalopathy Code(s): K72.90 - HEPATIC FAILURE, UNSPECIFIED WITHOUT COMA Status: Acute (2) Alcoholic hepatitis with ascites Code(s): K70.11 - ALCOHOLIC HEPATITIS WITH ASCITES Status: Acute (3) Acute kidney failure Status: Acute Comment: now started on HD (4) Hepatorenal syndrome Code(s): K76.7 - HEPATORENAL SYNDROME Status: Acute (5) Abnormal LFTs Code(s): R94.5 - ABNORMAL RESULTS OF LIVER FUNCTION STUDIES Status: Acute Comment: secondary to alcohol abuse, alcoholic hepatitis (6) Leukemoid reaction Code(s): D72.823 - LEUKEMOID REACTION Status: Acute Comment: (7) SBP (spontaneous bacterial peritonitis) Code(s): K65.2 - SPONTANEOUS BACTERIAL PERITONITIS Status: Acute Comment: (8) Alcoholic cirrhosis of liver with ascites Code(s): K70.31 - ALCOHOLIC CIRRHOSIS OF LIVER WITH ASCITES Status: Chronic (9) Coagulopathy Status: Chronic (10) Macrocytic anemia Code(s): D53.9 - NUTRITIONAL ANEMIA, UNSPECIFIED Status: Chronic (11) Alcohol withdrawal Code(s): F10.239 - ALCOHOL DEPENDENCE WITH WITHDRAWAL, UNSPECIFIED Status: Resolved Qualifiers: Complication of substance-induced condition: with unspecified complication Qualified Code(s): F10.239 - Alcohol dependence with withdrawal, unspecified - Plan cont current plan of care, social media job titles * spoke with GI * will wait for couple of hospital more in [place] regarding transplant transfer * still waiting HD arrangement * medication reviewed as below * symptomatic treatment. Review of Systems - Review of Systems ENT: negative: Ear Pain, Ear Discharge, Nose Pain, Nose Discharge, Nose Congestion, Mouth Pain, Mouth Swelling, Throat Pain, Throat Swelling, Other Respiratory: negative: Cough, Dry, Shortness of Breath, Hemoptysis, SOB with Excertion, Pleuritic Pain, Sputum, Wheezing Cardiovascular: negative: chest pain, palpitations, orthopnea, paroxysmal nocturnal dyspnea, edema, light headedness, other Gastrointestinal: negative: Nausea, Vomiting, Abdominal Pain, Diarrhea, Constipation, Melena, Hematochezia, Other Genitourinary: negative: Dysuria, Frequency, Incontinence, Hematuria, Retention , Other Musculoskeletal: negative: Neck Pain, Shoulder Pain, Arm Pain, Back Pain, Hand Pain, Leg Pain, Foot Pain, Other Skin: negative: Rash, Lesions, Joel, Bruising, Other - Medications/Allergies Allergies/Adverse Reactions: Allergies Allergy/AdvReac Type Severity Reaction Status Date / Time No Known Allergies Allergy Verified 07/29/18 03:02 Medications: Current Medications Acetaminophen (Tylenol) 500 mg PO Q6H PRN PRN Reason: Moderate to Severe Pain (6-10) Al Hydroxide/Mg Hydroxide (Maalox) 30 ml PO Q4H PRN PRN Reason: Heartburn or Indigestion Last Admin: 08/11/18 17:18 Dose: 30 ml Artificial Tears (Tears Naturale) 2 drop EA EYE PRN PRN PRN Reason: Dry Eyes Calcium Carbonate (Tums) 1,000 mg PO Q4H PRN PRN Reason: Heartburn or Indigestion Folic Acid (Folvite) 1 mg PO DAILY [facility] Last Admin: 09/02/18 08:27 Dose: 1 mg Guaifenesin (Robitussin Sf) 200 mg PO Q4H PRN PRN Reason: Cough Hydralazine HCl (Apresoline) 10 mg SLOW IVP Q4H PRN PRN Reason: SBP > 180 and HR < 70 Hydroxyzine HCl (Atarax) 10 mg PO TIDPRN PRN PRN Reason: PRURITIS/ITCH AND HIVES Last Admin: 08/26/18 21:53 Dose: 10 mg Ceftriaxone Sodium 2 gm/ (Sodium Chloride) 100 mls @ 200 mls/hr IVPB 1300 [facility] Last Admin: 09/01/18 14:57 Dose: 100 mls Lactulose (Lactulose) 30 gm PO TID [facility] Last Admin: 09/02/18 08:26 Dose: 30 gm Midodrine (Proamatine) 10 mg PO TID [facility] Last Admin: 09/02/18 10:16 Dose: Not Given Mineral Oil/White Petrolatum (Eucerin Cream) 0 gm TOP BIDPRN PRN PRN Reason: Dry Skin Morphine Sulfate (Morphine) 2 mg SLOW IVP Q4H PRN PRN Reason: Moderate to Severe Pain (6-10) Multivitamins (Theragran) 1 tab PO DAILY [facility] Last Admin: 09/02/18 08:26 Dose: 1 tab Hold Vancomycin For (Level >20) 0 each FS .AT DIALYSIS [facility] Ondansetron HCl (Zofran) 4 mg IVP Q6H PRN PRN Reason: Nausea/Vomiting Last Admin: 08/13/18 11:55 Dose: 4 mg Ondansetron HCl (Zofran Odt) 4 mg PO Q6H PRN PRN Reason: Nausea/Vomiting Oxycodone HCl (Oxycodone Ir) 2.5 mg PO Q4H PRN PRN Reason: Moderate Pain (4-6) Oxycodone HCl (Oxycodone Ir) 5 mg PO Q4H PRN PRN Reason: Severe Pain (7-10) Last Admin: 08/28/18 17:29 Dose: 5 mg Pantoprazole Sodium (Protonix) 40 mg PO DAILY [facility] Last Admin: 09/02/18 08:27 Dose: 40 mg Rifaximin (Xifaxan) 550 mg PO BID [facility] Last Admin: 09/02/18 08:27 Dose: 550 mg Saccharomyces Boulardii (Florastor) 250 mg PO DAILY [facility] Last Admin: 09/02/18 08:26 Dose: 250 mg Sodium Chloride (Flush - Normal Saline) 10 ml IVF Q12HR [facility] Last Admin: 09/02/18 08:27 Dose: 10 ml Sodium Chloride (Flush - Normal Saline) 10 ml IVF PRN PRN PRN Reason: Saline Flush Last Admin: 08/22/18 02:46 Dose: 10 ml Sodium Chloride ([place] Nasal [place] 0.65%) 0 ml EA NARE QIDPRN PRN PRN Reason: Nasal Congestion Thiamine HCl (Thiamine) 100 mg PO DAILY [facility] Last Admin: 09/02/18 08:27 Dose: 100 mg Throat Lozenges (Cepastat Lozenges) 1 armando PO Q2H PRN PRN Reason: Sore Throat Tramadol HCl (Ultram) 50 mg PO Q4H PRN PRN Reason: Mild Pain (1-3) Last Admin: 08/31/18 14:41 Dose: 50 mg
[2018-09-02] MEDS: cefTRIAXone\\ROCEPHIN 2 GM in Sodium Chloride 0.9% 100 ML IVPB SCH (11:32)
--- NOTE | 2018-09-02 13:06 | PRG ---
DATE OF SERVICE: 09/02/2018 SUBJECTIVE: A 43-year-old gentleman being seen for end-stage renal disease. The patient denies any nausea, vomiting, or chest pain. OBJECTIVE: CONSTITUTIONAL: The patient is awake and alert. VITAL SIGNS: Afebrile. Pulse 86, breathing 16, and blood pressure 97/62. GENERAL APPEARANCE AND MENTAL STATUS: Fair. HEAD/NECK: Normocephalic. Atraumatic. EYES: EOMI. No deformity. EARS: Clear. No ulcers. NOSE: Intact. No lesions. MOUTH: Clear. No discharge. THROAT: Clear. No exudate. LUNGS: Clear. No crackles. CARDIAC: S1, S2. No rub. ABDOMEN: Benign. Bowel sounds positive. GENITALIA/RECTUM: Mays absent. BACK/EXTREMITIES: Lower extremities have 4+ edema. NEUROLOGICAL: Alert and motor intact. SKIN: LYMPHATICS: LABORATORY DATA: Labs show potassium 4.2. ASSESSMENT AND PLAN: 1. Stage 5 chronic kidney disease, plan dialysis as tolerated. 2. Edema due to hepatorenal syndrome, unable to dialyze. 3. Anemia, stable. 4. Medication based on GFR, appropriate. 5. Liver failure. Definitive treatment would be indicated. Job ID: [id number]
--- NOTE | 2018-09-02 18:02 | PRG ---
DATE OF SERVICE: 09/02/2018 SUBJECTIVE: Mr. Deleon is resting comfortably. He knows he is in the hospital. His nephrologists said they are having problems dialyzing him as his pressure would not stay up. He has had no fever or chills. OBJECTIVE: VITAL SIGNS: Temperature is 97.4, pulse 83, blood pressure 97/60. HEENT: He is icteric and jaundiced. LUNGS: Clear. ABDOMEN: Protuberant with shifting dullness and fluid wave. It is nontender. EXTREMITIES: Revealed no clubbing or cyanosis, but there is much less edema. SKIN: His cellulitis in the abdomen is much better. LABORATORY DATA: White count 24,000, hemoglobin 10, platelet count 82,000, bands 24,000. INR is 1.6 on the 14th. Sodium 145, potassium 4.2, BUN and creatinine are 48 and 6.25. Bilirubin is 25. AST and ALT are 122 and 41 and alkaline phosphatase is 451. Albumin is 3.1. ASSESSMENT: 1. Severe alcoholic hepatitis. He is actually stable at this point in time with very mild encephalopathy and no coagulopathy. 2. Acute renal failure. This was felt to likely be hepatorenal. He was treated with octreotide and midodrine, but not improved, he is on dialysis now. 3. Hypotension on dialysis. PLAN: 1. We will increase his midodrine and ask the food aide to verify where Medicaid would possibly be paid for a transplant for this patient. My understanding is that the [facility] which I have been told was called early in August once he got Medicaid and he was refused there. I have asked him to confirm that, and if not, recall them and ask them to see if they will accept him for liver transplant evaluation as he has been sober for over a month now. If they will not take him for a transplant evaluation, then it is really going to be more about palliative care, so if we get him in outpatient long-term care facility for dialysis, he will be a high risk for infections or SBP. 2. At this time, he is continued on Rocephin for his SBP since the . It is reasonable to re-tap him tomorrow and see if the counts have come down. Job ID: [id number]
[2018-09-03 07:51] VITALS: BP 94/61
[2018-09-03] MEDS: Albumin 25% 25 GM/100 ML BOT IVPB SCH ×2 (10:00→11:36)
[2018-09-03] MEDS: Folic Acid 1 MG TAB PO SCH (10:41)
[2018-09-03] MEDS: Multivit, Therapeutic 1 TAB PO SCH (10:42)
--- NOTE | 2018-09-03 10:45 | PRG ---
DATE OF SERVICE: 09/03/2018 SUBJECTIVE: A 43-year-old gentleman, being seen for end-stage liver and renal disease. The patient denies any nausea, vomiting, or chest pain. The patient became hypotensive during dialysis and dialysis was stopped prior to him being more hypotensive. OBJECTIVE: GENERAL: The patient is resting. VITAL SIGNS: Afebrile breathing 16, blood pressure 94/61. GENERAL APPEARANCE AND MENTAL STATUS: The patient has jaundice. HEAD/NECK: Normocephalic. Atraumatic. EYES: EOMI. No deformity. EARS: Clear. No ulcers. NOSE: Intact. No lesions. MOUTH: Clear. No discharge. THROAT: Clear. No exudate. LUNGS: Clear. No crackles. CARDIAC: S1, S2. No rub. ABDOMEN: Benign. Bowel sounds positive. GENITALIA/RECTUM: Mays absent. BACK/EXTREMITIES: 4+ edema. NEUROLOGICAL: Alert and motor intact. SKIN: LYMPHATICS: LABORATORY DATA: Hemoglobin 10.5. ASSESSMENT AND PLAN: 1. Stage 6 chronic kidney disease, not a candidate for hemodialysis due to . The patient would benefit from continuous venovenous hemodialysis, for which he should be transferred to a tertiary care center. 2. Anemia, stable. 3. Medication based on GFR appropriate. If definitive treatment is not possible, hospice should be considered. This was discussed with the , but the patient's wants full aggressive treatment. At this time on the basis of continuous dialysis, I would recommend that the patient be transferred to a higher level of care. Job ID: [id number]
[2018-09-03] MEDS: Saccharomyces boulardii 250 MG CAP PO SCH (11:08)
[2018-09-03] MEDS: Rifaximin 550 MG TAB PO SCH ×2 (11:08→22:05)
--- NOTE | 2018-09-03 11:19 | PDOC.PN ---
- Subjective Encounter Start Date: 09/03/18 Encounter Start Time: 09:35 pt had generalised tonic clonic seizure while getting HD, he had tongue bite, he has post ictal confusion, code green and then code blue was called, I saw pt in HD room, I spoke with , there was no issue with airway, his BP also improved, HD was discontinued and transferred to CCU for close monitoring - Objective MAR Reviewed: Yes Vital Signs & Weight: Vital Signs (12 hours) Temp Pulse Resp BP Pulse Ox 09/03/18 07:50 97.6 F 71 18 94/61 94 L 09/03/18 00:00 98.1 F 75 20 99/64 93 L Weight Admit Weight 194 lb 9.6 oz Weight 183 lb 13.848 oz Most Recent Monitor Data Heart Rate from ECG 78 NIBP 93/59 NIBP BP-Mean 70 Respiration from ECG 16 SpO2 90 I&O: 09/02/18 09/03/18 09/04/18 06:59 06:59 06:59 Intake Total 100 100 Output Total 1 Balance 100 100 -1 Result Diagrams: 09/02/18 08:30 09/02/18 08:30 Additional Labs: Accuchecks 09/03/18 08:53 POC Glucose 89 EKG Reviewed by me: Yes (nsr) Phys Exam - Physical Examination Constitutional: NAD HEENT: PERRLA tounge bite, deep icterus Neck: no JVD, supple Respiratory: no wheezing, no rales, no rhonchi Cardiovascular: RRR, no significant murmur, no rub Gastrointestinal: soft, positive bowel sounds ascites+ Musculoskeletal: pulses present, edema present Neurological: moves all 4 limbs Lymphatic: no nodes Psychiatric: normal affect Skin: normal turgor Deviation from normal: drug rash resolving Dx/Plan (1) Alcoholic hepatitis with ascites Code(s): K70.11 - ALCOHOLIC HEPATITIS WITH ASCITES Status: Acute (2) Hepatic encephalopathy Code(s): K72.90 - HEPATIC FAILURE, UNSPECIFIED WITHOUT COMA Status: Acute (3) Acute kidney failure Status: Acute Comment: now started on HD (4) SBP (spontaneous bacterial peritonitis) Code(s): K65.2 - SPONTANEOUS BACTERIAL PERITONITIS Status: Acute Comment: (5) Hepatorenal syndrome Code(s): K76.7 - HEPATORENAL SYNDROME Status: Acute (6) Leukemoid reaction Code(s): D72.823 - LEUKEMOID REACTION Status: Acute Comment: (7) Abnormal LFTs Code(s): R94.5 - ABNORMAL RESULTS OF LIVER FUNCTION STUDIES Status: Acute Comment: secondary to alcohol abuse, alcoholic hepatitis (8) Alcoholic cirrhosis of liver with ascites Code(s): K70.31 - ALCOHOLIC CIRRHOSIS OF LIVER WITH ASCITES Status: Chronic (9) Coagulopathy Status: Chronic (10) Macrocytic anemia Code(s): D53.9 - NUTRITIONAL ANEMIA, UNSPECIFIED Status: Chronic (11) Alcohol withdrawal Code(s): F10.239 - ALCOHOL DEPENDENCE WITH WITHDRAWAL, UNSPECIFIED Status: Resolved Qualifiers: Complication of substance-induced condition: with unspecified complication Qualified Code(s): F10.239 - Alcohol dependence with withdrawal, unspecified (12) Seizure Code(s): R56.9 - UNSPECIFIED CONVULSIONS Status: Acute - Plan cont current plan of care, plan discussed w/ family, continue antibiotics * I spoke with [facility] regarding transfer for liver transplant, they declined * so far all hospital has declined him for liver transplant as he is not meeting criteria regarding transplant for alcoholic cirrhosis based on his duration of abstinence * i spoke with and updated about his prognosis * continue current medical management as per GI, nephrology * prognosis is poor * will consult critical care and neurology today as pt is moved to ccu. * he is not tolerating HD due to hypotension Review of Systems - Review of Systems Other: not reliable today due to seizure and post ictal confusion - Medications/Allergies Allergies/Adverse Reactions: Allergies Allergy/AdvReac Type Severity Reaction Status Date / Time No Known Allergies Allergy Verified 07/29/18 03:02 Medications: Current Medications Acetaminophen (Tylenol) 500 mg PO Q6H PRN PRN Reason: Moderate to Severe Pain (6-10) Al Hydroxide/Mg Hydroxide (Maalox) 30 ml PO Q4H PRN PRN Reason: Heartburn or Indigestion Last Admin: 08/11/18 17:18 Dose: 30 ml Albumin Human (Albumin 25%) 25 gm IVPB [facility] Stop: 09/04/18 09:01 Artificial Tears (Tears Naturale) 2 drop EA EYE PRN PRN PRN Reason: Dry Eyes Calcium Carbonate (Tums) 1,000 mg PO Q4H PRN PRN Reason: Heartburn or Indigestion Folic Acid (Folvite) 1 mg PO DAILY [facility] Last Admin: 09/03/18 10:41 Dose: Not Given Guaifenesin (Robitussin Sf) 200 mg PO Q4H PRN PRN Reason: Cough Hydralazine HCl (Apresoline) 10 mg SLOW IVP Q4H PRN PRN Reason: SBP > 180 and HR < 70 Hydroxyzine HCl (Atarax) 10 mg PO TIDPRN PRN PRN Reason: PRURITIS/ITCH AND HIVES Last Admin: 08/26/18 21:53 Dose: 10 mg Ceftriaxone Sodium 2 gm/ (Sodium Chloride) 100 mls @ 200 mls/hr IVPB 1300 [facility] Last Admin: 09/02/18 11:32 Dose: 100 mls Lactulose (Lactulose) 30 gm PO TID [facility] Last Admin: 09/03/18 10:43 Dose: 30 gm Midodrine (Proamatine) 10 mg PO TID [facility] Last Admin: 09/02/18 21:04 Dose: 10 mg Mineral Oil/White Petrolatum (Eucerin Cream) 0 gm TOP BIDPRN PRN PRN Reason: Dry Skin Morphine Sulfate (Morphine) 2 mg SLOW IVP Q4H PRN PRN Reason: Moderate to Severe Pain (6-10) Multivitamins (Theragran) 1 tab PO DAILY [facility] Last Admin: 09/03/18 10:42 Dose: Not Given Hold Vancomycin For (Level >20) 0 each FS .AT DIALYSIS [facility] Ondansetron HCl (Zofran) 4 mg IVP Q6H PRN PRN Reason: Nausea/Vomiting Last Admin: 08/13/18 11:55 Dose: 4 mg Ondansetron HCl (Zofran Odt) 4 mg PO Q6H PRN PRN Reason: Nausea/Vomiting Pantoprazole Sodium (Protonix) 40 mg PO DAILY [facility] Last Admin: 09/03/18 10:42 Dose: Not Given Rifaximin (Xifaxan) 550 mg PO BID [facility] Last Admin: 09/03/18 11:08 Dose: Not Given Saccharomyces Boulardii (Florastor) 250 mg PO DAILY [facility] Last Admin: 09/03/18 11:08 Dose: Not Given Sodium Chloride (Flush - Normal Saline) 10 ml IVF Q12HR [facility] Last Admin: 09/03/18 11:09 Dose: Not Given Sodium Chloride (Flush - Normal Saline) 10 ml IVF PRN PRN PRN Reason: Saline Flush Last Admin: 08/22/18 02:46 Dose: 10 ml Sodium Chloride ([place] Nasal [place] 0.65%) 0 ml EA NARE QIDPRN PRN PRN Reason: Nasal Congestion Thiamine HCl (Thiamine) 100 mg PO DAILY [facility] Last Admin: 09/03/18 10:48 Dose: Not Given Throat Lozenges (Cepastat Lozenges) 1 armando PO Q2H PRN PRN Reason: Sore Throat
[2018-09-03] MEDS: Midodrine HCl 5 MG TAB PO SCH ×3 (11:48→22:04)
[2018-09-03 12:54] VITALS: BMI 28.8
[2018-09-03] MEDS: cefTRIAXone\\ROCEPHIN 2 GM in Sodium Chloride 0.9% 100 ML IVPB SCH (14:46)
[2018-09-03] MEDS: Morphine 2 MG/ML SYRINGE SLOW IVP PRN ×2 (14:50→17:24)
--- NOTE | 2018-09-03 19:15 | CT ---
CT BRAIN NONCONTRAST: 09/03/18 HISTORY: 43-year-old male status post seizure and altered mental status. FINDINGS: There is no midline shift or any other mass effect. There is no evidence of acute intracranial hemor rhage, large cortical infarct, obstructive hydrocephalus, or extraaxial fluid collection. The calvar ium is intact. IMPRESSION: No acute intracranial findings. jn [] POS: TAMMIE
--- NOTE | 2018-09-03 21:12 | CON ---
DATE OF CONSULTATION: 09/03/2018 SERVICE: Pulmonary Medicine. REASON FOR CONSULT: ICU patient. HISTORY OF PRESENT ILLNESS: The patient is a 43-year-old male past medical history significant for alcohol abuse and question of Carroll's disease. Ultimately, he was in his usual state of health when he was up on the floor. Before dialysis was initiated, he had a spell characterized by shaking type activity. He was subsequently brought down to the ICU. His biggest complaint at this point is abdominal discomfort. He is awake and alert. He demonstrates generalized asterixis. Otherwise, there has been no interval change to his condition. There are no respiratory issues. He is breathing comfortably. He does have ascites that causes him to have increased work of breathing, but his saturations are being maintained. He denies having any cough, sputum production, fevers, chills, nausea, or vomiting. He is having some loose bowel movements, which are borderline diarrhea. This is associated with the lactulose that he is taking. PAST MEDICAL HISTORY: 1. Cirrhosis, advanced. 2. Alcohol abuse. 3. Hepatorenal syndrome, likely progressing to end-stage renal disease. PAST SURGICAL HISTORY: 1. Left arm surgery. 2. Appendectomy. 3. Diagnostic laparoscopic procedure. 4. Right IJ cuffed tunneled hemodialysis catheter placement. 5. PICC line placement. 6. Left IJ central line, status post removal. FAMILY HISTORY: Noncontributory. SOCIAL HISTORY: He drinks on a daily basis. Recently, he has cut back to drinking 2-3 very high alcohol content drinks on a daily basis. He denies any street drugs. He dips snuff, but denies any smoking. He has no exposure to chemicals, dust, asbestos, or tuberculosis otherwise. ALLERGIES: NO KNOWN DRUG ALLERGIES. MEDICATIONS: List of his inpatient medications was reviewed. No specific updates were made at this time. REVIEW OF SYSTEMS: General, head, ears, eyes, nose, throat, cardiovascular, respiratory, GI, , musculoskeletal, neurologic, and skin are negative except as mentioned in the HPI. PHYSICAL EXAMINATION: VS: Afebrile, pulse 73, blood pressure 101/61, respirations 22, saturation 92% on room air. GENERAL: The patient is awake and alert, in no apparent distress. LUNGS: Decent air entry with dependent crackles, which are slight. HEART: Normal rate. Regular. ABDOMEN: Distended with ascites. Bowel sounds are hypoactive. There is diffuse tenderness to palpation, but no rebound or guarding is appreciated. MUSCULOSKELETAL: No cyanosis or clubbing. There is 2+ pitting in the bilateral lower extremities. He has diffuse erythematous lesions throughout. LABORATORY DATA: WBC 24.2, hemoglobin 10.5, platelets 82,000 and roughly stable. Band count is 24% on top of 53% neutrophils. Creatinine 6.25, BUN 48. Basic metabolic profile is otherwise unremarkable. Liver function studies are significant for a slightly elevated AST to 122, alkaline phosphatase 451. Urinalysis is unremarkable. Ascites fluid has been collected on multiple occasions. Most recently, there were significant white blood cells, which amounted to 69%. Fluid albumin level was quite low. Acetaminophen level is negative. AIMEE, smooth muscle antibody is unremarkable. Tuberculosis is indeterminate. Hepatitis serologies are unremarkable. Body fluid culture remain sterile. Urine culture and blood cultures x4 are unremarkable. Pathology demonstrates rare and large degenerated epithelioid cells. There is reactive mesothelial cells and macrophages present. Liver biopsy demonstrates severe steatohepatitis, as well as findings consistent with evolving cirrhosis (stage III-stage IV of IV). IMAGING: Chest x-ray demonstrates no acute cardiopulmonary abnormality. ASSESSMENT: 1. Cirrhosis, advanced. 2. Metabolic encephalopathy. 3. Systemic inflammatory response syndrome. 4. Hepatorenal syndrome, likely progressing to end-stage renal disease. 5. Spell, characterized by possible seizure activity. 6. Spontaneous bacterial peritonitis, status post therapy. 7. Alcohol abuse. 8. Steatohepatitis. DISCUSSION AND PLAN: We will continue to watch him in the ICU. Supportive measures will be continued. We will watch for additional signs of seizure-like activity. At this point, he does demonstrate generalized asterixis. This is likely associated with toxins. We will continue making efforts at watching his blood with dialysis, and providing him with scheduled lactulose to promote 2 to 3 bowel movements on a daily basis. Pulmonary Critical Care will continue to follow along while he remains in this location, but if he is without seizure for 24 hours, he can be transitioned to the floor once again in the morning. 70 minutes have been devoted to this patient in various activities. I personally reviewed all imaging studies and laboratory data noted within this document. For fifty percent of this time, I was interacting with the patient at the bedside or coordinating care with the care team. For the remainder of the time I was immediately available to the patient in the hospital unit. Job ID: [id number] MTDD
[2018-09-04 04:09] LABS: INR-International Normal Ratio 1.5; Prothrombin Time 18.3 SEC (12.0-14.7)
[2018-09-04 04:29] LABS: ALT (SGPT) 41 U/L (8-55); AST (SGOT) 116 U/L (5-34); Albumin 3.3 g/dL (3.5-5.0); Alkaline Phosphatase 464 U/L (40-150); Anion Gap 26 mmol/L (10-20); BUN (Urea Nitrogen) 66 mg/dL (8.9-20.6); Calc. Creatinine Clearance 15 mL/min (70-130); Calcium 9.8 mg/dL (7.8-10.44); Carbon Dioxide 21 mmol/L (22-29); Chloride 104 mmol/L (98-107); Estimated GFR-MDRD 8; Globulin 1.6 g/dL (2.4-3.5); Glucose 102 mg/dL (70-105); Magnesium 2.4 mg/dL (1.6-2.6); Phosphorus 7.4 mg/dL (2.3-4.7); Potassium 4.4 mmol/L (3.5-5.1); Protein, Total 4.9 g/dL (6.0-8.3); Sodium 147 mmol/L (136-145)
[2018-09-04 04:37] LABS: Bilirubin, Total 39.9 mg/dL (0.2-1.2)
[2018-09-04 04:41] LABS: Band 13 % (5-11); Eosinophils 1 % (0-10); Hemoglobin 11.5 g/dL (14.0-18.0); Lymphocytes 4 % (21-51); MDiff Complete? YES; Macrocytosis SLIGHT = 6-15 cells (100X) (0-5/hpf); Mean Corpuscular HGB CONC 33.3 g/dL (32.0-36.0); Mean Corpuscular Hemoglobin 34.9 pg (27.0-31.0); Mean Platelet Volume 9.5 fL (7.4-10.4); Monocytes 4 % (0-10); Neutrophil 78 % (42-75); Platelet Count 83 thou/uL (130-400); Platelet Morphology Comment Appears Decreased; RBC Distribution Width 17.3 % (11.5-14.5); Red Blood Cell (RBC) Count 3.29 mill/uL (4.70-6.10); White Blood Cell (WBC) Count 25.9 thou/uL (4.8-10.8)
[2018-09-04] MEDS: Folic Acid 1 MG TAB PO SCH (08:32)
[2018-09-04] MEDS: Rifaximin 550 MG TAB PO SCH (08:32)
--- NOTE | 2018-09-04 09:26 | PRG ---
DATE OF SERVICE: 09/03/2018 SUBJECTIVE: Mr. Deleon became hypotensive during dialysis, had a code green, was brought to the ICU. There was question whether he had a seizure. He has been mentating less clearly yesterday. He was awake now. He is not talking or responding verbally. His is at the bedside. OBJECTIVE: VITAL SIGNS: Temperature is 98.7, pulse is 70s to 80s, and O2 saturations 90% room air. Heart rate 78. Weight 183 pounds. HEENT: He is grossly icteric and jaundiced. He opens his eyes and he tracks, but is not responsive. His pupils are round and reactive. LUNGS: Clear. HEART: Regular rate and rhythm. ABDOMEN: Protuberant with a distended ascites. EXTREMITIES: No gross clubbing, cyanosis, or edema. LABORATORY DATA: No labs were done today. ASSESSMENT AND PLAN: 1. Severe alcoholic hepatitis. I talked to the patient's about this and he did have cirrhosis on his imaging as well. She asked if Carroll's is ruled out and I discussed that it was by blood tests. Explained to her again that he has been [facility] and basically every liver transplant center that we have contacted and specifically [facility], which does the Medicaid liver transplants according to our bilingual case manager who is retiring this year, they have refused him for transfer again today after talking with the attending physician. 2. Hepatic encephalopathy worsened. It is unclear if this is related to infection, underlying worsening of hepatic function, or hypotension. 3. Apparently, the patient's blood pressure has been too low to continue traditional dialysis. Dr. Ellison has been discussing [facility] recommendations. I will repeat all the patient's labs. 4. If he cannot take his lactulose and Xifaxan p.o., he is to have an NG tube. 5. Agree with CT of the head. 6. I would hold his narcotics at this point in time and sedatives as he has worsening encephalopathy are contraindicated in end-stage liver disease. 7. The patient's is discussing taking him AMA and going to [place] herself with him. I dissuaded her against this; in light of how ill he is, I do not think he has a very big chance he may not survive the journey. There is not anything else they can offer him there at this time, evaluate him for transplant because of lack of time for sobriety, which they indicate is the case in all of our phone conversations. Job ID: [id number]
--- NOTE | 2018-09-04 09:52 | PRG ---
DATE OF SERVICE: 09/04/2018 SERVICE: Pulmonary Medicine. INTERVAL HISTORY: The patient is doing fine from Respiratory standpoint. Breathing comfortably. There has been no interval change to the condition of the patient. Otherwise, he remains comfortable. He is breathing well. He is saturating just fine. There were no events overnight. He did not have any additional shaking spells. PHYSICAL EXAMINATION: VITAL SIGNS: Afebrile, pulse 68, blood pressure 186/53, respirations 20, and saturations 91% on room air. GENERAL: The patient is awake and alert, in no apparent distress. LUNGS: Decent air entry. There are crackles present bilaterally. No prolonged expiratory phase or wheezing is appreciated. HEART: Normal rate and regular. ABDOMEN: Distended with ascites. Bowel sounds are hypoactive. There is shifting dullness. There is diffuse tenderness to palpation, but no rebound or guarding is appreciated. MUSCULOSKELETAL: No cyanosis or clubbing. There is 1+ to 2+ pitting throughout. GENITOURINARY: Mays catheter in place. NEUROLOGIC: Grossly nonfocal. LABORATORY DATA: WBC 25.9, hemoglobin 11.5, and platelets 83,000. INR 1.5. Creatinine 7.69, BUN 66. Basic metabolic profile is otherwise unremarkable. Liver function studies are unremarkable. Blood cultures x4, urine culture x2, and body fluid culture x3 are unremarkable to date. ASSESSMENT: 1. Cirrhosis, advanced. 2. Metabolic encephalopathy. 3. Systemic inflammatory response syndrome. 4. Hepatorenal syndrome. 5. Spontaneous bacterial peritonitis, status post therapy. 6. Alcohol abuse. 7. Steatohepatitis. 8. Spell characterized by shaking activity, resolved. DISCUSSION AND PLAN: We will continue our supportive measures. At this point, the patient requires a liver in order to have a meaningful chance at survival. That being said, all of our efforts at getting him to a tertiary care center have been fruitless. He is not tolerating conventional hemodialysis. As such, Nephrology is suggesting that we discontinue therapy. At this point, supportive measures will be continued while the patient remains in this location, but we will continue our palliative care discussions to see if we can transition the patient over to comfort care eventually. At this point, we are approaching futility of care. Job ID: [id number]
--- NOTE | 2018-09-04 10:45 | PDOC.PN ---
- Subjective Encounter Start Date: 09/04/18 Encounter Start Time: 09:45 this morning pt is lethargic, arousable, weak, has low BP, bedside - Objective MAR Reviewed: Yes Vital Signs & Weight: Vital Signs (12 hours) Temp Pulse Ox 09/04/18 08:00 98.5 F 92 L 09/04/18 04:00 98.0 F 09/04/18 02:34 92 L 09/04/18 00:00 97.8 F Weight Admit Weight 194 lb 9.6 oz Weight 179 lb Most Recent Monitor Data Heart Rate from ECG 73 NIBP 84/55 NIBP BP-Mean 64 Respiration from ECG 19 SpO2 92 I&O: 09/03/18 09/04/18 09/05/18 06:59 06:59 06:59 Intake Total 100 1525 Output Total 1 Balance 100 1524 Result Diagrams: 09/04/18 03:30 09/04/18 03:30 Radiology Reviewed by me: Yes (CT brain is negative) EKG Reviewed by me: Yes (nsr) Phys Exam - Physical Examination Constitutional: NAD HEENT: PERRLA deep icterus+ Neck: no JVD, supple Respiratory: no wheezing, no rales, no rhonchi Cardiovascular: RRR, no significant murmur, no rub Gastrointestinal: positive bowel sounds ascites+, mild discomfort Musculoskeletal: pulses present, edema present Neurological: moves all 4 limbs asterexis+ Lymphatic: no nodes Psychiatric: normal affect Skin: normal turgor Deviation from normal: rash resolving Dx/Plan (1) Alcoholic hepatitis with ascites Code(s): K70.11 - ALCOHOLIC HEPATITIS WITH ASCITES Status: Acute (2) Hepatic encephalopathy Code(s): K72.90 - HEPATIC FAILURE, UNSPECIFIED WITHOUT COMA Status: Acute (3) Acute kidney failure Status: Acute Comment: now started on HD (4) SBP (spontaneous bacterial peritonitis) Code(s): K65.2 - SPONTANEOUS BACTERIAL PERITONITIS Status: Acute Comment: (5) Hepatorenal syndrome Code(s): K76.7 - HEPATORENAL SYNDROME Status: Acute (6) Leukemoid reaction Code(s): D72.823 - LEUKEMOID REACTION Status: Acute Comment: (7) Abnormal LFTs Code(s): R94.5 - ABNORMAL RESULTS OF LIVER FUNCTION STUDIES Status: Acute Comment: secondary to alcohol abuse, alcoholic hepatitis (8) Alcoholic cirrhosis of liver with ascites Code(s): K70.31 - ALCOHOLIC CIRRHOSIS OF LIVER WITH ASCITES Status: Chronic (9) Coagulopathy Status: Chronic (10) Macrocytic anemia Code(s): D53.9 - NUTRITIONAL ANEMIA, UNSPECIFIED Status: Chronic (11) Alcohol withdrawal Code(s): F10.239 - ALCOHOL DEPENDENCE WITH WITHDRAWAL, UNSPECIFIED Status: Resolved Qualifiers: Complication of substance-induced condition: with unspecified complication Qualified Code(s): F10.239 - Alcohol dependence with withdrawal, unspecified (12) Seizure Code(s): R56.9 - UNSPECIFIED CONVULSIONS Status: Acute - Plan cont current plan of care, plan discussed w/ family, continue antibiotics * continue rocephin for SBP * he is not tolerating intermittent HD, he will need CRRT as he is critically ill with hypotension * wants all effort to survive him * will try to transfer to other hospital for this reason . * his prognosis is very poor * GI, nephrology and critical care on case * continue keppra, midodrin, lactulose and rifaximin Review of Systems - Review of Systems Other: not reliable with pt today due to his level of cognitive status - Medications/Allergies Allergies/Adverse Reactions: Allergies Allergy/AdvReac Type Severity Reaction Status Date / Time No Known Allergies Allergy Verified 07/29/18 03:02 Medications: Current Medications Al Hydroxide/Mg Hydroxide (Maalox) 30 ml PO Q4H PRN PRN Reason: Heartburn or Indigestion Last Admin: 08/11/18 17:18 Dose: 30 ml Artificial Tears (Tears Naturale) 2 drop EA EYE PRN PRN PRN Reason: Dry Eyes Calcium Carbonate (Tums) 1,000 mg PO Q4H PRN PRN Reason: Heartburn or Indigestion Folic Acid (Folvite) 1 mg PO DAILY [facility] Last Admin: 09/04/18 08:32 Dose: 1 mg Guaifenesin (Robitussin Sf) 200 mg PO Q4H PRN PRN Reason: Cough Hydralazine HCl (Apresoline) 10 mg SLOW IVP Q4H PRN PRN Reason: SBP > 180 and HR < 70 Ceftriaxone Sodium 2 gm/ (Sodium Chloride) 100 mls @ 200 mls/hr IVPB 1300 [facility] Last Admin: 09/03/18 14:46 Dose: 100 mls Levetiracetam 500 mg/ Device 100 mls @ 200 mls/hr IVPB 0400,1600 [facility] Last Admin: 09/04/18 03:36 Dose: 100 mls Lactulose (Lactulose) 30 gm PO TID [facility] Last Admin: 09/04/18 08:32 Dose: 30 gm Midodrine (Proamatine) 10 mg PO TID [facility] Last Admin: 09/03/18 22:04 Dose: 10 mg Mineral Oil/White Petrolatum (Eucerin Cream) 0 gm TOP BIDPRN PRN PRN Reason: Dry Skin Multivitamins (Theragran) 1 tab PO DAILY [facility] Last Admin: 09/03/18 10:42 Dose: Not Given Hold Vancomycin For (Level >20) 0 each FS .AT DIALYSIS [facility] Ondansetron HCl (Zofran) 4 mg IVP Q6H PRN PRN Reason: Nausea/Vomiting Last Admin: 08/13/18 11:55 Dose: 4 mg Ondansetron HCl (Zofran Odt) 4 mg PO Q6H PRN PRN Reason: Nausea/Vomiting Pantoprazole Sodium (Protonix) 40 mg PO DAILY [facility] Last Admin: 09/04/18 08:33 Dose: 40 mg Rifaximin (Xifaxan) 550 mg PO BID [facility] Last Admin: 09/04/18 08:32 Dose: 550 mg Sodium Chloride (Flush - Normal Saline) 10 ml IVF Q12HR [facility] Last Admin: 09/03/18 22:06 Dose: 10 ml Sodium Chloride (Flush - Normal Saline) 10 ml IVF PRN PRN PRN Reason: Saline Flush Last Admin: 08/22/18 02:46 Dose: 10 ml Sodium Chloride ([place] Nasal [place] 0.65%) 0 ml EA NARE QIDPRN PRN PRN Reason: Nasal Congestion Thiamine HCl (Thiamine) 100 mg PO DAILY [facility] Last Admin: 09/04/18 08:32 Dose: 100 mg Throat Lozenges (Cepastat Lozenges) 1 armando PO Q2H PRN PRN Reason: Sore Throat
--- NOTE | 2018-09-04 10:58 | PRG ---
DATE OF SERVICE: 09/04/2018 SUBJECTIVE: A 43-year-old gentleman being seen for end-stage renal disease. The patient remains confused. OBJECTIVE: CONSTITUTIONAL: The patient is resting. VITAL SIGNS: Afebrile, pulse 72, breathing 16, and blood pressure 84/55. GENERAL APPEARANCE AND MENTAL STATUS: Fair. HEAD/NECK: Normocephalic. Atraumatic. EYES: EOMI. No deformity. EARS: Clear. No ulcers. NOSE: Intact. No lesions. MOUTH: Clear. No discharge. THROAT: Clear. No exudate. LUNGS: Clear. No crackles. CARDIAC: S1, S2. No rub. ABDOMEN: Benign. Bowel sounds positive. GENITALIA/RECTUM: Mays absent. BACK/EXTREMITIES: Edema 4+. NEUROLOGICAL: Alert and motor intact. SKIN: Showed jaundice. LYMPHATICS: LABORATORY DATA: Hemoglobin 11.5. Sodium 147, creatinine 7.69. ASSESSMENT AND PLAN: 1. End-stage renal disease due to liver failure. Unable to do dialysis due to low blood pressure. I would recommend the patient be transferred to a facility where continuous venovenous dialysis can be performed. I have also spoken to the director of casework services and the primary team to arrange that. 2. Anemia, stable. 3. Medication based on GFR appropriate. 4. Hypernatremia. I would recommend increasing free water. Job ID: [id number]
[2018-09-04] MEDS: Midodrine HCl 5 MG TAB PO SCH ×2 (13:08→15:49)
[2018-09-04] MEDS: cefTRIAXone\\ROCEPHIN 2 GM in Sodium Chloride 0.9% 100 ML IVPB SCH (13:43)
[2018-09-04 15:20] VITALS: TEMP 98
[2018-09-04] MEDS: Multivit, Therapeutic 1 TAB PO SCH (15:35)
--- NOTE | 2018-09-04 16:25 | PRG ---
DATE OF SERVICE: 09/04/2018 SUBJECTIVE: Mr. Deleon's nurse notes that he has been awake today, but very confused. His is at the bedside. OBJECTIVE: VITAL SIGNS: Heart rate is 73. He is afebrile with a temperature 98.2. He had no further seizure activity that was suspected yesterday. Intake and output, 2 L of fluid. He received albumin yesterday. He is eating a little bit. HEENT: He is grossly icteric. LUNGS: Clear. GENERAL: He is jaundiced. Mild asterixis. He is alert and oriented to person only. EXTREMITIES: Reveal trace to moderate edema. ABDOMEN: Protuberant with shifting dullness and fluid wave. ASSESSMENT: 1. Acute renal failure, likely hepatorenal. Presently, he is not able to tolerate hemodialysis. They are considering transferring to him to a facility where [facility] is available. 2. Liver failure. This is related to alcoholic hepatitis, severe with extensive evaluation including liver biopsy, ruling out autoimmune, metabolic viral and malignant causes. Unfortunately, the centers that are available for liver transplant insured with Medicaid, have strict rules on 6 to 3 months of sobriety before being using considered and he was refused transfer to this facility on those grounds. Attempts were made early on his course of transfer for higher level of care, which were denied, although, I do not think they would manage his hepatorenal syndrome. Spontaneous bacterial peritonitis and liver disease would have been different anywhere else short of option to transplant if that were available elsewhere. Now, unfortunately he is having further decompensation, hypertension, inability to tolerate dialysis and worsening encephalopathy with the ammonia this morning being unable to be secondary to be exceeding the abilities of the lab. INR remains at 1.5. RECOMMENDATIONS: 1. He should be re-tapped to see if his spontaneous bacterial peritonitis is resolved. He is going to stay here. His electrolytes should be monitored daily as this could be a cause for encephalopathy. 2. Continue with lactulose and Xifaxan. If he is to remain full code, he needs to stay off his narcotic pain medications and any kind of sedatives as this will exacerbate his encephalopathy. 3. At this point, I think with his worsening liver function. I think encephalopathy continues to progress. Care will really be futile at that point in time and should move more to a palliative care setting. I talked with the patient's about this. She is intent on having him transfer to another facility on the [facility] to see if there is something else they can do for his liver. I have explained to him that this is very unlikely. We will continue to follow along with you. Job ID: [id number]
--- NOTE | 2018-09-04 23:09 | CON ---
DATE OF CONSULTATION: 09/04/2018 TYPE OF CONSULTATION: Neurologic Consultation. CONSULTING PHYSICIAN: Hospitalist Service. IMPRESSION: 1. New onset seizure. 2. Hepatorenal syndrome. PLAN: Continue Keppra 500 mg twice a day. HISTORY OF PRESENT ILLNESS: Mr. Deleon is a 43-year-old man with a history of heavy alcohol use. Around July, he started showing signs of jaundice. He was brought to the hospital for evaluation. He subsequently found to go into renal failure with a jaundice. Condition is continued and despite efforts with lactulose, they were trying to dialyze him and he became a bit hypotensive. He had what appeared to be a generalized seizure. He has not had any further seizure activity since being started on Keppra. He has no past history of seizures. His CT scan of the brain without contrast was unremarkable. His is considering transferring him to [facility] for some sort of continuous dialysis. PAST MEDICAL HISTORY: Otherwise, negative. FAMILY HISTORY: Noncontributory. MEDICATIONS: None. SOCIAL HISTORY: Positive for tobacco and heavy alcohol use. ALLERGIES: NONE REPORTED. REVIEW OF SYSTEMS: Not obtainable due to his encephalopathic state. PHYSICAL EXAMINATION: VITAL SIGNS: Blood pressure 110/77, pulse 71, respirations 18, saturations 92%. HEENT: Pupils are equal. Conjunctivae are icteric. Oropharynx clear. NECK: Supple. EXTREMITIES: Bit edematous. NEUROLOGIC: He is lying quietly for the most part, every now and then he would mumble some words that were incoherent. His face appeared to be symmetric. Tone appeared to be symmetric. No abnormal movements were seen. Gait is not testable. Sensation was grossly intact. SUMMARY: A 43-year-old man with a seizure, probably provoked by his metabolic state and possibly hypotension. We will continue the Keppra given the overall picture and feel free to call if he has any further problems. Job ID: [id number]
--- NOTE | 2018-09-05 07:59 | DIS ---
DATE OF ADMISSION: 07/28/2018 DATE OF DISCHARGE: 09/04/2018 PRIMARY CARE PHYSICIAN: [facility] call admission. PRIMARY DISCHARGE DIAGNOSES: 1. Acute alcoholic hepatitis with ascites. 2. Spontaneous bacterial peritonitis. 3. Acute kidney failure with hepatorenal syndrome, hepatic encephalopathy, sepsis with acute organ dysfunction, alcohol withdrawal syndrome, leukemoid reaction, coagulopathy, abnormal LFT, severe jaundice secondary to end-stage liver disease, macrocytic anemia, thrombocytopenia due to alcoholic hepatitis, and seizure. SECONDARY DISCHARGE DIAGNOSIS: Alcohol abuse. PRIMARY PROCEDURE/OPERATION: Maintenance hemodialysis. Hemodialysis catheter placement. RADIOLOGICAL INVESTIGATION: Chest x-ray, abdomen x-ray, abdominal ultrasound, HIDA scan, abdomen and pelvis CT scan, CT brain, paracentesis under imaging. SIGNIFICANT LABORATORY DATA: WBC 25.9, hemoglobin 11.5, platelet 83, MCV 105. INR 1.5. Creatinine 7.69, bilirubin 39.9. AST 116, alkaline phosphatase 464, ammonia 67, albumin 3.3. Alpha-fetoprotein level negative. CA-19-9, negative. Ceruloplasmin negative. Alpha antitrypsin, negative. Urinalysis unremarkable, ascitic fluid consistent with ascites. AIMEE and autoimmune markers negative. TB QuantiFERON negative. Hepatitis negative. DISCHARGE MEDICATION: The patient left hospital against medical advice. DISCHARGE PLAN: Posthospital, the patient will follow up with primary care physician. HOSPITAL COURSE: A 43-year-old male, who has prolonged hospital course. He was admitted on July 29, [address] Arana, please see his H and P for further details. On admission, he was having acute alcoholic hepatitis. His WBC count initially 10.6, but subsequently gradually gotten worse to the point of WBC count 51.1 and by the time of discharge, it was 25.9. His elevated WBC count was multifactorial including SBP as well as leukemoid reaction. He had acute alcoholic hepatitis while in hospital and he was meeting complete clinical picture of alcoholic hepatitis. He also developed acute kidney failure and his renal function improved to the point he required dialysis. His renal failure was related with hepatorenal syndrome. Nephrology was following as well as Gastroenterology was following for acute alcoholic hepatitis. He was treated optimally with antibiotics, octreotide drip, and midodrine. The patient also developed acute hepatic encephalopathy, which was treated with lactulose and rifaximin. He also had initially alcohol withdrawal syndrome, which was resolved with symptomatic treatment. During this admission, the patient's condition did not improve, and we tried our best to transfer him to different-different hospital, where liver transplant is available and all facility declined him based on his abstinence timing from alcohol. The patient developed vancomycin-induced drug rash while in the hospital. By the time of discharge, the patient's condition was not stabilized. He developed seizure, required ICU transfer. He was not tolerating dialysis because of his low blood pressure and critical illness. He was needing continuous renal replacement therapy and by the time of discharge, we decided to transfer him to different hospital for that purpose, but family decided to leave against medical advice because they were interested in getting liver transplant and other facility was not accepting, that is why, made decision that she will take to different hospital from here and she opted option off against medical advice from our hospital. By the time of discharge, the patient's condition was still critically ill. He was not completely coherent. made decision, family made decision and that is why he left against medical advice from hospital and seems like plan from is to take him to different hospital from here. The patient is seen and examined. Please see my progress note from that day. Job ID: [id number]
== END 2018-09-04 20:40 | disposition left against medical advice (07) | DRG 420 ==
LOC: ERS 22:48 → 2SW 23:23 → OBSVTOIN 23:23 → 2NO 07-29 15:40 → T4-A 08-01 15:44 → 2NO 08-02 06:19 → T4-A 08-06 16:53 → CCU 09-03 09:09
PROVIDERS: ADMIT Internal Medicine; ATTEND Internal Medicine
PROC: 0W9G3ZX Drainage of Peritoneal Cavity, Percutaneous Approach, Diagnostic (ICD-10-PCS; 2018-08-08)
PROC: 0W9G3ZZ Drainage of Peritoneal Cavity, Percutaneous Approach (ICD-10-PCS; 2018-08-10)
PROC: 0W9G3ZZ Drainage of Peritoneal Cavity, Percutaneous Approach (ICD-10-PCS; 2018-08-12)
PROC: 0FB14ZX Excision of Right Lobe Liver, Percutaneous Endoscopic Approach, Diagnostic (ICD-10-PCS; 2018-08-14)
PROC: 0W9G3ZX Drainage of Peritoneal Cavity, Percutaneous Approach, Diagnostic (ICD-10-PCS; 2018-08-14)
PROC: 05PY33Z Removal of Infusion Device from Upper Vein, Percutaneous Approach (ICD-10-PCS; 2018-08-18)
PROC: 02HV33Z Insertion of Infusion Device into Superior Vena Cava, Percutaneous Approach (ICD-10-PCS; 2018-08-18)
PROC: B5181ZA Fluoroscopy of Superior Vena Cava using Low Osmolar Contrast, Guidance (ICD-10-PCS; 2018-08-18)
PROC: 0W9G3ZX Drainage of Peritoneal Cavity, Percutaneous Approach, Diagnostic (ICD-10-PCS; 2018-08-19)
PROC: 0JH63XZ Insertion of Tunneled Vascular Access Device into Chest Subcutaneous Tissue and Fascia, Percutaneous Approach (ICD-10-PCS; principal; 2018-08-21)
PROC: 02HV33Z Insertion of Infusion Device into Superior Vena Cava, Percutaneous Approach (ICD-10-PCS; 2018-08-21)
PROC: B548ZZA Ultrasonography of Superior Vena Cava, Guidance (ICD-10-PCS; 2018-08-21)
PROC: 5A1D70Z Performance of Urinary Filtration, Intermittent, Less than 6 Hours Per Day (ICD-10-PCS; 2018-08-21)
PROC: 5A1D70Z Performance of Urinary Filtration, Intermittent, Less than 6 Hours Per Day (ICD-10-PCS; 2018-08-22)
PROC: 0W9G3ZX Drainage of Peritoneal Cavity, Percutaneous Approach, Diagnostic (ICD-10-PCS; 2018-08-24)
PROC: 5A1D70Z Performance of Urinary Filtration, Intermittent, Less than 6 Hours Per Day (ICD-10-PCS; 2018-08-25)
PROC: 5A1D70Z Performance of Urinary Filtration, Intermittent, Less than 6 Hours Per Day (ICD-10-PCS; 2018-08-26)
PROC: 5A1D70Z Performance of Urinary Filtration, Intermittent, Less than 6 Hours Per Day (ICD-10-PCS; 2018-08-27)
PROC: 5A1D70Z Performance of Urinary Filtration, Intermittent, Less than 6 Hours Per Day (ICD-10-PCS; 2018-08-29)
PROC: 5A1D70Z Performance of Urinary Filtration, Intermittent, Less than 6 Hours Per Day (ICD-10-PCS; 2018-09-01)
PROC: 5A1D70Z Performance of Urinary Filtration, Intermittent, Less than 6 Hours Per Day (ICD-10-PCS; 2018-09-03)
DX: K70.40 Alcoholic hepatic failure without coma (principal); K65.2 Spontaneous bacterial peritonitis; K76.7 Hepatorenal syndrome; A41.9 Sepsis, unspecified organism; N17.9 Acute kidney failure, unspecified; F10.239 Alcohol dependence with withdrawal, unspecified; N18.4 Chronic kidney disease, stage 4 (severe); L03.311 Cellulitis of abdominal wall; K70.11 Alcoholic hepatitis with ascites; K76.0 Fatty (change of) liver, not elsewhere classified; R16.1 Splenomegaly, not elsewhere classified; F17.210 Nicotine dependence, cigarettes, uncomplicated; E87.6 Hypokalemia; E83.42 Hypomagnesemia; K70.31 Alcoholic cirrhosis of liver with ascites; D72.829 Elevated white blood cell count, unspecified; D72.823 Leukemoid reaction; D53.9 Nutritional anemia, unspecified; G40.309 Generalized idiopathic epilepsy and epileptic syndromes, not intractable, without status epilepticus; Z80.0 Family history of malignant neoplasm of digestive organs
CPT/HCPCS: 36415; 36416; 36569; 49083; 70450; 71045; 74019; 74177; 76705; 78227; 80048; 80053; 80074; 80076; 80307; 81001; 81003; 81015; 82042; 82103; 82104; 82105; 82140; 82248; 82390; 82728; 83516; 83540; 83550; 83605; 83615; 83690; 83735; 84100; 84484; 84550; 85007; 85014; 85018; 85025; 85027; 85060; 85610; 85730; 86038; 86225; 86301; 86480; 86580; 86704; 86706; 86803; 87040; 87070; 87086; 87205; 87340; 88112; 88305; 88307; 88313; 88325; 89051; 90935; 93005; 93010; 93970; 96365; 96375; A9537; C1751; C1752; C1769; G0257; G0365; J0131; J0670; J0692; J0696; J1644; J1650; J1885; J1953; J1956; J2001; J2060; J2270; J2354; J2405; J2543; J2704; J3010; J3370; J3411; J3430; J3480; J7042; J7050; J7070; P9047; Q9967